=== PATIENT | female | born 1945 | race Caucasian/White ===

== ENCOUNTER 2016-05-24 13:23 | Inpatient (IN) ==
--- NOTE | 2016-05-24 13:44 | Emergency Department Note ---
Disposition Clinical Impression: Left leg cellulitis Sepsis Qualifiers: Sepsis type: sepsis due to unspecified organism Qualified Code(s): A41.9 - Sepsis, unspecified organism Disposition: Admitted As Inpatient Condition: Fair Time of Disposition: 15:18 General Adult HPI - General Chief complaint: ED Extremity Injury, Lower Stated complaint: L foot pain Time Seen by Provider: 05/24/16 13:31 Source: EMS Limitations: no limitations Nursing Notes Reviewed: Yes Vital Signs Reviewed: Yes - History of Present Illness HPI Narrative: 70-year-old female with multiple comorbidities presents to the emergency department with multiple complaints. Patient has a history of congestive heart failure, diabetes, hypertension and chronic lymphedema who presents primarily for increased swelling and pain to left lower extremity. Patient states she noticed the increased swelling yesterday. Patient states that she tried to get in contact with her PCP who was supposed to increase her Lasix however that has not happened. Patient denies any fevers but states she does have chills. She also reports intermittent chest pain and shortness of breath as well as orthopnea. Patient states that she has not ambulated in over 15 years and is chronically bedridden. She is not on home oxygen. Exam is remarkable for a morbidly obese female resting in bed in no acute distress. Heart is tachycardic but regular. Lungs are diminished bilaterally. Abdomen is obese and nontender. The left lower extremity is markedly more swollen than the right lower extremity. There is soft tissue thickening and erythema noted to the left leg. It is slightly more warm than the right lower extremity which shows no signs of erythema or soft tissue cellulitis. No other findings noted on exam. Labs, imaging ordered. Pt Subjective Complaint: Left lower extremity edema Onset (ago): day(s) (1) Location: left, lower extremity Radiation: non-radiation Quality: aching Consistency: constant Improves with: nothing Worsens with: nothing Associated symptoms: Reports: chest pain, fever/chills, nausea/vomiting, shortness of breath, weakness Treatments Prior to Arrival: none - Related Data Previous Rx's Medication Instructions Recorded Aspirin 81 mg PO DAILY 30 Days 04/03/16 Atorvastatin [Lipitor] 40 mg PO HS 30 Days 04/03/16 Cyanocobalamin (B-12) [Vitamin B12] 1,000 mcg IM QMONTH 30 Days 04/03/16 Diclofenac Potassium 50 mg PO TID 30 Days 04/03/16 Duloxetine [Cymbalta] 30 mg PO DAILY 30 Days 04/03/16 FluocinoNIDE 0.05% CRM [Lidex] 1 appl TP BID 30 Days 04/03/16 Fluticasone Propionate Nasal 50 mcg NS DAILY 30 Days 04/03/16 [Flonase] Furosemide [Lasix] 60 mg PO BID 30 Days 04/03/16 Gabapentin [Neurontin] 300 mg PO BID 30 Days 04/03/16 Guaifenesin [Mucinex] 600 mg PO Q12H PRN 30 Days 04/03/16 Insulin ASPART [NovoLOG] 2 - 14 unit SQ ACHS 30 Days 04/03/16 Ipratropium/Albuterol Sulfate 1 puff IH Q6H PRN 30 Days 04/03/16 [Combivent Respimat Inhal [place]] Ketotifen Fumarate [Eye Itch 1 drop BOTH EYES Q12H PRN 30 Days 04/03/16 Relief] L. Acidophilus/Pectin, [place] 1 each PO DAILY 30 Days 04/03/16 [Acidophilus Probiotic Capsule] Loperamide [Imodium] 4 mg PO DAILY PRN 30 Days 04/03/16 Loratadine [Claritin] 10 mg PO DAILY 30 Days 04/03/16 Menthol [Cough Drops] 9.1 mg PO Q2H PRN 14 Days 04/03/16 Metformin [Glucophage] 500 mg PO BIDWM 30 Days 04/03/16 Methyl Salicylate/Menth/Camph 1 each TP Q12H PRN 30 Days MDD 04/03/16 [Salonpas Patch] right foot Nystatin POWDER [Nystop] 1 appl TP BID 30 Days 04/03/16 Oxybutynin Chloride [Ditropan Xl] 10 mg PO HS 30 Days 04/03/16 Oxycodone HCl/Acetaminophen 1 each PO Q4H PRN #60 tablet 04/03/16 [Percocet 5-325 mg Tablet] Polyvinyl Alcohol [Artificial 1 drop BOTH EYES BID 30 Days 04/03/16 Tears] Potassium Chloride [K-Tab ER] 20 meq PO DAILY 30 Days 04/03/16 Promethazine [Phenergan] 25 mg PO Q6H PRN 30 Days 04/03/16 Ranitidine HCl [Acid External Grinder] 150 mg PO DAILY 30 Days 04/03/16 Scopolamine Patch [Transderm-Scop] 1.5 mg TD Q72H 30 Days 04/03/16 Sennosides/Docusate Sodium [Senna 2 each PO BID PRN 30 Days 04/03/16 Plus] Insulin Glargine,Hum.rec.anlog 20 unit SQ HS 30 Days 04/04/16 [Lantus Solostar] Allergies Allergy/AdvReac Type Severity Reaction Status Date / Time gentamicin AdvReac See Verified 03/21/16 17:28 Comments All systems ED: reviewed and negative except as stated. Constitutional: Reports: chills. Denies: fever Cardiovascular: Reports: chest pain, orthopnea, edema. Denies: palpitations Respiratory: Reports: dyspnea. Denies: cough, wheezes Gastrointestinal: Reports: nausea. Denies: abdominal pain, vomiting Genitourinary: Denies: urgency, dysuria Musculoskeletal: Denies: back pain, neck pain Integumentary: Denies: rash, abrasion Neurological: Denies: headache, weakness Past Medical History - Past Medical History Medical history: Reports: arthritis, asthma, CHF, COPD, diabetes, GERD, GI bleed , kidney stones, migraine, other Surgical history: Reports: appendectomy, hysterectomy, orthopedic, other, arthroscopy Psychiatric history: Reports: anxiety, depression - Social History Smoking Status: Former smoker Smokeless Tobacco Status: No Alcohol use: Reports: none Drug use: Reports: none Physical Exam - General Limitations: no limitations General appearance: alert, in no apparent distress - Head Head exam: atraumatic, normocephalic, normal inspection - Chest Chest inspection: Present: normal inspection, symmetric chest wall rise - Respiratory Respiratory exam: Present: normal lung sounds bilaterally - Cardiovascular Cardiovascular exam: Present: normal rhythm, tachycardia, normal heart sounds - Abdominal Exam Abdominal exam: Present: soft, Non-Tender. Absent: tenderness, distention, guarding, rebound, rigidity - Expanded Lower Extremity Exam Lower leg exam: Present: tenderness, swelling, erythema - Neurological Exam Neurological exam: Present: alert, oriented X3 - Skin Skin exam: Present: warm, dry, intact, normal color Course - Reevaluation(s) Reevaluation #1: Patient does have an elevated white blood cell count of 20,000 and was markedly tachycardic on arrival. That in conjunction with the patient's left lower vazquez cellulitis will call to patient to meet sepsis criteria. Lactate, blood cultures and antibiotics ordered. Given the patient's history of congestive heart failure we will proceed with a more controlled IV fluid resuscitation as to not exacerbate the patient's CHF. Patient will be admitted for further evaluation. Time: 15:17 Reevaluation #2: Discussed findings with hospitalist service. Patient accepted for further evaluation. Cultures have been obtained. Antibiotics are being infused. Patient remains tachycardic. Patient is stable at time of disposition. Time: 17:29 Vital Signs Temperature 98.1 F 05/24/16 13:26 Pulse Rate 113 05/24/16 13:26 Respiratory Rate 14 05/24/16 13:26 Blood Pressure 132/72 05/24/16 13:26 O2 Sat by Pulse Oximetry 93 L 05/24/16 13:26 Temperature 100.3 F H 05/24/16 20:51 Pulse Rate 134 05/24/16 19:50 Respiratory Rate 20 05/24/16 19:50 Blood Pressure 134/72 05/24/16 19:50 O2 Sat by Pulse Oximetry 95 05/24/16 19:50 Oxygen Delivery Oxygen Delivery Room Air Procedures - Ultrasound-Other Narrative: Bedside ultrasound performed. Images were obtained and interpreted by myself. Ultrasound soft tissue of left lower extremity shows diffuse cobblestoning consistent with cellulitis. There are no focal areas of fluid collection that would be considered abscess formation. Patient tolerated procedure well. Medical Decision Making - Medical Records Medical records reviewed: Yes I reviewed the patient's medical records. - Lab Data Lab results reviewed: Yes I reviewed the patient's lab results. Result diagrams: 05/24/16 14:04 05/24/16 14:04 Lab Results 05/24/16 05/24/16 05/24/16 Range/Units 14:04 14:04 14:04 WBC 20.3 H (4.3-11.1) K/mcL RBC 4.19 (3.82-4.97) M/mcL Hgb 11.4 L (11.5-15.4) g/dL Hct 36.0 (35.3-44.9) % MCV 85.9 (83.0-100.0) fL MCH 27.2 L (28.0-33.3) pg MCHC 31.7 (31.6-35.5) g/dL RDW 17.1 H (11.5-14.5) % Plt Count 290 (140-400) K/mcL MPV 9.5 (9.4-12.4) fL Immature Gran % 1.1 (0-4) % Seg Neutrophils % 93.5 % Lymphocytes % 3.6 % Monocytes % 1.4 % Eosinophils % 0.1 % Basophils % 0.3 % Neutrophils # 19.0 H (1.6-8.9) K/mcL Lymphocytes # 0.7 (0.6-4.6) K/mcL Monocytes # 0.3 (0.0-1.3) K/mcL Eosinophils # 0.0 (0.0-0.6) K/mcL Basophils # 0.1 (0.0-0.2) K/mcL Reactive Lymphocytes Present A (Not Present) Platelet Estimate Normal (Normal) PT (9.4-12.1) Seconds INR APTT (26.0-36.0) Seconds ABG pH (7.32-7.45) pH Units ABG pCO2 (35-45) mmHg ABG pO2 (85-104) mmHg ABG HCO3 (21-27) mEQ/L ABG Total CO2 (20-26) mEq/L ABG O2 Saturation (95-98) % ABG Base Excess (-2.0 to 3.0) mEq/L Liter Flow L/MIN Blood Gas Modality Inspired O2 % Sodium 136 (136-145) mEq/L Potassium 4.2 (3.5-4.5) mEq/L Chloride 104 (98-109) mEq/L Carbon Dioxide 19 (19-29) mEq/L BUN 21 H (7-20) mg/dL Creatinine 1.13 H (0.57-1.11) mg/dL Est GFR ( Amer) 58 L (> 60) Est GFR (Non-Af Amer) 48 L (> 60) BUN/Creatinine Ratio 19 (6-26) Glucose 303 H (70-99) mg/dL Calculated Osmolality 296 (280-300) Lactic Acid (0.5-2.2) mmol/L Calcium 8.7 (8.6-10.8) mg/dL Phosphorus (2.3-4.7) mg/dL Magnesium (1.6-2.6) mg/dL Total Bilirubin (0.2-1.2) mg/dL Direct Bilirubin (0.0-0.5) mg/dL Indirect Bilirubin (0.0-1.2) mg/dL AST (5-34) Units/L ALT (0-55) Units/L Alkaline Phosphatase (38-126) Units/L Troponin I 0.01 (0-0.03) ng/mL Serum Total Protein (6.0-8.3) g/dL Albumin (3.5-5.0) g/dL Globulin (2.4-3.5) g/dL Albumin/Globulin Ratio (1.1-2.2) 05/24/16 05/24/16 05/24/16 Range/Units 15:56 16:14 16:14 WBC (4.3-11.1) K/mcL RBC (3.82-4.97) M/mcL Hgb (11.5-15.4) g/dL Hct (35.3-44.9) % MCV (83.0-100.0) fL MCH (28.0-33.3) pg MCHC (31.6-35.5) g/dL RDW (11.5-14.5) % Plt Count (140-400) K/mcL MPV (9.4-12.4) fL Immature Gran % (0-4) % Seg Neutrophils % % Lymphocytes % % Monocytes % % Eosinophils % % Basophils % % Neutrophils # (1.6-8.9) K/mcL Lymphocytes # (0.6-4.6) K/mcL Monocytes # (0.0-1.3) K/mcL Eosinophils # (0.0-0.6) K/mcL Basophils # (0.0-0.2) K/mcL Reactive Lymphocytes (Not Present) Platelet Estimate (Normal) PT 12.1 (9.4-12.1) Seconds INR 1.1 APTT 29.6 (26.0-36.0) Seconds ABG pH (7.32-7.45) pH Units ABG pCO2 (35-45) mmHg ABG pO2 (85-104) mmHg ABG HCO3 (21-27) mEQ/L ABG Total CO2 (20-26) mEq/L ABG O2 Saturation (95-98) % ABG Base Excess (-2.0 to 3.0) mEq/L Liter Flow L/MIN Blood Gas Modality Inspired O2 % Sodium (136-145) mEq/L Potassium (3.5-4.5) mEq/L Chloride (98-109) mEq/L Carbon Dioxide (19-29) mEq/L BUN (7-20) mg/dL Creatinine (0.57-1.11) mg/dL Est GFR ( Amer) (> 60) Est GFR (Non-Af Amer) (> 60) BUN/Creatinine Ratio (6-26) Glucose (70-99) mg/dL Calculated Osmolality (280-300) Lactic Acid 3.7 H (0.5-2.2) mmol/L Calcium (8.6-10.8) mg/dL Phosphorus 3.3 (2.3-4.7) mg/dL Magnesium 1.2 L (1.6-2.6) mg/dL Total Bilirubin 1.1 (0.2-1.2) mg/dL Direct Bilirubin 0.5 (0.0-0.5) mg/dL Indirect Bilirubin 0.6 (0.0-1.2) mg/dL AST 16 (5-34) Units/L ALT 16 (0-55) Units/L Alkaline Phosphatase 78 (38-126) Units/L Troponin I (0-0.03) ng/mL Serum Total Protein 6.7 (6.0-8.3) g/dL Albumin 2.8 L (3.5-5.0) g/dL Globulin 3.9 H (2.4-3.5) g/dL Albumin/Globulin Ratio 0.7 L (1.1-2.2) 05/24/16 Range/Units 16:15 WBC (4.3-11.1) K/mcL RBC (3.82-4.97) M/mcL Hgb (11.5-15.4) g/dL Hct (35.3-44.9) % MCV (83.0-100.0) fL MCH (28.0-33.3) pg MCHC (31.6-35.5) g/dL RDW (11.5-14.5) % Plt Count (140-400) K/mcL MPV (9.4-12.4) fL Immature Gran % (0-4) % Seg Neutrophils % % Lymphocytes % % Monocytes % % Eosinophils % % Basophils % % Neutrophils # (1.6-8.9) K/mcL Lymphocytes # (0.6-4.6) K/mcL Monocytes # (0.0-1.3) K/mcL Eosinophils # (0.0-0.6) K/mcL Basophils # (0.0-0.2) K/mcL Reactive Lymphocytes (Not Present) Platelet Estimate (Normal) PT (9.4-12.1) Seconds INR APTT (26.0-36.0) Seconds ABG pH 7.35 (7.32-7.45) pH Units ABG pCO2 34 L (35-45) mmHg ABG pO2 76 L (85-104) mmHg ABG HCO3 20.2 L (21-27) mEQ/L ABG Total CO2 19.8 L (20-26) mEq/L ABG O2 Saturation 94 L (95-98) % ABG Base Excess -6.0 L (-2.0 to 3.0) mEq/L Liter Flow 2 L/MIN Blood Gas Modality [place] Inspired O2 28 % Sodium (136-145) mEq/L Potassium (3.5-4.5) mEq/L Chloride (98-109) mEq/L Carbon Dioxide (19-29) mEq/L BUN (7-20) mg/dL Creatinine (0.57-1.11) mg/dL Est GFR ( Amer) (> 60) Est GFR (Non-Af Amer) (> 60) BUN/Creatinine Ratio (6-26) Glucose (70-99) mg/dL Calculated Osmolality (280-300) Lactic Acid (0.5-2.2) mmol/L Calcium (8.6-10.8) mg/dL Phosphorus (2.3-4.7) mg/dL Magnesium (1.6-2.6) mg/dL Total Bilirubin (0.2-1.2) mg/dL Direct Bilirubin (0.0-0.5) mg/dL Indirect Bilirubin (0.0-1.2) mg/dL AST (5-34) Units/L ALT (0-55) Units/L Alkaline Phosphatase (38-126) Units/L Troponin I (0-0.03) ng/mL Serum Total Protein (6.0-8.3) g/dL Albumin (3.5-5.0) g/dL Globulin (2.4-3.5) g/dL Albumin/Globulin Ratio (1.1-2.2) - Radiology Data Radiology results reviewed: Yes I reviewed the patient's radiology results. - EKG Data EKG #1 EKG attestation: Yes I reviewed and interpreted this EKG. EKG shows normal: sinus rhythm Rate: tachycardia Rhythm: NSR Conde/QRS: normal Interpretation: no acute changes Attestation Statement - Attestation Attestation: I examined this patient and my medical decision-making was reviewed with the TU[employer]/PA/Advanced Practice Nurse/Resident Physician. I agree with the documented findings, disposition and treatment plan as described except to the extent set forth below. 70-year-old female who was essentially bedridden due to chronic lymphedema presents to the ED because of painful swelling of the left lower extremity. Symptoms have been evolving for the past couple days. She denies any associated fevers, chills or rigors. No recent trauma. No complaints of dyspnea. Does complain of intermittent mild chest pain. No focal weakness. No abdominal pain. Morbidly obese female in no apparent physiologic distress. She is tachycardic. Her first care mucous membranes dry. Neck is supple. Trachea midline. Chest clear to auscultation bilaterally. Chest wall nontender. Abdomen obese soft nontender. Lower extremities with significant bilateral edema but markedly worse on the left side. Diffuse tenderness and diffuse erythema over the lower externally. Distal pulses are present. Cap refill is brisk. He is to place extremities negative for any DVTs. White blood cell count is elevated 20,000. She continued with tachycardia and was subsequently treated as sepsis. She was given sequential IV fluid boluses and started on broad-spectrum antibiotics. She is subtotally admitted for IV antibiotics, fluids and further management. The high probability of a clinically significant, sudden or life threatening deterioration of the [cardiovascular] system(s) required my full and direct attention, intervention and personal management. The aggregate critical care time was [40] minutes. This time is in addition to time spent performing reported procedures but includes the following: [x] Data Review and interpretation [x] Patient assessment and monitoring of vital signs [x] Documentation [x] Medication orders and management
[2016-05-24 14:16] LABS: Basophils # 0.1 K/mcL (0.0-0.2); Basophils % 0.3 %; Eosinophils % 0.1 %; Hemoglobin 11.4 g/dL (11.5-15.4); Immature Granulocytes % 1.1 % (0-4); Lymphocytes # 0.7 K/mcL (0.6-4.6); Lymphocytes % 3.6 %; Mean Corpuscular HGB Conc 31.7 g/dL (31.6-35.5); Mean Corpuscular Hemoglobin 27.2 pg (28.0-33.3); Mean Corpuscular Volume 85.9 fL (83.0-100.0); Mean Platelet Volume 9.5 fL (9.4-12.4); Monocytes # 0.3 K/mcL (0.0-1.3); Monocytes % 1.4 %; Platelet Count 290 K/mcL (140-400); Red Blood Count 4.19 M/mcL (3.82-4.97); Red Cell Distribution Width 17.1 % (11.5-14.5); Segmented Neutrophils % 93.5 %
[2016-05-24 14:27] LABS: Calcium 8.7 mg/dL (8.6-10.8); Potassium 4.2 mEq/L (3.5-4.5)
[2016-05-24 14:36] LABS: Platelet Estimate Normal (Normal)
[2016-05-24 14:37] LABS: Reactive Lymphocytes Present (Not Present)
[2016-05-24] MEDS ORDERED: *HR* FentaNYL (PF) 100 MCG/2 ML VIAL IV ONE (14:59)
[2016-05-24] MEDS ORDERED: Vancomycin 2,000 MG in D5% in Water 500 ML IVPB ONE (15:15)
[2016-05-24] MEDS ORDERED: 0.9 % Sodium Chloride 1,000 ML IVC ONE ×2 (15:15→15:16)
[2016-05-24 16:22] LABS: ABG PCO2 34 mmHg (35-45); ABG PH 7.35 pH Units (7.32-7.45); ABG PO2 76 mmHg (85-104)
[2016-05-24 16:23] LABS: ABG HCO3 20.2 mEQ/L (21-27); ABG Oxygen Saturation 94 % (95-98); ABG TCO2 19.8 mEq/L (20-26); Blood Gas FiO2 28 %; Blood Gas Liter Flow 2 L/MIN
[2016-05-24] MEDS ORDERED: 0.9 % Sodium Chloride 1,000 ML IV ONE ×2 (16:30→17:26)
[2016-05-24 16:42] LABS: INR 1.1; Prothrombin Time 12.1 Seconds (9.4-12.1)
[2016-05-24 16:45] LABS: Activated Partial Thrombo Time 29.6 Seconds (26.0-36.0)
[2016-05-24] MEDS: *HR* FentaNYL (PF) 100 MCG/2 ML VIAL IV ONE ×2 (16:48→16:49)
[2016-05-24 17:03] LABS: Albumin 2.8 g/dL (3.5-5.0); Albumin/Globulin Ratio 0.7 (1.1-2.2); Bilirubin,Direct 0.5 mg/dL (0.0-0.5); Bilirubin,Indirect 0.6 mg/dL (0.0-1.2); Bilirubin,Total 1.1 mg/dL (0.2-1.2); Globulin 3.9 g/dL (2.4-3.5); Magnesium 1.2 mg/dL (1.6-2.6); Phosphorous 3.3 mg/dL (2.3-4.7); Total Protein 6.7 g/dL (6.0-8.3)
[2016-05-24] MEDS ORDERED: KETOTIFEN OP PRN (20:05)
[2016-05-24] MEDS ORDERED: MENTHOL TP PRN (20:05)
[2016-05-24] MEDS ORDERED: CAMPHOR TP PRN (20:05)
[2016-05-24] MEDS ORDERED: METHYL SALICYLATE TP PRN (20:05)
[2016-05-24] MEDS ORDERED: Ondansetron 4 MG/2 ML VIAL IVP PRN (20:08)
[2016-05-24] MEDS ORDERED: Naloxone 0.4 MG/ML INJ IVP PRN (20:08)
[2016-05-24] MEDS ORDERED: *HR* Morphine 2 MG/ML SYRINGE IVP PRN (20:08)
[2016-05-24] MEDS ORDERED: D5% in Water 1,000 ML IV PRN (20:13)
[2016-05-24] MEDS ORDERED: *HR* Dextrose 50 % in Water (Syg) 50 ML SYRINGE IVP PRN (20:13)
[2016-05-24] MEDS ORDERED: Dextrose Gel 15 GM PO PRN ×2 (20:13)
[2016-05-24] MEDS ORDERED: Ipratropium/Albuterol Neb 3 ML IH PRN (20:14)
--- NOTE | 2016-05-24 20:23 | Internal Med History&Physical ---
Date of Encounter: 05/24/16 Time of Encounter: 19:45 Internal Medicine - H&P: HPI Chief complaint: Bilateral leg pain, left leg swelling and redness, chills, rigors x 2-3 day Admitted From: Emergency Dept Plans for Post Hospital Care: Home History of present illness: Ms. Zamora is a 70 year old female with medical history significant for super morbid obesity, DM2, diastolic heart failure, secondary lymphedema, chronic venous insufficiency with stasis dermatitis, she presents with 1 days of severe intermittent bilateral foot and lower extremity pain, blistering and swelling of her left lower extremity, subjective fevers of 2 days duration. She also describes shortness of breath, intermittent chest pain (retrosternal and left sided) and orthopnea (chronic). She reports nausea but no vomiting, as well as lethargy. She thinks she may have UTI, because she felt the same way the last time she had UTI. She is incontinence of urine. No urgency or dysuria. No flank pain. No skin breaches, besides the new blistering lesions in her left lower extremity. She has not been ambulatory for over 15 years due to her weight. She does not use home oxygen, she has been informed she may have obstructive sleep apnea, but has never used CPAP because she is claustrophobic. No other systemic or constitutional symptoms. She is FULL CODE as per discussion, she nominates her daughter, Luci Ortega ([phone]) is her NOK/POA. In the ED, she was mildly febrile, heart rate was very fast (130s). Medical history: Reports: arthritis, asthma, CHF, COPD, diabetes, GERD, GI bleed , kidney stones, migraine, large umbilical hernia Surgical history: Reports: appendectomy, hysterectomy, orthopedic, other, arthroscopy Psychiatric history: Reports: anxiety, depression Smoking Status: Former smoker Smokeless Tobacco Status: No Alcohol use: Reports: none Drug use: Reports: none Family history: father, mother, brothers and sister, son: emphysema (smoking) and heart disease. Daughter: kidney disease ROS. A 10-point ROS was performed, positives and relevant negatives are detailed , system-symptoms not mentioned are assumed negative unless otherwise stated. Vital Signs Temperature 98.1 F 05/24/16 13:26 Pulse Rate 113 05/24/16 13:26 Respiratory Rate 14 05/24/16 13:26 Blood Pressure 132/72 05/24/16 13:26 O2 Sat by Pulse Oximetry 93 L 05/24/16 13:26 Temperature 98.1 F 05/24/16 13:26 Pulse Rate 123 05/24/16 16:59 Respiratory Rate 12 05/24/16 16:59 Blood Pressure 141/120 05/24/16 16:59 O2 Sat by Pulse Oximetry 96 05/24/16 16:59 O/E: In mild respiratory distress (SOB, mild tachypnea), not pale, anicteric, febrile+,acyanotic, morbidly obese. HEENT: Trachea is central, no cervical or jugular lymphadenopathy Chest: CTAB. diminished in the bases Heart:Tachycardia (132), rr, hs1/2 Abdomen: Supraumbilical hernia, large, wide neck, soft, , non-tender,no masses. 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 Psychaitry: Mood is good, affect is congruent, speech is normal, thought process is logical and goal-directed. Extremities: non-pitting pedal edema (bilateral lymphedema), swelling and mild blistering of left lower extremity, mild differential warmth, difficult to palpate pulse through lymphedema, but good capillary refill, no calf tenderness SKIN: No active skin lesion Lab Results 05/24/16 05/24/16 05/24/16 Range/Units 14:04 14:04 14:04 WBC 20.3 H (4.3-11.1) K/mcL RBC 4.19 (3.82-4.97) M/mcL Hgb 11.4 L (11.5-15.4) g/dL Hct 36.0 (35.3-44.9) % MCV 85.9 (83.0-100.0) fL MCH 27.2 L (28.0-33.3) pg MCHC 31.7 (31.6-35.5) g/dL RDW 17.1 H (11.5-14.5) % Plt Count 290 (140-400) K/mcL MPV 9.5 (9.4-12.4) fL Immature Gran % 1.1 (0-4) % Seg Neutrophils % 93.5 % Lymphocytes % 3.6 % Monocytes % 1.4 % Eosinophils % 0.1 % Basophils % 0.3 % Neutrophils # 19.0 H (1.6-8.9) K/mcL Lymphocytes # 0.7 (0.6-4.6) K/mcL Monocytes # 0.3 (0.0-1.3) K/mcL Eosinophils # 0.0 (0.0-0.6) K/mcL Basophils # 0.1 (0.0-0.2) K/mcL Reactive Lymphocytes Present A (Not Present) Platelet Estimate Normal (Normal) PT (9.4-12.1) Seconds INR APTT (26.0-36.0) Seconds ABG pH (7.32-7.45) pH Units ABG pCO2 (35-45) mmHg ABG pO2 (85-104) mmHg ABG HCO3 (21-27) mEQ/L ABG Total CO2 (20-26) mEq/L ABG O2 Saturation (95-98) % ABG Base Excess (-2.0 to 3.0) mEq/L Liter Flow L/MIN Blood Gas Modality Inspired O2 % Sodium 136 (136-145) mEq/L Potassium 4.2 (3.5-4.5) mEq/L Chloride 104 (98-109) mEq/L Carbon Dioxide 19 (19-29) mEq/L BUN 21 H (7-20) mg/dL Creatinine 1.13 H (0.57-1.11) mg/dL Est GFR ( Amer) 58 L (> 60) Est GFR (Non-Af Amer) 48 L (> 60) BUN/Creatinine Ratio 19 (6-26) Glucose 303 H (70-99) mg/dL Calculated Osmolality 296 (280-300) Lactic Acid (0.5-2.2) mmol/L Calcium 8.7 (8.6-10.8) mg/dL Phosphorus (2.3-4.7) mg/dL Magnesium (1.6-2.6) mg/dL Total Bilirubin (0.2-1.2) mg/dL Direct Bilirubin (0.0-0.5) mg/dL Indirect Bilirubin (0.0-1.2) mg/dL AST (5-34) Units/L ALT (0-55) Units/L Alkaline Phosphatase (38-126) Units/L Troponin I 0.01 (0-0.03) ng/mL Serum Total Protein (6.0-8.3) g/dL Albumin (3.5-5.0) g/dL Globulin (2.4-3.5) g/dL Albumin/Globulin Ratio (1.1-2.2) 05/24/16 05/24/16 05/24/16 Range/Units 15:56 16:14 16:14 WBC (4.3-11.1) K/mcL RBC (3.82-4.97) M/mcL Hgb (11.5-15.4) g/dL Hct (35.3-44.9) % MCV (83.0-100.0) fL MCH (28.0-33.3) pg MCHC (31.6-35.5) g/dL RDW (11.5-14.5) % Plt Count (140-400) K/mcL MPV (9.4-12.4) fL Immature Gran % (0-4) % Seg Neutrophils % % Lymphocytes % % Monocytes % % Eosinophils % % Basophils % % Neutrophils # (1.6-8.9) K/mcL Lymphocytes # (0.6-4.6) K/mcL Monocytes # (0.0-1.3) K/mcL Eosinophils # (0.0-0.6) K/mcL Basophils # (0.0-0.2) K/mcL Reactive Lymphocytes (Not Present) Platelet Estimate (Normal) PT 12.1 (9.4-12.1) Seconds INR 1.1 APTT 29.6 (26.0-36.0) Seconds ABG pH (7.32-7.45) pH Units ABG pCO2 (35-45) mmHg ABG pO2 (85-104) mmHg ABG HCO3 (21-27) mEQ/L ABG Total CO2 (20-26) mEq/L ABG O2 Saturation (95-98) % ABG Base Excess (-2.0 to 3.0) mEq/L Liter Flow L/MIN Blood Gas Modality Inspired O2 % Sodium (136-145) mEq/L Potassium (3.5-4.5) mEq/L Chloride (98-109) mEq/L Carbon Dioxide (19-29) mEq/L BUN (7-20) mg/dL Creatinine (0.57-1.11) mg/dL Est GFR ( Amer) (> 60) Est GFR (Non-Af Amer) (> 60) BUN/Creatinine Ratio (6-26) Glucose (70-99) mg/dL Calculated Osmolality (280-300) Lactic Acid 3.7 H (0.5-2.2) mmol/L Calcium (8.6-10.8) mg/dL Phosphorus 3.3 (2.3-4.7) mg/dL Magnesium 1.2 L (1.6-2.6) mg/dL Total Bilirubin 1.1 (0.2-1.2) mg/dL Direct Bilirubin 0.5 (0.0-0.5) mg/dL Indirect Bilirubin 0.6 (0.0-1.2) mg/dL AST 16 (5-34) Units/L ALT 16 (0-55) Units/L Alkaline Phosphatase 78 (38-126) Units/L Troponin I (0-0.03) ng/mL Serum Total Protein 6.7 (6.0-8.3) g/dL Albumin 2.8 L (3.5-5.0) g/dL Globulin 3.9 H (2.4-3.5) g/dL Albumin/Globulin Ratio 0.7 L (1.1-2.2) 05/24/16 Range/Units 16:15 WBC (4.3-11.1) K/mcL RBC (3.82-4.97) M/mcL Hgb (11.5-15.4) g/dL Hct (35.3-44.9) % MCV (83.0-100.0) fL MCH (28.0-33.3) pg MCHC (31.6-35.5) g/dL RDW (11.5-14.5) % Plt Count (140-400) K/mcL MPV (9.4-12.4) fL Immature Gran % (0-4) % Seg Neutrophils % % Lymphocytes % % Monocytes % % Eosinophils % % Basophils % % Neutrophils # (1.6-8.9) K/mcL Lymphocytes # (0.6-4.6) K/mcL Monocytes # (0.0-1.3) K/mcL Eosinophils # (0.0-0.6) K/mcL Basophils # (0.0-0.2) K/mcL Reactive Lymphocytes (Not Present) Platelet Estimate (Normal) PT (9.4-12.1) Seconds INR APTT (26.0-36.0) Seconds ABG pH 7.35 (7.32-7.45) pH Units ABG pCO2 34 L (35-45) mmHg ABG pO2 76 L (85-104) mmHg ABG HCO3 20.2 L (21-27) mEQ/L ABG Total CO2 19.8 L (20-26) mEq/L ABG O2 Saturation 94 L (95-98) % ABG Base Excess -6.0 L (-2.0 to 3.0) mEq/L Liter Flow 2 L/MIN Blood Gas Modality [place] Inspired O2 28 % Sodium (136-145) mEq/L Potassium (3.5-4.5) mEq/L Chloride (98-109) mEq/L Carbon Dioxide (19-29) mEq/L BUN (7-20) mg/dL Creatinine (0.57-1.11) mg/dL Est GFR ( Amer) (> 60) Est GFR (Non-Af Amer) (> 60) BUN/Creatinine Ratio (6-26) Glucose (70-99) mg/dL Calculated Osmolality (280-300) Lactic Acid (0.5-2.2) mmol/L Calcium (8.6-10.8) mg/dL Phosphorus (2.3-4.7) mg/dL Magnesium (1.6-2.6) mg/dL Total Bilirubin (0.2-1.2) mg/dL Direct Bilirubin (0.0-0.5) mg/dL Indirect Bilirubin (0.0-1.2) mg/dL AST (5-34) Units/L ALT (0-55) Units/L Alkaline Phosphatase (38-126) Units/L Troponin I (0-0.03) ng/mL Serum Total Protein (6.0-8.3) g/dL Albumin (3.5-5.0) g/dL Globulin (2.4-3.5) g/dL Albumin/Globulin Ratio (1.1-2.2) CXR: Cardiomegaly without pulmonary vascular congestion or pulmonary edema EKG: Sinus tachycardia (130), normal axis, normal intervals. Recent cardiac work-up: failed, reversible ischemia in basal and mid inferior fernández on stress test, moderate disease on LHC, medical management recommended ( within the past 6 months). IMP Cellulitis/lympangitis on secondary lymphedema, suspect Streptococcocal etiology. Sepsis Probable bacteremia Hypoxia related to sepsis, on baseline COPD/asthma and obstructive sleep apnea/ hypoventilation syndrome Hypomagnesemia Chronic morbidities Secondary lymphedema Chronic venous insufficiency with stasis dermatitis Morbid obesity with EZRA/HS DM2 CAD Arthritis Diastolic CHF, stable COPD/asthma, GERD Admit IVF NS @ 125 IV Ceftriaxone, IV Clindamycin Panculture, CRP. Insert Brown Optimal pain control Oxygen by nasal cannula @ 4L/min, pulse oximetry Trend CBC and lactate. Duonebs Q4H PRN Basal and correctional insulin, hold metformin Continue medications of chronic morbidities DVT prophylaxis with Lovenox GERD/GI prophylaxis with Ranitidine I discussed my findings and assessment with the patient, her daughter and son- in-law are at bedside, they verbalized understanding and are agreeable to admission. She is high risk, septic and at higher risk of decompensation. Past Med Surg Social Fam HX - Past Medical History Medical history: arthritis, asthma, CHF, COPD, diabetes, GERD, GI bleed, kidney stones, migraine, other Psychiatric history: anxiety, depression - Past Surgical History Surgical History: appendectomy, hysterectomy, orthopedic, other, arthroscopy - Social History Smoking Status: Former smoker Smokeless Tobacco Status: No Alcohol use: none Drug use: none - Family History Mother Family Member Ethnicity: Non- Hx Family Cardiac Disorders: Yes Hx Family Respiratory Disorders: Yes Hx Family Endocrine Disorder: Yes Father Hx Family Cardiac Disorders: Yes Hx Family Respiratory Disorders: Yes Hx Family Endocrine Disorder: Yes Internal Medicine - H&P: Meds Aspirin 81 mg PO DAILY 30 Days 04/03/16 [Rx] Atorvastatin [Lipitor] 40 mg PO HS 30 Days 04/03/16 [Rx] Cyanocobalamin (B-12) [Vitamin B12] 1,000 mcg IM QMONTH 30 Days 04/03/16 [Rx] Diclofenac Potassium 50 mg PO TID 30 Days 04/03/16 [Rx] Duloxetine [Cymbalta] 30 mg PO DAILY 30 Days 04/03/16 [Rx] FluocinoNIDE 0.05% CRM [Lidex] 1 appl TP BID 30 Days 04/03/16 [Rx] Fluticasone Propionate Nasal [Flonase] 50 mcg NS DAILY 30 Days 04/03/16 [Rx] Furosemide [Lasix] 60 mg PO BID 30 Days 04/03/16 [Rx] Gabapentin [Neurontin] 300 mg PO BID 30 Days 04/03/16 [Rx] Guaifenesin [Mucinex] 600 mg PO Q12H PRN 30 Days 04/03/16 [Rx] Insulin ASPART [NovoLOG] 2 - 14 unit SQ ACHS 30 Days 04/03/16 [Rx] Ipratropium/Albuterol Sulfate [Combivent Respimat Inhal [place]] 1 puff IH Q6H PRN 30 Days 04/03/16 [Rx] Ketotifen Fumarate [Eye Itch Relief] 1 drop BOTH EYES Q12H PRN 30 Days 04/03/16 [Rx] L. Acidophilus/Pectin, [place] [Acidophilus Probiotic Capsule] 1 each PO DAILY 30 Days 04/03/16 [Rx] Loperamide [Imodium] 4 mg PO DAILY PRN 30 Days 04/03/16 [Rx] Loratadine [Claritin] 10 mg PO DAILY 30 Days 04/03/16 [Rx] Menthol [Cough Drops] 9.1 mg PO Q2H PRN 14 Days 04/03/16 [Rx] Metformin [Glucophage] 500 mg PO BIDWM 30 Days 04/03/16 [Rx] Methyl Salicylate/Menth/Camph [Salonpas Patch] 1 each TP Q12H PRN 30 Days MDD right foot 04/03/16 [Rx] Nystatin POWDER [Nystop] 1 appl TP BID 30 Days 04/03/16 [Rx] Oxybutynin Chloride [Ditropan Xl] 10 mg PO HS 30 Days 04/03/16 [Rx] Oxycodone HCl/Acetaminophen [Percocet 5-325 mg Tablet] 1 each PO Q4H PRN #60 tablet 04/03/16 [Rx] Polyvinyl Alcohol [Artificial Tears] 1 drop BOTH EYES BID 30 Days 04/03/16 [Rx] Potassium Chloride [K-Tab ER] 20 meq PO DAILY 30 Days 04/03/16 [Rx] Promethazine [Phenergan] 25 mg PO Q6H PRN 30 Days 04/03/16 [Rx] Ranitidine HCl [Acid Ui Application Developer] 150 mg PO DAILY 30 Days 04/03/16 [Rx] Scopolamine Patch [Transderm-Scop] 1.5 mg TD Q72H 30 Days 04/03/16 [Rx] Sennosides/Docusate Sodium [Senna Plus] 2 each PO BID PRN 30 Days 04/03/16 [Rx] Insulin Glargine,Hum.rec.anlog [Lantus Solostar] 20 unit SQ HS 30 Days 04/04/16 [Rx] Allergies gentamicin Adverse Reaction (Verified 03/21/16 17:28) See Comments "MY KIDNEYS SHUTDOWN, TOTAL SHUTDOWN" All Systems PM: A 10-system review of systems was performed and is negative for pertinent findings except as documented above in the HPI. - Constitutional Vitals: Temp Pulse Resp BP Pulse Ox 102 F H 134 20 134/72 95 05/24/16 19:50 05/24/16 19:50 05/24/16 19:50 05/24/16 19:50 05/24/16 19:50 Internal Med - H&P Results - Labs CBC & Chem 7: 05/24/16 14:04 05/24/16 14:04
[2016-05-24] MEDS ORDERED: Magnesium Sulfate 3 GM in D5% in Water 100 ML IVPB ONE (21:32)
[2016-05-24 21:38] LABS: Hemoglobin A1C 7.6 %
[2016-05-24] MEDS: Scopolamine Patch 1.5 MG PATCH.TD72 TD SCH (21:59)
[2016-05-24] MEDS: Gabapentin 300 MG CAPSULE PO SCH (21:59)
[2016-05-24] MEDS: 0.9 % Sodium Chloride 1,000 ML IVC SCH (22:00)
[2016-05-24] MEDS: Insulin LISPRO 300 UNITS/3 ML VIAL SQ SCH (22:02)
[2016-05-24] MEDS: Furosemide 20 MG TABLET PO SCH (22:17)
[2016-05-24] MEDS: Artificial Tears SOLN 15 ML BOTTLE BOTH EYES SCH (23:30)
[2016-05-24] MEDS: Insulin DETEMIR 100 UNIT/ML X5UNITS SQ SCH (23:30)
[2016-05-24] MEDS: Nystatin POWDER 30 GM BOTTLE TP SCH (23:30)
[2016-05-24] MEDS: FluocinoNIDE 0.05% CRM 15 GM TUBE TP SCH (23:31)
[2016-05-24] MEDS: *HR* Enoxaparin 40 MG/0.4 ML SYRINGE SQ SCH (23:43)
[2016-05-25] MEDS ORDERED: Clindamycin 900 MG/50 ML 900 MG/50 ML IV.SOLN IVPB SCH
[2016-05-25] MEDS: *HR* OxyCODONE/APAP 5/325 TABLET PO PRN ×3 (03:44→17:17)
[2016-05-25 04:12] LABS: Bilirubin,Urine Negative (Negative); Blood,Urine Large (Negative); Clarity,Urine Turbid (Clear); Color,Urine Yellow (Yellow); Glucose,Urine (UA) Normal (Normal); Ketones,Urine Negative (Negative); Leukocyte Esterase,Urine Large (Negative); Nitrite,Urine Negative (Negative); Protein,Urine 100 mg/dL (Neg-Trace); Specific Gravity,Urine 1.013 (1.010-1.025); Urobilinogen,Urine Normal (Normal)
[2016-05-25 04:14] LABS: Bacteria,Urine Many per hpf (None-Few); Hyaline Casts,Urine None Seen per lpf (None-Few); RBC,Urine 50-100 per hpf (0-3); Squamous Epithelial Cell,Urine Many per lpf (None-Few); WBC,Urine TNTC per hpf (0-3)
[2016-05-25 05:42] LABS: Hematocrit 31.6 % (35.3-44.9); Mean Corpuscular HGB Conc 31.6 g/dL (31.6-35.5); Mean Corpuscular Hemoglobin 27.2 pg (28.0-33.3); Mean Corpuscular Volume 85.9 fL (83.0-100.0); Mean Platelet Volume 9.7 fL (9.4-12.4); Platelet Count 233 K/mcL (140-400); Red Blood Count 3.68 M/mcL (3.82-4.97); Red Cell Distribution Width 17.1 % (11.5-14.5)
[2016-05-25] MEDS: *HR* Enoxaparin 40 MG/0.4 ML SYRINGE SQ SCH (05:47)
[2016-05-25 06:27] LABS: Acinetobacter baumannii by PCR Not Detected (Not Detect); Enterococcus by PCR Not Detected (Not Detect); Staphylococcus aureus by PCR Not Detected (Not Detect); Streptococcus agalactiae(B)PCR Not Detected (Not Detect); Streptococcus by PCR Not Detected (Not Detect); Streptococcus pneumoniae PCR Not Detected (Not Detect); Streptococcus pyogenes (A) PCR Not Detected (Not Detect); blaKPC Carbapenem-Resist Gene Not Detected (Not Detect)
[2016-05-25 06:28] LABS: Candida albicans by PCR Not Detected (Not Detect); Candida glabrata by PCR Not Detected (Not Detect); Candida krusei by PCR Not Detected (Not Detect); Candida parapsilosis by PCR Not Detected (Not Detect); Candida tropicalis by PCR Not Detected (Not Detect); Escherichia coli by PCR ***DETECTED*** (Not Detect); Klebsiella oxytoca by PCR Not Detected (Not Detect); Klebsiella pneumoniae by PCR Not Detected (Not Detect); Pseudomonas aeruginosa by PCR Not Detected (Not Detect); Serratia marcescens by PCR Not Detected (Not Detect)
[2016-05-25 06:50] LABS: Eosinophils # 0.2 K/mcL (0.0-0.6); Lymphocytes # 1.5 K/mcL (0.6-4.6); Monocytes # 0.8 K/mcL (0.0-1.3); Neutrophils # 14.3 K/mcL (1.6-8.9); Platelet Estimate Normal (Normal)
[2016-05-25 06:51] LABS: Reactive Lymphocytes Present (Not Present)
--- NOTE | 2016-05-25 07:22 | Venous Imaging Report ---
LE Venous Duplex Patient Name:Kirti Zamora Order Number:[id number] Procedure Date:05/24/2016 Date:1945ge:70 yrs Gender:Female Location:[facility] ED Room #: Wrapper Operator:Lisa Lee RVT Referring MD:Yessenia Kinney CNP service representative:DO Lebron Mock MD:Kali Dowell MD Primary Indications:L foot pain Secondary Indications: Impressions: Normal left lower extremity deep and superficial venous exam. Normal contralateral common femoral vein. Recommendations: After imaging the patient was admitted to the emergency room. Results to Dr Yessenia Kinney 05/24/16 @ 1440. Test completed on 05/24/2016 at 2:40:00 pm. Findings Venous Duplex Results: Right: Venous imaging of the lower extremity reveals full patency and normal vessel compressibility of the right common femoral. Doppler signals in the evaluated veins were normal. Left: Venous imaging of the lower extremity reveals full patency and normal vessel compressibility of the left distal iliac, left common femoral, left superficial femoral, left popliteal, left posterior tibial, left great saphenous and left lesser saphenous. Doppler signals in the evaluated veins were normal. Prior Study: No prior study available for comparison. Lower Extremity Venous Duplex Side Vein Compress Spontaneous Flow Augment Diameter (cm) Depth (cm) Left Distal Iliac Normal Yes Phasic Yes Left Common Femoral Normal Yes Phasic Yes Left Superficial Femoral Normal Yes Phasic Yes Left Popliteal Normal Yes Phasic Yes Left Posterior Tibial Normal Yes Phasic Yes Left Great Saphenous Normal Yes Phasic Yes Left Lesser Saphenous Normal Yes Phasic Yes Right Common Femoral Normal Yes Phasic Yes Updated by Kali Dowell MD on 05/25/2016 7:18:57 AM electronically signed on 05/25/2016 7:19:32 AM with status of Final
[2016-05-25] MEDS: Insulin LISPRO 300 UNITS/3 ML VIAL SQ SCH ×4 (08:51→23:14)
[2016-05-25] MEDS: Lactobacillus 1 EACH CAP.SPRINK PO SCH (10:01)
[2016-05-25] MEDS: Gabapentin 300 MG CAPSULE PO SCH ×2 (10:01→23:12)
[2016-05-25] MEDS: Furosemide 20 MG TABLET PO SCH ×2 (10:01→17:11)
[2016-05-25] MEDS: Aspirin 81 MG TAB.CHEW PO SCH (10:02)
[2016-05-25] MEDS: Loratadine 10 MG TABLET PO SCH (10:02)
[2016-05-25] MEDS: Famotidine 20 MG TABLET PO SCH (10:02)
[2016-05-25] MEDS: Artificial Tears SOLN 15 ML BOTTLE BOTH EYES SCH ×2 (10:02→23:13)
--- NOTE | 2016-05-25 10:02 | Electrocardiograph Report ---
[facility] Test Date: 2016-05-24 Pat Name: Kirti Zamora Department: 104 Room: 2A42 Gender: F Speech And Language Clinician: : 1945 Requested By: Otis Kinney Order Number: [id number] Reading MD: Autumn Mayen Measurements Intervals [place] Rate: 120 P: 58 RI: 182 QRS: 48 QRSD: 86 T: 52 QT: 307 QTc: 378 Interpretive Statements SINUS TACHYCARDIA LOW QRS VOLTAGE IN PRECORDIAL LEADS SEPTAL MYOCARDIAL INFARCTION, PROBABLY OLD Electronically Signed On 05-25-16 10:00:55 EST by Autumn Mayen
[2016-05-25] MEDS: Fluticasone Propionate Nasal 50 MCG/SPRAY BOTTLE NS SCH (10:03)
[2016-05-25] MEDS: FluocinoNIDE 0.05% CRM 15 GM TUBE TP SCH ×2 (10:06→23:14)
[2016-05-25] MEDS: Nystatin POWDER 30 GM BOTTLE TP SCH ×2 (10:06→23:15)
[2016-05-25] MEDS: 0.9 % Sodium Chloride 1,000 ML IVC SCH (11:22)
--- NOTE | 2016-05-25 18:00 | Internal Med Progress Note ---
Date of Encounter: 05/25/16 Time of Encounter: 15:00 - Assessment and plan (1) Escherichia coli urinary tract infection Current Visit: Yes Status: Acute Assessment and plan: We will treat her with ceftriaxone IV. Follow-up culture and sensitivity. (2) Sepsis secondary to UTI Current Visit: Yes Status: Acute Assessment and plan: Due to severe infection I will increase the dose of ceftriaxone to 2 g every 12 hours. The patient remains febrile. Lactic acid initially at 3.7 came down to 1.5. We will follow-up blood cultures and continue with IV antibiotic. (3) Acute cystitis without hematuria Current Visit: Yes Status: Acute Assessment and plan: Likely secondary to Escherichia coli. We will treat with Rocephin. (4) CHF (congestive heart failure) Current Visit: No Status: Acute Qualifiers: Congestive heart failure type: diastolic Congestive heart failure chronicity: chronic Qualified Code(s): I50.32 - Chronic diastolic (congestive ) heart failure (5) DVT prophylaxis Current Visit: No Status: Acute Assessment and plan: Lovenox prophylaxis. (6) Lymphedema of both lower extremities Current Visit: No Status: Acute (7) Morbid obesity due to excess calories Current Visit: No Status: Acute Assessment and plan: Outpatient follow-up. (8) Physical deconditioning Current Visit: No Status: Acute (9) Type 2 diabetes mellitus Current Visit: No Status: Acute Assessment and plan: Insulin sliding scale, diabetic diet, finger sticks 3 times a day before meals and at bedtime. 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 She reports associated generalized weakness which is why she presented to the hospital yesterday. As the first time I am meeting this patient, all problems are new to me today. - Constitutional Vitals: Temp Pulse Resp BP Pulse Ox 99.7 F H 114 20 136/82 97 05/25/16 16:10 05/25/16 16:10 05/25/16 16:10 05/25/16 16:10 05/25/16 16:10 General appearance: Present: A&O X 3 - Respiratory Respiratory exam: Present: CTAB. Absent: accessory muscle use, rales, rhonchi, wheezes - Cardiovascular Cardiovascular exam: Present: RRR, +S1, +S2. Absent: diastolic murmur, gallop, rubs, systolic murmur - GI/Abdominal GI/Abdominal exam: Present: normal bowel sounds, soft, no peritoneal signs. Absent: distended, tenderness Additional comments: Obese, ventral hernia noted. - Extremities Exam Extremities exam: Present: warm, radial pulses palpable and symetrical. Absent : calf tenderness, cyanotic Additional comments: Lymphedema - Neurological Exam Neurological exam: Present: CN II-XII intact, oriented X3, no focal deficits. Absent: pronater drift, facial droop, speech deficit Additional comments: Sedated, falls asleep easily Internal Medicine: Result - Labs CBC & Chem 7: 05/25/16 05:30 05/24/16 14:04 Labs: Short CBC 05/25/16 Range/Units 05:30 WBC 16.8 H (4.3-11.1) K/mcL Hgb 10.0 L (11.5-15.4) g/dL Hct 31.6 L (35.3-44.9) % Plt Count 233 (140-400) K/mcL Neutrophils # 14.3 H (1.6-8.9) K/mcL Urine 05/25/16 Range/Units 03:58 Urine Color Yellow (Yellow) Urine Clarity Turbid A (Clear) Urine pH 6.0 (5.0-8.0) pH Units Ur Specific [place] 1.013 (1.010-1.025) Urine Protein 100 H (Neg-Trace) mg/dL Urine Glucose (UA) Normal (Normal) mg/dL - ABG Interpretation ABG results: ABG ABG pH 7.35 pH Units (7.32-7.45) 05/24/16 16:15 ABG pCO2 34 mmHg (35-45) L 05/24/16 16:15 ABG pO2 76 mmHg (85-104) L 05/24/16 16:15 ABG O2 Saturation 94 % (95-98) L 05/24/16 16:15 PT/INR, D-dimer PT 12.1 Seconds (9.4-12.1) 05/24/16 15:56 - Impressions Impressions Abdomen CT 05/25/16 07:30 IMPRESSION: Perirenal fat infiltration asymmetric on the left. This is nonspecific but could represent pyelonephritis, given the history. However Evaluation is limited without intravenous contrast for detection of pyelonephritis as well as the suspected renal cysts. Hepatomegaly with fatty infiltration. Patchy basilar atelectasis. RECOMMENDATIONS: Contrast-enhanced CT recommended. D/ / Crispin Longoria MD / Crispin Longoria MD Interpreting Provider: Crispin Longoria MD Consult Discharge Plan - Plan Referrals: Boaz Villalpando DO [Primary Care Provider] - (WEB REQUEST SENT ON 05/25/16 )
[2016-05-25] MEDS: Acetaminophen 325 MG TABLET PO PRN (23:11)
[2016-05-25] MEDS: Insulin DETEMIR 100 UNIT/ML X5UNITS SQ SCH (23:15)
[2016-05-25] MEDS: Sennosides/Docusate Sodium TABLET PO PRN (23:19)
[2016-05-26] MEDS: 0.9 % Sodium Chloride 1,000 ML IVC SCH ×4 (04:24→20:44)
[2016-05-26] MEDS: Acetaminophen 325 MG TABLET PO PRN ×2 (06:32→20:42)
[2016-05-26] MEDS: *HR* Enoxaparin 40 MG/0.4 ML SYRINGE SQ SCH (06:33)
[2016-05-26] MEDS: *HR* HYDROmorphone 2 MG TABLET PO PRN ×3 (09:40→22:22)
[2016-05-26] MEDS: Gabapentin 300 MG CAPSULE PO SCH ×2 (09:41→20:42)
[2016-05-26] MEDS: Aspirin 81 MG TAB.CHEW PO SCH (09:41)
[2016-05-26] MEDS: Lactobacillus 1 EACH CAP.SPRINK PO SCH (09:41)
[2016-05-26] MEDS: Loratadine 10 MG TABLET PO SCH (09:41)
[2016-05-26] MEDS: Famotidine 20 MG TABLET PO SCH (09:42)
[2016-05-26] MEDS: Furosemide 20 MG TABLET PO SCH ×2 (09:42→17:36)
[2016-05-26] MEDS: Artificial Tears SOLN 15 ML BOTTLE BOTH EYES SCH ×2 (09:43→20:43)
[2016-05-26] MEDS: Fluticasone Propionate Nasal 50 MCG/SPRAY BOTTLE NS SCH (09:44)
[2016-05-26] MEDS: Insulin LISPRO 300 UNITS/3 ML VIAL SQ SCH ×4 (09:45→22:25)
[2016-05-26] MEDS: Nystatin POWDER 30 GM BOTTLE TP SCH ×2 (09:49→22:25)
[2016-05-26] MEDS: FluocinoNIDE 0.05% CRM 15 GM TUBE TP SCH ×2 (09:49→20:48)
[2016-05-26 11:10] LABS: Basophils % 0.3 %; Eosinophils # 0.1 K/mcL (0.0-0.6); Eosinophils % 1.1 %; Hematocrit 27.8 % (35.3-44.9); Hemoglobin 8.9 g/dL (11.5-15.4); Immature Granulocytes % 1.2 % (0-4); Lymphocytes # 0.9 K/mcL (0.6-4.6); Lymphocytes % 10.1 %; Mean Corpuscular Volume 84.2 fL (83.0-100.0); Mean Platelet Volume 10.1 fL (9.4-12.4); Monocytes # 0.9 K/mcL (0.0-1.3); Monocytes % 10.2 %; Neutrophils # 6.9 K/mcL (1.6-8.9); Platelet Count 187 K/mcL (140-400); Red Cell Distribution Width 17.2 % (11.5-14.5); Segmented Neutrophils % 77.1 %
[2016-05-26 11:11] LABS: BUN/Creatinine Ratio 21 (6-26); Blood Urea Nitrogen 18 mg/dL (7-20); Calcium 8.1 mg/dL (8.6-10.8); Carbon Dioxide 18 mEq/L (19-29); Chloride 106 mEq/L (98-109); Glucose 234 mg/dL (70-99); Osmolality,Calculated 289 (280-300); Potassium 3.4 mEq/L (3.5-4.5); Sodium 135 mEq/L (136-145); eGFR For African Americans > 60 (> 60); eGFR For Non-African Americans > 60 (> 60)
[2016-05-26 11:45] LABS: Platelet Estimate Normal (Normal)
--- NOTE | 2016-05-26 19:19 | Internal Med Progress Note ---
Date of Encounter: 05/26/16 Time of Encounter: 10:00 - Assessment and plan (1) Escherichia coli urinary tract infection Current Visit: Yes Status: Acute Assessment and plan: We will treat her with ceftriaxone IV. Follow-up culture and sensitivity. (2) Sepsis secondary to UTI Current Visit: Yes Status: Acute Assessment and plan: Due to severe infection I will increase the dose of ceftriaxone to 2 g every 12 hours. The patient remains febrile. Lactic acid initially at 3.7 came down to 1.5. We will follow-up blood cultures and continue with IV antibiotic. (3) Acute cystitis without hematuria Current Visit: Yes Status: Acute Assessment and plan: Likely secondary to Escherichia coli. We will treat with Rocephin. (4) CHF (congestive heart failure) Current Visit: No Status: Acute Assessment and plan: Stop IV fluids to prevent fluid overload. Qualifiers: Congestive heart failure type: diastolic Congestive heart failure chronicity: chronic Qualified Code(s): I50.32 - Chronic diastolic (congestive ) heart failure (5) DVT prophylaxis Current Visit: No Status: Acute Assessment and plan: Lovenox prophylaxis. (6) Lymphedema of both lower extremities Current Visit: No Status: Acute (7) Morbid obesity due to excess calories Current Visit: No Status: Acute Assessment and plan: Outpatient follow-up. (8) Physical deconditioning Current Visit: No Status: Acute (9) Type 2 diabetes mellitus Current Visit: No Status: Acute Assessment and plan: Insulin sliding scale, diabetic diet, finger sticks 3 times a day before meals and at bedtime. 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 She reports associated generalized weakness which is why she presented to the hospital yesterday. - Constitutional Vitals: Temp Pulse Resp BP Pulse Ox 98.8 F 95 18 143/73 96 05/26/16 16:51 05/26/16 16:51 05/26/16 16:51 05/26/16 16:51 05/26/16 16:51 General appearance: Present: A&O X 3 - Eye Eye exam: Present: PERRL, conjuntiva pink, sclera anicteric Pupils: Present: PERRL - Respiratory Respiratory exam: Present: CTAB. Absent: accessory muscle use, rales, rhonchi, wheezes - Cardiovascular Cardiovascular exam: Present: RRR, +S1, +S2. Absent: diastolic murmur, gallop, rubs, systolic murmur - GI/Abdominal GI/Abdominal exam: Present: normal bowel sounds, soft, no peritoneal signs. Absent: distended, tenderness Additional comments: Obese, ventral hernia present. - Extremities Exam Extremities exam: Present: pedal edema, warm, radial pulses palpable and symetrical. Absent: calf tenderness, cyanotic Internal Medicine: Result - Labs CBC & Chem 7: 05/26/16 10:45 05/26/16 10:45 Labs: Short CBC 05/26/16 Range/Units 10:45 WBC 8.9 (4.3-11.1) K/mcL Hgb 8.9 L (11.5-15.4) g/dL Hct 27.8 L (35.3-44.9) % Plt Count 187 (140-400) K/mcL Neutrophils # 6.9 (1.6-8.9) K/mcL BMP 05/26/16 10:45 Sodium 135 L Potassium 3.4 L Chloride 106 Carbon Dioxide 18 L BUN 18 Creatinine 0.87 Glucose 234 H Calcium 8.1 L - ABG Interpretation ABG results: ABG ABG pH 7.35 pH Units (7.32-7.45) 05/24/16 16:15 ABG pCO2 34 mmHg (35-45) L 05/24/16 16:15 ABG pO2 76 mmHg (85-104) L 05/24/16 16:15 ABG O2 Saturation 94 % (95-98) L 05/24/16 16:15 PT/INR, D-dimer PT 12.1 Seconds (9.4-12.1) 05/24/16 15:56 Consult Discharge Plan - Plan Referrals: Boaz Villalpando DO [Primary Care Provider] - (WEB REQUEST SENT ON 05/25/16 )
[2016-05-26] MEDS: Insulin DETEMIR 100 UNIT/ML X5UNITS SQ SCH (22:23)
[2016-05-27] MEDS: *HR* HYDROmorphone 2 MG TABLET PO PRN ×2 (03:07→12:29)
[2016-05-27] MEDS: 0.9 % Sodium Chloride 1,000 ML IVC SCH ×2 (05:15→21:50)
[2016-05-27] MEDS: *HR* Enoxaparin 40 MG/0.4 ML SYRINGE SQ SCH (05:29)
[2016-05-27 05:48] LABS: Basophils # 0.1 K/mcL (0.0-0.2); Basophils % 0.5 %; Eosinophils # 0.5 K/mcL (0.0-0.6); Hematocrit 29.1 % (35.3-44.9); Hemoglobin 9.4 g/dL (11.5-15.4); Immature Granulocytes % 1.5 % (0-4); Lymphocytes # 1.2 K/mcL (0.6-4.6); Lymphocytes % 12.7 %; Mean Corpuscular HGB Conc 32.3 g/dL (31.6-35.5); Mean Corpuscular Volume 83.6 fL (83.0-100.0); Mean Platelet Volume 9.9 fL (9.4-12.4); Monocytes # 1.2 K/mcL (0.0-1.3); Neutrophils # 6.7 K/mcL (1.6-8.9); Platelet Count 215 K/mcL (140-400); Red Blood Count 3.48 M/mcL (3.82-4.97); Segmented Neutrophils % 68.3 %
[2016-05-27 06:03] LABS: BUN/Creatinine Ratio 20 (6-26); Blood Urea Nitrogen 16 mg/dL (7-20); Carbon Dioxide 19 mEq/L (19-29); Chloride 107 mEq/L (98-109); Glucose 161 mg/dL (70-99); Osmolality,Calculated 289 (280-300); Potassium 3.2 mEq/L (3.5-4.5); Sodium 137 mEq/L (136-145); eGFR For African Americans > 60 (> 60); eGFR For Non-African Americans > 60 (> 60)
[2016-05-27] MEDS: Insulin LISPRO 300 UNITS/3 ML VIAL SQ SCH ×4 (08:16→21:51)
[2016-05-27] MEDS: Famotidine 20 MG TABLET PO SCH (08:17)
[2016-05-27] MEDS: Loratadine 10 MG TABLET PO SCH (08:17)
[2016-05-27] MEDS: Furosemide 20 MG TABLET PO SCH ×2 (08:17→17:29)
[2016-05-27] MEDS: Aspirin 81 MG TAB.CHEW PO SCH (08:17)
[2016-05-27] MEDS: Lactobacillus 1 EACH CAP.SPRINK PO SCH (08:17)
[2016-05-27] MEDS: Gabapentin 300 MG CAPSULE PO SCH ×2 (08:17→20:38)
[2016-05-27] MEDS: FluocinoNIDE 0.05% CRM 15 GM TUBE TP SCH ×2 (08:18→20:40)
[2016-05-27] MEDS: Nystatin POWDER 30 GM BOTTLE TP SCH ×2 (08:18→20:40)
[2016-05-27] MEDS: Fluticasone Propionate Nasal 50 MCG/SPRAY BOTTLE NS SCH (08:19)
[2016-05-27] MEDS: Artificial Tears SOLN 15 ML BOTTLE BOTH EYES SCH ×2 (08:30→20:39)
--- NOTE | 2016-05-27 18:37 | Internal Med Progress Note ---
Date of Encounter: 05/27/16 Time of Encounter: 13:00 - Assessment and plan (1) Escherichia coli urinary tract infection Current Visit: Yes Status: Acute Assessment and plan: 2 blood cultures on admission was positive for Escherichia coli. Sources of infection likely UTI. We will treat her with ceftriaxone IV. Follow-up culture and sensitivity. Repeat surveillance blood cultures in the morning. (2) Sepsis secondary to UTI Current Visit: Yes Status: Acute Assessment and plan: Due to severe infection I will increase the dose of ceftriaxone to 2 g every 12 hours. The patient remains febrile. Lactic acid initially at 3.7 came down to 1.5. We will follow-up blood cultures and continue with IV antibiotic. (3) Acute cystitis without hematuria Current Visit: Yes Status: Acute Assessment and plan: Likely secondary to Escherichia coli. We will treat with Rocephin. (4) CHF (congestive heart failure) Current Visit: No Status: Acute Assessment and plan: Stop IV fluids to prevent fluid overload. Lasix 60 mg twice a day. Qualifiers: Congestive heart failure type: diastolic Congestive heart failure chronicity: chronic Qualified Code(s): I50.32 - Chronic diastolic (congestive ) heart failure (5) DVT prophylaxis Current Visit: No Status: Acute Assessment and plan: Lovenox prophylaxis. (6) Lymphedema of both lower extremities Current Visit: No Status: Acute (7) Morbid obesity due to excess calories Current Visit: No Status: Acute (8) Physical deconditioning Current Visit: No Status: Acute (9) Type 2 diabetes mellitus Current Visit: No Status: Acute Assessment and plan: Insulin sliding scale, diabetic diet, finger sticks 3 times a day before meals and at bedtime. Qualifiers: Diabetes mellitus complication status: with other specified complication Diabetes mellitus manager long term care insulin use: with assisted use Qualified Code(s) : E11.69 - Type 2 diabetes mellitus with other specified complication; Z79.4 - terminal operator (current) use of insulin (10) Bilateral leg pain Current Visit: Yes Status: Acute Assessment and plan: She has chronic leg pain for which she takes [place]. She says it is continuous and is helped by pain medication. I will add a small dose long-acting oxycodone. - Subjective Interval history: Patient reports bilateral lower extremity pain which she describes as burning, moderate, has been going on for months. She reports associated generalized weakness which is why she presented to the hospital yesterday. - Constitutional Vitals: Temp Pulse Resp BP Pulse Ox 98.1 F 91 16 138/72 97 05/27/16 15:04 05/27/16 15:04 05/27/16 15:04 05/27/16 15:04 05/27/16 15:04 General appearance: Present: A&O X 3 - Eye Eye exam: Present: PERRL, conjuntiva pink, sclera anicteric Pupils: Present: PERRL - Respiratory Respiratory exam: Present: CTAB. Absent: accessory muscle use, rales, rhonchi, wheezes - Cardiovascular Cardiovascular exam: Present: RRR, +S1, +S2. Absent: diastolic murmur, gallop, rubs, systolic murmur - GI/Abdominal GI/Abdominal exam: Present: normal bowel sounds, soft, no peritoneal signs. Absent: distended, tenderness - Extremities Exam Additional comments: Bilateral lower extremity lymphedema Internal Medicine: Result - Labs CBC & Chem 7: 05/27/16 05:28 05/27/16 05:28 Labs: Short CBC 05/27/16 Range/Units 05:28 WBC 9.8 (4.3-11.1) K/mcL Hgb 9.4 L (11.5-15.4) g/dL Hct 29.1 L (35.3-44.9) % Plt Count 215 (140-400) K/mcL Neutrophils # 6.7 (1.6-8.9) K/mcL BMP 05/27/16 05:28 Sodium 137 Potassium 3.2 L Chloride 107 Carbon Dioxide 19 BUN 16 Creatinine 0.82 Glucose 161 H Calcium 8.0 L - ABG Interpretation ABG results: ABG ABG pH 7.35 pH Units (7.32-7.45) 05/24/16 16:15 ABG pCO2 34 mmHg (35-45) L 05/24/16 16:15 ABG pO2 76 mmHg (85-104) L 05/24/16 16:15 ABG O2 Saturation 94 % (95-98) L 05/24/16 16:15 PT/INR, D-dimer PT 12.1 Seconds (9.4-12.1) 05/24/16 15:56 Consult Discharge Plan - Plan Referrals: Boaz Villalpando DO [Primary Care Provider] - (WEB REQUEST SENT ON 05/25/16 )
[2016-05-27] MEDS: Scopolamine Patch 1.5 MG PATCH.TD72 TD SCH (20:38)
[2016-05-27] MEDS: *HR* OxyCODONE ER (12 HR) 10 MG TABLET PO SCH (20:38)
[2016-05-27] MEDS: Insulin DETEMIR 100 UNIT/ML X5UNITS SQ SCH (21:52)
[2016-05-28 03:58] LABS: Basophils % 0.4 %; Eosinophils # 0.6 K/mcL (0.0-0.6); Eosinophils % 6.2 %; Hematocrit 29.5 % (35.3-44.9); Hemoglobin 9.5 g/dL (11.5-15.4); Immature Granulocytes % 1.4 % (0-4); Lymphocytes # 1.5 K/mcL (0.6-4.6); Lymphocytes % 15.3 %; Mean Corpuscular HGB Conc 32.2 g/dL (31.6-35.5); Mean Corpuscular Hemoglobin 26.9 pg (28.0-33.3); Mean Corpuscular Volume 83.6 fL (83.0-100.0); Mean Platelet Volume 9.8 fL (9.4-12.4); Monocytes % 10.2 %; Neutrophils # 6.6 K/mcL (1.6-8.9); Platelet Count 243 K/mcL (140-400); Red Blood Count 3.53 M/mcL (3.82-4.97); Red Cell Distribution Width 16.9 % (11.5-14.5); Segmented Neutrophils % 66.5 %
[2016-05-28 04:17] LABS: BUN/Creatinine Ratio 21 (6-26); Blood Urea Nitrogen 17 mg/dL (7-20); Calcium 8.4 mg/dL (8.6-10.8); Carbon Dioxide 23 mEq/L (19-29); Chloride 106 mEq/L (98-109); Glucose 174 mg/dL (70-99); Osmolality,Calculated 294 (280-300); Potassium 3.4 mEq/L (3.5-4.5); Sodium 139 mEq/L (136-145); eGFR For African Americans > 60 (> 60); eGFR For Non-African Americans > 60 (> 60)
[2016-05-28] MEDS: 0.9 % Sodium Chloride 1,000 ML IVC SCH ×2 (05:57→15:15)
[2016-05-28] MEDS: *HR* OxyCODONE ER (12 HR) 10 MG TABLET PO SCH ×2 (05:58→17:12)
[2016-05-28] MEDS: *HR* Enoxaparin 40 MG/0.4 ML SYRINGE SQ SCH (05:58)
[2016-05-28] MEDS: Insulin LISPRO 300 UNITS/3 ML VIAL SQ SCH ×4 (09:16→22:05)
[2016-05-28] MEDS: Lactobacillus 1 EACH CAP.SPRINK PO SCH (09:46)
[2016-05-28] MEDS: Famotidine 20 MG TABLET PO SCH (09:47)
[2016-05-28] MEDS: Aspirin 81 MG TAB.CHEW PO SCH (09:47)
[2016-05-28] MEDS: Loratadine 10 MG TABLET PO SCH (09:47)
[2016-05-28] MEDS: Furosemide 20 MG TABLET PO SCH ×2 (09:47→17:12)
[2016-05-28] MEDS: Fluticasone Propionate Nasal 50 MCG/SPRAY BOTTLE NS SCH (09:47)
[2016-05-28] MEDS: Gabapentin 300 MG CAPSULE PO SCH ×2 (09:47→20:26)
[2016-05-28] MEDS: Artificial Tears SOLN 15 ML BOTTLE BOTH EYES SCH ×2 (09:48→20:42)
[2016-05-28] MEDS: Nystatin POWDER 30 GM BOTTLE TP SCH ×2 (09:48→21:35)
[2016-05-28] MEDS: FluocinoNIDE 0.05% CRM 15 GM TUBE TP SCH ×2 (09:49→20:40)
[2016-05-28] MEDS ORDERED: *HR* OxyCODONE/APAP 5/325 TABLET PO PRN (14:52)
--- NOTE | 2016-05-28 20:06 | Internal Med Progress Note ---
Date of Encounter: 05/28/16 Time of Encounter: 14:00 - Assessment and plan (1) Escherichia coli urinary tract infection Current Visit: Yes Status: Acute Assessment and plan: 2 blood cultures on admission was positive for Escherichia coli. Sources of infection likely UTI. We will treat her with ceftriaxone IV. Follow-up culture and sensitivity. Repeat surveillance blood cultures sent this morning, follow-up pulmonary result. Patient has been afebrile, white blood cell count trending down, appears nontoxic. Wall request ultrasound-guided midline placement for outpatient IV antibiotic treatment. Recommend discharge home and surveillance calls cultures are negative at 24 or 48 hours. (2) Sepsis secondary to UTI Current Visit: Yes Status: Acute Assessment and plan: I will continue with ceftriaxone to 2 g every 12 hours. The patient remains febrile. Lactic acid initially at 3.7 came down to 1.5. We will follow-up blood cultures and continue with IV antibiotic. (3) Acute cystitis without hematuria Current Visit: Yes Status: Acute Assessment and plan: Likely secondary to Escherichia coli. We will treat with Rocephin. (4) CHF (congestive heart failure) Current Visit: No Status: Acute Assessment and plan: Stop IV fluids to prevent fluid overload. Lasix 60 mg twice a day. Qualifiers: Congestive heart failure type: diastolic Congestive heart failure chronicity: chronic Qualified Code(s): I50.32 - Chronic diastolic (congestive ) heart failure (5) DVT prophylaxis Current Visit: No Status: Acute Assessment and plan: Lovenox prophylaxis. (6) Lymphedema of both lower extremities Current Visit: No Status: Acute (7) Morbid obesity due to excess calories Current Visit: No Status: Acute (8) Physical deconditioning Current Visit: No Status: Acute (9) Type 2 diabetes mellitus Current Visit: No Status: Acute Assessment and plan: Insulin sliding scale, diabetic diet, finger sticks 3 times a day before meals and at bedtime. Qualifiers: Diabetes mellitus complication status: with other specified complication Diabetes mellitus assisted insulin use: with laborer marine terminal use Qualified Code(s) : E11.69 - Type 2 diabetes mellitus with other specified complication; Z79.4 - assisted (current) use of insulin (10) Bilateral leg pain Current Visit: Yes Status: Acute Assessment and plan: She has chronic leg pain for which she takes [place]. She says it is continuous and is helped by pain medication. I will continue with long-acting oxycodone. (11) Morbid obesity with BMI of 50.0-59.9, adult Current Visit: Yes Status: Acute Assessment and plan: Turning regimen for skin protection. Bariatric Bed. Outpatient follow-up. - Subjective Interval history: Patient reports bilateral lower extremity pain which has improved significantly after we started extended release oxycodone yesterday. - Constitutional Vitals: Temp Pulse Resp BP Pulse Ox 97.9 F 89 18 169/100 96 05/28/16 19:54 05/28/16 19:54 05/28/16 19:54 05/28/16 19:54 05/28/16 19:54 General appearance: Present: A&O X 3 - Eye Eye exam: Present: PERRL, conjuntiva pink, sclera anicteric Pupils: Present: PERRL - Respiratory Respiratory exam: Present: CTAB. Absent: accessory muscle use, rales, rhonchi, wheezes - Cardiovascular Cardiovascular exam: Present: RRR, +S1, +S2. Absent: diastolic murmur, gallop, rubs, systolic murmur - GI/Abdominal GI/Abdominal exam: Present: normal bowel sounds, soft, no peritoneal signs. Absent: distended, tenderness - Extremities Exam Extremities exam: Present: pedal edema, warm, radial pulses palpable and symetrical. Absent: calf tenderness, cyanotic - Skin Skin exam: Present: dry, intact Internal Medicine: Result - Labs CBC & Chem 7: 05/28/16 03:35 05/28/16 03:35 Labs: Short CBC 05/28/16 Range/Units 03:35 WBC 9.9 (4.3-11.1) K/mcL Hgb 9.5 L (11.5-15.4) g/dL Hct 29.5 L (35.3-44.9) % Plt Count 243 (140-400) K/mcL Neutrophils # 6.6 (1.6-8.9) K/mcL BMP 05/28/16 03:35 Sodium 139 Potassium 3.4 L Chloride 106 Carbon Dioxide 23 BUN 17 Creatinine 0.80 Glucose 174 H Calcium 8.4 L - ABG Interpretation ABG results: ABG ABG pH 7.35 pH Units (7.32-7.45) 05/24/16 16:15 ABG pCO2 34 mmHg (35-45) L 05/24/16 16:15 ABG pO2 76 mmHg (85-104) L 05/24/16 16:15 ABG O2 Saturation 94 % (95-98) L 05/24/16 16:15 PT/INR, D-dimer PT 12.1 Seconds (9.4-12.1) 05/24/16 15:56 Consult Discharge Plan - Plan Referrals: Boaz Villalpando DO [Primary Care Provider] - (WEB REQUEST SENT ON 05/25/16 )
[2016-05-28] MEDS: Insulin DETEMIR 100 UNIT/ML X5UNITS SQ SCH (20:26)
[2016-05-28] MEDS: *HR* OxyCODONE/APAP 5/325 TABLET PO PRN (20:42)
[2016-05-29] MEDS: 0.9 % Sodium Chloride 1,000 ML IVC SCH ×4 (02:00→09:38)
[2016-05-29] MEDS: *HR* OxyCODONE ER (12 HR) 10 MG TABLET PO SCH ×2 (05:03→18:16)
[2016-05-29] MEDS: *HR* Enoxaparin 40 MG/0.4 ML SYRINGE SQ SCH (05:04)
[2016-05-29] MEDS: Aspirin 81 MG TAB.CHEW PO SCH (08:33)
[2016-05-29] MEDS: Lactobacillus 1 EACH CAP.SPRINK PO SCH (08:33)
[2016-05-29] MEDS: Loratadine 10 MG TABLET PO SCH (08:33)
[2016-05-29] MEDS: Furosemide 20 MG TABLET PO SCH ×2 (08:34→17:16)
[2016-05-29] MEDS: Famotidine 20 MG TABLET PO SCH (08:34)
[2016-05-29] MEDS: Artificial Tears SOLN 15 ML BOTTLE BOTH EYES SCH ×2 (08:35→20:39)
[2016-05-29] MEDS: Nystatin POWDER 30 GM BOTTLE TP SCH ×2 (08:35→20:43)
[2016-05-29] MEDS: Fluticasone Propionate Nasal 50 MCG/SPRAY BOTTLE NS SCH (08:35)
[2016-05-29] MEDS: FluocinoNIDE 0.05% CRM 15 GM TUBE TP SCH ×2 (08:36→20:43)
[2016-05-29] MEDS: Gabapentin 300 MG CAPSULE PO SCH ×2 (08:37→20:39)
[2016-05-29] MEDS: Insulin LISPRO 300 UNITS/3 ML VIAL SQ SCH ×4 (08:37→20:39)
[2016-05-29] MEDS: *HR* OxyCODONE/APAP 5/325 TABLET PO PRN ×2 (08:40→15:20)
[2016-05-29] MEDS ORDERED: *HR* Morphine 2 MG/ML SYRINGE IVP PRN (16:03)
--- NOTE | 2016-05-29 16:07 | Internal Med Progress Note ---
Date of Encounter: 05/29/16 Time of Encounter: 16:04 - Assessment and plan (1) Pyelonephritis Current Visit: Yes Status: Acute Assessment and plan: CT abdomen is suggestive of left-sided pyelonephritis and patient presented with symptoms and signs of sepsis from urinary source. 2 out of 2 initial blood cultures grew Escherichia coli, sensitive to cephalosporins and fluoroquinolones. Repeat blood cultures so far negative. Received IV Rocephin so far, will change it to IV Levaquin in anticipation of discharge. Continue supportive care. (2) Sepsis secondary to UTI Current Visit: Yes Status: Acute Assessment and plan: Improving. Plan as above. (3) Coronary artery disease Current Visit: Yes Status: Chronic Assessment and plan: Patient reports chest pressure and shortness of breath. Discontinue IV fluids due to history of CHF. Continue diuretics. Continue telemetry monitoring and check serum troponin level. When necessary IV morphine to help with severe generalized pain and chest pressure. Supplemental oxygen as needed. Continue aspirin and statin. Qualifiers: Coronary Disease-Associated Artery/Lesion type: [place] artery [place] vs. transplanted heart: [place] heart Associated angina: without angina Qualified Code(s): I25.10 - Atherosclerotic heart disease of [place] coronary artery without angina pectoris (4) COPD (chronic obstructive pulmonary disease) Current Visit: Yes Status: Chronic Qualifiers: COPD type: unspecified COPD Qualified Code(s): J44.9 - Chronic obstructive pulmonary disease, unspecified (5) Bilateral leg pain Current Visit: Yes Status: Chronic Assessment and plan: Continue OxyContin along with when necessary oxycodone. Patient still reports uncontrolled generalized pain including leg pain, we will add when necessary IV morphine, monitor closely. Continue topical lidocaine patch on bilateral feet. (6) Morbid obesity with BMI of 50.0-59.9, adult Current Visit: Yes Status: Chronic (7) CHF (congestive heart failure) Current Visit: Yes Status: Chronic Qualifiers: Congestive heart failure type: diastolic Congestive heart failure chronicity: chronic Qualified Code(s): I50.32 - Chronic diastolic (congestive ) heart failure (8) Lymphedema of both lower extremities Current Visit: Yes Status: Chronic (9) Type 2 diabetes mellitus Current Visit: Yes Status: Chronic Assessment and plan: Continue Accu-Chek blood glucose monitoring with basal bolus insulin regimen. Consistent carbohydrate diet. Qualifiers: Diabetes mellitus complication status: with other specified complication Diabetes mellitus tax staff accountant insulin use: with tax staff accountant use Qualified Code(s) : E11.69 - Type 2 diabetes mellitus with other specified complication; Z79.4 - nursing home (current) use of insulin - Subjective Interval history: He reports some chest pressure and shortness of breath. No nausea, vomiting, diarrhea. Also reports pain all over her body including her hands and chronic pain in her feet. - Constitutional Vitals: Temp Pulse Resp BP Pulse Ox 97.4 F L 84 16 132/55 98 05/29/16 11:23 05/29/16 11:23 05/29/16 11:23 05/29/16 11:23 05/29/16 15:23 General appearance: Present: A&O X 3, morbidly obese, answers questions appropriately - Head Head exam: Present: atraumatic, normocephalic - Neck Neck exam general surgery: Present: supple, trachea midline. Absent: lymphadenopathy - Respiratory Respiratory exam: Present: CTAB. Absent: accessory muscle use, rales, rhonchi, wheezes - Cardiovascular Cardiovascular exam: Present: RRR, +S1, +S2. Absent: diastolic murmur, gallop, rubs, systolic murmur - GI/Abdominal GI/Abdominal exam: Present: normal bowel sounds, soft (Mild diffuse tenderness, reducible ventral hernia noted), no peritoneal signs. Absent: distended, tenderness - Extremities Exam Extremities exam: Present: pedal edema (Bilateral chronic lymphedema), warm, radial pulses palpable and symetrical. Absent: calf tenderness, cyanotic - Neurological Exam Neurological exam: Present: CN II-XII intact, oriented X3, no focal deficits, strengths equal and symetr throughout (Diffusely decreased in bilateral lower extremities). Absent: pronater drift, facial droop, speech deficit - Skin Skin exam: Present: dry, intact Internal Medicine: Result - Labs CBC & Chem 7: 05/28/16 03:35 05/28/16 03:35 - ABG Interpretation ABG results: ABG ABG pH 7.35 pH Units (7.32-7.45) 05/24/16 16:15 ABG pCO2 34 mmHg (35-45) L 05/24/16 16:15 ABG pO2 76 mmHg (85-104) L 05/24/16 16:15 ABG O2 Saturation 94 % (95-98) L 05/24/16 16:15 PT/INR, D-dimer PT 12.1 Seconds (9.4-12.1) 05/24/16 15:56 Consult Discharge Plan - Plan Referrals: Boaz Villalpando DO [Primary Care Provider] - (WEB REQUEST SENT ON 05/25/16 )
[2016-05-29] MEDS: Levofloxacin 500 MG/100 ML 500 MG/100 ML BAG IVPB SCH (17:15)
[2016-05-29] MEDS: Insulin DETEMIR 100 UNIT/ML X5UNITS SQ SCH (20:41)
[2016-05-29 21:21] LABS: BUN/Creatinine Ratio 19 (6-26); Blood Urea Nitrogen 15 mg/dL (7-20); Calcium 8.8 mg/dL (8.6-10.8); Carbon Dioxide 26 mEq/L (19-29); Chloride 102 mEq/L (98-109); Glucose 181 mg/dL (70-99); Magnesium 1.3 mg/dL (1.6-2.6); Osmolality,Calculated 293 (280-300); Potassium 3.6 mEq/L (3.5-4.5); Sodium 139 mEq/L (136-145); eGFR For African Americans > 60 (> 60); eGFR For Non-African Americans > 60 (> 60)
[2016-05-30] MEDS ORDERED: Magnesium Sulfate 2 GM in D5% in Water 100 ML IVPB ONE ×2 (00:10→15:20)
[2016-05-30] MEDS: *HR* OxyCODONE ER (12 HR) 10 MG TABLET PO SCH ×2 (05:24→17:39)
[2016-05-30] MEDS: *HR* Enoxaparin 40 MG/0.4 ML SYRINGE SQ SCH (05:24)
[2016-05-30 06:28] LABS: BUN/Creatinine Ratio 19 (6-26); Blood Urea Nitrogen 14 mg/dL (7-20); Calcium 8.6 mg/dL (8.6-10.8); Carbon Dioxide 27 mEq/L (19-29); Chloride 103 mEq/L (98-109); Glucose 181 mg/dL (70-99); Magnesium 1.5 mg/dL (1.6-2.6); Osmolality,Calculated 293 (280-300); Potassium 3.7 mEq/L (3.5-4.5); Sodium 139 mEq/L (136-145); eGFR For African Americans > 60 (> 60); eGFR For Non-African Americans > 60 (> 60)
[2016-05-30] MEDS: Loratadine 10 MG TABLET PO SCH (07:42)
[2016-05-30] MEDS: Famotidine 20 MG TABLET PO SCH (07:42)
[2016-05-30] MEDS: Gabapentin 300 MG CAPSULE PO SCH (07:42)
[2016-05-30] MEDS: Aspirin 81 MG TAB.CHEW PO SCH (07:42)
[2016-05-30] MEDS: Artificial Tears SOLN 15 ML BOTTLE BOTH EYES SCH (07:43)
[2016-05-30] MEDS: Fluticasone Propionate Nasal 50 MCG/SPRAY BOTTLE NS SCH (07:43)
[2016-05-30] MEDS: Furosemide 20 MG TABLET PO SCH ×2 (07:43→17:38)
[2016-05-30] MEDS: Insulin LISPRO 300 UNITS/3 ML VIAL SQ SCH ×3 (07:43→17:39)
[2016-05-30] MEDS: Lactobacillus 1 EACH CAP.SPRINK PO SCH (07:43)
[2016-05-30] MEDS: Nystatin POWDER 30 GM BOTTLE TP SCH (07:44)
[2016-05-30] MEDS: FluocinoNIDE 0.05% CRM 15 GM TUBE TP SCH (07:44)
[2016-05-30] MEDS: *HR* OxyCODONE/APAP 5/325 TABLET PO PRN ×2 (07:52→15:26)
--- NOTE | 2016-05-30 13:28 | Electrocardiograph Report ---
[facility] Test Date: 2016-05-29 Pat Name: Kirti Zamora Department: 112 Room: 2A42 Gender: F Counseling Services Director: MEKA : 1945 Requested By: Stephen Jansen Order Number: [id number] Reading MD: Vinicio Lieberman MD Measurements Intervals [place] Rate: 85 P: -17 VA: 164 QRS: 32 QRSD: 82 T: 33 QT: 352 QTc: 394 Interpretive Statements SINUS RHYTHM WITH FREQUENT SUPRAVENTRICULAR PREMATURE COMPLEXES LOW QRS VOLTAGE IN PRECORDIAL LEADS Electronically Signed On 05-30-16 13:26:12 EST by Vinicio Lieberman MD
[2016-05-30] MEDS: Levofloxacin 500 MG/100 ML 500 MG/100 ML BAG IVPB SCH (15:26)
--- NOTE | 2016-05-30 15:31 | Discharge Summary ---
Date of Encounter: 05/30/16 Time of Encounter: 15:27 - Discharge Diagnosis (1) Pyelonephritis Priority: Primary Status: Acute (2) Sepsis secondary to UTI Priority: Primary Status: Acute (3) Coronary artery disease Priority: Secondary Status: Chronic Qualifiers: Coronary Disease-Associated Artery/Lesion type: [place] artery [place] vs. transplanted heart: [place] heart Associated angina: without angina Qualified Code(s): I25.10 - Atherosclerotic heart disease of [place] coronary artery without angina pectoris (4) COPD (chronic obstructive pulmonary disease) Priority: Secondary Status: Chronic Qualifiers: COPD type: unspecified COPD Qualified Code(s): J44.9 - Chronic obstructive pulmonary disease, unspecified (5) Bilateral leg pain Priority: Secondary Status: Chronic (6) Morbid obesity with BMI of 50.0-59.9, adult Priority: Secondary Status: Chronic (7) CHF (congestive heart failure) Priority: Secondary Status: Chronic Qualifiers: Congestive heart failure type: diastolic Congestive heart failure chronicity: chronic Qualified Code(s): I50.32 - Chronic diastolic (congestive ) heart failure (8) Lymphedema of both lower extremities Priority: Secondary Status: Chronic (9) Type 2 diabetes mellitus Priority: Secondary Status: Chronic Qualifiers: Diabetes mellitus complication status: with other specified complication Diabetes mellitus mcfp insulin use: with mcfp use Qualified Code(s) : E11.69 - Type 2 diabetes mellitus with other specified complication; Z79.4 - bed bug exterminator (current) use of insulin - Discharge Medications Prescriptions: Levofloxacin [Levaquin] 500 mg PO DAILY #10 tablet Magnesium Oxide [Mag-Ox] 400 mg PO BID #30 tablet Home Medications: Aspirin 81 mg PO DAILY 30 Days 04/03/16 [Rx] Atorvastatin [Lipitor] 40 mg PO HS 30 Days 04/03/16 [Rx] Cyanocobalamin (B-12) [Vitamin B12] 1,000 mcg IM QMONTH 30 Days 04/03/16 [Rx] Diclofenac Potassium 50 mg PO TID 30 Days 04/03/16 [Rx] Duloxetine [Cymbalta] 30 mg PO DAILY 30 Days 04/03/16 [Rx] FluocinoNIDE 0.05% CRM [Lidex] 1 appl TP BID 30 Days 04/03/16 [Rx] Fluticasone Propionate Nasal [Flonase] 50 mcg NS DAILY 30 Days 04/03/16 [Rx] Furosemide [Lasix] 60 mg PO BID 30 Days 04/03/16 [Rx] Gabapentin [Neurontin] 300 mg PO BID 30 Days 04/03/16 [Rx] Guaifenesin [Mucinex] 600 mg PO Q12H PRN 30 Days 04/03/16 [Rx] Insulin ASPART [NovoLOG] 2 - 14 unit SQ ACHS 30 Days 04/03/16 [Rx] Ipratropium/Albuterol Sulfate [Combivent Respimat Inhal Phenix] 1 puff IH Q6H PRN 30 Days 04/03/16 [Rx] Ketotifen Fumarate [Eye Itch Relief] 1 drop BOTH EYES Q12H PRN 30 Days 04/03/16 [Rx] L. Acidophilus/Pectin, [place] [Acidophilus Probiotic Capsule] 1 each PO DAILY 30 Days 04/03/16 [Rx] Loperamide [Imodium] 4 mg PO DAILY PRN 30 Days 04/03/16 [Rx] Loratadine [Claritin] 10 mg PO DAILY 30 Days 04/03/16 [Rx] Menthol [Cough Drops] 9.1 mg PO Q2H PRN 14 Days 04/03/16 [Rx] Metformin [Glucophage] 500 mg PO BIDWM 30 Days 04/03/16 [Rx] Methyl Salicylate/Menth/Camph [Salonpas Patch] 1 each TP Q12H PRN 30 Days MDD right foot 04/03/16 [Rx] Nystatin POWDER [Nystop] 1 appl TP BID 30 Days 04/03/16 [Rx] Oxybutynin Chloride [Ditropan Xl] 10 mg PO HS 30 Days 04/03/16 [Rx] Oxycodone HCl/Acetaminophen [Percocet 5-325 mg Tablet] 1 each PO Q4H PRN #60 tablet 04/03/16 [Rx] Polyvinyl Alcohol [Artificial Tears] 1 drop BOTH EYES BID 30 Days 04/03/16 [Rx] Potassium Chloride [K-Tab ER] 20 meq PO DAILY 30 Days 04/03/16 [Rx] Promethazine [Phenergan] 25 mg PO Q6H PRN 30 Days 04/03/16 [Rx] Ranitidine HCl [Acid Drip Box Tender] 150 mg PO DAILY 30 Days 04/03/16 [Rx] Scopolamine Patch [Transderm-Scop] 1.5 mg TD Q72H 30 Days 04/03/16 [Rx] Sennosides/Docusate Sodium [Senna Plus] 2 each PO BID PRN 30 Days 04/03/16 [Rx] Insulin Glargine,Hum.rec.anlog [Lantus Solostar] 20 unit SQ HS 30 Days 04/04/16 [Rx] Levofloxacin [Levaquin] 500 mg PO DAILY #10 tablet 05/30/16 [Rx] Magnesium Oxide [Mag-Ox] 400 mg PO BID #30 tablet 05/30/16 [Rx] Allergies/Adverse Reactions: Allergies gentamicin Adverse Reaction (Verified 03/21/16 17:28) See Comments "MY KIDNEYS SHUTDOWN, TOTAL SHUTDOWN" Procedures/tests Complete & Pending: Procedures Performed prior 72 hours Category Date Time Status EKG [ECG 12 lead ECG] [ECG] Stat Y 05/29/16 20:20 Completed Date of admission: 05/24/16 20:03 Primary care physician: Boaz Villalpando DO Consults: 05/24/16 20:35 Consult to Pastoral Services [CONS] Routine Comment: Consult to Protective Signal Operations Supervisor [CONS] Routine Reason for SW Consult: resume home health 05/30/16 07:59 Consult to Physical Therapy [CONS] Routine Comment: Evaluate, develop and implement POC Discharging clinician: Anjali Lynn Anticipated date of discharge: 05/30/16 - Patient Status Disposition: Home Health Service Condition: Fair Functional capacity at discharge: wheelchair bound Overall status at discharge: patient is progressing back to baseline - Discharge Instructions Instructions: Heart Failure (DC), Cellulitis (DC), Sepsis (DC) Follow Up With: Boaz Villalpando DO [Primary Care Provider] - (WEB REQUEST SENT ON 05/25/16 ) - Diet and Activity Activity: as per physical therapy Diet: diabetic diet, low fat, low cholesterol, low salt diet Hospital course: Ms. Zamora is a 70 year old female with the above medical problems admitted with fever, generalized weakness and shortness of breath. CT abdomen/pelvis done in the emergency room was suggestive of left-sided pyelonephritis along with urine dipstick positive for UTI. She was started on empiric IV antibiotics -IV Rocephin and her 2 sets of initial blood cultures eventually grew Escherichia coli, sensitive to cephalosporins and fluoroquinolones. She was then changed to IV Levaquin anticipating discharge, 2 sets of repeat blood cultures remained negative. Patient is also noted to have nonspecific erythema on left anterior leg along with chronic lymphedema in bilateral legs. It is difficult to interpret this as cellulitis due to absence of tenderness, induration and warmth. She also is noted to have chronic bilateral leg and hand pains and is noted to be on topical analgesic patches at home along with when necessary Percocet and she is being discharged on the same. Physical therapy evaluation has been done and recommended home health services, referral has been made for the same. Patient is also noted to be requiring supplemental oxygen via nasal cannula at 2 L/m while in the hospital and she qualified for home oxygen due to this. I had a [id number] encounter with the patient due to her hypoxia, likely due to underlying COPD and she would benefit from home oxygen. - Time Spent with Patient Total time spent providing and/or coordinating discharge services: Greater than 30 minutes (45 min) - Constitutional Vitals: Temp Pulse Resp BP Pulse Ox 98.7 F 88 14 126/68 96 05/30/16 11:15 05/30/16 11:15 05/30/16 11:15 05/30/16 11:15 05/30/16 11:15 General appearance: Present: A&O X 3, morbidly obese, answers questions appropriately - Respiratory Respiratory exam: Present: CTAB. Absent: accessory muscle use, rales, rhonchi, wheezes - Cardiovascular Cardiovascular exam: Present: RRR, +S1, +S2. Absent: diastolic murmur, gallop, rubs, systolic murmur - Extremities Exam Extremities exam: Present: pedal edema (Chronic pedal edema with lymphangitis, chronic stasis dermatitis, left anterior leg erythema without induration or tenderness or open ulcers), warm, radial pulses palpable and symetrical. Absent : calf tenderness, cyanotic
[2016-05-30] MEDS: Sennosides/Docusate Sodium TABLET PO PRN (15:32)
--- NOTE | 2016-05-30 15:35 | Physician Discharge Referral ---
Home Health/Hosp Referral Info Transfer to: Home Health Attending Provider: Anjali Lynn Provider in Charge Post Discharge: PCP - Diagnosis (1) Pyelonephritis Priority: Primary Status: Acute (2) Sepsis secondary to UTI Priority: Primary Status: Acute (3) Coronary artery disease Priority: Secondary Status: Chronic (4) COPD (chronic obstructive pulmonary disease) Priority: Secondary Status: Chronic (5) Bilateral leg pain Priority: Secondary Status: Chronic (6) Morbid obesity with BMI of 50.0-59.9, adult Priority: Secondary Status: Chronic (7) CHF (congestive heart failure) Priority: Secondary Status: Chronic (8) Lymphedema of both lower extremities Priority: Secondary Status: Chronic (9) Type 2 diabetes mellitus Priority: Secondary Status: Chronic - Respiratory Orders Smoking Cessation: Smoking cessation has been advised. For more information, call the [place] Tobacco Quit Line at 3-364-QQBE-NOW. - Diet/Nutrition Diet/Nutrition Orders: No Added Salt (PEDRO), Cardiac, No Concentrated Sweets ( diabetic) - Activity Activity Orders: Up ad pennie - Services Needed Following services are medically necessary services: Nursing, Physical Therapy, Occupational Therapy - Transfer Medications Prescriptions: Levofloxacin [Levaquin] 500 mg PO DAILY #10 tablet Magnesium Oxide [Mag-Ox] 400 mg PO BID #30 tablet Home Medications: Aspirin 81 mg PO DAILY 30 Days 04/03/16 [Rx] Atorvastatin [Lipitor] 40 mg PO HS 30 Days 04/03/16 [Rx] Cyanocobalamin (B-12) [Vitamin B12] 1,000 mcg IM QMONTH 30 Days 04/03/16 [Rx] Diclofenac Potassium 50 mg PO TID 30 Days 04/03/16 [Rx] Duloxetine [Cymbalta] 30 mg PO DAILY 30 Days 04/03/16 [Rx] FluocinoNIDE 0.05% CRM [Lidex] 1 appl TP BID 30 Days 04/03/16 [Rx] Fluticasone Propionate Nasal [Flonase] 50 mcg NS DAILY 30 Days 04/03/16 [Rx] Furosemide [Lasix] 60 mg PO BID 30 Days 04/03/16 [Rx] Gabapentin [Neurontin] 300 mg PO BID 30 Days 04/03/16 [Rx] Guaifenesin [Mucinex] 600 mg PO Q12H PRN 30 Days 04/03/16 [Rx] Insulin ASPART [NovoLOG] 2 - 14 unit SQ ACHS 30 Days 04/03/16 [Rx] Ipratropium/Albuterol Sulfate [Combivent Respimat Inhal [place]] 1 puff IH Q6H PRN 30 Days 04/03/16 [Rx] Ketotifen Fumarate [Eye Itch Relief] 1 drop BOTH EYES Q12H PRN 30 Days 04/03/16 [Rx] L. Acidophilus/Pectin, [place] [Acidophilus Probiotic Capsule] 1 each PO DAILY 30 Days 04/03/16 [Rx] Loperamide [Imodium] 4 mg PO DAILY PRN 30 Days 04/03/16 [Rx] Loratadine [Claritin] 10 mg PO DAILY 30 Days 04/03/16 [Rx] Menthol [Cough Drops] 9.1 mg PO Q2H PRN 14 Days 04/03/16 [Rx] Metformin [Glucophage] 500 mg PO BIDWM 30 Days 04/03/16 [Rx] Methyl Salicylate/Menth/Camph [Salonpas Patch] 1 each TP Q12H PRN 30 Days MDD right foot 04/03/16 [Rx] Nystatin POWDER [Nystop] 1 appl TP BID 30 Days 04/03/16 [Rx] Oxybutynin Chloride [Ditropan Xl] 10 mg PO HS 30 Days 04/03/16 [Rx] Oxycodone HCl/Acetaminophen [Percocet 5-325 mg Tablet] 1 each PO Q4H PRN #60 tablet 04/03/16 [Rx] Polyvinyl Alcohol [Artificial Tears] 1 drop BOTH EYES BID 30 Days 04/03/16 [Rx] Potassium Chloride [K-Tab ER] 20 meq PO DAILY 30 Days 04/03/16 [Rx] Promethazine [Phenergan] 25 mg PO Q6H PRN 30 Days 04/03/16 [Rx] Ranitidine HCl [Acid [place]] 150 mg PO DAILY 30 Days 04/03/16 [Rx] Scopolamine Patch [Transderm-Scop] 1.5 mg TD Q72H 30 Days 04/03/16 [Rx] Sennosides/Docusate Sodium [Senna Plus] 2 each PO BID PRN 30 Days 04/03/16 [Rx] Insulin Glargine,Hum.rec.anlog [Lantus Solostar] 20 unit SQ HS 30 Days 04/04/16 [Rx] Levofloxacin [Levaquin] 500 mg PO DAILY #10 tablet 05/30/16 [Rx] Magnesium Oxide [Mag-Ox] 400 mg PO BID #30 tablet 05/30/16 [Rx] Allergies/Adverse Reactions: Allergies gentamicin Adverse Reaction (Verified 03/21/16 17:28) See Comments "MY KIDNEYS SHUTDOWN, TOTAL SHUTDOWN" Certification: Further, I certify that my clinical findings support that this patient is homebound (i.e. absences from home require considerable and taxing effort and are for medical reasons or anabaptism services or infrequently or short duration when for other reasons) because: Homebound Reason: Patient requires assistance of a person or device to safely leave home, Leaving home requires considerable and taxing effort due to condition Attestation: My signature below is to certify that this patient is under my care and that I, or nurse practitioner, or a physician's certified physician assistant working with me, has a face-to -face encounter with this patient.
[2016-05-30 16:04] VITALS: BP 147/82
== END 2016-05-30 19:00 | disposition home health service (06) | DRG 872 ==
LOC: EMEROO 13:23 → 2ANU 13:23 → SUATTDRO 20:03
PROVIDERS: ADMIT Family Medicine; ATTEND Internal Medicine

== ENCOUNTER 2016-06-10 13:43 | Inpatient (IN) ==
[2016-06-10] MEDS ORDERED: Piperacillin/Tazobactam 3.375 GM in D5% in Water (Mini-Bag+) 100 ML IVPB ONE (14:37)
[2016-06-10] MEDS ORDERED: Vancomycin 1,000 MG in D5% in Water 250 ML IVPB ONE ×2 (14:37→19:00)
[2016-06-10 14:59] LABS: Basophils # 0.1 K/mcL (0.0-0.2); Basophils % 1.1 %; Eosinophils # 0.3 K/mcL (0.0-0.6); Eosinophils % 4.1 %; Hematocrit 35.4 % (35.3-44.9); Immature Granulocytes % 0.6 % (0-4); Lymphocytes # 1.7 K/mcL (0.6-4.6); Mean Corpuscular HGB Conc 31.1 g/dL (31.6-35.5); Mean Corpuscular Hemoglobin 26.6 pg (28.0-33.3); Mean Corpuscular Volume 85.7 fL (83.0-100.0); Mean Platelet Volume 8.8 fL (9.4-12.4); Monocytes # 0.5 K/mcL (0.0-1.3); Monocytes % 5.9 %; Neutrophils # 5.5 K/mcL (1.6-8.9); Platelet Count 391 K/mcL (140-400); Red Blood Count 4.13 M/mcL (3.82-4.97); Red Cell Distribution Width 16.3 % (11.5-14.5); Segmented Neutrophils % 67.3 %
--- NOTE | 2016-06-10 14:59 | Emergency Department Note ---
Disposition Clinical Impression: UTI (urinary tract infection) due to Enterococcus, Chronic cellulitis, Urinary tract infection due to Proteus Disposition: Admitted As Inpatient Condition: Fair General Adult HPI - General Chief complaint: ED General Medical Stated complaint: positive cultures Time Seen by Provider: 06/10/16 14:01 Source: EMS Mode of arrival: ambulatory Limitations: no limitations Nursing Notes Reviewed: Yes Vital Signs Reviewed: Yes - History of Present Illness HPI Narrative: 70-year-old female who was recently hospitalized due to sepsis and pyelonephritis and was discharged on the . She came in to the ER a few days later due to likely cellulitis of the left lower extremity. At that time a urinalysis was obtained and the urine results from the culture were reported today as positive for Proteus and enterococcus. They are all resistant to multiple antibiotics. She is complaining of some right flank pain. She is significant for morbid obesity, CHF, diabetes, COPD, CAD. She was being treated as an outpatient with Bactrim and Keflex. She presented to the emergency department due to being called for the positive culture results. She denies current urinary symptoms but the pain in her right flank as constant Radiation: non-radiation Pain Scale: 0 Improves with: nothing Worsens with: nothing Associated symptoms: Reports: denies other symptoms - Related Data Home Medications Medication Instructions Recorded Confirmed Furosemide [Lasix] 40 mg PO DAILY 06/10/16 06/10/16 Metoprolol XL (24 HR) Succ [Toprol 25 mg PO DAILY 06/10/16 06/10/16 XL] Omeprazole [PriLOSEC] 40 mg PO DAILY 06/10/16 06/10/16 Oxycodone HCl/Acetaminophen 1 each PO Q6H PRN 06/10/16 06/10/16 [Percocet 5-325 mg Tablet] Previous Rx's Medication Instructions Recorded Aspirin 81 mg PO DAILY 30 Days 04/03/16 Atorvastatin [Lipitor] 40 mg PO HS 30 Days 04/03/16 Cyanocobalamin (B-12) [Vitamin B12] 1,000 mcg IM QMONTH 30 Days 04/03/16 Diclofenac Potassium 50 mg PO TID 30 Days 04/03/16 Duloxetine [Cymbalta] 30 mg PO DAILY 30 Days 04/03/16 FluocinoNIDE 0.05% CRM [Lidex] 1 appl TP BID 30 Days 04/03/16 Fluticasone Propionate Nasal 50 mcg NS DAILY 30 Days 04/03/16 [Flonase] Gabapentin [Neurontin] 300 mg PO BID 30 Days 04/03/16 Guaifenesin [Mucinex] 600 mg PO Q12H PRN 30 Days 04/03/16 Insulin ASPART [NovoLOG] 2 - 14 unit SQ ACHS 30 Days 04/03/16 Ipratropium/Albuterol Sulfate 1 puff IH Q6H PRN 30 Days 04/03/16 [Combivent Respimat Inhal [place]] L. Acidophilus/Pectin, [place] 1 each PO DAILY 30 Days 04/03/16 [Acidophilus Probiotic Capsule] Loperamide [Imodium] 4 mg PO DAILY PRN 30 Days 04/03/16 Loratadine [Claritin] 10 mg PO DAILY 30 Days 04/03/16 Menthol [Cough Drops] 9.1 mg PO Q2H PRN 14 Days 04/03/16 Metformin [Glucophage] 500 mg PO BIDWM 30 Days 04/03/16 Methyl Salicylate/Menth/Camph 1 each TP Q12H PRN 30 Days MDD 04/03/16 [Salonpas Patch] right foot Nystatin POWDER [Nystop] 1 appl TP BID 30 Days 04/03/16 Oxybutynin Chloride [Ditropan Xl] 10 mg PO HS 30 Days 04/03/16 Polyvinyl Alcohol [Artificial 1 drop BOTH EYES BID 30 Days 04/03/16 Tears] Potassium Chloride [K-Tab ER] 20 meq PO DAILY 30 Days 04/03/16 Promethazine [Phenergan] 25 mg PO Q6H PRN 30 Days 04/03/16 Ranitidine HCl [Acid Importer Exporter] 150 mg PO DAILY 30 Days 04/03/16 Scopolamine Patch [Transderm-Scop] 1.5 mg TD Q72H 30 Days 04/03/16 Sennosides/Docusate Sodium [Senna 2 each PO BID PRN 30 Days 04/03/16 Plus] Insulin Glargine,Hum.rec.anlog 20 unit SQ HS 30 Days 04/04/16 [Lantus Solostar] Magnesium Oxide [Mag-Ox] 400 mg PO BID #30 tablet 05/30/16 Cephalexin [Keflex] 500 mg PO QID #40 capsule 06/07/16 Sulfamethoxazole/Trimeth DS 1 each PO BID #20 tablet 06/07/16 [Bactrim DS] Allergies Allergy/AdvReac Type Severity Reaction Status Date / Time gentamicin AdvReac See Verified 06/10/16 15:39 Comments All systems ED: reviewed and negative except as stated. Constitutional: Denies: fever Eyes: Denies: vision change ENT ED: Denies: throat pain Cardiovascular: Denies: chest pain Respiratory: Denies: cough, dyspnea Gastrointestinal: Denies: abdominal pain, nausea, vomiting Genitourinary: Denies: dysuria Musculoskeletal: Denies: back pain Integumentary: Reports: rash (LLE cellulitis) Endocrine: Denies: fatigue Past Medical History - Past Medical History Medical history: Reports: arthritis, asthma, CHF, COPD, diabetes, GERD, GI bleed , kidney stones, migraine, other Surgical history: Reports: appendectomy, hysterectomy, orthopedic, other, arthroscopy Psychiatric history: Reports: anxiety, depression - Social History Smoking Status: Former smoker Smokeless Tobacco Status: No Alcohol use: Reports: none Drug use: Reports: none Physical Exam - General Limitations: no limitations General appearance: alert - Head Head exam: atraumatic - Eye Eye exam: Present: normal appearance, PERRL, EOMI - ENT ENT exam: normal exam, normal oropharynx - Neck Neck exam: Present: normal inspection - Respiratory Respiratory exam: Present: normal lung sounds bilaterally. Absent: respiratory distress - Cardiovascular Cardiovascular exam: Present: regular rate, normal rhythm - Abdominal Exam Abdominal exam: Present: soft, Non-Tender - Extremities Exam Extremities exam: Present: other (LLE erythema and edema) - Back Exam Back exam: Present: normal inspection, CVA tenderness (R). Absent: CVA tenderness (L) - Neurological Exam Neurological exam: Present: alert, oriented X3 - Skin Skin exam: Present: warm, dry Course Course Narrative: 70-year-old female with [id number] organisms growing in her urine. As she was just recently hospitalized for sepsis and pyelonephritis I will go ahead and start IV therapy with admission to the hospital. She will likely need a PICC line with outpatient antibiotics. She does not currently have clinical signs of sepsis. She also has what appears to be unresolving left lower extremity cellulitis. Vancomycin will cover both the cellulitis and the Proteus and enterococcus will be covered by Zosyn. There is no single agent that will cover both. I will reobtain the urinalysis with baseline labs. Cellulitis of left lower extremity with outpatient therapy she will also be admitted secondary to this - Reevaluation(s) Reevaluation #1: The patient is complaining of increase itching in her left leg after the antibiotics were started. I re-evaluated the patient, there is no increase in redness and no rash seen. Will give some benadryl for the itching in her leg. Have called hospitalist for admission. Vital Signs Temperature 98.3 F 06/10/16 13:44 Pulse Rate 104 06/10/16 13:44 Respiratory Rate 18 06/10/16 13:44 Blood Pressure 141/78 06/10/16 13:44 O2 Sat by Pulse Oximetry 97 06/10/16 13:44 Temperature 98.3 F 06/10/16 13:44 Pulse Rate 104 06/10/16 13:44 Respiratory Rate 18 06/10/16 13:44 Blood Pressure 141/78 06/10/16 13:44 O2 Sat by Pulse Oximetry 97 06/10/16 13:44 Oxygen Delivery Oxygen Delivery Nasal Cannula Medical Decision Making - Medical Records Medical records reviewed: Yes I reviewed the patient's medical records. - Lab Data Lab results reviewed: Yes I reviewed the patient's lab results. Result diagrams: 06/10/16 14:55 06/10/16 14:55 Lab Results 06/10/16 06/10/16 Range/Units 14:55 14:55 WBC 8.1 (4.3-11.1) K/mcL RBC 4.13 (3.82-4.97) M/mcL Hgb 11.0 L (11.5-15.4) g/dL Hct 35.4 (35.3-44.9) % MCV 85.7 (83.0-100.0) fL MCH 26.6 L (28.0-33.3) pg MCHC 31.1 L (31.6-35.5) g/dL RDW 16.3 H (11.5-14.5) % Plt Count 391 (140-400) K/mcL MPV 8.8 L (9.4-12.4) fL Immature Gran % 0.6 (0-4) % Seg Neutrophils % 67.3 % Lymphocytes % 21.0 % Monocytes % 5.9 % Eosinophils % 4.1 % Basophils % 1.1 % Neutrophils # 5.5 (1.6-8.9) K/mcL Lymphocytes # 1.7 (0.6-4.6) K/mcL Monocytes # 0.5 (0.0-1.3) K/mcL Eosinophils # 0.3 (0.0-0.6) K/mcL Basophils # 0.1 (0.0-0.2) K/mcL Sodium 141 (136-145) mEq/L Potassium 4.2 (3.5-4.5) mEq/L Chloride 106 (98-109) mEq/L Carbon Dioxide 24 (19-29) mEq/L BUN 17 (7-20) mg/dL Creatinine 0.84 (0.57-1.11) mg/dL Est GFR ( Amer) > 60 (> 60) Est GFR (Non-Af Amer) > 60 (> 60) BUN/Creatinine Ratio 20 (6-26) Glucose 162 H (70-99) mg/dL Calculated Osmolality 297 (280-300) Calcium 9.6 (8.6-10.8) mg/dL Attestation Statement - Attestation Attestation: I, Sami Lopez MD, personally performed a history and physical exam of the patient and discussed their management with the resident. I reviewed the resident's note and agree with the documented findings, medical decision making , and plan of care. 70-year-old female presents to the emergency department because she was called at home and advised to return because of positive urine cultures. Patient was in the hospital here for pyelonephritis and was discharged about 10 days ago. She was seen here 3 days ago for cellulitis of the left lower leg. At that time she apparently had a urine culture which was positive and she was called and advised to return here. The culture grew out Proteus which was only sensitive to IV antibiotics. It also grew out enterococcus. Patient also reports that the left lower leg cellulitis is no better. She has chronic discoloration of the left lower leg for the past 20 years but states for the past several days it has been more red than usual. Some itching of the area. No fever. She does admit to some persistent flank pain. On examination patient is a morbidly obese elderly female in no acute distress. She is alert and oriented 3. There is no cyanosis or diaphoresis. Breath sounds are clear and equal bilaterally. Heart regular with a mild tachycardia. Abdomen soft and nontender with normal bowel sounds. Mild to moderate bilateral CVA tenderness. There is some erythema and tenderness of the left lower leg. It is not hot to touch. IV antibiotics initiated. The hospitalist nurse practitioner was consulted and accepted admission of the patient for IV antibiotics.
[2016-06-10 15:11] LABS: BUN/Creatinine Ratio 20 (6-26); Blood Urea Nitrogen 17 mg/dL (7-20); Calcium 9.6 mg/dL (8.6-10.8); Carbon Dioxide 24 mEq/L (19-29); Glucose 162 mg/dL (70-99); eGFR For African Americans > 60 (> 60); eGFR For Non-African Americans > 60 (> 60)
[2016-06-10 15:17] LABS: Chloride 106 mEq/L (98-109); Osmolality,Calculated 297 (280-300); Potassium 4.2 mEq/L (3.5-4.5); Sodium 141 mEq/L (136-145)
[2016-06-10 16:06] LABS: Bilirubin,Urine Negative (Negative); Blood,Urine Negative (Negative); Clarity,Urine Clear (Clear); Color,Urine Yellow (Yellow); Glucose,Urine (UA) Normal (Normal); Ketones,Urine Negative (Negative); Leukocyte Esterase,Urine Small (Negative); Nitrite,Urine Negative (Negative); PH,Urine 5.5 pH Units (5.0-8.0); Protein,Urine Negative (Neg-Trace); Urobilinogen,Urine Normal (Normal)
[2016-06-10 16:07] LABS: Bacteria,Urine Many per hpf (None-Few); RBC,Urine 0-3 per hpf (0-3); Squamous Epithelial Cell,Urine Many per lpf (None-Few); WBC,Urine 15-30 per hpf (0-3)
[2016-06-10 16:18] LABS: Hyaline Casts,Urine Few per lpf (None-Few)
[2016-06-10] MEDS ORDERED: Naloxone 0.4 MG/ML INJ IVP PRN (17:44)
[2016-06-10] MEDS ORDERED: MENTHOL TP PRN (17:51)
[2016-06-10] MEDS ORDERED: Ipratropium/Albuterol Neb 3 ML IH PRN (17:51)
[2016-06-10] MEDS ORDERED: CAMPHOR TP PRN (17:51)
[2016-06-10] MEDS ORDERED: Menthol 9.1 MG LOZENGE PO PRN (17:51)
[2016-06-10] MEDS ORDERED: METHYL SALICYLATE TP PRN (17:51)
[2016-06-10] MEDS ORDERED: D5% in Water 1,000 ML IV PRN (17:57)
[2016-06-10] MEDS ORDERED: Dextrose Gel 15 GM PO PRN ×2 (17:57)
[2016-06-10] MEDS ORDERED: *HR* Dextrose 50 % in Water (Syg) 50 ML SYRINGE IVP PRN (17:57)
[2016-06-10] MEDS ORDERED: Cyanocobalamin (B-12) 1,000 MCG/ML VIAL IM SCH (18:00)
[2016-06-10] MEDS ORDERED: Vancomycin 2,000 MG in D5% in Water 250 ML IVPB SCH (18:00)
--- NOTE | 2016-06-10 18:26 | Internal Med History&Physical ---
<Ari Moran - Last Filed: 06/10/16 19:16> Date of Encounter: 06/10/16 Internal Medicine - H&P: HPI History of present illness: Ms. Zamora is a 70 year old female Internal Medicine - H&P: Meds Aspirin 81 mg PO DAILY 30 Days 04/03/16 [Rx] Atorvastatin [Lipitor] 40 mg PO HS 30 Days 04/03/16 [Rx] Cyanocobalamin (B-12) [Vitamin B12] 1,000 mcg IM QMONTH 30 Days 04/03/16 [Rx] Diclofenac Potassium 50 mg PO TID 30 Days 04/03/16 [Rx] Duloxetine [Cymbalta] 30 mg PO DAILY 30 Days 04/03/16 [Rx] FluocinoNIDE 0.05% CRM [Lidex] 1 appl TP BID 30 Days 04/03/16 [Rx] Fluticasone Propionate Nasal [Flonase] 50 mcg NS DAILY 30 Days 04/03/16 [Rx] Gabapentin [Neurontin] 300 mg PO BID 30 Days 04/03/16 [Rx] Guaifenesin [Mucinex] 600 mg PO Q12H PRN 30 Days 04/03/16 [Rx] Insulin ASPART [NovoLOG] 2 - 14 unit SQ ACHS 30 Days 04/03/16 [Rx] Ipratropium/Albuterol Sulfate [Combivent Respimat Inhal [place]] 1 puff IH Q6H PRN 30 Days 04/03/16 [Rx] L. Acidophilus/Pectin, Stephens [Acidophilus Probiotic Capsule] 1 each PO DAILY 30 Days 04/03/16 [Rx] Loperamide [Imodium] 4 mg PO DAILY PRN 30 Days 04/03/16 [Rx] Loratadine [Claritin] 10 mg PO DAILY 30 Days 04/03/16 [Rx] Menthol [Cough Drops] 9.1 mg PO Q2H PRN 14 Days 04/03/16 [Rx] Metformin [Glucophage] 500 mg PO BIDWM 30 Days 04/03/16 [Rx] Methyl Salicylate/Menth/Camph [Salonpas Patch] 1 each TP Q12H PRN 30 Days MDD right foot 04/03/16 [Rx] Nystatin POWDER [Nystop] 1 appl TP BID 30 Days 04/03/16 [Rx] Oxybutynin Chloride [Ditropan Xl] 10 mg PO HS 30 Days 04/03/16 [Rx] Polyvinyl Alcohol [Artificial Tears] 1 drop BOTH EYES BID 30 Days 04/03/16 [Rx] Potassium Chloride [K-Tab ER] 20 meq PO DAILY 30 Days 04/03/16 [Rx] Promethazine [Phenergan] 25 mg PO Q6H PRN 30 Days 04/03/16 [Rx] Ranitidine HCl [Acid Heavy Truck Technician] 150 mg PO DAILY 30 Days 04/03/16 [Rx] Scopolamine Patch [Transderm-Scop] 1.5 mg TD Q72H 30 Days 04/03/16 [Rx] Sennosides/Docusate Sodium [Senna Plus] 2 each PO BID PRN 30 Days 04/03/16 [Rx] Insulin Glargine,Hum.rec.anlog [Lantus Solostar] 20 unit SQ HS 30 Days 04/04/16 [Rx] Magnesium Oxide [Mag-Ox] 400 mg PO BID #30 tablet 05/30/16 [Rx] Cephalexin [Keflex] 500 mg PO QID #40 capsule 06/07/16 [Rx] Sulfamethoxazole/Trimeth DS [Bactrim DS] 1 each PO BID #20 tablet 06/07/16 [Rx] Furosemide [Lasix] 40 mg PO DAILY 06/10/16 [History] Metoprolol XL (24 HR) Succ [Toprol XL] 25 mg PO DAILY 06/10/16 [History] Omeprazole [PriLOSEC] 40 mg PO DAILY 06/10/16 [History] Oxycodone HCl/Acetaminophen [Percocet 5-325 mg Tablet] 1 each PO Q6H PRN [History] Allergies gentamicin Adverse Reaction (Verified 06/10/16 15:39) See Comments "MY KIDNEYS SHUTDOWN, TOTAL SHUTDOWN" All Systems PM: A 10-system review of systems was performed and is negative for pertinent findings except as documented above in the HPI. - Constitutional Vitals: Temp Pulse Resp BP Pulse Ox 97.3 F L 93 16 119/81 98 06/10/16 16:46 06/10/16 16:46 06/10/16 16:46 06/10/16 16:46 06/10/16 16:46 Internal Med - H&P Results - Labs CBC & Chem 7: 06/10/16 14:55 06/10/16 14:55 - Attending Attestation I examined this patient and my medical decision-making was reviewed with the Advanced Practice Provider. I agree with the documented findings, disposition and treatment plan as described except to the extent set forth below. Patient was brought to the hospital for UTI and leg cellulitis. I have recently seen this patient in the hospital and a previous admission. Examination of her left lower extremity reveals skin redness that appears to be slightly worse than 3 weeks ago. Heart is regular abdomen is obese soft nontender. We will treat the patient empirically with Zosyn and vancomycin for UTI and possible MRSA cellulitis. She is at high risk for morbidity and complications due to treatment with IV vancomycin which requires blood level monitoring for toxicity. <Hannah Parra - Last Filed: 06/11/16 00:41> Date of Encounter: 06/11/16 Time of Encounter: 18:25 Assessment and Plan (1) UTI (urinary tract infection) due to Enterococcus Current visit: Yes Status: Acute Patient's urine culture from her ED visit 3 days ago grew ESBL Proteus Mirablis and Enterococcus Faecalis, requiring IV antibiotics. Patient afebrile and WBC is normal at 8.1. IV Vanc started for enterococcus and Zosyn initiated for proteus coverage. PICC team consulted for PICC line placement. Extrusion Operator consult to arrange home health administration of IV antibiotics. (2) Urinary tract infection due to Proteus Current visit: Yes Status: Acute Patient's urine culture from her ED visit 3 days ago grew ESBL Proteus Mirablis and Enterococcus Faecalis, requiring IV antibiotics. Patient afebrile and WBC is normal at 8.1. IV Vanc started for enterococcus and Zosyn initiated for proteus coverage. PICC team consulted for PICC line placement. Extrusion Operator consult to arrange home health administration of IV antibiotics. (3) Left leg cellulitis Current visit: No Status: Acute Patient with chronic left leg cellulitis. She presented to ED on 06/07 for worsening redness and tenderness and was started on Keflex and Bactrim. Blood cultures drawn today. Patient is on Vanc and Zosyn IV which should cover the Cellulitis. (4) Morbid obesity with BMI of 50.0-59.9, adult Current visit: No Status: Chronic (5) Type 2 diabetes mellitus Current visit: No Status: Chronic Diabetic diet check blood sugars ACHS Continue home basal dose of insulin 20u HS Sliding scale correction dose hypoglycemic protocol Qualifiers: Diabetes mellitus complication status: with other specified complication Diabetes mellitus detention insulin use: with predatory animal exterminator use Qualified Code(s) : E11.69 - Type 2 diabetes mellitus with other specified complication; Z79.4 - exterminator helper termite (current) use of insulin (6) DVT prophylaxis Current visit: No Status: Acute Ambulate as tolerated foot pumps Heparin 5,000u SQ BID Internal Medicine - H&P: HPI Chief complaint: UTI Admitted From: Emergency Dept Plans for Post Hospital Care: Home History of present illness: Ms. Zamora is a 70 year old female with hypertension, CHF, type 2 diabetes, COPD, CVA, chronic cellulitis, recently discharged for sepsis and pyelonephritis on May 30, who re-presented to the emergency department 3 days ago for a left leg pain and was discharged on PO antibiotics for cellulitis , at that time a UA and culture was taken and she was called today and told to come into the emergency department for the positive urine culture. Patient denies any dysuria, but reports her urine is dark and has a strong smell. She denies fever, body aches, sweats, nausea, vomiting or abdominal pain. She does endorse feeling "chilled" on and off. Urine culture grew ESBL Proteus mirablis and enterococcus faecalis, requiring IV antibiotics. Evaluation in the ED today showed normal WBC count, afebrile, mildly tachycardic with HR 93-104. Blood cultures were drawn, awaiting results. She was started on IV vancomycin and IV zosyn with plans for PICC placement for home IV Antibiotics. On exam, patient is morbidly obese, alert and oriented X 3 in no distress. Lungs are clear to auscultation and heart has regular rate and rhythm. She has a large ventral hernia. Her left lower extremity has pink erythema in large patch below the knee, mildly tender to palpation. Past Med Surg Social Fam HX - Past Medical History Medical history: arthritis, asthma, CHF, COPD, coronary artery disease, diabetes , GERD, GI bleed, kidney stones, migraine, other Psychiatric history: anxiety, depression - Past Surgical History Surgical History: appendectomy, cholecystectomy, hysterectomy, orthopedic, other , arthroscopy - Social History Smoking Status: Former smoker (85 pack year history) Smokeless Tobacco Status: No Alcohol use: none Drug use: none - Family History Mother Adopted: No Family Member Ethnicity: Non- Living Status: Hx Family Cardiac Disorders: Yes Hx Family Respiratory Disorders: Yes Hx Family Cancer: No Hx Family GI Disorders: Yes (ulcers) Hx Family Endocrine Disorder: Yes Hx Family Neuromuscular Disorders: No Hx Family Neurologic Disorders: No Hx Family HEENT Disorders: No Hx Family Autoimmune Disorders: No Father Hx Family Cardiac Disorders: Yes Hx Family Respiratory Disorders: Yes Hx Family Endocrine Disorder: Yes All Systems PM: A 10-system review of systems was performed and is negative for pertinent findings except as documented above in the HPI. - Constitutional Constitutional: chills, no fever(s), no night sweats - EENT Eyes: no change in vision, no discharge, no pain, no photophobia Nose, mouth and throat: no dysphagia, no nasal discharge, no neck pain, no sore throat - Cardiovascular Cardiovascular ROS IM: no chest pain, no diaphoresis, no dyspnea, no lightheadedness, no palpitations, no syncope - Respiratory Respiratory: no cough, no dyspnea, no wheezing, no excessive phlegm production - Gastrointestinal Gastrointestinal: no abdominal pain, no diarrhea, no hematemesis, no hematochezia, no melena, no nausea, no vomiting - Genitourinary Genitourinary: no change in urinary stream, no dysuria, no flank pain, no hematuria Additional comments: Dark, foul smelling urine. - Musculoskeletal Musculoskeletal ROS IM: no numbness, no tingling - Integumentary Integumentary IM: erythema, rash - Neurological Neurological ROS: no confusion, no convulsions, no focal weakness, no numbness, no tingling, no tremor(s) - Hematologic/Lymphatic Hematologic/Lymphatic: no easy bruising - Constitutional Vitals: Temp Pulse Resp BP Pulse Ox 97.3 F L 93 16 119/81 98 06/10/16 16:46 06/10/16 16:46 06/10/16 16:46 06/10/16 16:46 06/10/16 16:46 General appearance: Present: A&O X 3, morbidly obese, no acute distress - Head Head exam: Present: atraumatic, normocephalic - Eye Eye exam: Present: PERRL, conjuntiva pink, sclera anicteric Pupils: Present: PERRL - Neck Neck exam general surgery: Present: supple, trachea midline. Absent: lymphadenopathy - Respiratory Respiratory exam: Present: CTAB. Absent: accessory muscle use, rales, rhonchi, wheezes - Cardiovascular Cardiovascular exam: Present: RRR, +S1, +S2. Absent: diastolic murmur, gallop, rubs, systolic murmur - GI/Abdominal GI/Abdominal exam: Present: hernia, normal bowel sounds, soft, no peritoneal signs. Absent: distended, tenderness - Extremities Exam Extremities exam: Present: pedal edema (BLE ), tenderness (LLE), warm, radial pulses palpable and symetrical. Absent: calf tenderness, cyanotic - Expanded Lower Extremities Exam Lower Leg exam: Present: erythema (left), swelling - Neurological Exam Neurological exam: Present: CN II-XII intact, oriented X3, no focal deficits. Absent: facial droop, speech deficit - Skin Skin exam: Present: dry, erythema (left lower leg), intact Internal Med - H&P Results - Labs CBC & Chem 7: 06/10/16 14:55 06/10/16 14:55
[2016-06-10] MEDS: Insulin DETEMIR 100 UNIT/ML X5UNITS SQ SCH (22:06)
[2016-06-10] MEDS: Gabapentin 300 MG CAPSULE PO SCH (22:07)
[2016-06-10] MEDS: Scopolamine Patch 1.5 MG PATCH.TD72 TD SCH (22:07)
[2016-06-10] MEDS: Magnesium Oxide 400 MG TABLET PO SCH (22:07)
[2016-06-10] MEDS: *HR* HYDROcodone/Acet 5/325 mg TABLET PO PRN (22:07)
[2016-06-10] MEDS: Insulin LISPRO 300 UNITS/3 ML VIAL SQ SCH (22:27)
[2016-06-10] MEDS: Nystatin POWDER 30 GM BOTTLE TP SCH (22:28)
[2016-06-10] MEDS: FluocinoNIDE 0.05% CRM 15 GM TUBE TP SCH (23:10)
[2016-06-11] MEDS: Piperacillin/Tazobactam 3.375 GM in D5% in Water (Mini-Bag+) 100 ML IVPB SCH ×3 (00:04→17:16)
[2016-06-11] MEDS: Artificial Tears SOLN 15 ML BOTTLE BOTH EYES SCH ×3 (00:05→22:23)
[2016-06-11] MEDS: *HR* Morphine 2 MG/ML SYRINGE IVP PRN (00:05)
[2016-06-11 04:42] LABS: Basophils # 0.1 K/mcL (0.0-0.2); Basophils % 0.7 %; Eosinophils # 0.3 K/mcL (0.0-0.6); Eosinophils % 3.9 %; Hematocrit 33.9 % (35.3-44.9); Hemoglobin 10.6 g/dL (11.5-15.4); Immature Granulocytes % 0.5 % (0-4); Lymphocytes % 11.1 %; Mean Corpuscular HGB Conc 31.3 g/dL (31.6-35.5); Mean Corpuscular Hemoglobin 26.8 pg (28.0-33.3); Mean Corpuscular Volume 85.8 fL (83.0-100.0); Mean Platelet Volume 9.1 fL (9.4-12.4); Monocytes # 0.6 K/mcL (0.0-1.3); Monocytes % 6.3 %; Neutrophils # 6.8 K/mcL (1.6-8.9); Platelet Count 329 K/mcL (140-400); Red Blood Count 3.95 M/mcL (3.82-4.97); Red Cell Distribution Width 16.5 % (11.5-14.5); Segmented Neutrophils % 77.5 %
[2016-06-11 04:56] LABS: BUN/Creatinine Ratio 17 (6-26); Blood Urea Nitrogen 17 mg/dL (7-20); Carbon Dioxide 22 mEq/L (19-29); Chloride 105 mEq/L (98-109); Glucose 160 mg/dL (70-99); Osmolality,Calculated 297 (280-300); Potassium 3.9 mEq/L (3.5-4.5); Sodium 141 mEq/L (136-145); eGFR For African Americans > 60 (> 60); eGFR For Non-African Americans 54 (> 60)
[2016-06-11] MEDS ORDERED: Vancomycin 2,000 MG in D5% in Water 500 ML IVPB ONE (09:00)
[2016-06-11] MEDS: Insulin LISPRO 300 UNITS/3 ML VIAL SQ SCH ×4 (09:19→22:32)
[2016-06-11] MEDS: Aspirin 81 MG TAB.CHEW PO SCH (09:24)
[2016-06-11] MEDS: Fluticasone Propionate Nasal 50 MCG/SPRAY BOTTLE NS SCH (09:25)
[2016-06-11] MEDS: Loratadine 10 MG TABLET PO SCH (09:25)
[2016-06-11] MEDS: Lactobacillus 1 EACH CAP.SPRINK PO SCH (09:25)
[2016-06-11] MEDS: Furosemide 40 MG TABLET PO SCH (09:25)
[2016-06-11] MEDS: Metoprolol XL (24 HR) Succ 25 MG TAB.ER.24H PO SCH (09:26)
[2016-06-11] MEDS: FluocinoNIDE 0.05% CRM 15 GM TUBE TP SCH ×2 (09:26→22:25)
[2016-06-11] MEDS: Nystatin POWDER 30 GM BOTTLE TP SCH ×2 (09:26→22:26)
[2016-06-11] MEDS: Famotidine 20 MG TABLET PO SCH (09:26)
[2016-06-11] MEDS: Gabapentin 300 MG CAPSULE PO SCH ×2 (09:26→22:24)
[2016-06-11] MEDS: Magnesium Oxide 400 MG TABLET PO SCH ×2 (09:26→22:24)
[2016-06-11] MEDS: *HR* HYDROcodone/Acet 5/325 mg TABLET PO PRN ×3 (09:27→22:24)
--- NOTE | 2016-06-11 16:45 | Internal Med Progress Note ---
<Nathan Murrieta - Last Filed: 06/11/16 16:43> Date of Encounter: 06/11/16 Time of Encounter: 10:00 - Assessment and plan (1) Left leg cellulitis Current Visit: No Status: Acute Assessment and plan: Patient is a morbidly obese female who is mainly bedridden with a BMI of 40.7. She explains she has had chronic cellulitis of the left lower extremity and just recently had acute spread of erythema warmth of the medial left thigh. She had a recent emergency department visits and was started on Keflex and Bactrim with not much or if any improvement. She is currently afebrile, regular rate and rhythm, no leukocytosis, or neutrophilia. Plan: - Continue vancomycin and Zosyn IV. - Tylenol for fevers. (2) UTI (urinary tract infection) due to Enterococcus Current Visit: Yes Status: Acute Assessment and plan: Current treatment for enterococcus faecalis that is sensitive to vancomycin. Already on vancomycin for left lower extreme cellulitis. Plan: -Continue current treatment. (3) Urinary tract infection due to Proteus Current Visit: Yes Status: Acute Assessment and plan: Urinalysis positive for Proteus Maribelis on 06/07/2016. This microbial sensitive to Zosyn which the patient is on for cellulitis coverage. Urinalysis collected upon arrival to the [facility] gram-negative rods with final result pending. Plan: Continue current regimen. (4) Type 2 diabetes mellitus Current Visit: No Status: Chronic Assessment and plan: Patient is a known type II diabetic, currently her glucoses are well controlled in the inpatient setting. Plan: -Continue Levemir 20 units - inpatient sliding scale. - Before meals at bedtime glucose checks Qualifiers: Diabetes mellitus complication status: with other specified complication Diabetes mellitus correction insulin use: with correction use Qualified Code(s) : E11.69 - Type 2 diabetes mellitus with other specified complication; Z79.4 - half-way (current) use of insulin (5) Morbid obesity due to excess calories Current Visit: No Status: Acute Assessment and plan: Patient is a morbidly obese female with a BMI of 40.7 and immobility. She is a type II diabetic and these criteria for metabolic syndrome. Diet and exercise and lifestyle modifications are highly encouraged to improve quality of life and longevity. (6) DVT prophylaxis Current Visit: No Status: Acute Assessment and plan: Subcutaneous heparin every 12 hours - Subjective Interval history: Ms. Zamora has been seen about a patient does have a splint. She is alert awake interactive denies any pain. She said that she was admitted for her lower left extremity cellulitis which she said has been chronic since the but has worsened the last few days. She denies any fevers, chills, nausea vomiting diarrhea constipation. She has noticed increased warmth and spread of the erythema. She says she is not very mobile since she has a cement block in her knee. She denies any other concerning problems and denies any pain with urination discomfort. She asked about discharge and when should be able to go home. - Constitutional Vitals: Temp Pulse Resp BP Pulse Ox 97.8 F 95 16 121/73 97 06/11/16 14:39 06/11/16 14:39 06/11/16 14:39 06/11/16 14:39 06/11/16 14:39 General appearance: Present: A&O X 3, morbidly obese, no acute distress - Head Head exam: Present: atraumatic, normocephalic - Eye Eye exam: Present: PERRL, conjuntiva pink, sclera anicteric Pupils: Present: PERRL - Neck Neck exam general surgery: Present: supple, trachea midline. Absent: lymphadenopathy - Respiratory Respiratory exam: Present: CTAB. Absent: accessory muscle use, rales, rhonchi, wheezes - Cardiovascular Cardiovascular exam: Present: RRR, +S1, +S2. Absent: diastolic murmur, gallop, rubs, systolic murmur - GI/Abdominal GI/Abdominal exam: Present: normal bowel sounds, soft, no peritoneal signs. Absent: distended, tenderness Additional comments: Morbidly obese. - Extremities Exam Extremities exam: Present: warm, radial pulses palpable and symetrical. Absent : calf tenderness, cyanotic, pedal edema - Neurological Exam Neurological exam: Present: alert, oriented X3. Absent: pronater drift, facial droop, speech deficit - Psychiatric Psychiatric exam: Present: normal affect, normal mood - Skin Skin exam: Present: dry, intact Additional comments: Left lower extremity demonstrates warmth to palpation, erythema circumferentially around the distal lower extremity and spread up the medial thigh. Internal Medicine: Result - Labs CBC & Chem 7: 06/11/16 04:25 06/11/16 04:25 Labs: Short CBC 06/11/16 Range/Units 04:25 WBC 8.8 (4.3-11.1) K/mcL Hgb 10.6 L (11.5-15.4) g/dL Hct 33.9 L (35.3-44.9) % Plt Count 329 (140-400) K/mcL Neutrophils # 6.8 (1.6-8.9) K/mcL BMP 06/11/16 04:25 Sodium 141 Potassium 3.9 Chloride 105 Carbon Dioxide 22 BUN 17 Creatinine 1.01 Glucose 160 H Calcium 9.0 Consult Discharge Plan - Plan Referrals: Alesha Camargo DO [Resident] - 06/21/16 3:00 pm <Heath Fernandez - Last Filed: 06/11/16 18:26> Date of Encounter: 06/11/16 - Constitutional Vitals: Temp Pulse Resp BP Pulse Ox 97.8 F 95 16 121/73 97 06/11/16 14:39 06/11/16 14:39 06/11/16 14:39 06/11/16 14:39 06/11/16 14:39 Internal Medicine: Result - Labs CBC & Chem 7: 06/11/16 04:25 06/11/16 04:25 Labs: Short CBC 06/11/16 Range/Units 04:25 WBC 8.8 (4.3-11.1) K/mcL Hgb 10.6 L (11.5-15.4) g/dL Hct 33.9 L (35.3-44.9) % Plt Count 329 (140-400) K/mcL Neutrophils # 6.8 (1.6-8.9) K/mcL [facility] 06/11/16 04:25 Sodium 141 Potassium 3.9 Chloride 105 Carbon Dioxide 22 BUN 17 Creatinine 1.01 Glucose 160 H Calcium 9.0 - Attending Attestation I agree with the physical examination findings, assessment and plan documented by the resident Dr. Joseph. . I examined the patient independently. Patient with a urinary tract infection and cellulitis. We will obtain a venous duplex to rule out deep venous thrombosis. We will continue with IV antibiotics , follow cultures.
[2016-06-11] MEDS: *HR* Heparin 5,000 UNIT/ML VIAL SQ SCH (17:15)
[2016-06-11] MEDS: Insulin DETEMIR 100 UNIT/ML X5UNITS SQ SCH (22:23)
[2016-06-11] MEDS: Vancomycin 1,500 MG in D5% in Water 250 ML IVPB SCH (22:25)
[2016-06-12] MEDS: Piperacillin/Tazobactam 3.375 GM in D5% in Water (Mini-Bag+) 100 ML IVPB SCH ×2 (01:31→08:46)
[2016-06-12] MEDS: *HR* HYDROcodone/Acet 5/325 mg TABLET PO PRN ×3 (04:11→19:32)
[2016-06-12] MEDS: *HR* Heparin 5,000 UNIT/ML VIAL SQ SCH ×2 (06:54→17:29)
[2016-06-12 08:31] LABS: Basophils # 0.1 K/mcL (0.0-0.2); Basophils % 1.3 %; Eosinophils # 0.5 K/mcL (0.0-0.6); Hematocrit 32.9 % (35.3-44.9); Hemoglobin 10.3 g/dL (11.5-15.4); Lymphocytes # 1.5 K/mcL (0.6-4.6); Lymphocytes % 23.8 %; Mean Corpuscular HGB Conc 31.3 g/dL (31.6-35.5); Mean Corpuscular Hemoglobin 27.2 pg (28.0-33.3); Mean Platelet Volume 9.3 fL (9.4-12.4); Monocytes # 0.5 K/mcL (0.0-1.3); Monocytes % 8.4 %; Neutrophils # 3.5 K/mcL (1.6-8.9); Platelet Count 312 K/mcL (140-400); Red Blood Count 3.78 M/mcL (3.82-4.97); Red Cell Distribution Width 16.6 % (11.5-14.5); Segmented Neutrophils % 57.5 %
[2016-06-12] MEDS: Fluticasone Propionate Nasal 50 MCG/SPRAY BOTTLE NS SCH (08:47)
[2016-06-12] MEDS: Insulin LISPRO 300 UNITS/3 ML VIAL SQ SCH ×4 (08:47→20:21)
[2016-06-12 08:48] LABS: BUN/Creatinine Ratio 18 (6-26); Blood Urea Nitrogen 18 mg/dL (7-20); Carbon Dioxide 24 mEq/L (19-29); Chloride 104 mEq/L (98-109); Glucose 187 mg/dL (70-99); Osmolality,Calculated 291 (280-300); Potassium 4.2 mEq/L (3.5-4.5); Sodium 137 mEq/L (136-145); eGFR For African Americans > 60 (> 60); eGFR For Non-African Americans 56 (> 60)
[2016-06-12] MEDS: FluocinoNIDE 0.05% CRM 15 GM TUBE TP SCH ×2 (08:48→19:33)
[2016-06-12] MEDS: Furosemide 40 MG TABLET PO SCH (08:48)
[2016-06-12] MEDS: Magnesium Oxide 400 MG TABLET PO SCH ×2 (08:48→19:31)
[2016-06-12] MEDS: Metoprolol XL (24 HR) Succ 25 MG TAB.ER.24H PO SCH (08:49)
[2016-06-12] MEDS: Famotidine 20 MG TABLET PO SCH (08:49)
[2016-06-12] MEDS: Artificial Tears SOLN 15 ML BOTTLE BOTH EYES SCH ×2 (08:50→19:33)
[2016-06-12] MEDS: Nystatin POWDER 30 GM BOTTLE TP SCH ×2 (08:50→19:33)
[2016-06-12] MEDS: Gabapentin 300 MG CAPSULE PO SCH ×2 (08:50→19:32)
[2016-06-12] MEDS: Lactobacillus 1 EACH CAP.SPRINK PO SCH (08:50)
[2016-06-12] MEDS: Loratadine 10 MG TABLET PO SCH (08:50)
[2016-06-12] MEDS: Aspirin 81 MG TAB.CHEW PO SCH (08:50)
--- NOTE | 2016-06-12 10:18 | Internal Med Progress Note ---
<Nathan Murrieta - Last Filed: 06/12/16 10:15> Date of Encounter: 06/12/16 Time of Encounter: 10:15 - Assessment and plan (1) Left leg cellulitis Current Visit: No Status: Acute Assessment and plan: Patient is a morbidly obese female who is mainly bedridden with a BMI of 48.7. She explains she has had chronic cellulitis of the left lower extremity and just recently had acute spread of erythema warmth of the medial left thigh. She had a recent emergency department visits and was started on Keflex and Bactrim with not much or if any improvement. She is currently afebrile, regular rate and rhythm, no leukocytosis, or neutrophilia. 06/12/2016: No change in erythema, edema or warmth compared to yesterday. No leukocytosis, afebrile, normotensive, RRR. Continue current regimen. Plan: - Continue vancomycin and Zosyn IV. - Tylenol for fevers. - Bilateral lower extremity dopplers pending. (2) UTI (urinary tract infection) due to Enterococcus Current Visit: Yes Status: Acute Assessment and plan: Current treatment for enterococcus faecalis that is sensitive to vancomycin. Already on vancomycin for left lower extreme cellulites. Urine culture from 06/10/2016 has growth of Gram negative rods. Patient had catheter out yesterday to prevent recurrent infections. Plan: -Continue current treatment. (3) Urinary tract infection due to Proteus Current Visit: Yes Status: Acute Assessment and plan: Urinalysis positive for Proteus Maribelis on 06/07/2016. This microbial sensitive to Zosyn which the patient is on for cellulitis coverage. Urinalysis collected upon arrival to the [facility] gram-negative rods with final result pending. Plan: Continue current regimen. (4) Type 2 diabetes mellitus Current Visit: No Status: Chronic Assessment and plan: Patient is a known type II diabetic, currently her glucoses are controlled in the inpatient setting. Plan: -Continue Levemir 20 units - inpatient sliding scale. - Before meals at bedtime glucose checks Qualifiers: Diabetes mellitus complication status: with other specified complication Diabetes mellitus senior living insulin use: with senior living use Qualified Code(s) : E11.69 - Type 2 diabetes mellitus with other specified complication; Z79.4 - jail (current) use of insulin (5) Morbid obesity due to excess calories Current Visit: No Status: Acute Assessment and plan: Patient is a morbidly obese female with a BMI of 40.7 and immobility. She is a type II diabetic and these criteria for metabolic syndrome. Diet and exercise and lifestyle modifications are highly encouraged to improve quality of life and longevity. (6) DVT prophylaxis Current Visit: No Status: Acute Assessment and plan: Subcutaneous heparin every 12 hours - Subjective Interval history: Ms. Zamora has been seen about a patient does have a splint. She is alert awake interactive, she has had some tenderness to palpation of skin on bilateral LE below the knees. She denies any fevers, chills, nausea vomiting diarrhea constipation. She says that her body rejected her urinary catheter and that she is doing fine without it. She denies any pain in her bladder or burning with urination. She feels tired today. No fevers, chills, sweating. - Constitutional Vitals: Temp Pulse Resp BP Pulse Ox 97.8 F 81 16 116/63 95 06/12/16 08:14 06/12/16 08:14 06/12/16 08:14 06/12/16 08:14 06/12/16 08:14 General appearance: Present: A&O X 3, morbidly obese, no acute distress - Head Head exam: Present: atraumatic, normocephalic - Eye Eye exam: Present: PERRL, conjuntiva pink, sclera anicteric Pupils: Present: PERRL - Neck Neck exam general surgery: Present: supple, trachea midline. Absent: lymphadenopathy Additional comments: facial hair. - Respiratory Respiratory exam: Present: CTAB. Absent: accessory muscle use, rales, rhonchi, wheezes - Cardiovascular Cardiovascular exam: Present: RRR, +S1, +S2. Absent: diastolic murmur, gallop, rubs, systolic murmur - GI/Abdominal GI/Abdominal exam: Present: normal bowel sounds, soft Additional comments: Patient has obese abdomen with midline umbilical hernia. - Extremities Exam Extremities exam: Present: warm. Absent: cyanotic, joint swelling Additional comments: Diffuse poor musculature and excess adipose. Patient has chronic limited mobility of lower extremities and no flexion at left knee. Tenderness to palpation to anterior left distal extremity. Tenderness to palpation of medial right calf. - Neurological Exam Neurological exam: Present: alert, oriented X3, no focal deficits - Psychiatric Psychiatric exam: Present: normal affect, normal mood - Skin Additional comments: Left lower extremity demonstrates warmth to palpation, erythema circumferentially around the distal lower extremity and spread up the medial thigh. Internal Medicine: Result - Labs CBC & Chem 7: 06/12/16 08:15 06/12/16 08:15 Labs: Short CBC 06/12/16 Range/Units 08:15 WBC 6.1 (4.3-11.1) K/mcL Hgb 10.3 L (11.5-15.4) g/dL Hct 32.9 L (35.3-44.9) % Plt Count 312 (140-400) K/mcL Neutrophils # 3.5 (1.6-8.9) K/mcL BMP 06/12/16 08:15 Sodium 137 Potassium 4.2 Chloride 104 Carbon Dioxide 24 BUN 18 Creatinine 0.98 Glucose 187 H Calcium 9.0 Consult Discharge Plan - Plan Referrals: Alesha Camargo DO [Resident] - 06/21/16 3:00 pm <Heath Fernandez - Last Filed: 06/12/16 17:52> Date of Encounter: 06/12/16 - Constitutional Vitals: Temp Pulse Resp BP Pulse Ox 97.5 F L 81 18 170/69 96 06/12/16 15:52 06/12/16 15:52 06/12/16 15:52 06/12/16 15:52 06/12/16 15:52 Internal Medicine: Result - Labs CBC & Chem 7: 06/12/16 08:15 06/12/16 08:15 Labs: Short CBC 06/12/16 Range/Units 08:15 WBC 6.1 (4.3-11.1) K/mcL Hgb 10.3 L (11.5-15.4) g/dL Hct 32.9 L (35.3-44.9) % Plt Count 312 (140-400) K/mcL Neutrophils # 3.5 (1.6-8.9) K/mcL BMP 06/12/16 08:15 Sodium 137 Potassium 4.2 Chloride 104 Carbon Dioxide 24 BUN 18 Creatinine 0.98 Glucose 187 H Calcium 9.0 - Attending Attestation Ms. Zamora was seen and examined in rounds, I agree with the physical examination findings, assessment and plan as documented by the resident Dr. Drew Murrieta. We will continue with antibiotics for both UTI and cellulitis, switch to ertapenem and contue with vancomycin. follow venous duplex. Follow cultures.
[2016-06-12] MEDS ORDERED: Lidocaine -MPF 1% 5 ML AMPUL INFILT ONE (11:30)
[2016-06-12] MEDS: *HR* Morphine 2 MG/ML SYRINGE IVP PRN (17:30)
[2016-06-12] MEDS: Vancomycin 1,500 MG in D5% in Water 250 ML IVPB SCH (19:45)
[2016-06-12] MEDS: Insulin DETEMIR 100 UNIT/ML X5UNITS SQ SCH (20:22)
[2016-06-13] MEDS: *HR* HYDROcodone/Acet 5/325 mg TABLET PO PRN ×2 (00:19→22:03)
[2016-06-13 04:35] LABS: Basophils # 0.1 K/mcL (0.0-0.2); Basophils % 0.8 %; Eosinophils # 0.4 K/mcL (0.0-0.6); Eosinophils % 6.8 %; Hematocrit 30.5 % (35.3-44.9); Hemoglobin 9.4 g/dL (11.5-15.4); Immature Granulocytes % 0.6 % (0-4); Lymphocytes # 1.6 K/mcL (0.6-4.6); Mean Corpuscular HGB Conc 30.8 g/dL (31.6-35.5); Mean Corpuscular Volume 87.6 fL (83.0-100.0); Mean Platelet Volume 9.5 fL (9.4-12.4); Monocytes # 0.6 K/mcL (0.0-1.3); Monocytes % 8.6 %; Neutrophils # 3.8 K/mcL (1.6-8.9); Platelet Count 272 K/mcL (140-400); Red Blood Count 3.48 M/mcL (3.82-4.97); Red Cell Distribution Width 16.5 % (11.5-14.5); Segmented Neutrophils % 59.2 %
[2016-06-13 04:52] LABS: Alanine Aminotransferase 8 Units/L (0-55); Albumin 2.7 g/dL (3.5-5.0); Albumin/Globulin Ratio 0.8 (1.1-2.2); Alkaline Phosphatase 60 Units/L (38-126); Aspartate Amino Transferase 13 Units/L (5-34); BUN/Creatinine Ratio 24 (6-26); Bilirubin,Total 0.2 mg/dL (0.2-1.2); Blood Urea Nitrogen 22 mg/dL (7-20); Calcium 8.5 mg/dL (8.6-10.8); Carbon Dioxide 21 mEq/L (19-29); Chloride 106 mEq/L (98-109); Globulin 3.2 g/dL (2.4-3.5); Glucose 200 mg/dL (70-99); Osmolality,Calculated 291 (280-300); Potassium 4.4 mEq/L (3.5-4.5); Sodium 136 mEq/L (136-145); Total Protein 5.9 g/dL (6.0-8.3); eGFR For African Americans > 60 (> 60); eGFR For Non-African Americans > 60 (> 60)
[2016-06-13] MEDS: *HR* Heparin 5,000 UNIT/ML VIAL SQ SCH ×2 (06:15→18:12)
[2016-06-13] MEDS: Insulin LISPRO 300 UNITS/3 ML VIAL SQ SCH ×4 (08:29→21:47)
[2016-06-13] MEDS: Metoprolol XL (24 HR) Succ 25 MG TAB.ER.24H PO SCH (09:06)
[2016-06-13] MEDS: Lactobacillus 1 EACH CAP.SPRINK PO SCH (09:06)
[2016-06-13] MEDS: Famotidine 20 MG TABLET PO SCH (09:06)
[2016-06-13] MEDS: Furosemide 40 MG TABLET PO SCH (09:06)
[2016-06-13] MEDS: Ertapenem 1,000 MG in 0.9 % Sodium Chloride Mini Bag 100 ML IVPB SCH (09:07)
[2016-06-13] MEDS: Loratadine 10 MG TABLET PO SCH (09:07)
[2016-06-13] MEDS: Aspirin 81 MG TAB.CHEW PO SCH (09:08)
[2016-06-13] MEDS: Artificial Tears SOLN 15 ML BOTTLE BOTH EYES SCH ×2 (09:09→21:53)
[2016-06-13] MEDS: Nystatin POWDER 30 GM BOTTLE TP SCH ×2 (09:09→21:56)
[2016-06-13] MEDS: Gabapentin 300 MG CAPSULE PO SCH ×2 (09:09→21:54)
[2016-06-13] MEDS: Magnesium Oxide 400 MG TABLET PO SCH ×2 (09:09→21:54)
[2016-06-13] MEDS: FluocinoNIDE 0.05% CRM 15 GM TUBE TP SCH ×2 (09:10→21:54)
[2016-06-13] MEDS: Fluticasone Propionate Nasal 50 MCG/SPRAY BOTTLE NS SCH (09:10)
[2016-06-13] MEDS: *HR* Morphine 2 MG/ML SYRINGE IVP PRN ×2 (09:10→23:48)
--- NOTE | 2016-06-13 10:18 | Discharge Summary ---
<Nathan Murrieta - Last Filed: 06/13/16 13:45> Date of Encounter: 06/13/16 Time of Encounter: 09:00 - Discharge Diagnosis (1) Left leg cellulitis Priority: Primary Status: Acute (2) UTI (urinary tract infection) due to Enterococcus Priority: Primary Status: Acute (3) Urinary tract infection due to Proteus Priority: Primary Status: Acute (4) Type 2 diabetes mellitus Priority: Secondary Status: Chronic Qualifiers: Diabetes mellitus complication status: with other specified complication Diabetes mellitus intermediate insulin use: with intermediate use Qualified Code(s) : E11.69 - Type 2 diabetes mellitus with other specified complication; Z79.4 - exterminator (current) use of insulin (5) Morbid obesity due to excess calories Priority: Secondary Status: Acute (6) DVT prophylaxis Priority: Secondary Status: Acute - Discharge Medications Prescriptions: Doxycycline 100 mg PO BID 11 Days Ertapenem [INVanz] 1,000 mg IVPB DAILY 11 Days Home Medications: Aspirin 81 mg PO DAILY 30 Days 04/03/16 [Rx] Atorvastatin [Lipitor] 40 mg PO HS 30 Days 04/03/16 [Rx] Cyanocobalamin (B-12) [Vitamin B12] 1,000 mcg IM QMONTH 30 Days 04/03/16 [Rx] Diclofenac Potassium 50 mg PO TID 30 Days 04/03/16 [Rx] Duloxetine [Cymbalta] 30 mg PO DAILY 30 Days 04/03/16 [Rx] FluocinoNIDE 0.05% CRM [Lidex] 1 appl TP BID 30 Days 04/03/16 [Rx] Fluticasone Propionate Nasal [Flonase] 50 mcg NS DAILY 30 Days 04/03/16 [Rx] Gabapentin [Neurontin] 300 mg PO BID 30 Days 04/03/16 [Rx] Guaifenesin [Mucinex] 600 mg PO Q12H PRN 30 Days 04/03/16 [Rx] Insulin ASPART [NovoLOG] 2 - 14 unit SQ ACHS 30 Days 04/03/16 [Rx] Ipratropium/Albuterol Sulfate [Combivent Respimat Inhal [place]] 1 puff IH Q6H PRN 30 Days 04/03/16 [Rx] L. Acidophilus/Pectin, [place] [Acidophilus Probiotic Capsule] 1 each PO DAILY 30 Days 04/03/16 [Rx] Loperamide [Imodium] 4 mg PO DAILY PRN 30 Days 04/03/16 [Rx] Loratadine [Claritin] 10 mg PO DAILY 30 Days 04/03/16 [Rx] Menthol [Cough Drops] 9.1 mg PO Q2H PRN 14 Days 04/03/16 [Rx] Metformin [Glucophage] 500 mg PO BIDWM 30 Days 04/03/16 [Rx] Methyl Salicylate/Menth/Camph [Salonpas Patch] 1 each TP Q12H PRN 30 Days MDD right foot 04/03/16 [Rx] Nystatin POWDER [Nystop] 1 appl TP BID 30 Days 04/03/16 [Rx] Oxybutynin Chloride [Ditropan Xl] 10 mg PO HS 30 Days 04/03/16 [Rx] Polyvinyl Alcohol [Artificial Tears] 1 drop BOTH EYES BID 30 Days 04/03/16 [Rx] Potassium Chloride [K-Tab ER] 20 meq PO DAILY 30 Days 04/03/16 [Rx] Promethazine [Phenergan] 25 mg PO Q6H PRN 30 Days 04/03/16 [Rx] Ranitidine HCl [Acid End Lathe Operator] 150 mg PO DAILY 30 Days 04/03/16 [Rx] Scopolamine Patch [Transderm-Scop] 1.5 mg TD Q72H 30 Days 04/03/16 [Rx] Sennosides/Docusate Sodium [Senna Plus] 2 each PO BID PRN 30 Days 04/03/16 [Rx] Insulin Glargine,Hum.rec.anlog [Lantus Solostar] 20 unit SQ HS 30 Days 04/04/16 [Rx] Magnesium Oxide [Mag-Ox] 400 mg PO BID #30 tablet 05/30/16 [Rx] Furosemide [Lasix] 40 mg PO DAILY 06/10/16 [History] Metoprolol XL (24 HR) Succ [Toprol Xl] 25 mg PO DAILY 06/10/16 [History] Omeprazole [PriLOSEC] 40 mg PO DAILY 06/10/16 [History] Oxycodone HCl/Acetaminophen [Percocet 5-325 mg Tablet] 1 each PO Q6H PRN [History] Doxycycline 100 mg PO BID 11 Days 06/13/16 [Rx] Ertapenem [INVanz] 1,000 mg IVPB DAILY 11 Days 06/13/16 [Rx] Allergies/Adverse Reactions: Allergies gentamicin Adverse Reaction (Verified 06/10/16 15:39) See Comments "MY KIDNEYS SHUTDOWN, TOTAL SHUTDOWN" Date of admission: 06/12/16 17:50 Primary care physician: Boaz Villalpando DO Discharging clinician: Nathan Murrieta Anticipated date of discharge: 06/13/16 - Patient Status Disposition: Home Health Service Condition: Fair Functional capacity at discharge: wheelchair bound Overall status at discharge: patient is progressing back to baseline - Discharge Instructions Instructions: Urinary Tract Infection in Women (DC), Cellulitis (DC), Diabetes Mellitus Type 2 in Adults (DC) Follow Up With: Alesha Camargo DO [Resident] - 06/21/16 3:00 pm Additional Instructions: Follow up with PCP in the next 3-5 days. Home health to give antibiotics as scheduled. Finish antibiotic regimen. - Diet and Activity Activity: increase activity as tolerated Diet: diabetic diet, low fat, low cholesterol Interval History: complicated urinary tract infection Hospital course: Ms. Zamora is a 70 year old female history of type 2 diabetes, asthma, congestive heart failure, COPD, coronary artery disease, GERD, GI bleed, kidney stones, migraines and anxiety and depression was admitted on 06/10/2016 for left lower extremity erythema concerning for cellulitis. She is admitted to the general medical floor and started on vancomycin and Zosyn as she had a recent UA that demonstrated ESBL and Proteus which were sensitive to these antibiotics. Throughout her stay she remained afebrile, WBC count was normal, blood pressures were stable, respiratory rate was appropriate. Throughout her stay she remained on antibiotic coverage. Sensitivities were reviewed and Zosyn was discontinued and she was started on ertapenem. Brown catheter was removed. She remained stable throughout her inpatient stay and on the very first 2016 she was seen and evaluated patient bedside and deemed stable for discharge home with home health nurse, daily antibiotics through IV and by mouth. Prior to discharge arrangements were made with home health to establish appropriate care nursing coverage to provide antibiotics. This plan was discussed with the patient who demonstrated agreements. - Time Spent with Patient Total time spent providing and/or coordinating discharge services: - Constitutional Vitals: Temp Pulse Resp BP Pulse Ox 97.4 F L 81 18 138/74 96 06/13/16 07:00 06/13/16 07:00 06/13/16 07:00 06/13/16 07:00 06/13/16 07:00 General appearance: Present: A&O X 3, morbidly obese, no acute distress - Head Head exam: Present: atraumatic, normocephalic - Eye Eye exam: Present: PERRL, conjuntiva pink, sclera anicteric Pupils: Present: PERRL - Neck Neck exam general surgery: Present: supple, trachea midline. Absent: lymphadenopathy Additional comments: Obese neck - Respiratory Respiratory exam: Present: CTAB. Absent: accessory muscle use, rales, rhonchi, wheezes - Cardiovascular Cardiovascular exam: Present: RRR, +S1, +S2. Absent: diastolic murmur, gallop, rubs, systolic murmur - GI/Abdominal Additional comments: Obese abdomen, midline umbilical hernia that is depressible. no signs of erythema or edema. Nontender to palpation. - Extremities Exam Additional comments: Morbidly obese female with erythema of the left lower extremity and up the medial left thigh. Erythema is improved. Likely chronic changes over time. - Neurological Exam Neurological exam: Present: alert, oriented X3, no focal deficits. Absent: pronater drift, facial droop, speech deficit - Psychiatric Psychiatric exam: Present: normal affect, normal mood - VTE Documentation of Mechanical Device: Venous foot pump, device <Heath Fernandez - Last Filed: 06/13/16 18:08> Date of Encounter: 06/13/16 Date of admission: 06/12/16 17:50 Primary care physician: Boaz Villalpando DO Hospital course: Ms. Zamora is a 70 year old female - Time Spent with Patient Total time spent providing and/or coordinating discharge services: - Constitutional Vitals: Temp Pulse Resp BP Pulse Ox 97.6 F 84 16 107/68 96 06/13/16 15:52 06/13/16 15:52 06/13/16 15:52 06/13/16 15:52 06/13/16 15:52 - Attending Attestation I examined this patient and my medical decision-making was reviewed with the MUD TRUCKER/PA/Advanced Practice Nurse/Resident Physician. I agree with the documented findings, disposition and treatment plan as described except to the extent set forth below. Discharge when services implemented and continuity of iv antibiotics to complete therapy according to recommended schedule. D/W patient and patient's daughter.
--- NOTE | 2016-06-13 10:29 | Physician Discharge Referral ---
Addendum entered and electronically signed by Nathan Murrieta DO 06/13 15:54: Patient will need physical therapy and occupational therapy evaluation at home. Original Note: Home Health/Hosp Referral Info Transfer to: Home Health Provider in Charge Post Discharge: PCP - Diagnosis (1) Left leg cellulitis Priority: Primary Status: Acute (2) UTI (urinary tract infection) due to Enterococcus Priority: Primary Status: Acute (3) Urinary tract infection due to Proteus Priority: Primary Status: Acute (4) Type 2 diabetes mellitus Status: Chronic (5) Morbid obesity due to excess calories Status: Acute (6) DVT prophylaxis Status: Acute - Respiratory Orders Oxygen / L per min (Return to previous home oxygen.) Smoking Cessation: Smoking cessation has been advised. For more information, call the [facility] Quit Line at 2-634-RACTNOW. - Diet/Nutrition Diet/Nutrition: List: diabetic diet. no added salt diet. - Services Needed Following services are medically necessary services: Home Health Aide, Home Infusion - Transfer Medications Prescriptions: Ertapenem [INVanz] 1,000 mg IVPB DAILY 11 Days Vancomycin [Vancocin] 1 each IVPB Q24H PRN 11 Days PRN Reason: Pharmacy [facility] Home Medications: Aspirin 81 mg PO DAILY 30 Days 04/03/16 [Rx] Atorvastatin [Lipitor] 40 mg PO HS 30 Days 04/03/16 [Rx] Cyanocobalamin (B-12) [Vitamin B12] 1,000 mcg IM QMONTH 30 Days 04/03/16 [Rx] Diclofenac Potassium 50 mg PO TID 30 Days 04/03/16 [Rx] Duloxetine [Cymbalta] 30 mg PO DAILY 30 Days 04/03/16 [Rx] FluocinoNIDE 0.05% CRM [Lidex] 1 appl TP BID 30 Days 04/03/16 [Rx] Fluticasone Propionate Nasal [Flonase] 50 mcg NS DAILY 30 Days 04/03/16 [Rx] Gabapentin [Neurontin] 300 mg PO BID 30 Days 04/03/16 [Rx] Guaifenesin [Mucinex] 600 mg PO Q12H PRN 30 Days 04/03/16 [Rx] Insulin ASPART [NovoLOG] 2 - 14 unit SQ ACHS 30 Days 04/03/16 [Rx] Ipratropium/Albuterol Sulfate [Combivent Respimat Inhal [place]] 1 puff IH Q6H PRN 30 Days 04/03/16 [Rx] L. Acidophilus/Pectin, [place] [Acidophilus Probiotic Capsule] 1 each PO DAILY 30 Days 04/03/16 [Rx] Loperamide [Imodium] 4 mg PO DAILY PRN 30 Days 04/03/16 [Rx] Loratadine [Claritin] 10 mg PO DAILY 30 Days 04/03/16 [Rx] Menthol [Cough Drops] 9.1 mg PO Q2H PRN 14 Days 04/03/16 [Rx] Metformin [Glucophage] 500 mg PO BIDWM 30 Days 04/03/16 [Rx] Methyl Salicylate/Menth/Camph [Salonpas Patch] 1 each TP Q12H PRN 30 Days MDD right foot 04/03/16 [Rx] Nystatin POWDER [Nystop] 1 appl TP BID 30 Days 04/03/16 [Rx] Oxybutynin Chloride [Ditropan Xl] 10 mg PO HS 30 Days 04/03/16 [Rx] Polyvinyl Alcohol [Artificial Tears] 1 drop BOTH EYES BID 30 Days 04/03/16 [Rx] Potassium Chloride [K-Tab ER] 20 meq PO DAILY 30 Days 04/03/16 [Rx] Promethazine [Phenergan] 25 mg PO Q6H PRN 30 Days 04/03/16 [Rx] Ranitidine HCl [Acid Brake Operator Helper] 150 mg PO DAILY 30 Days 04/03/16 [Rx] Scopolamine Patch [Transderm-Scop] 1.5 mg TD Q72H 30 Days 04/03/16 [Rx] Sennosides/Docusate Sodium [Senna Plus] 2 each PO BID PRN 30 Days 04/03/16 [Rx] Insulin Glargine,Hum.rec.anlog [Lantus Solostar] 20 unit SQ HS 30 Days 04/04/16 [Rx] Magnesium Oxide [Mag-Ox] 400 mg PO BID #30 tablet 05/30/16 [Rx] Furosemide [Lasix] 40 mg PO DAILY 06/10/16 [History] Metoprolol XL (24 HR) Succ [Toprol Xl] 25 mg PO DAILY 06/10/16 [History] Omeprazole [PriLOSEC] 40 mg PO DAILY 06/10/16 [History] Oxycodone HCl/Acetaminophen [Percocet 5-325 mg Tablet] 1 each PO Q6H PRN [History] Ertapenem [INVanz] 1,000 mg IVPB DAILY 11 Days 06/13/16 [Rx] Vancomycin [Vancocin] 1 each IVPB Q24H PRN 11 Days 06/13/16 [Rx] Allergies/Adverse Reactions: Allergies gentamicin Adverse Reaction (Verified 06/10/16 15:39) See Comments "MY KIDNEYS SHUTDOWN, TOTAL SHUTDOWN" Certification: Further, I certify that my clinical findings support that this patient is homebound (i.e. absences from home require considerable and taxing effort and are for medical reasons or synagogue services or infrequently or short duration when for other reasons) because: Homebound Reason: Patient requires assistance of a person or device to safely leave home Attestation: My signature below is to certify that this patient is under my care and that I, or nurse practitioner, or a physician's electrician's assistant working with me, has a face-to -face encounter with this patient.
[2016-06-13 10:43] LABS: Hepatitis A Antibody IgM Nonreactive (Nonreactive); Hepatitis B Core IgM Nonreactive (Nonreactive); Hepatitis B Surface Antigen Nonreactive (Nonreactive); Hepatitis C Virus Antibody Nonreactive (Nonreactive)
--- NOTE | 2016-06-13 14:33 | Venous Imaging Report ---
LE Venous Duplex Patient Name:Kirti Zamora Order Number:[id number] Procedure Date:06/12/2016 Date:1945ge:70 yrs Gender:Female Height: cm / inWeight:140.62 kg / 310.01 lb Location:[facility] Room #: 3A55 Magazine Keeper:Katy Bryant RVT Referring MD:Nathan Murrieta DO energy attorney:Boaz Villalpando DO Reading MD:Tyrone Rutledge MD Primary Indications:possible blood clots Secondary Indications: Risk Factors Yes/No Hx of DVT No Impressions: Bilateral lower extremity: normal superficial and deep exam. Findings Venous Duplex Results: Right: Venous imaging of the lower extremity reveals full patency and normal vessel compressibility of the right distal iliac, right common femoral, right superficial femoral, right popliteal, right posterior tibial, right peroneal, right great saphenous and right lesser saphenous. Doppler signals in the evaluated veins were normal. Left: Venous imaging of the lower extremity reveals full patency and normal vessel compressibility of the left distal iliac, left common femoral, left superficial femoral, left popliteal, left great saphenous and left lesser saphenous. Doppler signals in the evaluated veins were normal. Lower Extremity Venous Duplex Side Vein Compress Spontaneous Flow Augment Diameter (cm) Depth (cm) Right Distal Iliac Normal Yes Phasic Yes Right Common Femoral Normal Yes Phasic Yes Right Superficial Femoral Normal Yes Phasic Yes Right Popliteal Normal Yes Phasic Yes Right Posterior Tibial Normal Yes Phasic Yes Right Peroneal Normal Yes Phasic Yes Right Great Saphenous Normal Yes Phasic Yes Right Lesser Saphenous Normal Yes Phasic Yes Left Distal Iliac Normal Yes Phasic Yes Left Common Femoral Normal Yes Phasic Yes Left Superficial Femoral Normal Yes Phasic Yes Left Popliteal Normal Yes Phasic Yes Left Great Saphenous Normal Yes Phasic Yes Left Lesser Saphenous Normal Yes Phasic Yes Updated by Tyrone Rutledge MD on 06/13/2016 1:46:59 PM electronically signed on 06/13/2016 1:47:22 PM with status of Final
[2016-06-13] MEDS: Scopolamine Patch 1.5 MG PATCH.TD72 TD SCH (18:12)
[2016-06-13] MEDS ORDERED: Vancomycin 1,500 MG in D5% in Water 250 ML IVPB SCH (21:00)
[2016-06-13] MEDS: Insulin DETEMIR 100 UNIT/ML X5UNITS SQ SCH (21:53)
[2016-06-14] MEDS: *HR* HYDROcodone/Acet 5/325 mg TABLET PO PRN ×2 (02:00→14:49)
[2016-06-14] MEDS: *HR* Morphine 2 MG/ML SYRINGE IVP PRN ×2 (05:26→09:47)
[2016-06-14 06:29] LABS: Basophils % 0.6 %; Eosinophils # 0.5 K/mcL (0.0-0.6); Eosinophils % 6.9 %; Hematocrit 31.1 % (35.3-44.9); Hemoglobin 9.7 g/dL (11.5-15.4); Immature Granulocytes % 0.7 % (0-4); Lymphocytes # 1.6 K/mcL (0.6-4.6); Lymphocytes % 22.2 %; Mean Corpuscular HGB Conc 31.2 g/dL (31.6-35.5); Mean Corpuscular Hemoglobin 26.9 pg (28.0-33.3); Mean Corpuscular Volume 86.4 fL (83.0-100.0); Mean Platelet Volume 9.7 fL (9.4-12.4); Monocytes # 0.6 K/mcL (0.0-1.3); Monocytes % 8.4 %; Neutrophils # 4.3 K/mcL (1.6-8.9); Platelet Count 295 K/mcL (140-400); Red Cell Distribution Width 16.3 % (11.5-14.5); Segmented Neutrophils % 61.2 %
[2016-06-14 06:48] LABS: BUN/Creatinine Ratio 23 (6-26); Blood Urea Nitrogen 19 mg/dL (7-20); Calcium 8.9 mg/dL (8.6-10.8); Carbon Dioxide 21 mEq/L (19-29); Chloride 105 mEq/L (98-109); Glucose 175 mg/dL (70-99); Osmolality,Calculated 291 (280-300); Potassium 4.2 mEq/L (3.5-4.5); Sodium 137 mEq/L (136-145); eGFR For African Americans > 60 (> 60); eGFR For Non-African Americans > 60 (> 60)
[2016-06-14] MEDS: *HR* Heparin 5,000 UNIT/ML VIAL SQ SCH (06:59)
[2016-06-14] MEDS: Insulin LISPRO 300 UNITS/3 ML VIAL SQ SCH ×2 (09:47→12:49)
[2016-06-14] MEDS: Artificial Tears SOLN 15 ML BOTTLE BOTH EYES SCH (09:48)
[2016-06-14] MEDS: Loratadine 10 MG TABLET PO SCH (09:51)
[2016-06-14] MEDS: Aspirin 81 MG TAB.CHEW PO SCH (09:51)
[2016-06-14] MEDS: Ertapenem 1,000 MG in 0.9 % Sodium Chloride Mini Bag 100 ML IVPB SCH (09:52)
[2016-06-14] MEDS: Fluticasone Propionate Nasal 50 MCG/SPRAY BOTTLE NS SCH (09:52)
[2016-06-14] MEDS: Lactobacillus 1 EACH CAP.SPRINK PO SCH (09:52)
[2016-06-14] MEDS: Furosemide 40 MG TABLET PO SCH (09:53)
[2016-06-14] MEDS: FluocinoNIDE 0.05% CRM 15 GM TUBE TP SCH (09:54)
[2016-06-14] MEDS: Magnesium Oxide 400 MG TABLET PO SCH (09:54)
[2016-06-14] MEDS: Nystatin POWDER 30 GM BOTTLE TP SCH (09:54)
[2016-06-14] MEDS: Famotidine 20 MG TABLET PO SCH (09:54)
[2016-06-14] MEDS: Gabapentin 300 MG CAPSULE PO SCH (09:54)
[2016-06-14] MEDS: Metoprolol XL (24 HR) Succ 25 MG TAB.ER.24H PO SCH (09:55)
[2016-06-14 11:36] VITALS: BP 132/78
--- NOTE | 2016-06-14 16:42 | Internal Med Progress Note ---
<Nathan Murrieta - Last Filed: 06/14/16 16:40> Date of Encounter: 06/14/16 Time of Encounter: 16:42 - Assessment and plan (1) Left leg cellulitis Current Visit: No Status: Acute Assessment and plan: Patient is a morbidly obese female who is mainly bedridden with a BMI of 48.7. She explains she has had chronic cellulitis of the left lower extremity and just recently had acute spread of erythema warmth of the medial left thigh. She had a recent emergency department visits and was started on Keflex and Bactrim with not much or if any improvement. She is currently afebrile, regular rate and rhythm, no leukocytosis, or neutrophilia. 06/14/2016: No change in erythema, edema or warmth compared to yesterday. No leukocytosis, afebrile, normotensive, RRR. Erythema stable Plan: - Power glide in place with antibiotics given today and D/C scripts provided. - Tylenol for fevers. (2) UTI (urinary tract infection) due to Enterococcus Current Visit: Yes Status: Acute Assessment and plan: Current treatment for enterococcus faecalis that is sensitive to vancomycin. Already on vancomycin for left lower extreme cellulites. Urine culture from 06/10/2016 has growth of Gram negative rods. Patient had catheter out yesterday to prevent recurrent infections. Plan: -Continue current treatment. (3) Urinary tract infection due to Proteus Current Visit: Yes Status: Acute Assessment and plan: Urinalysis positive for Proteus Maribelis on 06/07/2016. This microbial sensitive to Zosyn which the patient is on for cellulitis coverage. Urinalysis collected upon arrival to the [facility] gram-negative rods with final result pending. Plan: Continue current regimen. (4) Type 2 diabetes mellitus Current Visit: No Status: Chronic Assessment and plan: Patient is a known type II diabetic, currently her glucoses are controlled in the inpatient setting. Plan: -Continue Levemir 20 units - inpatient sliding scale. - Before meals at bedtime glucose checks Qualifiers: Diabetes mellitus complication status: with other specified complication Diabetes mellitus prison insulin use: with prison use Qualified Code(s) : E11.69 - Type 2 diabetes mellitus with other specified complication; Z79.4 - terminal clerk (current) use of insulin (5) Morbid obesity due to excess calories Current Visit: No Status: Acute Assessment and plan: Patient is a morbidly obese female with an elevated BMI and immobility. She is a type II diabetic and these criteria for metabolic syndrome. Diet and exercise and lifestyle modifications are highly encouraged to improve quality of life and longevity. (6) DVT prophylaxis Current Visit: No Status: Acute Assessment and plan: Subcutaneous heparin every 12 hours - Subjective Interval history: Ms. Zamora has been seen about a patient does have a splint. She is alert awake interactive, she has had some tenderness to palpation of skin on bilateral LE below the knees. She denies any fevers, chills, nausea vomiting diarrhea constipation. She denies any new changes today. She says she has had a bowel movement that was normal for her and without pain. She is agreeable for discharge as planned. - Constitutional Vitals: Temp Pulse Resp BP Pulse Ox 97.4 F L 77 16 132/78 97 06/14/16 11:35 06/14/16 11:35 06/14/16 11:35 06/14/16 11:35 06/14/16 11:35 General appearance: Present: A&O X 3, morbidly obese, no acute distress, obese - Head Head exam: Present: atraumatic, normocephalic - Eye Eye exam: Present: PERRL, conjuntiva pink, sclera anicteric Pupils: Present: PERRL - Neck Neck exam general surgery: Present: supple, trachea midline. Absent: lymphadenopathy - Respiratory Respiratory exam: Present: CTAB. Absent: accessory muscle use, rales, rhonchi, wheezes - Cardiovascular Cardiovascular exam: Present: RRR, +S1, +S2. Absent: diastolic murmur, gallop, rubs, systolic murmur - GI/Abdominal GI/Abdominal exam: Present: hernia Additional comments: Obese abdomen with midline hernia, +bowel sounds, nontender to palpation. - Extremities Exam Additional comments: Erythema of left lower extremity is stable. No acute findings. LE are nontender to palpation. - Neurological Exam Neurological exam: Present: alert, oriented X3, no focal deficits. Absent: pronater drift, facial droop, speech deficit - Psychiatric Psychiatric exam: Present: normal affect, normal mood Internal Medicine: Result - Labs CBC & Chem 7: 06/14/16 05:53 06/14/16 05:53 Labs: Short CBC 06/14/16 Range/Units 05:53 WBC 7.0 (4.3-11.1) K/mcL Hgb 9.7 L (11.5-15.4) g/dL Hct 31.1 L (35.3-44.9) % Plt Count 295 (140-400) K/mcL Neutrophils # 4.3 (1.6-8.9) K/mcL BMP 06/14/16 05:53 Sodium 137 Potassium 4.2 Chloride 105 Carbon Dioxide 21 BUN 19 Creatinine 0.82 Glucose 175 H Calcium 8.9 - VTE Documentation of Mechanical Device: Venous foot pump, device Consult Discharge Plan - Plan Instructions: Doxycycline (By mouth), Ertapenem (Injection), Urinary Tract Infection in Women (DC), Cellulitis (DC), Diabetes Mellitus Type 2 in Adults (DC ) Additional Instructions: Follow up with PCP in the next 3-5 days. Home health to give antibiotics as scheduled. Finish antibiotic regimen. Referrals: Alesha Camargo DO [Resident] - 06/21/16 3:00 pm Prescriptions: Doxycycline 100 mg PO BID 11 Days Ertapenem [INVanz] 1,000 mg IVPB DAILY 11 Days <Heath Fernandez - Last Filed: 06/14/16 17:05> Date of Encounter: 06/14/16 - Constitutional Vitals: Temp Pulse Resp BP Pulse Ox 97.4 F L 77 16 132/78 97 06/14/16 11:35 06/14/16 11:35 06/14/16 11:35 06/14/16 11:35 06/14/16 11:35 Internal Medicine: Result - Labs CBC & Chem 7: 06/14/16 05:53 06/14/16 05:53 Labs: Short CBC 06/14/16 Range/Units 05:53 WBC 7.0 (4.3-11.1) K/mcL Hgb 9.7 L (11.5-15.4) g/dL Hct 31.1 L (35.3-44.9) % Plt Count 295 (140-400) K/mcL Neutrophils # 4.3 (1.6-8.9) K/mcL BMP 06/14/16 05:53 Sodium 137 Potassium 4.2 Chloride 105 Carbon Dioxide 21 BUN 19 Creatinine 0.82 Glucose 175 H Calcium 8.9 - Attending Attestation I examined this patient and my medical decision-making was reviewed with the PATIENT SUPPORT PARTNER/PA/Advanced Practice Nurse/Resident Physician. I agree with the documented findings, disposition and treatment plan as described except to the extent set forth below. Stable for discharge, awaiting serivces at home (home infusion of IV antibiotics ). Agree with Dr. Murrieta's note.
[2016-06-14] MEDS ORDERED: Aminoglycoside Consult 1 EACH MC ONE (18:12)
== END 2016-06-14 18:13 | disposition home health service (06) | DRG 603 ==
LOC: 3ANU 13:43 → EMEROO 13:43 → 3ANU 16:30
PROVIDERS: ADMIT Internal Medicine; ATTEND Internal Medicine

== ENCOUNTER 2016-09-01 17:35 | Inpatient (IN) ==
[2016-09-01] MEDS ORDERED: *HR* HYDROmorphone (PF) 1 MG/ML SYRINGE IVP ONE (17:46)
[2016-09-01] MEDS ORDERED: Ondansetron 4 MG/2 ML VIAL IVP ONE (17:46)
[2016-09-01] MEDS ORDERED: *HR* Morphine 2 MG/ML SYRINGE IVP ONE (17:52)
--- NOTE | 2016-09-01 17:56 | Emergency Department Note ---
Disposition Clinical Impression: UTI (urinary tract infection) Qualifiers: Urinary tract infection type: site unspecified Hematuria presence: with hematuria Qualified Code(s): N39.0 - Urinary tract infection, site not specified Diverticulosis Qualifiers: Diverticulosis site: diverticulosis of large intestine Diverticulosis bleeding : diverticulosis without bleeding Qualified Code(s): K57.30 - Diverticulosis of large intestine without perforation or abscess without bleeding Disposition: Admitted As Inpatient Condition: Fair Instructions: Urinary Tract Infection in Women (ED) Reasons to Return/Additional Instructions: Take medications as prescribed. Follow-up with your PCP within 48 hours. If you have any worsening symptoms of nausea, fever, worsening pain, please return to the ED for reevaluation. Prescriptions: Cephalexin [Keflex] 500 mg PO BID #14 capsule Referrals: NO,PCP [Non-Partnered Physician] - Forms: Work/School Release, ED Satisfaction Letter Time of Disposition: 22:09 Abdominal Pain HPI - General Chief Complaint: ED Abdominal Pain Stated Complaint: Abd pain, diarrhea, DIBz Source: patient, EMS Nursing Notes Reviewed: Yes Vital Signs Reviewed: Yes - History of Present Illness HPI Narrative: Patient is a 70-year-old female with history of COPD, CHF, large abdominal hernia. Patient complains of shortness of breath and abdominal pain with diarrhea that started at 0800 hrs. this morning. Patient states the pain is sharp and intermittent 10 out of 10 and varies with position. Patient states that she is on home O2 2 L and has not needed to increase her home O2. Patient states that her shortness of breath feels like her stomach pushing up into her chest. Patient states that she has no abdominal hernia right side of her abdomen that has been there for 10 years. Patient states that she was scheduled for surgery on it February of last year but came now when amount pneumonia and was unable to have the surgery. Pt Subjective Complaint: abdominal pain Onset (ago): hour(s) Consistency: intermittent Pain Severity: severe Pain Scale: 10 Quality: stabbing, sharp Radiation: LUQ, RUQ, LLQ, RLQ, epigastric Migration to: no migration Improves with: nothing Worsens with: movement Associated symptoms: Reports: nausea, dysuria, hematuria - Related Data Home Medications Medication Instructions Recorded Confirmed Furosemide [Lasix] 40 mg PO DAILY 06/10/16 06/10/16 Metoprolol XL (24 HR) Succ [Toprol 25 mg PO DAILY 06/10/16 06/10/16 Xl] Omeprazole [PriLOSEC] 40 mg PO DAILY 06/10/16 06/10/16 Oxycodone HCl/Acetaminophen 1 each PO Q6H PRN 06/10/16 06/10/16 [Percocet 5-325 mg Tablet] Previous Rx's Medication Instructions Recorded Aspirin 81 mg PO DAILY 30 Days 04/03/16 Atorvastatin [Lipitor] 40 mg PO HS 30 Days 04/03/16 Cyanocobalamin (B-12) [Vitamin B12] 1,000 mcg IM QMONTH 30 Days 04/03/16 Diclofenac Potassium 50 mg PO TID 30 Days 04/03/16 Duloxetine [Cymbalta] 30 mg PO DAILY 30 Days 04/03/16 FluocinoNIDE 0.05% CRM [Lidex] 1 appl TP BID 30 Days 04/03/16 Fluticasone Propionate Nasal 50 mcg NS DAILY 30 Days 04/03/16 [Flonase] Gabapentin [Neurontin] 300 mg PO BID 30 Days 04/03/16 Guaifenesin [Mucinex] 600 mg PO Q12H PRN 30 Days 04/03/16 Insulin ASPART [NovoLOG] 2 - 14 unit SQ ACHS 30 Days 04/03/16 Ipratropium/Albuterol Sulfate 1 puff IH Q6H PRN 30 Days 04/03/16 [Combivent Respimat Inhal [place]] L. Acidophilus/Pectin, [place] 1 each PO DAILY 30 Days 04/03/16 [Acidophilus Probiotic Capsule] Loperamide [Imodium] 4 mg PO DAILY PRN 30 Days 04/03/16 Loratadine [Claritin] 10 mg PO DAILY 30 Days 04/03/16 Menthol [Cough Drops] 9.1 mg PO Q2H PRN 14 Days 04/03/16 Metformin [Glucophage] 500 mg PO BIDWM 30 Days 04/03/16 Methyl Salicylate/Menth/Camph 1 each TP Q12H PRN 30 Days MDD 04/03/16 [Salonpas Patch] right foot Nystatin POWDER [Nystop] 1 appl TP BID 30 Days 04/03/16 Oxybutynin Chloride [Ditropan Xl] 10 mg PO HS 30 Days 04/03/16 Polyvinyl Alcohol [Artificial 1 drop BOTH EYES BID 30 Days 04/03/16 Tears] Potassium Chloride [K-Tab ER] 20 meq PO DAILY 30 Days 04/03/16 Promethazine [Phenergan] 25 mg PO Q6H PRN 30 Days 04/03/16 Ranitidine HCl [Acid Medical Driver] 150 mg PO DAILY 30 Days 04/03/16 Scopolamine Patch [Transderm-Scop] 1.5 mg TD Q72H 30 Days 04/03/16 Sennosides/Docusate Sodium [Senna 2 each PO BID PRN 30 Days 04/03/16 Plus] Insulin Glargine,Hum.rec.anlog 20 unit SQ HS 30 Days 04/04/16 [Lantus Solostar] Magnesium Oxide [Mag-Ox] 400 mg PO BID #30 tablet 05/30/16 Doxycycline 100 mg PO BID Days 06/13/16 Ertapenem [INVanz] 1,000 mg IVPB DAILY 11 Days 06/13/16 Cephalexin [Keflex] 500 mg PO BID #14 capsule 09/01/16 Allergies Allergy/AdvReac Type Severity Reaction Status Date / Time gentamicin AdvReac See Verified 06/10/16 15:39 Comments All systems ED: reviewed and negative except as stated. Constitutional: Denies: fever, chills, weakness ENT ED: Denies: congestion Cardiovascular: Denies: chest pain Respiratory: Denies: cough, dyspnea, wheezes Gastrointestinal: Reports: abdominal pain, nausea Genitourinary: Reports: urgency, dysuria (Urinary incontinence) Abdominal Pain PMH - Past Medical History Medical history: Reports: arthritis, asthma, CHF, COPD, coronary artery disease , diabetes, GERD, GI bleed, kidney stones, migraine, other Female Surgical History: Reports: cholecystectomy, hysterectomy, knee replacement, orthopedic, other Psychiatric history: Reports: anxiety, depression - Social History Smoking status: Former smoker Alcohol use: Reports: none Drug use: Reports: none Physical Exam - General Limitations: no limitations General appearance: alert, in no apparent distress - Head Head exam: atraumatic, normocephalic, normal inspection - Eye Eye exam: Present: normal appearance, PERRL, EOMI. Absent: scleral icterus, conjunctival injection - ENT ENT exam: normal exam, normal oropharynx, mucous membranes moist - Neck Neck exam: Present: normal inspection, full ROM, trachea midline. Absent: tenderness, meningismus - Chest Chest inspection: Present: normal inspection, symmetric chest wall rise. Absent : tenderness, rash - Respiratory Respiratory exam: Present: normal lung sounds bilaterally, respiratory distress. Absent: wheezes - Cardiovascular Cardiovascular exam: Present: regular rate, normal rhythm - Abdominal Exam Abdominal exam: Present: soft, tenderness, normal bowel sounds, other (12 cm diameter hernia appears incarcerated). Absent: distention, guarding, rebound, rigidity Abdominal tenderness: Present: RUQ, RLQ, LUQ, LLQ, epigastrium, diffuse, severe - Extremities Exam Extremities exam: Present: tenderness (Area of cellulitis left lower extremity is tender to palpation), pedal edema - Neurological Exam Neurological exam: Present: alert, oriented X3, CN II-XII intact - Psychiatric Psychiatric exam: Present: normal affect, normal mood - Skin Skin exam: Present: warm, dry, intact Course - Reevaluation(s) Reevaluation #1: Assessment: Concerning for incarcerated/strenuous hernia, bowel obstruction, COPD exacerbation, bowel ischemia Plan: CT abdomen and pelvis, CBC, BMP, lactate, LFTs, UA. Patient complains of shortness of breath chest x-ray as well, troponin, BNP. Time: 17:46 Reevaluation #2: Abdomen/Pelvis CT 09/01/16 17:50 IMPRESSION: 1. No acute intra-abdominal findings. 2. Redemonstration of large ventral hernia containing loops of nonobstructive small bowel. 3. Few scattered air-fluid levels noted in segments of the small bowel without significant small bowel dilatation. Overall findings may represent a functional ileus. 4. Sigmoid diverticulosis without evidence of diverticulitis. Patient's workup only yielded a UTI for which we will treat with antibiotics. Rest patient's workup was unremarkable. This was discussed with the patient who states that she was hoping to be admitted because her daughter, who she lives with, told her she is not welcome back to the house. Excellent sedation and we do not have social insurance administrator here in the weekend and we do not have a medical issue that we can admit her to the hospital for. The patient brought up getting contact with her passport services. I recommended to the patient that she can all them and see what they can do. Patient states that she does not have her contact information because it is at the house and she is unsure of her daughter will give her the information. Time: 21:20 Reevaluation #3: Patient was started on antibiotic therapy for UTI Cephalexin 500 bid x 7 days. Patient was started on oral diet. Patient has nowhere to go has gone currently. Patient will be admitted to the hospital and social insurance administrator consult and they have already agreed to sort out the patient's condition in the morning. Patient accepts admissions to the hospital. - Consultations Consultation #1: Dr. Valdovinos the hospitalists has accepted for admission at 2206 hrs. Time: 22:07 Vital Signs Temperature 97.7 F 09/01/16 17:43 Pulse Rate 95 09/01/16 17:43 Respiratory Rate 18 09/01/16 17:43 Blood Pressure 158/62 09/01/16 17:43 O2 Sat by Pulse Oximetry 97 09/01/16 17:43 Temperature 97.7 F 09/01/16 17:43 Pulse Rate 106 09/01/16 22:07 Respiratory Rate 16 09/01/16 22:07 Blood Pressure 168/86 09/01/16 22:07 O2 Sat by Pulse Oximetry 96 09/01/16 22:07 Oxygen Delivery Oxygen Delivery Room Air Abdominal Pain - Lab Data Lab results reviewed: Yes I reviewed the patient's lab results. Lab results narrative: Short CBC 09/01/16 Range/Units 18:03 WBC 12.0 H (4.3-11.1) K/mcL Hgb 12.0 (11.5-15.4) g/dL Hct 38.4 (35.3-44.9) % Plt Count 385 (140-400) K/mcL Neutrophils # 8.2 (1.6-8.9) K/mcL BMP 09/01/16 Range/Units 18:03 Sodium 139 (136-145) mEq/L Potassium 4.0 (3.5-4.5) mEq/L Chloride 107 (98-109) mEq/L Carbon Dioxide 24 (19-29) mEq/L BUN 24 H (7-20) mg/dL Creatinine 1.00 (0.57-1.11) mg/dL Glucose 267 H (70-99) mg/dL Calcium 9.9 (8.6-10.8) mg/dL Cardiac Enzymes 09/01/16 Range/Units 18:03 Troponin I 0.00 (0-0.03) ng/mL Liver Function 09/01/16 Range/Units 18:03 Total Bilirubin 0.3 (0.2-1.2) mg/dL Direct Bilirubin 0.2 (0.0-0.5) mg/dL AST 10 (5-34) Units/L ALT 17 (0-55) Units/L Alkaline Phosphatase 90 (38-126) Units/L Albumin 3.4 L (3.5-5.0) g/dL Urine 09/01/16 Range/Units 18:20 Urine Color Yellow (Yellow) Urine Clarity Clear (Clear) Urine pH 5.5 (5.0-8.0) pH Units Ur Specific [place] 1.020 (1.010-1.025) Urine Protein 30 H (Neg-Trace) mg/dL Urine Glucose (UA) Normal (Normal) mg/dL Result diagrams: 09/01/16 18:03 09/01/16 18:03 Lab Results 09/01/16 09/01/16 09/01/16 Range/Units 18:03 18:03 18:03 WBC 12.0 H (4.3-11.1) K/mcL RBC 4.67 (3.82-4.97) M/mcL Hgb 12.0 (11.5-15.4) g/dL Hct 38.4 (35.3-44.9) % MCV 82.2 L (83.0-100.0) fL MCH 25.7 L (28.0-33.3) pg MCHC 31.3 L (31.6-35.5) g/dL RDW 15.4 H (11.5-14.5) % Plt Count 385 (140-400) K/mcL MPV 9.3 L (9.4-12.4) fL Immature Gran % 0.4 (0-4) % Seg Neutrophils % 68.7 % Lymphocytes % 21.0 % Monocytes % 5.8 % Eosinophils % 3.4 % Basophils % 0.7 % Neutrophils # 8.2 (1.6-8.9) K/mcL Lymphocytes # 2.5 (0.6-4.6) K/mcL Monocytes # 0.7 (0.0-1.3) K/mcL Eosinophils # 0.4 (0.0-0.6) K/mcL Basophils # 0.1 (0.0-0.2) K/mcL Immature Plt Fraction 2.1 (1.1-6.1) % PT 11.1 (9.4-12.1) Seconds INR 1.0 APTT 28.9 (26.0-36.0) Seconds Sodium 139 (136-145) mEq/L Potassium 4.0 (3.5-4.5) mEq/L Chloride 107 (98-109) mEq/L Carbon Dioxide 24 (19-29) mEq/L BUN 24 H (7-20) mg/dL Creatinine 1.00 (0.57-1.11) mg/dL Est GFR ( Amer) > 60 (> 60) Est GFR (Non-Af Amer) 55 L (> 60) BUN/Creatinine Ratio 24 (6-26) Glucose 267 H (70-99) mg/dL Calculated Osmolality 301 H (280-300) Lactic Acid (0.5-2.2) mmol/L Calcium 9.9 (8.6-10.8) mg/dL Total Bilirubin 0.3 (0.2-1.2) mg/dL Direct Bilirubin 0.2 (0.0-0.5) mg/dL Indirect Bilirubin 0.1 (0.0-1.2) mg/dL AST 10 (5-34) Units/L ALT 17 (0-55) Units/L Alkaline Phosphatase 90 (38-126) Units/L Troponin I (0-0.03) ng/mL Serum Total Protein 7.4 (6.0-8.3) g/dL Albumin 3.4 L (3.5-5.0) g/dL Globulin 4.0 H (2.4-3.5) g/dL Albumin/Globulin Ratio 0.9 L (1.1-2.2) Amylase 37 (25-125) Units/L Lipase 35 (8-78) Units/L Urine Color (Yellow) Urine Clarity (Clear) Urine pH (5.0-8.0) pH Units Ur Specific [place] (1.010-1.025) Urine Protein (Neg-Trace) mg/dL Urine Glucose (UA) (Normal) mg/dL Urine Ketones (Negative) mg/dL Urine Blood (Negative) Urine Nitrite (Negative) Urine Bilirubin (Negative) Urine Urobilinogen (Normal) mg/dL Ur Leukocyte Esterase (Negative) Urine Microscopic WBC (0-3) per hpf Ur Squamous Epith Cells (None-Few) per lpf Urine Bacteria (None-Few) per hpf Hyaline Casts (None-Few) per lpf Ur Culture Indicated? (NO) 09/01/16 09/01/16 09/01/16 Range/Units 18:03 18:03 18:20 WBC (4.3-11.1) K/mcL RBC (3.82-4.97) M/mcL Hgb (11.5-15.4) g/dL Hct (35.3-44.9) % MCV (83.0-100.0) fL MCH (28.0-33.3) pg MCHC (31.6-35.5) g/dL RDW (11.5-14.5) % Plt Count (140-400) K/mcL MPV (9.4-12.4) fL Immature Gran % (0-4) % Seg Neutrophils % % Lymphocytes % % Monocytes % % Eosinophils % % Basophils % % Neutrophils # (1.6-8.9) K/mcL Lymphocytes # (0.6-4.6) K/mcL Monocytes # (0.0-1.3) K/mcL Eosinophils # (0.0-0.6) K/mcL Basophils # (0.0-0.2) K/mcL Immature Plt Fraction (1.1-6.1) % PT (9.4-12.1) Seconds INR APTT (26.0-36.0) Seconds Sodium (136-145) mEq/L Potassium (3.5-4.5) mEq/L Chloride (98-109) mEq/L Carbon Dioxide (19-29) mEq/L BUN (7-20) mg/dL Creatinine (0.57-1.11) mg/dL Est GFR ( Amer) (> 60) Est GFR (Non-Af Amer) (> 60) BUN/Creatinine Ratio (6-26) Glucose (70-99) mg/dL Calculated Osmolality (280-300) Lactic Acid 1.5 (0.5-2.2) mmol/L Calcium (8.6-10.8) mg/dL Total Bilirubin (0.2-1.2) mg/dL Direct Bilirubin (0.0-0.5) mg/dL Indirect Bilirubin (0.0-1.2) mg/dL AST (5-34) Units/L ALT (0-55) Units/L Alkaline Phosphatase (38-126) Units/L Troponin I 0.00 (0-0.03) ng/mL Serum Total Protein (6.0-8.3) g/dL Albumin (3.5-5.0) g/dL Globulin (2.4-3.5) g/dL Albumin/Globulin Ratio (1.1-2.2) Amylase (25-125) Units/L Lipase (8-78) Units/L Urine Color Yellow (Yellow) Urine Clarity Clear (Clear) Urine pH 5.5 (5.0-8.0) pH Units Ur Specific [place] 1.020 (1.010-1.025) Urine Protein 30 H (Neg-Trace) mg/dL Urine Glucose (UA) Normal (Normal) mg/dL Urine Ketones Negative (Negative) mg/dL Urine Blood Trace-lysed H (Negative) Urine Nitrite Positive A (Negative) Urine Bilirubin Negative (Negative) Urine Urobilinogen Normal (Normal) mg/dL Ur Leukocyte Esterase Small H (Negative) Urine Microscopic WBC 50-100 H (0-3) per hpf Ur Squamous Epith Cells Moderate H (None-Few) per lpf Urine Bacteria Many H (None-Few) per hpf Hyaline Casts Few (None-Few) per lpf Ur Culture Indicated? YES A (NO) - Radiology Data Radiology results reviewed: Yes I reviewed the patient's radiology results. Abdomen/Pelvis CT 09/01/16 17:50 IMPRESSION: 1. No acute intra-abdominal findings. 2. Redemonstration of large ventral hernia containing loops of nonobstructive small bowel. 3. Few scattered air-fluid levels noted in segments of the small bowel without significant small bowel dilatation. Overall findings may represent a functional ileus. 4. Sigmoid diverticulosis without evidence of diverticulitis. D/ / 09/01/2016 19:31:44 Bahman Samaniego MD / Natalya Flynn Interpreting Provider: Bahman Samaniego MD Chest X-Ray 09/01/16 17:50 IMPRESSION: 1. No active pulmonary disease. D/ / Jarred Pappas MD / Jarred Pappas MD Interpreting Provider: Jarred Pappas MD - EKG Data EKG attestation: Yes I reviewed and interpreted this EKG. EKG results narrative: EKG taken at 09/01/2016 is sent here for 4 hours shows a sinus rhythm with no acute ST elevations or depressions, QRS widening or QT prolongation, and compared with previous EKG taken 2016 shows a sinus rhythm at a rate of 85 bpm with no acute signs of ischemia C elevations or depressions in leads but shows intermittent PACs. Attestation Statement - Attestation Attestation: Patient was seen with resident physician. I reviewed the history, physical, assessment and plan, and agree with the findings. I also personally evaluated this patient and had [id number] time with this patient. 70-year-old female presents to emergency department with abdominal pain. Patient has a abdominal wall hernia which she said is causing her discomfort. She has had this for a while was supposed to have surgery on it in February 2016, but she had double pneumonia at the time was able have the procedure done. States has been getting progressively worse for last several days. It is mostly at the area of the herniation. She has not had nausea vomiting or diarrhea. On examination ENT is unremarkable heart and lungs are unremarkable. Abdomen she has got a large abdominal wall hernia on the lower left area is tender palpation but seems to be reducible. Extremities are unremarkable. Neurologically patient is intact we will do abdominal pain workup including CT scan of the abdomen and pelvis to rule out incarceration. We will contact surgery if needed or have her follow-up as an outpatient based on the findings were also treated the patient's pain. Hemodynamically she was stable throughout her stay in the emergency department. Although clinically the patient was stable for discharge her family apparently kicked her out of her house. They dropped off her clothes and so she is not welcome to come back. This placed us combined. We contacted social work who suggested we admit her for the night and then can work on placement in the morning. Discussed with the hospitalist and agreed to accept the patient for the evening for observation. Patient was hemodynamically stable. I agree with the resident physician assessment and plan.
[2016-09-01 18:14] LABS: Basophils # 0.1 K/mcL (0.0-0.2); Basophils % 0.7 %; Eosinophils # 0.4 K/mcL (0.0-0.6); Eosinophils % 3.4 %; Hematocrit 38.4 % (35.3-44.9); Immature Granulocytes % 0.4 % (0-4); Immature Platelets 2.1 % (1.1-6.1); Lymphocytes # 2.5 K/mcL (0.6-4.6); Mean Corpuscular HGB Conc 31.3 g/dL (31.6-35.5); Mean Corpuscular Hemoglobin 25.7 pg (28.0-33.3); Mean Corpuscular Volume 82.2 fL (83.0-100.0); Mean Platelet Volume 9.3 fL (9.4-12.4); Monocytes # 0.7 K/mcL (0.0-1.3); Monocytes % 5.8 %; Neutrophils # 8.2 K/mcL (1.6-8.9); Platelet Count 385 K/mcL (140-400); Red Blood Count 4.67 M/mcL (3.82-4.97); Red Cell Distribution Width 15.4 % (11.5-14.5); Segmented Neutrophils % 68.7 %
[2016-09-01 18:18] LABS: Prothrombin Time 11.1 Seconds (9.4-12.1)
[2016-09-01 18:21] LABS: Activated Partial Thrombo Time 28.9 Seconds (26.0-36.0)
[2016-09-01 18:26] LABS: Bilirubin,Urine Negative (Negative); Blood,Urine Trace-lysed (Negative); Clarity,Urine Clear (Clear); Color,Urine Yellow (Yellow); Glucose,Urine (UA) Normal (Normal); Ketones,Urine Negative (Negative); Leukocyte Esterase,Urine Small (Negative); Nitrite,Urine Positive (Negative); PH,Urine 5.5 pH Units (5.0-8.0); Protein,Urine 30 mg/dL (Neg-Trace); Urobilinogen,Urine Normal (Normal)
[2016-09-01 18:28] LABS: Alanine Aminotransferase 17 Units/L (0-55); Albumin 3.4 g/dL (3.5-5.0); Albumin/Globulin Ratio 0.9 (1.1-2.2); Alkaline Phosphatase 90 Units/L (38-126); Amylase 37 Units/L (25-125); Aspartate Amino Transferase 10 Units/L (5-34); BUN/Creatinine Ratio 24 (6-26); Bilirubin,Direct 0.2 mg/dL (0.0-0.5); Bilirubin,Indirect 0.1 mg/dL (0.0-1.2); Bilirubin,Total 0.3 mg/dL (0.2-1.2); Blood Urea Nitrogen 24 mg/dL (7-20); Calcium 9.9 mg/dL (8.6-10.8); Carbon Dioxide 24 mEq/L (19-29); Chloride 107 mEq/L (98-109); Glucose 267 mg/dL (70-99); Lipase 35 Units/L (8-78); Osmolality,Calculated 301 (280-300); Sodium 139 mEq/L (136-145); Total Protein 7.4 g/dL (6.0-8.3); eGFR For African Americans > 60 (> 60); eGFR For Non-African Americans 55 (> 60)
[2016-09-01 18:33] LABS: Bacteria,Urine Many per hpf (None-Few); Squamous Epithelial Cell,Urine Moderate per lpf (None-Few); WBC,Urine 50-100 per hpf (0-3)
[2016-09-01 18:34] LABS: Hyaline Casts,Urine Few per lpf (None-Few)
[2016-09-01] MEDS ORDERED: cephALEXin 250 MG CAPSULE PO ONE (22:10)
--- NOTE | 2016-09-01 23:28 | Internal Med History&Physical ---
Date of Encounter: 09/01/16 Time of Encounter: 23:28 Assessment and Plan (1) Sepsis secondary to UTI Current visit: No Status: Acute History of recurrent UTIs Start Rocephin, if not improving may need to be switched to meropenem as the patient has history of ESBL Cultures pending IV fluids Omeprazole for GI prophylaxis and subcutaneous heparin for DVT prophylaxis. Admitted as inpatient, expected to stay more than two midnights, full code. Time spent on this admission 40 minutes. High risk for sepsis (2) Lymphedema of both lower extremities Current visit: No Status: Chronic (3) CHF (congestive heart failure) Current visit: No Status: Chronic No exacerbation May continue Lasix Qualifiers: Congestive heart failure type: diastolic Congestive heart failure chronicity: chronic Qualified Code(s): I50.32 - Chronic diastolic (congestive ) heart failure (4) Morbid obesity Current visit: No Status: Acute Qualifiers: Obesity type: unspecified obesity type Qualified Code(s): E66.01 - Morbid ( severe) obesity due to excess calories (5) COPD (chronic obstructive pulmonary disease) Current visit: No Status: Chronic Chronic respiratory failure Stable continue oxygen therapy DuoNeb's Qualifiers: COPD type: unspecified COPD Qualified Code(s): J44.9 - Chronic obstructive pulmonary disease, unspecified (6) Coronary artery disease Current visit: No Status: Chronic Continue aspirin Qualifiers: Coronary Disease-Associated Artery/Lesion type: [place] artery [place] vs. 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 Zamora is a 70 year old female with a past medical history of recurrent urinary tract infections who grew Escherichia coli in the past 2 cultures but has history of ESBL, diabetes type 2 insulin-dependent, COPD oxygen dependent using 2 L, who was complaining of severe abdominal pain and dysuria 10 out of 10 in intensity since earlier today at 8 AM. Her symptoms have progressed for the past 3 days and is complaining of a burning sensation on her lower abdomen and while urinating. Her UA shows positive nitrates 100 white blood cells and many bacteria. CT scan of the abdomen was performed showing functional ileus and the persistent ventral hernia chest x-rays unremarkable with the cell count is 12. She is very nauseous, no fevers. Past Med Surg Social Fam HX - Past Medical History Medical history: arthritis, asthma, CHF (Diastolic), COPD (Oxygen dependent 2 L continuously), coronary artery disease, diabetes (Insulin-dependent), GERD, GI bleed, kidney stones, migraine, other (Diverticulosis, UTIs with ESBL, neuropathy, anxiety, depression, nephrolithiasis, GI bleed, CAD, GERD) Psychiatric history: anxiety, depression - Past Surgical History Surgical History: appendectomy, cholecystectomy, hysterectomy, orthopedic, other , arthroscopy - Social History Smoking Status: Former smoker Smokeless Tobacco Status: No Alcohol use: none Drug use: none - Family History Mother Adopted: No Family Member Ethnicity: Non- Living Status: Hx Family Cardiac Disorders: Yes Hx Family Respiratory Disorders: Yes Hx Family Cancer: No Hx Family GI Disorders: Yes (ulcers) Hx Family Endocrine Disorder: Yes Hx Family Neuromuscular Disorders: No Hx Family Neurologic Disorders: No Hx Family HEENT Disorders: No Hx Family Autoimmune Disorders: No Father Hx Family Cardiac Disorders: Yes Hx Family Respiratory Disorders: Yes Hx Family Endocrine Disorder: Yes - Additional Family History Additional family history: Father with a myocardial infarction in his 30s, emphysema, mother with diabetes and CAD also CVA Internal Medicine - H&P: Meds Aspirin 81 mg PO DAILY 30 Days 04/03/16 [Rx] Atorvastatin [Lipitor] 40 mg PO HS 30 Days 04/03/16 [Rx] Diclofenac Potassium 50 mg PO TID 30 Days 04/03/16 [Rx] Duloxetine [Cymbalta] 30 mg PO DAILY 30 Days 04/03/16 [Rx] FluocinoNIDE 0.05% CRM [Lidex] 1 appl TP BID 30 Days 04/03/16 [Rx] Fluticasone Propionate Nasal [Flonase] 50 mcg NS DAILY 30 Days 04/03/16 [Rx] Gabapentin [Neurontin] 300 mg PO BID 30 Days 04/03/16 [Rx] Guaifenesin [Mucinex] 600 mg PO Q12H PRN 30 Days 04/03/16 [Rx] Insulin ASPART [NovoLOG] 2 - 14 unit SQ ACHS 30 Days 04/03/16 [Rx] Ipratropium/Albuterol Sulfate [Combivent Respimat Inhal [place]] 1 puff IH Q6H PRN 30 Days 04/03/16 [Rx] L. Acidophilus/Pectin, [place] [Acidophilus Probiotic Capsule] 1 each PO DAILY 30 Days 04/03/16 [Rx] Loperamide [Imodium] 4 mg PO DAILY PRN 30 Days 04/03/16 [Rx] Loratadine [Claritin] 10 mg PO DAILY 30 Days 04/03/16 [Rx] Menthol [Cough Drops] 9.1 mg PO Q2H PRN 14 Days 04/03/16 [Rx] Metformin [Glucophage] 500 mg PO BIDWM 30 Days 04/03/16 [Rx] Nystatin POWDER [Nystop] 1 appl TP BID 30 Days 04/03/16 [Rx] Oxybutynin Chloride [Ditropan Xl] 10 mg PO HS 30 Days 04/03/16 [Rx] Polyvinyl Alcohol [Artificial Tears] 1 drop BOTH EYES BID 30 Days 04/03/16 [Rx] Potassium Chloride [K-Tab ER] 20 meq PO DAILY 30 Days 04/03/16 [Rx] Promethazine [Phenergan] 25 mg PO Q6H PRN 30 Days 04/03/16 [Rx] Ranitidine HCl [Acid Parliamentary Archivist] 150 mg PO DAILY 30 Days 04/03/16 [Rx] Scopolamine Patch [Transderm-Scop] 1.5 mg TD Q72H 30 Days 04/03/16 [Rx] Sennosides/Docusate Sodium [Senna Plus] 2 each PO BID PRN 30 Days 04/03/16 [Rx] Insulin Glargine,Hum.rec.anlog [Lantus Solostar] 20 unit SQ HS 30 Days 04/04/16 [Rx] Magnesium Oxide [Mag-Ox] 400 mg PO BID #30 tablet 05/30/16 [Rx] Furosemide [Lasix] 40 mg PO DAILY 06/10/16 [History] Metoprolol XL (24 HR) Succ [Toprol Xl] 25 mg PO DAILY 06/10/16 [History] Omeprazole [PriLOSEC] 40 mg PO DAILY 06/10/16 [History] Oxycodone HCl/Acetaminophen [Percocet 5-325 mg Tablet] 1 each PO Q6H PRN [History] Doxycycline 100 mg PO BID 11 Days 06/13/16 [Rx] Cephalexin [Keflex] 500 mg PO BID #14 capsule 09/01/16 [Rx] Allergies gentamicin Adverse Reaction (Verified 06/10/16 15:39) See Comments "MY KIDNEYS SHUTDOWN, TOTAL SHUTDOWN" All Systems PM: A 10-system review of systems was performed and is negative for pertinent findings except as documented above in the HPI. Review of systems: Denies any chest pain or shortness of breath, no diarrhea, no dizziness. All other systems out of the Ten reviewed were negative - Constitutional Vitals: Temp Pulse Resp BP Pulse Ox 97.7 F 106 16 138/82 96 09/01/16 17:43 09/01/16 22:07 09/01/16 22:54 09/01/16 22:54 09/01/16 22:07 General appearance: Present: A&O X 3, morbidly obese - Head Head exam: Present: atraumatic, normocephalic - Eye Eye exam: Present: PERRL, conjuntiva pink, sclera anicteric Pupils: Present: PERRL - Neck Neck exam general surgery: Present: supple, trachea midline. Absent: lymphadenopathy - Respiratory Respiratory exam: Present: decreased breath sounds, CTAB. Absent: accessory muscle use, rales, rhonchi, wheezes - Cardiovascular Cardiovascular exam: Present: RRR, +S1, +S2. Absent: diastolic murmur, gallop, rubs, systolic murmur - GI/Abdominal GI/Abdominal exam: Present: normal bowel sounds, soft, no peritoneal signs. Absent: distended, tenderness Additional comments: Large abdominal hernia, tenderness in the lower abdomen Brown catheter in place - Extremities Exam Extremities exam: Present: pedal edema (Severe left lower extremity lymphedema) , warm, radial pulses palpable and symetrical. Absent: calf tenderness, cyanotic - Neurological Exam Neurological exam: Present: CN II-XII intact, oriented X3, no focal deficits. Absent: pronater drift, facial droop, speech deficit - Skin Skin exam: Present: dry, intact Internal Med - H&P Results - Labs CBC & Chem 7: 09/01/16 18:03 09/01/16 18:03
[2016-09-02] MEDS ORDERED: 0.9 % Sodium Chloride 1,000 ML IVC SCH (01:30)
[2016-09-02] MEDS ORDERED: *HR* Morphine 2 MG/ML SYRINGE IVP PRN (01:30)
[2016-09-02] MEDS ORDERED: Ondansetron 4 MG/2 ML VIAL IVP PRN (01:30)
[2016-09-02] MEDS ORDERED: Naloxone 0.4 MG/ML INJ IVP PRN (01:30)
[2016-09-02] MEDS ORDERED: Dextrose Gel 15 GM PO PRN ×2 (01:33)
[2016-09-02] MEDS ORDERED: *HR* Dextrose 50 % in Water (Syg) 50 ML SYRINGE IVP PRN (01:33)
[2016-09-02] MEDS ORDERED: D5% in Water 1,000 ML IVC PRN (01:33)
[2016-09-02] MEDS ORDERED: CefTRIAXone 1,000 MG VIAL IM ONE (01:54)
[2016-09-02] MEDS: Insulin LISPRO 300 UNITS/3 ML VIAL SQ SCH ×5 (02:15→21:39)
[2016-09-02] MEDS: *HR* Heparin 5,000 UNIT/ML VIAL SQ SCH ×3 (05:16→21:05)
[2016-09-02 07:43] LABS: Basophils # 0.1 K/mcL (0.0-0.2); Basophils % 0.6 %; Eosinophils # 0.5 K/mcL (0.0-0.6); Eosinophils % 4.1 %; Hematocrit 36.2 % (35.3-44.9); Hemoglobin 11.3 g/dL (11.5-15.4); Immature Granulocytes % 0.5 % (0-4); Lymphocytes # 2.2 K/mcL (0.6-4.6); Lymphocytes % 20.3 %; Mean Corpuscular HGB Conc 31.2 g/dL (31.6-35.5); Mean Corpuscular Hemoglobin 26.4 pg (28.0-33.3); Mean Corpuscular Volume 84.6 fL (83.0-100.0); Mean Platelet Volume 9.8 fL (9.4-12.4); Monocytes # 0.6 K/mcL (0.0-1.3); Monocytes % 5.7 %; Neutrophils # 7.5 K/mcL (1.6-8.9); Platelet Count 331 K/mcL (140-400); Red Blood Count 4.28 M/mcL (3.82-4.97); Red Cell Distribution Width 15.3 % (11.5-14.5); Segmented Neutrophils % 68.8 %
[2016-09-02 08:17] LABS: BUN/Creatinine Ratio 24 (6-26); Blood Urea Nitrogen 20 mg/dL (7-20); Calcium 9.1 mg/dL (8.6-10.8); Carbon Dioxide 18 mEq/L (19-29); Chloride 109 mEq/L (98-109); Glucose 213 mg/dL (70-99); Osmolality,Calculated 297 (280-300); Sodium 139 mEq/L (136-145); eGFR For African Americans > 60 (> 60); eGFR For Non-African Americans > 60 (> 60)
[2016-09-02] MEDS: Famotidine 20 MG TABLET PO SCH (08:40)
[2016-09-02] MEDS: Metoprolol XL (24 HR) Succ 25 MG TAB.ER.24H PO SCH (08:40)
[2016-09-02] MEDS: Furosemide 40 MG TABLET PO SCH (08:40)
[2016-09-02] MEDS: Gabapentin 300 MG CAPSULE PO SCH ×2 (08:40→21:05)
[2016-09-02] MEDS: Aspirin 81 MG TAB.CHEW PO SCH (08:40)
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
[2016-09-02] MEDS: Insulin DETEMIR 100 UNIT/ML X5UNITS SQ SCH ×2 (13:05→21:06)
[2016-09-02] MEDS: Acetaminophen 325 MG TABLET PO PRN (19:25)
--- NOTE | 2016-09-02 20:32 | Electrocardiograph Report ---
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
[2016-09-02] MEDS ORDERED: Insulin DETEMIR 100 UNIT/ML X5UNITS SQ SCH (21:00)
[2016-09-03] MEDS: *HR* Heparin 5,000 UNIT/ML VIAL SQ SCH ×3 (05:46→21:03)
[2016-09-03 06:59] LABS: BUN/Creatinine Ratio 21 (6-26); Basophils # 0.1 K/mcL (0.0-0.2); Basophils % 0.7 %; Blood Urea Nitrogen 20 mg/dL (7-20); Calcium 9.1 mg/dL (8.6-10.8); Carbon Dioxide 24 mEq/L (19-29); Chloride 106 mEq/L (98-109); Eosinophils # 0.5 K/mcL (0.0-0.6); Eosinophils % 4.9 %; Glucose 193 mg/dL (70-99); Hematocrit 36.1 % (35.3-44.9); Immature Granulocytes % 0.4 % (0-4); Lymphocytes # 2.3 K/mcL (0.6-4.6); Lymphocytes % 22.1 %; Mean Corpuscular HGB Conc 30.5 g/dL (31.6-35.5); Mean Corpuscular Hemoglobin 25.6 pg (28.0-33.3); Mean Corpuscular Volume 84.1 fL (83.0-100.0); Mean Platelet Volume 9.4 fL (9.4-12.4); Monocytes # 0.7 K/mcL (0.0-1.3); Monocytes % 6.9 %; Neutrophils # 6.6 K/mcL (1.6-8.9); Osmolality,Calculated 294 (280-300); Platelet Count 327 K/mcL (140-400); Potassium 4.5 mEq/L (3.5-4.5); Red Blood Count 4.29 M/mcL (3.82-4.97); Red Cell Distribution Width 15.4 % (11.5-14.5); Sodium 138 mEq/L (136-145); eGFR For African Americans > 60 (> 60); eGFR For Non-African Americans 58 (> 60)
[2016-09-03] MEDS: Insulin LISPRO 300 UNITS/3 ML VIAL SQ SCH ×4 (07:54→22:03)
[2016-09-03] MEDS: Gabapentin 300 MG CAPSULE PO SCH ×2 (07:55→21:02)
[2016-09-03] MEDS: Furosemide 40 MG TABLET PO SCH (07:55)
[2016-09-03] MEDS: Metoprolol XL (24 HR) Succ 25 MG TAB.ER.24H PO SCH (07:55)
[2016-09-03] MEDS: Famotidine 20 MG TABLET PO SCH (07:55)
[2016-09-03] MEDS: Aspirin 81 MG TAB.CHEW PO SCH (07:55)
[2016-09-03] MEDS: Insulin DETEMIR 100 UNIT/ML X5UNITS SQ SCH ×2 (08:58→21:03)
[2016-09-03] MEDS: Acetaminophen 325 MG TABLET PO PRN ×2 (09:01→21:08)
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
[2016-09-04 04:59] LABS: Basophils # 0.1 K/mcL (0.0-0.2); Basophils % 0.5 %; Eosinophils # 0.4 K/mcL (0.0-0.6); Eosinophils % 4.1 %; Hematocrit 33.7 % (35.3-44.9); Hemoglobin 10.4 g/dL (11.5-15.4); Immature Granulocytes % 0.5 % (0-4); Lymphocytes # 2.5 K/mcL (0.6-4.6); Lymphocytes % 24.3 %; Mean Corpuscular HGB Conc 30.9 g/dL (31.6-35.5); Mean Corpuscular Hemoglobin 26.3 pg (28.0-33.3); Mean Corpuscular Volume 85.1 fL (83.0-100.0); Monocytes # 0.8 K/mcL (0.0-1.3); Monocytes % 7.3 %; Neutrophils # 6.5 K/mcL (1.6-8.9); Platelet Count 294 K/mcL (140-400); Red Blood Count 3.96 M/mcL (3.82-4.97); Red Cell Distribution Width 15.4 % (11.5-14.5); Segmented Neutrophils % 63.3 %
[2016-09-04 05:12] LABS: BUN/Creatinine Ratio 25 (6-26); Blood Urea Nitrogen 24 mg/dL (7-20); Calcium 8.9 mg/dL (8.6-10.8); Carbon Dioxide 24 mEq/L (19-29); Chloride 106 mEq/L (98-109); Glucose 249 mg/dL (70-99); Osmolality,Calculated 300 (280-300); Sodium 139 mEq/L (136-145); eGFR For African Americans > 60 (> 60); eGFR For Non-African Americans 58 (> 60)
[2016-09-04] MEDS: *HR* Heparin 5,000 UNIT/ML VIAL SQ SCH ×3 (05:19→21:52)
[2016-09-04] MEDS: Gabapentin 300 MG CAPSULE PO SCH ×2 (08:01→21:52)
[2016-09-04] MEDS: Furosemide 40 MG TABLET PO SCH (08:01)
[2016-09-04] MEDS: Aspirin 81 MG TAB.CHEW PO SCH (08:01)
[2016-09-04] MEDS: Famotidine 20 MG TABLET PO SCH (08:01)
[2016-09-04] MEDS: Metoprolol XL (24 HR) Succ 25 MG TAB.ER.24H PO SCH (08:01)
[2016-09-04] MEDS: Insulin DETEMIR 100 UNIT/ML X5UNITS SQ SCH ×2 (08:02→21:52)
[2016-09-04] MEDS: Insulin LISPRO 300 UNITS/3 ML VIAL SQ SCH ×5 (08:03→21:58)
[2016-09-04] MEDS: Acetaminophen 325 MG TABLET PO PRN (09:19)
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
[2016-09-04] MEDS ORDERED: Sennosides/Docusate Sodium TABLET PO PRN (13:56)
[2016-09-04] MEDS: *HR* OxyCODONE/APAP 5/325 TABLET PO PRN ×2 (15:17→22:01)
[2016-09-05 04:22] LABS: Basophils # 0.1 K/mcL (0.0-0.2); Basophils % 0.6 %; Eosinophils # 0.4 K/mcL (0.0-0.6); Eosinophils % 3.7 %; Hematocrit 33.9 % (35.3-44.9); Hemoglobin 10.7 g/dL (11.5-15.4); Immature Granulocytes % 0.6 % (0-4); Lymphocytes # 2.5 K/mcL (0.6-4.6); Lymphocytes % 24.7 %; Mean Corpuscular HGB Conc 31.6 g/dL (31.6-35.5); Mean Corpuscular Hemoglobin 26.5 pg (28.0-33.3); Mean Corpuscular Volume 83.9 fL (83.0-100.0); Mean Platelet Volume 9.9 fL (9.4-12.4); Monocytes # 0.8 K/mcL (0.0-1.3); Monocytes % 7.3 %; Neutrophils # 6.5 K/mcL (1.6-8.9); Platelet Count 299 K/mcL (140-400); Red Blood Count 4.04 M/mcL (3.82-4.97); Red Cell Distribution Width 15.5 % (11.5-14.5); Segmented Neutrophils % 63.1 %
[2016-09-05 04:52] LABS: BUN/Creatinine Ratio 25 (6-26); Blood Urea Nitrogen 23 mg/dL (7-20); Carbon Dioxide 25 mEq/L (19-29); Chloride 107 mEq/L (98-109); Glucose 237 mg/dL (70-99); Osmolality,Calculated 299 (280-300); Potassium 3.9 mEq/L (3.5-4.5); Sodium 139 mEq/L (136-145); eGFR For African Americans > 60 (> 60); eGFR For Non-African Americans 60 (> 60)
[2016-09-05] MEDS: *HR* Heparin 5,000 UNIT/ML VIAL SQ SCH ×3 (05:13→21:35)
[2016-09-05] MEDS: Famotidine 20 MG TABLET PO SCH (08:08)
[2016-09-05] MEDS: Aspirin 81 MG TAB.CHEW PO SCH (08:08)
[2016-09-05] MEDS: Gabapentin 300 MG CAPSULE PO SCH ×2 (08:08→21:35)
[2016-09-05] MEDS: Furosemide 40 MG TABLET PO SCH (08:08)
[2016-09-05] MEDS: *HR* OxyCODONE/APAP 5/325 TABLET PO PRN ×2 (08:09→21:36)
[2016-09-05] MEDS: Metoprolol XL (24 HR) Succ 25 MG TAB.ER.24H PO SCH (08:09)
[2016-09-05] MEDS: Insulin LISPRO 300 UNITS/3 ML VIAL SQ SCH ×7 (08:11→21:37)
[2016-09-05] MEDS: Insulin DETEMIR 100 UNIT/ML X5UNITS SQ SCH ×2 (08:31→21:36)
--- NOTE | 2016-09-05 10:45 | Discharge Summary ---
Date of Encounter: 09/05/16 - Discharge Diagnosis (1) Sepsis secondary to UTI Status: Acute (2) UTI (urinary tract infection) Status: Acute (3) Type 2 diabetes mellitus Status: Chronic Qualifiers: Diabetes mellitus complication status: with other specified complication Diabetes mellitus local telephone operator insulin use: with local telephone operator use Qualified Code(s) : E11.69 - Type 2 diabetes mellitus with other specified complication; Z79.4 - halfway (current) use of insulin (4) Lymphedema Status: Acute (5) Abdominal pain Status: Acute Qualifiers: Abdominal location: generalized Qualified Code(s): R10.84 - Generalized abdominal pain (6) CHF (congestive heart failure) Status: Ruled-out Qualifiers: Congestive heart failure type: diastolic Congestive heart failure chronicity: chronic Qualified Code(s): I50.32 - Chronic diastolic (congestive ) heart failure (7) Coronary artery disease Status: Chronic Qualifiers: Coronary Disease-Associated Artery/Lesion type: [place] artery [place] vs. transplanted heart: [place] heart Associated angina: without angina Qualified Code(s): I25.10 - Atherosclerotic heart disease of [place] coronary artery without angina pectoris (8) Morbid obesity Status: Acute Qualifiers: Obesity type: unspecified obesity type Qualified Code(s): E66.01 - Morbid ( severe) obesity due to excess calories (9) DVT prophylaxis Status: Acute - Discharge Medications Prescriptions: Nitrofurantoin (BID) [Macrobid] 100 mg PO BID #14 capsule Nystatin Cream [Mycostatin Cream] 1 appl TP BID #1 tube Omeprazole [PriLOSEC] 40 mg PO DAILY #30 cap Home Medications: Aspirin 81 mg PO DAILY 30 Days 04/03/16 [Rx] Atorvastatin [Lipitor] 40 mg PO HS 30 Days 04/03/16 [Rx] Duloxetine [Cymbalta] 30 mg PO DAILY 30 Days 04/03/16 [Rx] Gabapentin [Neurontin] 300 mg PO BID 30 Days 04/03/16 [Rx] Guaifenesin [Mucinex] 600 mg PO Q12H PRN 30 Days 04/03/16 [Rx] Insulin ASPART [NovoLOG] 2 - 14 unit SQ ACHS 30 Days 04/03/16 [Rx] Ipratropium/Albuterol Sulfate [Combivent Respimat Inhal Cedar] 1 puff IH Q6H PRN 30 Days 04/03/16 [Rx] Loperamide [Imodium] 4 mg PO DAILY PRN 30 Days 04/03/16 [Rx] Loratadine [Claritin] 10 mg PO DAILY 30 Days 04/03/16 [Rx] Menthol [Cough Drops] 9.1 mg PO Q2H PRN 14 Days 04/03/16 [Rx] Metformin [Glucophage] 500 mg PO BIDWM 30 Days 04/03/16 [Rx] Oxybutynin Chloride [Ditropan Xl] 10 mg PO HS 30 Days 04/03/16 [Rx] Potassium Chloride [K-Tab ER] 20 meq PO DAILY 30 Days 04/03/16 [Rx] Promethazine [Phenergan] 25 mg PO Q6H PRN 30 Days 04/03/16 [Rx] Ranitidine HCl [Acid Sterile Proc Tech] 150 mg PO DAILY 30 Days 04/03/16 [Rx] Insulin Glargine,Hum.rec.anlog [Lantus Solostar] 20 unit SQ HS 30 Days 04/04/16 [Rx] Magnesium Oxide [Mag-Ox] 400 mg PO BID #30 tablet 05/30/16 [Rx] Furosemide [Lasix] 40 mg PO DAILY 06/10/16 [History] Metoprolol XL (24 HR) Succ [Toprol Xl] 25 mg PO DAILY 06/10/16 [History] Oxycodone HCl/Acetaminophen [Percocet 5-325 mg Tablet] 1 tab PO Q6H PRN [History] FluocinoNIDE 0.05% CRM [Lidex] 1 appl TP BID PRN 09/02/16 [History] Fluticasone Propionate Nasal [Flonase] 2 spray NS DAILY 09/02/16 [History] L. Acidophilus/Pectin, [place] [Acidophilus Probiotic Capsule] 1 cap PO DAILY [History] Nystatin POWDER [Nystop] 1 appl TP BID PRN 09/02/16 [History] Oxygen 2 l .ROUTE AD 09/02/16 [History] Polyvinyl Alcohol [Artificial Tears] 1 drop BOTH EYES BID PRN 09/02/16 [History] Scopolamine Patch [Transderm-Scop] 1.5 mg TD Q72H PRN 09/02/16 [History] Sennosides/Docusate Sodium [Senna Plus] 2 tab PO BID PRN 09/02/16 [History] Nitrofurantoin (BID) [Macrobid] 100 mg PO BID #14 capsule 09/05/16 [Rx] Nystatin Cream [Mycostatin Cream] 1 appl TP BID #1 tube 09/05/16 [Rx] Omeprazole [PriLOSEC] 40 mg PO DAILY #30 cap 09/05/16 [Rx] Allergies/Adverse Reactions: Allergies gentamicin Adverse Reaction (Verified 06/10/16 15:39) See Comments "MY KIDNEYS SHUTDOWN, TOTAL SHUTDOWN" Date of admission: 09/02/16 01:36 Primary care physician: Boaz Villalpando DO Consults: 09/02/16 02:27 Consult to Airframe And Power Plant Mechanic [CONS] Routine Reason for SW Consult: placement 09/03/16 07:55 Consult to Occupational Therapy [CONS] Routine Comment: Evaluate, develop and implement POC Consult to Physical Therapy [CONS] Routine Comment: Evaluate, develop and implement POC - Patient Status Condition: Fair - Discharge Instructions Follow Up With: Boaz Villalpando DO [Primary Care Provider] - Hospital course: Ms. Zamora is a 70 year old female - Time Spent with Patient Total time spent providing and/or coordinating discharge services: - Constitutional Vitals: Temp Pulse Resp BP Pulse Ox 97.9 F 79 14 121/73 97 09/05/16 00:15 09/05/16 00:15 09/05/16 00:15 09/05/16 00:15 09/05/16 00:15 General appearance: Present: A&O X 3, morbidly obese, pleasant, answers questions appropriately
[2016-09-05] MEDS ORDERED: MOM Conc 10 ML UD.LIQ PO ONE (10:51)
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
[2016-09-05] MEDS ORDERED: Bisacodyl 10 MG RECTAL SUPPOSITORY RC STA (14:03)
[2016-09-05] MEDS ORDERED: MOM Conc 10 ML UD.LIQ PO PRN (16:57)
[2016-09-06 05:18] LABS: Basophils # 0.1 K/mcL (0.0-0.2); Basophils % 0.6 %; Eosinophils # 0.3 K/mcL (0.0-0.6); Eosinophils % 3.2 %; Hemoglobin 10.6 g/dL (11.5-15.4); Immature Granulocytes % 0.7 % (0-4); Lymphocytes # 2.7 K/mcL (0.6-4.6); Lymphocytes % 25.5 %; Mean Corpuscular HGB Conc 31.2 g/dL (31.6-35.5); Mean Corpuscular Hemoglobin 26.4 pg (28.0-33.3); Mean Corpuscular Volume 84.6 fL (83.0-100.0); Mean Platelet Volume 10.1 fL (9.4-12.4); Monocytes # 0.7 K/mcL (0.0-1.3); Monocytes % 6.8 %; Neutrophils # 6.8 K/mcL (1.6-8.9); Platelet Count 313 K/mcL (140-400); Red Blood Count 4.02 M/mcL (3.82-4.97); Red Cell Distribution Width 15.6 % (11.5-14.5); Segmented Neutrophils % 63.2 %
[2016-09-06 05:26] LABS: BUN/Creatinine Ratio 25 (6-26); Blood Urea Nitrogen 22 mg/dL (7-20); Calcium 8.9 mg/dL (8.6-10.8); Carbon Dioxide 25 mEq/L (19-29); Chloride 104 mEq/L (98-109); Glucose 177 mg/dL (70-99); Osmolality,Calculated 294 (280-300); Potassium 4.3 mEq/L (3.5-4.5); Sodium 138 mEq/L (136-145); eGFR For African Americans > 60 (> 60); eGFR For Non-African Americans > 60 (> 60)
[2016-09-06] MEDS: *HR* Heparin 5,000 UNIT/ML VIAL SQ SCH ×3 (05:29→22:26)
[2016-09-06] MEDS: Insulin LISPRO 300 UNITS/3 ML VIAL SQ SCH ×8 (09:22→22:27)
[2016-09-06] MEDS: Gabapentin 300 MG CAPSULE PO SCH ×2 (09:24→22:26)
[2016-09-06] MEDS: Famotidine 20 MG TABLET PO SCH (09:24)
[2016-09-06] MEDS: Furosemide 40 MG TABLET PO SCH (09:24)
[2016-09-06] MEDS: Metoprolol XL (24 HR) Succ 25 MG TAB.ER.24H PO SCH (09:24)
[2016-09-06] MEDS: Aspirin 81 MG TAB.CHEW PO SCH (09:24)
[2016-09-06] MEDS: Insulin DETEMIR 100 UNIT/ML X5UNITS SQ SCH ×2 (09:34→22:26)
[2016-09-06] MEDS: *HR* OxyCODONE/APAP 5/325 TABLET PO PRN ×2 (09:34→22:26)
--- NOTE | 2016-09-06 11:49 | Gastroenterology Consult Note ---
<BachPresley Lock - Last Filed: 09/06/16 11:47> Date of Encounter: 09/06/16 Time of Encounter: 10:50 - Assessment and plan (1) Abdominal pain Current Visit: Yes Status: Acute Assessment and plan: Pt with worsening epigastric pain. Plan for EGD today to r/o esophagitis, gastritis, duodenitis, PUD, MW tear, or AVM. Keep NPO. Continue daily PPI. Qualifiers: Abdominal location: epigastric Qualified Code(s): R10.13 - Epigastric pain (2) Morbid obesity Current Visit: No Status: Acute Qualifiers: Obesity type: unspecified obesity type Qualified Code(s): E66.01 - Morbid ( severe) obesity due to excess calories (3) COPD (chronic obstructive pulmonary disease) Current Visit: No Status: Chronic Assessment and plan: Management per primary team. Qualifiers: COPD type: unspecified COPD Qualified Code(s): J44.9 - Chronic obstructive pulmonary disease, unspecified - Time Spent With Patient Total time spent is greater than 50% in coordination of care (as documented) at patient's floor/unit and/or counseling patient: GI History of Present Illness - Data of Consult Patient: new to practice Consult date: 09/06/16 Requesting Physician: Ari Moran MD - Consult Narrative Reason for consult: GERD History of present illness: Ms. Zamora is a 70 year old female with PMHx of recurrent UTI, CHF, COPD ( Oxygen dependent 2 L continuously), CAD, DM, GERD, GI bleed, who presented with complaints of severe abdominal pain and dysuria. Urine cx positive for E.coli and met SIRS criteria with tachycardia and WBC 12 on admission. Blood cxs were negative. CT A/P with few scattered air-fluid levels noted in segments of the small bowel without significant small bowel dilation, may represent a functional ileus. She has a history of ulcers. She has been on diclofenac TID for an undetermined amount of time Procedures: EGD/colonoscopy 2013 per pt reports NSAIDs: Diclofenac TID Anticoagulation: None Past Med Surg Social Fam HX - Past Medical History Medical history: arthritis, asthma, CHF (Diastolic), COPD (Oxygen dependent 2 L continuously), coronary artery disease, diabetes (Insulin-dependent), GERD, GI bleed, kidney stones, migraine, other (Diverticulosis, UTIs with ESBL, neuropathy, anxiety, depression, nephrolithiasis, GI bleed, CAD, GERD) Psychiatric history: anxiety, depression - Past Surgical History Surgical History: appendectomy, cholecystectomy, hysterectomy, orthopedic, other , arthroscopy - Social History Smoking Status: Former smoker Smokeless Tobacco Status: No Alcohol use: none Drug use: none - Family History Mother Adopted: No Family Member Ethnicity: Non- Living Status: Hx Family Cardiac Disorders: Yes Hx Family Respiratory Disorders: Yes Hx Family Cancer: No Hx Family GI Disorders: Yes (ulcers) Hx Family Endocrine Disorder: Yes Hx Family Neuromuscular Disorders: No Hx Family Neurologic Disorders: No Hx Family HEENT Disorders: No Hx Family Autoimmune Disorders: No Father Hx Family Cardiac Disorders: Yes Hx Family Respiratory Disorders: Yes Hx Family Cancer: No Hx Family GI Disorders: No Hx Family Genitourinary Disorders: No Hx Family Endocrine Disorder: Yes Hx Family Musculoskeletal Disorders: No Hx Family Neuromuscular Disorders: No Hx Family Neurologic Disorders: No Hx Family HEENT Disorders: No Hx Family Autoimmune Disorders: No Hx Family Reproductive Disorders: No Hx Family Medical Disorders: No - Gastrointestinal Gastrointestinal: Present: as per HPI - Constitutional Constitutional: as per HPI - EENT Eyes: as per HPI Ears: Present: as per HPI Nose, mouth and throat: Present: as per HPI - Cardiovascular Cardiovascular ROS: Present: as per HPI - Respiratory Respiratory IM: Present: as per HPI - Genitourinary Genitourinary: Absent: change in color, Urinary frequency - Neurological ROS Neurological GI: Present: as per HPI - Hematologic/Lymphatic Hematologic/Lymphatic pediatric: Present: as per HPI - Musculoskeletal Musculoskeletal ROS GI: Present: as per HPI - Integumentary Integumentary GI: Present: as per HPI - Psychiatric ROS Psychiatric GI: Present: as per HPI - Endocrine Endocrine IM: Present: as per HPI - Constitutional Vitals: Temp Pulse Resp BP Pulse Ox 97.9 F 75 14 125/76 95 09/06/16 11:05 09/06/16 11:05 09/06/16 11:05 09/06/16 11:05 09/06/16 11:05 General appearance: Present: cooperative, A&O X 3, no acute distress, answers questions appropriately - Head Head exam: Present: atraumatic, normocephalic - Eye Eye exam: Present: normal appearance, sclera anicteric - ENT ENT exam: Present: mucous membranes dry - Neck Neck exam general surgery: Present: normal inspection, trachea midline - Respiratory Respiratory exam: Present: CTAB. Absent: rales, rhonchi - Cardiovascular Cardiovascular exam: Present: RRR, +S1, +S2 - GI/Abdominal GI/Abdominal exam: Present: hernia, soft, tenderness (epigastric, midline hernia tender to palpation), no peritoneal signs. Absent: distended, firm, guarding - Rectal Rectal exam: Present: deferred - Extremities Exam Extremities exam: Present: warm - Neurological Exam Neurological exam: Present: no focal deficits - Psychiatric Psychiatric exam: Present: normal affect, normal mood - Skin Skin exam: Present: dry, intact, normal color, warm Results - Labs CBC & Chem 7: 09/06/16 03:39 09/06/16 03:39 Labs: Last Result Calcium 8.9 mg/dL (8.6-10.8) 09/06/16 03:39 Troponin I 0.00 ng/mL (0-0.03) 09/01/16 18:03 Entire Visit Hgb 10.6 g/dL (11.5-15.4) L 09/06/16 03:39 Hct 34.0 % (35.3-44.9) L 09/06/16 03:39 PT 11.1 Seconds (9.4-12.1) 09/01/16 18:03 Total Bilirubin 0.3 mg/dL (0.2-1.2) 09/01/16 18:03 AST 10 Units/L (5-34) 09/01/16 18:03 ALT 17 Units/L (0-55) 09/01/16 18:03 Amylase 37 Units/L (25-125) 09/01/16 18:03 Lipase 35 Units/L (8-78) 09/01/16 18:03 - ABG ABG results: PT/INR, D-dimer PT 11.1 Seconds (9.4-12.1) 09/01/16 18:03 Consult Discharge Plan - Plan Referrals: Boaz Villalpando DO [Primary Care Provider] - Ky Yeboah MD [Partnered Physician] - 09/20/16 3:15 pm Prescriptions: Nitrofurantoin (BID) [Macrobid] 100 mg PO BID #14 capsule Nystatin Cream [Mycostatin Cream] 1 appl TP BID #1 tube Omeprazole [PriLOSEC] 40 mg PO DAILY #30 cap <Campbell Lancaster - Last Filed: 09/06/16 14:55> Date of Encounter: 09/06/16 Time of Encounter: 13:00 - Time Spent With Patient Total time spent is greater than 50% in coordination of care (as documented) at patient's floor/unit and/or counseling patient: GI History of Present Illness - Data of Consult Requesting Physician: Ari Moran MD - Consult Narrative History of present illness: Ms. Zamora is a 70 year old female - Constitutional Vitals: Temp Pulse Resp BP Pulse Ox 98.8 F 90 16 139/78 97 09/06/16 14:31 09/06/16 14:31 09/06/16 14:31 09/06/16 14:31 09/06/16 14:31 Results - Labs CBC & Chem 7: 09/06/16 03:39 09/06/16 03:39 Labs: Last Result Calcium 8.9 mg/dL (8.6-10.8) 09/06/16 03:39 Iron 39 mcg/dL (50-170) L 09/06/16 03:39 % Saturation 12 % (15-50) L 09/06/16 03:39 Transferrin 231 mg/dL (180-382) 09/06/16 03:39 Ferritin 39 ng/ml (5-204) 09/06/16 03:39 Troponin I 0.00 ng/mL (0-0.03) 09/01/16 18:03 Entire Visit Hgb 10.6 g/dL (11.5-15.4) L 09/06/16 03:39 Hct 34.0 % (35.3-44.9) L 09/06/16 03:39 PT 11.1 Seconds (9.4-12.1) 09/01/16 18:03 Ferritin 39 ng/ml (5-204) 09/06/16 03:39 Total Bilirubin 0.3 mg/dL (0.2-1.2) 09/01/16 18:03 AST 10 Units/L (5-34) 09/01/16 18:03 ALT 17 Units/L (0-55) 09/01/16 18:03 Amylase 37 Units/L (25-125) 09/01/16 18:03 Lipase 35 Units/L (8-78) 09/01/16 18:03 - ABG ABG results: PT/INR, D-dimer PT 11.1 Seconds (9.4-12.1) 09/01/16 18:03 - Attending Attestation I examined this patient and my medical decision-making was reviewed with the SINGE MACHINE OPERATOR/PA/Advanced Practice Nurse/Resident Physician. I agree with the documented findings, disposition and treatment plan as described except to the extent set forth below.
[2016-09-06 11:50] LABS: % Iron Saturation 12 % (15-50); Iron 39 mcg/dL (50-170); Transferrin 231 mg/dL (180-382)
[2016-09-06 12:25] LABS: Ferritin 39 ng/ml (5-204)
[2016-09-06] MEDS ORDERED: *HR* Midazolam HCl 5 MG/5 ML VIAL IVP ONE (14:49)
[2016-09-06] MEDS ORDERED: *HR* FentaNYL (PF) 100 MCG/2 ML VIAL ONE (14:50)
[2016-09-06] MEDS ORDERED: *HR* Midazolam HCl 5 MG/5 ML VIAL IVP PRN (15:17)
[2016-09-06] MEDS ORDERED: Tetracaine/Benzocaine/Butamben 200MG/SPRAY (100SPY/BOT) MM ONE (15:17)
[2016-09-06] MEDS ORDERED: Simethicone 40 MG/0.6 ML MLS IR ONE (15:17)
[2016-09-06] MEDS ORDERED: *HR* FentaNYL (PF) 100 MCG/2 ML VIAL IVP PRN (15:17)
[2016-09-06] MEDS ORDERED: 0.9 % Sodium Chloride 1,000 ML IVC SCH (15:30)
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
[2016-09-06] MEDS: Sennosides/Docusate Sodium TABLET PO SCH (17:49)
[2016-09-06] MEDS ORDERED: Sennosides/Docusate Sodium TABLET PO SCH (18:00)
[2016-09-07] MEDS: *HR* Heparin 5,000 UNIT/ML VIAL SQ SCH ×2 (05:36→14:00)
[2016-09-07] MEDS: Aspirin 81 MG TAB.CHEW PO SCH (07:46)
[2016-09-07] MEDS: Sennosides/Docusate Sodium TABLET PO SCH (07:46)
[2016-09-07] MEDS: Famotidine 20 MG TABLET PO SCH (07:46)
[2016-09-07] MEDS: Gabapentin 300 MG CAPSULE PO SCH (07:46)
[2016-09-07] MEDS: Furosemide 40 MG TABLET PO SCH (07:46)
[2016-09-07] MEDS: Metoprolol XL (24 HR) Succ 25 MG TAB.ER.24H PO SCH (07:46)
[2016-09-07] MEDS: *HR* OxyCODONE/APAP 5/325 TABLET PO PRN (07:47)
[2016-09-07] MEDS: Insulin LISPRO 300 UNITS/3 ML VIAL SQ SCH ×6 (09:54→18:56)
[2016-09-07] MEDS: Insulin DETEMIR 100 UNIT/ML X5UNITS SQ SCH (10:01)
[2016-09-07 19:39] VITALS: BP 131/74
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
[2016-09-08] MEDS ORDERED: Nitrofurantoin (BID) 100 MG CAPSULE PO SCH (09:00)
== END 2016-09-07 20:00 | DRG 872 ==
LOC: 3ANU 17:35 → EMEROO 17:35 → 3ANU 23:05 → SUATTDRO 09-02 01:36
PROVIDERS: ADMIT Internal Medicine; ATTEND Internal Medicine
PROC: ENDOEBX (2016-09-06 13:00)

== ENCOUNTER 2017-10-23 19:21 | Inpatient (IN) ==
--- NOTE | 2017-10-23 19:37 | Emergency Department Note ---
Disposition Clinical Impression: Healthcare-associated pneumonia, Hyperglycemia Disposition: Admitted As Inpatient Condition: Fair Referrals: Gideon Lundberg MD [Primary Care Provider] - Forms: ED Satisfaction Letter Time of Disposition: 20:43 SOB HPI - General Chief Complaint: ED Shortness of Breath/Dyspnea Stated Complaint: SoB Time Seen by Provider: 10/23/17 19:27 Source: patient, EMS Mode of arrival: EMS Limitations: no limitations Nursing Notes Reviewed: Yes Vital Signs Reviewed: Yes - History of Present Illness Patient presents from the [facility]. She is nonambulatory at baseline and 3 L of oxygen dependent. She complains of a productive cough. No objective fevers. Mild increased "water retention." Increased erythema to her left lower extremity. She was treated at the [facility] with an unknown antibiotic. She states she feels exactly the way she did previously when she had "double pneumonia." She did describe hemoptysis initially but takes no blood thinners other than an aspirin - Related Data Home Medications Medication Instructions Recorded Confirmed Furosemide [Lasix] 40 mg PO 1200 06/10/16 02/26/17 Metoprolol XL (24 HR) Succ [Toprol 25 mg PO DAILY 06/10/16 02/26/17 Xl] FluocinoNIDE 0.05% CRM [Lidex] 1 appl TP BID PRN 09/02/16 02/26/17 Fluticasone Propionate Nasal 2 spray NS DAILY 09/02/16 02/26/17 [Flonase] L. Acidophilus/Pectin, [place] 1 cap PO DAILY 09/02/16 02/26/17 [Acidophilus Probiotic Capsule] Oxygen 2 l .ROUTE AD 09/02/16 02/26/17 Polyvinyl Alcohol [Artificial 1 drop BOTH EYES BID PRN 09/02/16 02/26/17 Tears] Scopolamine Patch [Transderm-Scop] 1.5 mg TD Q72H PRN 09/02/16 02/26/17 Sennosides/Docusate Sodium [Senna 2 tab PO BID PRN 09/02/16 02/26/17 Plus] Diclofenac Sodium [Voltaren] 1 appl TP QID 02/26/17 02/26/17 Ferrous Sulfate 325 mg PO DAILY 02/26/17 02/26/17 HYDROcodone/Acet 7.5/325 mg [[place] 1 tab PO Q4H PRN 02/26/17 02/26/17 7.5-325 mg] Pregabalin [Lyrica] 100 mg PO TID 02/26/17 02/26/17 Topiramate [Topamax] 25 mg PO DAILY 02/26/17 02/26/17 Previous Rx's Medication Instructions Recorded Aspirin 81 mg PO DAILY 30 Days tab.chew 04/03/16 Atorvastatin [Lipitor] 40 mg PO HS 30 Days tablet 04/03/16 DULoxetine [Cymbalta] 30 mg PO DAILY 30 Days capsule.dr 04/03/16 Guaifenesin [Mucinex] 600 mg PO Q12H PRN 30 Days 04/03/16 tab.er.12h Insulin ASPART [NovoLOG] 2 - 14 unit SQ ACHS 30 Days mls 04/03/16 Ipratropium/Albuterol Sulfate 1 puff IH Q6H PRN 30 Days 04/03/16 [Combivent Respimat Inhal [place]] mist.inhal Loperamide [Imodium] 4 mg PO DAILY PRN 30 Days capsule 04/03/16 Loratadine [Claritin] 10 mg PO DAILY 30 Days tablet 04/03/16 Menthol [Cough Drops] 9.1 mg PO Q2H PRN 14 Days lozenge 04/03/16 Oxybutynin Chloride [Ditropan Xl] 10 mg PO HS 30 Days tab.er.24 04/03/16 Potassium Chloride [K-Tab ER] 20 meq PO DAILY 30 Days tablet.er 04/03/16 Promethazine [Phenergan] 25 mg PO Q6H PRN 30 Days tablet 04/03/16 Ranitidine HCl [Acid [employer]] 150 mg PO DAILY 30 Days tablet 04/03/16 metFORMIN [Glucophage] 500 mg PO BIDWM 30 Days tablet 04/03/16 Insulin Glargine,Hum.rec.anlog 20 unit SQ HS 30 Days insuln.pen 04/04/16 [Lantus Solostar] Magnesium Oxide [Mag-Ox] 400 mg PO BID #30 tablet 05/30/16 Nystatin Cream [Mycostatin Cream] 1 appl TP BID #1 tube 09/05/16 Omeprazole [PriLOSEC] 40 mg PO DAILY #30 cap 09/05/16 OxyCODONE/APAP 7.5/325 [Percocet 1 each PO Q6HR PRN #26 tablet 02/26/17 7.5/325 MG] Allergies Allergy/AdvReac Type Severity Reaction Status Date / Time gentamicin AdvReac See Verified 10/23/17 19:31 Comments All systems ED: reviewed and negative except as stated. Constitutional: Reports: as per HPI Eyes: Reports: as per HPI ENT ED: Reports: as per HPI Cardiovascular: Reports: edema Respiratory: Reports: cough, dyspnea, hemoptysis Gastrointestinal: Reports: as per HPI Genitourinary: Reports: as per HPI Musculoskeletal: Reports: as per HPI Integumentary: Reports: other (Increased erythema to left lower extremity) Neurological: Reports: as per HPI Psychiatric: Reports: as per HPI Endocrine: Reports: as per HPI Hematological/Lymphatic: Reports: as per HPI Allergic/Immunologic: Reports: as per HPI Past Medical History - Past Medical History Source: patient Medical history: Reports: arthritis, asthma, CHF, COPD, coronary artery disease , diabetes, GERD, GI bleed, kidney stones, migraine, other Surgical history: Reports: appendectomy, cholecystectomy, hysterectomy, knee replacement, orthopedic, other, other, arthroscopy Psychiatric history: Reports: anxiety, depression - Social History Smoking Status: Former smoker Smokeless Tobacco Status: No Alcohol use: Reports: none Drug use: Reports: none Physical Exam - General Limitations: no limitations General appearance: alert, in no apparent distress - Head Head exam: atraumatic - Eye Eye exam: Present: normal appearance - ENT ENT exam: normal exam - Neck Neck exam: Present: normal inspection, full ROM - Chest Chest inspection: Present: normal inspection, symmetric chest wall rise - Respiratory Respiratory exam: Present: normal lung sounds bilaterally - Cardiovascular Cardiovascular exam: Present: regular rate, normal rhythm, normal heart sounds - Abdominal Exam Abdominal exam: Present: soft, Non-Tender - Rectal Exam Rectal exam: Present: deferred - Extremities Exam Extremities exam: Present: pedal edema - Neurological Exam Neurological exam: Present: alert, oriented X3, CN II-XII intact - Psychiatric Psychiatric exam: Present: normal affect, normal mood - Skin Skin exam: Present: warm, dry, erythema (Superficial erythema with slight increased tactile warmth to anterior and lateral left lower extremity) Course Course Narrative: Patient presents with cough. She was treated in the extended care facility for pneumonia with an unknown in about. She does not appear toxic or septic. Workup initiated Vital Signs Temperature 98.2 F 10/23/17 19:23 Pulse Rate 98 10/23/17 19:23 Respiratory Rate 16 10/23/17 19:23 Blood Pressure 149/83 10/23/17 19:23 O2 Sat by Pulse Oximetry 97 10/23/17 19:23 Temperature 98.2 F 10/23/17 19:23 Pulse Rate 97 10/23/17 20:37 Respiratory Rate 16 10/23/17 20:37 Blood Pressure 128/69 10/23/17 20:37 O2 Sat by Pulse Oximetry 98 10/23/17 20:37 Oxygen Delivery Oxygen Delivery Room Air Shortness of Breath/Dyspnea - Medical Records Medical records reviewed: Yes I reviewed the patient's medical records. - Lab Data Lab results reviewed: Yes I reviewed the patient's lab results. Result diagrams: 10/23/17 20:00 10/23/17 20:00 Lab Results 10/23/17 10/23/17 10/23/17 Range/Units 20:00 20:00 20:00 WBC 9.5 (4.3-11.1) K/mcL RBC 3.98 (3.82-4.97) M/mcL Hgb 11.8 (11.5-15.4) g/dL Hct 36.4 (35.3-44.9) % MCV 91.5 (83.0-100.0) fL MCH 29.6 (28.0-33.3) pg MCHC 32.4 (31.6-35.5) g/dL RDW 15.9 H (11.5-14.5) % Plt Count 280 (140-400) K/mcL MPV 9.6 (9.4-12.4) fL Immature Gran % 1.9 (0-4) % Seg Neutrophils % 71.7 % Lymphocytes % 16.5 % Monocytes % 5.9 % Eosinophils % 3.5 % Basophils % 0.5 % Neutrophils # 6.8 (1.6-8.9) K/mcL Lymphocytes # 1.6 (0.6-4.6) K/mcL Monocytes # 0.6 (0.0-1.3) K/mcL Eosinophils # 0.3 (0.0-0.6) K/mcL Basophils # 0.1 (0.0-0.2) K/mcL PT 10.8 (9.4-12.1) Seconds INR 1.0 Sodium 139 (136-145) mEq/L Potassium 4.3 (3.5-5.1) mEq/L Chloride 103 (98-107) mEq/L Carbon Dioxide 26 (23-29) mEq/L BUN 17 (8-23) mg/dL Creatinine 0.76 (0.60-1.20) mg/dL Est GFR ( Amer) > 60 (> 60) Est GFR (Non-Af Amer) > 60 (> 60) BUN/Creatinine Ratio 22 (6-26) Glucose 384 H (70-105) mg/dL Calculated Osmolality 305 H (280-300) Lactic Acid (0.5-2.2) mmol/L Calcium 9.5 (8.6-10.3) mg/dL Total Bilirubin 0.3 (0.3-1.0) mg/dL Direct Bilirubin 0.1 (0.0-0.2) mg/dL Indirect Bilirubin 0.2 (0.0-1.2) mg/dL AST 8 L (13-39) Units/L ALT 8 (7-52) Units/L Alkaline Phosphatase 91 (34-104) Units/L Troponin I < 0.03 (< 0.04) ng/mL B-Natriuretic Peptide (Less than 100) pg/mL Serum Total Protein 6.5 (6.4-8.9) g/dL Albumin 3.5 (3.5-5.7) g/dL Globulin 3.0 (2.4-3.5) g/dL Albumin/Globulin Ratio 1.2 (1.1-2.2) 10/23/17 10/23/17 Range/Units 20:00 20:00 WBC (4.3-11.1) K/mcL RBC (3.82-4.97) M/mcL Hgb (11.5-15.4) g/dL Hct (35.3-44.9) % MCV (83.0-100.0) fL MCH (28.0-33.3) pg MCHC (31.6-35.5) g/dL RDW (11.5-14.5) % Plt Count (140-400) K/mcL MPV (9.4-12.4) fL Immature Gran % (0-4) % Seg Neutrophils % % Lymphocytes % % Monocytes % % Eosinophils % % Basophils % % Neutrophils # (1.6-8.9) K/mcL Lymphocytes # (0.6-4.6) K/mcL Monocytes # (0.0-1.3) K/mcL Eosinophils # (0.0-0.6) K/mcL Basophils # (0.0-0.2) K/mcL PT (9.4-12.1) Seconds INR Sodium (136-145) mEq/L Potassium (3.5-5.1) mEq/L Chloride (98-107) mEq/L Carbon Dioxide (23-29) mEq/L BUN (8-23) mg/dL Creatinine (0.60-1.20) mg/dL Est GFR ( Amer) (> 60) Est GFR (Non-Af Amer) (> 60) BUN/Creatinine Ratio (6-26) Glucose (70-105) mg/dL Calculated Osmolality (280-300) Lactic Acid 3.0 H (0.5-2.2) mmol/L Calcium (8.6-10.3) mg/dL Total Bilirubin (0.3-1.0) mg/dL Direct Bilirubin (0.0-0.2) mg/dL Indirect Bilirubin (0.0-1.2) mg/dL AST (13-39) Units/L ALT (7-52) Units/L Alkaline Phosphatase (34-104) Units/L Troponin I (< 0.04) ng/mL B-Natriuretic Peptide 37 (Less than 100) pg/mL Serum Total Protein (6.4-8.9) g/dL Albumin (3.5-5.7) g/dL Globulin (2.4-3.5) g/dL Albumin/Globulin Ratio (1.1-2.2) - Radiology Data Radiology results reviewed: Yes I reviewed the patient's radiology results. - EKG Data EKG attestation: Yes I reviewed and interpreted this EKG. EKG results narrative: NSR rate 97 QRS 100 QT/QTC 346/400. compared to 02/18/17
[2017-10-23 20:11] LABS: Basophils # 0.1 K/mcL (0.0-0.2); Basophils % 0.5 %; Eosinophils # 0.3 K/mcL (0.0-0.6); Eosinophils % 3.5 %; Hematocrit 36.4 % (35.3-44.9); Hemoglobin 11.8 g/dL (11.5-15.4); Immature Granulocytes % 1.9 % (0-4); Lymphocytes # 1.6 K/mcL (0.6-4.6); Lymphocytes % 16.5 %; Mean Corpuscular HGB Conc 32.4 g/dL (31.6-35.5); Mean Corpuscular Hemoglobin 29.6 pg (28.0-33.3); Mean Corpuscular Volume 91.5 fL (83.0-100.0); Mean Platelet Volume 9.6 fL (9.4-12.4); Monocytes # 0.6 K/mcL (0.0-1.3); Monocytes % 5.9 %; Neutrophils # 6.8 K/mcL (1.6-8.9); Platelet Count 280 K/mcL (140-400); Red Blood Count 3.98 M/mcL (3.82-4.97); Red Cell Distribution Width 15.9 % (11.5-14.5); Segmented Neutrophils % 71.7 %
[2017-10-23 20:18] LABS: Prothrombin Time 10.8 Seconds (9.4-12.1)
[2017-10-23] MEDS ORDERED: Piperacillin/Tazobactam 3.375 GM in 0.9 % Sodium Chloride Mini Bag 100 ML IVPB ONE (20:31)
[2017-10-23] MEDS ORDERED: Levofloxacin 500 MG/100 ML 500 MG/100 ML BAG IVPB ONE (20:31)
[2017-10-23 20:34] LABS: Troponin I < 0.03 ng/mL (< 0.04)
[2017-10-23 20:35] LABS: Alanine Aminotransferase 8 Units/L (7-52); Albumin 3.5 g/dL (3.5-5.7); Albumin/Globulin Ratio 1.2 (1.1-2.2); Alkaline Phosphatase 91 Units/L (34-104); Aspartate Amino Transferase 8 Units/L (13-39); BUN/Creatinine Ratio 22 (6-26); Bilirubin,Direct 0.1 mg/dL (0.0-0.2); Bilirubin,Indirect 0.2 mg/dL (0.0-1.2); Bilirubin,Total 0.3 mg/dL (0.3-1.0); Blood Urea Nitrogen 17 mg/dL (8-23); Calcium 9.5 mg/dL (8.6-10.3); Carbon Dioxide 26 mEq/L (23-29); Chloride 103 mEq/L (98-107); Glucose 384 mg/dL (70-105); Osmolality,Calculated 305 (280-300); Potassium 4.3 mEq/L (3.5-5.1); Sodium 139 mEq/L (136-145); Total Protein 6.5 g/dL (6.4-8.9); eGFR For African Americans > 60 (> 60); eGFR For Non-African Americans > 60 (> 60)
[2017-10-23] MEDS ORDERED: Dextrose Gel 15 GM/37.5 ML TUBE PO PRN ×2 (21:55)
[2017-10-23] MEDS ORDERED: D5% in Water 1,000 ML IVC PRN (21:55)
[2017-10-23] MEDS ORDERED: *HR* Dextrose 50 % in Water (Syg) 50 ML SYRINGE IVP PRN (21:55)
[2017-10-23] MEDS ORDERED: Naloxone 0.4 MG/ML INJ IVP PRN (21:55)
[2017-10-23] MEDS ORDERED: 0.9 % Sodium Chloride 1,000 ML IVC SCH (21:59)
[2017-10-23] MEDS ORDERED: Insulin LISPRO 300 UNITS/3 ML VIAL SQ SCH (22:00)
[2017-10-23] MEDS ORDERED: Artificial Tears SOLN 15 ML BOTTLE BOTH EYES PRN (22:03)
--- NOTE | 2017-10-23 22:56 | Internal Med History&Physical ---
Date of Encounter: 10/23/17 Time of Encounter: 21:25 Internal Medicine - H&P: HPI Chief complaint: cough, short of breath, chills Admitted From: Emergency Dept Plans for Post Hospital Care: Transfer Residential Facility History of present illness: Ms. Zamora is a 71 year old female who presents to the ER tonight after having complained of progressive cough, shortness of breath, chills, and generalized malaise. She had been on antibiotics for roughly 1 week for presumptive pneumonia. However, despite the outpatient antibiotic treatment at her ECF, her symptoms progressively worsened. She therefore came to the ER today for evaluation. Workup in ER revealed patient to have left lower lobe infiltrate. She had no leukocytosis and had stable vital signs. Despite lactate of 3.0, she did not meet sepsis criteria. Cultures were obtained and she was started on antibiotics. Repeat lactate was down to 2.5 without any fluid boluses. Given her history of diastolic CHF, I agree with Dr. Raines that aggressive fluid boluses were not indicated. Furthermore, she is on metformin which could lead to lactic acidosis. Upon my assessment of the patient in the ER, patient appears stable, well- perfused, and in no acute distress. She does confirm the above history. She is in an ECF and has been in there for over a year now. She is bedbound and trying to resume her rehabilitation so she can eventually return home. She has had several ill contacts at the ECF. She also is diabetic with suboptimal glucose control. She also notes some redness and warmth to her left lower extremity. She admits to having had cellulitis in the past. Past Med Surg Social Fam HX - Past Medical History Attestation: Yes The following information was validated with the patient. Source: patient, old records reviewed Medical history: arthritis, asthma, CHF, COPD, coronary artery disease, diabetes , GERD, GI bleed, kidney stones, migraine, other Additional medical history: low mag, low K, lymphedema BLE, cellutitis, umbilical hernia, neuropathy, home O2 [place] 2L, chest pain/pneumonia, UTI, morbid obesity Psychiatric history: anxiety, depression - Past Surgical History Surgical History: appendectomy, cholecystectomy, hysterectomy, knee replacement , orthopedic, other, other, arthroscopy Additional surgical history: krista TKR, 6 knee scopes, D&C's - Social History Smoking Status: Former smoker Smokeless Tobacco Status: No Alcohol use: none Drug use: none Occupational status: retired Current living situation: [facility] Activity Level: Bed bound Recent Out of Country Travel Within the Last 8 Weeks: No - Family History Mother Adopted: No Family Member Ethnicity: Non- Living Status: Hx Family Cardiac Disorders: Yes Hx Family Respiratory Disorders: Yes Hx Family Cancer: No Hx Family GI Disorders: Yes (ulcers) Hx Family Endocrine Disorder: Yes Hx Family Neuromuscular Disorders: No Hx Family Neurologic Disorders: No Hx Family HEENT Disorders: No Hx Family Autoimmune Disorders: No Father Hx Family Cardiac Disorders: Yes Hx Family Respiratory Disorders: Yes Hx Family Cancer: No Hx Family GI Disorders: No Hx Family Endocrine Disorder: Yes Hx Family Neuromuscular Disorders: No Hx Family Neurologic Disorders: No Hx Family HEENT Disorders: No Hx Family Autoimmune Disorders: No Internal Medicine - H&P: Meds Aspirin 81 mg PO DAILY 30 Days tab.chew 04/03/16 [Rx] DULoxetine [Cymbalta] 30 mg PO DAILY 30 Days capsule.dr 04/03/16 [Rx] Guaifenesin [Mucinex] 600 mg PO Q12H PRN 30 Days tab.er.12h 04/03/16 [Rx] Insulin ASPART [NovoLOG] 2 - 14 unit SQ ACHS 30 Days mls 04/03/16 [Rx] Ipratropium/Albuterol Sulfate [Combivent Respimat Inhal [place]] 1 puff IH Q6H PRN 30 Days mist.inhal 04/03/16 [Rx] Loperamide [Imodium] 4 mg PO DAILY PRN 30 Days capsule 04/03/16 [Rx] Oxybutynin Chloride [Ditropan Xl] 10 mg PO HS 30 Days tab.er.24 04/03/16 [Rx] Potassium Chloride [K-Tab ER] 20 meq PO DAILY 30 Days tablet.er 04/03/16 [Rx] Magnesium Oxide [Mag-Ox] 400 mg PO BID #30 tablet 05/30/16 [Rx] Furosemide [Lasix] 40 mg PO 1200 06/10/16 [History] Metoprolol XL (24 HR) Succ [Toprol Xl] 25 mg PO DAILY 06/10/16 [History] FluocinoNIDE 0.05% CRM [Lidex] 1 appl TP BID PRN 09/02/16 [History] Fluticasone Propionate Nasal [Flonase] 2 spray NS DAILY 09/02/16 [History] L. Acidophilus/Pectin, [place] [Acidophilus Probiotic Capsule] 1 cap PO DAILY [History] Polyvinyl Alcohol [Artificial Tears] 1 drop BOTH EYES BID PRN 09/02/16 [History] Scopolamine Patch [Transderm-Scop] 1.5 mg TD Q72H PRN 09/02/16 [History] Sennosides/Docusate Sodium [Senna Plus] 2 tab PO BID PRN 09/02/16 [History] Nystatin Cream [Mycostatin Cream] 1 appl TP BID #1 tube 09/05/16 [Rx] Ferrous Sulfate 325 mg PO DAILY 02/26/17 [History] HYDROcodone/Acet 7.5/325 mg [[place] 7.5-325 mg] 1 tab PO Q4H PRN 02/26/17 [ History] Pregabalin [Lyrica] 200 mg PO TID 02/26/17 [History] Acetaminophen [Tylenol] 650 mg PO Q6H PRN 10/23/17 [History] Atorvastatin [Lipitor] 10 mg PO HS 10/23/17 [History] Benzonatate [Tessalon] 100 mg PO TID 10/23/17 [History] BuPROPion [Wellbutrin] 100 mg PO BID 10/23/17 [History] Famotidine [Heartburn Prevention] 20 mg PO DAILY 10/23/17 [History] Guaifenesin/Codeine Phosphate [Guaifen-Codeine 100-10 mg/5 ml] 10 ml PO Q4H PRN 10/23/17 [History] Insulin Glargine,Hum.rec.anlog [Lantus Solostar] 26 unit SQ HS 10/23/17 [History ] Ipratropium/Albuterol Neb [Duoneb] 3 ml IH QID 10/23/17 [History] metFORMIN [Glucophage] 750 mg PO BIDWM 10/23/17 [History] 3 Allergy/AdvReac Type Severity Reaction Status Date / Time gentamicin AdvReac See Verified 10/23/17 19:31 Comments - Constitutional Constitutional: chills, fatigue, fever(s), no night sweats - EENT Eyes: no blurry vision, no change in vision Ears: no ear pain, no tinnitus Nose, mouth and throat: nasal congestion, no sinus pressure, no sore throat - Cardiovascular Cardiovascular ROS IM: no chest pain, no diaphoresis, no lightheadedness, no syncope - Respiratory Respiratory: cough, dyspnea, chest congestion, change in phlegm color, no excessive phlegm production, no pain with cough - Gastrointestinal Gastrointestinal: no abdominal pain, no diarrhea, no hematemesis, no hematochezia, no melena, no nausea, no vomiting - Genitourinary Genitourinary: no dysuria, no flank pain, no hematuria - Musculoskeletal Musculoskeletal ROS IM: no arthralgias, no back pain - Integumentary Integumentary IM: no rash - Neurological Neurological ROS: no dizziness, no focal weakness, no frequent falls, no headache(s) Additional comments: bed bound -- chronic - Psychiatric Psychiatric: no anxiety, no depression - Endocrine Endocrine IM: no polydipsia, no polyuria - Allergic/Immunologic Allergic/Immunologic: no wheezing, no GI upset with certain foods - Constitutional Vitals: Temp Pulse Resp BP Pulse Ox 98.2 F 97 16 128/69 98 10/23/17 19:23 10/23/17 20:37 10/23/17 20:37 10/23/17 20:37 10/23/17 20:37 General appearance: Present: cooperative, A&O X 3, pleasant, no acute distress, answers questions appropriately - Head Head exam: Present: atraumatic, normal inspection - Eye Eye exam: Present: EOMI, PERRL. Absent: scleral icterus Pupils: Present: normal accommodation - ENT ENT exam: Present: mucous membranes dry, normal exam - Neck Neck exam general surgery: Present: full ROM. Absent: tenderness, nuchal rigidity, thyromegaly - Respiratory Respiratory exam: Present: rales (L>R base), rhonchi. Absent: chest wall tenderness, respiratory distress, wheezes, tachypnea - Cardiovascular Cardiovascular exam: Present: distant heart sounds, RRR, +S1, +S2. Absent: diastolic murmur, systolic murmur - GI/Abdominal GI/Abdominal exam: Present: normal bowel sounds, soft. Absent: guarding, hepatomegaly, mass, rebound, splenomegaly, tenderness - Extremities Exam Extremities exam: Present: full ROM, tenderness (LLE cellulitis area), warm ( LLE pretibial area with associated erythema), radial pulses palpable and symmetrical. Absent: calf tenderness - Back Exam Back exam: Present: normal inspection. Absent: CVA tenderness (L), CVA tenderness (R) - Neurological Exam Neurological exam: Present: alert, CN II-XII intact, oriented X3, no focal deficits - Psychiatric Psychiatric exam: Present: normal affect, normal mood - Skin Skin exam: Present: dry, erythema (LLE pretibial area), warm Internal Med - H&P Results - Labs CBC & Chem 7: 10/23/17 20:00 10/23/17 20:00 - EKG Data -: EKG Interpreted by Myself EKG shows normal: sinus rhythm - EKG Data Prior EKG available for review: no EKG comments: 10/23/17 23:29 NSR, no acute changes - Diagnostic Studies Chest x-ray Status: image reviewed by me (LLL infiltrate) - Assessment and plan (1) Healthcare-associated pneumonia Current Visit: Yes Status: Acute Assessment and plan: 1. Will treat with IV Vancomycin, Zosyn, and Levaquin. 2. Blood cultures obtained in ER. 3. Oxygen and aerosols as needed for support. 4. Will monitor clinically and re-image as necessary. (2) Cellulitis of left lower extremity Current Visit: Yes Status: Acute Assessment and plan: 1. Antibiotics as above. 2. Follow clinical courser and blood cultures. (3) IDDM (insulin dependent diabetes mellitus) Current Visit: Yes Status: Chronic Assessment and plan: 1. Continue home basal insulin. 2. Add SSI and monitor/adjust dosing as needed. 3. Hold Metformin. (4) Chronic diastolic (congestive) heart failure Current Visit: Yes Status: Chronic Assessment and plan: 1. No acute process. 2. Hold diuretics for now and gingerly hydrate in the setting of pneumonia. 3. Monitor clinically and fluid status. Resume diuretics when clinically appropriate. (5) DVT prophylaxis Current Visit: No Status: Acute Assessment and plan: 1. Heparin SQ.
[2017-10-24] MEDS ORDERED: Piperacillin/Tazobactam 3.375 GM in 0.9 % Sodium Chloride Mini Bag 100 ML IVPB SCH
[2017-10-24] MEDS: *HR* Heparin 5,000 UNIT/ML VIAL SQ SCH ×4 (01:11→23:51)
[2017-10-24] MEDS: Insulin DETEMIR 100 UNIT/ML X5UNITS SQ SCH ×2 (01:11→21:00)
[2017-10-24] MEDS: *HR* HYDROcodone/Acet 7.5/325 mg TABLET PO PRN ×3 (01:14→17:21)
[2017-10-24 05:15] LABS: Basophils # 0.1 K/mcL (0.0-0.2); Basophils % 0.7 %; Eosinophils # 0.3 K/mcL (0.0-0.6); Hematocrit 34.8 % (35.3-44.9); Immature Granulocytes % 2.1 % (0-4); Lymphocytes # 1.4 K/mcL (0.6-4.6); Lymphocytes % 16.3 %; Mean Corpuscular HGB Conc 31.6 g/dL (31.6-35.5); Mean Corpuscular Hemoglobin 28.5 pg (28.0-33.3); Mean Corpuscular Volume 90.2 fL (83.0-100.0); Mean Platelet Volume 9.6 fL (9.4-12.4); Monocytes # 0.6 K/mcL (0.0-1.3); Monocytes % 6.9 %; Neutrophils # 6.1 K/mcL (1.6-8.9); Platelet Count 269 K/mcL (140-400); Red Blood Count 3.86 M/mcL (3.82-4.97); Red Cell Distribution Width 16.1 % (11.5-14.5)
[2017-10-24 05:34] LABS: Alanine Aminotransferase 8 Units/L (7-52); Albumin 3.4 g/dL (3.5-5.7); Albumin/Globulin Ratio 1.2 (1.1-2.2); Alkaline Phosphatase 71 Units/L (34-104); Aspartate Amino Transferase 7 Units/L (13-39); BUN/Creatinine Ratio 21 (6-26); Bilirubin,Total 0.4 mg/dL (0.3-1.0); Blood Urea Nitrogen 16 mg/dL (8-23); Calcium 9.1 mg/dL (8.6-10.3); Carbon Dioxide 28 mEq/L (23-29); Chloride 105 mEq/L (98-107); Globulin 2.8 g/dL (2.4-3.5); Glucose 271 mg/dL (70-105); Magnesium 1.7 mg/dL (1.6-2.6); Osmolality,Calculated 299 (280-300); Potassium 3.9 mEq/L (3.5-5.1); Sodium 139 mEq/L (136-145); Total Protein 6.2 g/dL (6.4-8.9); eGFR For African Americans > 60 (> 60); eGFR For Non-African Americans > 60 (> 60)
[2017-10-24] MEDS: Piperacillin/Tazobactam 3.375 GM in 0.9 % Sodium Chloride Mini Bag 100 ML IVPB SCH ×3 (05:53→23:45)
[2017-10-24] MEDS ORDERED: Aminoglycoside Consult 1 EACH MC ONE (08:01)
[2017-10-24] MEDS: Lactobacillus 1 EACH CAP.SPRINK PO SCH (08:22)
[2017-10-24] MEDS: Famotidine 20 MG TABLET PO SCH (08:22)
[2017-10-24] MEDS: Aspirin 81 MG TAB.CHEW PO SCH (08:22)
[2017-10-24] MEDS: Metoprolol XL (24 HR) Succ 25 MG TAB.ER.24H PO SCH (08:22)
[2017-10-24] MEDS: Magnesium Oxide 400 MG TABLET PO SCH ×2 (08:23→21:00)
[2017-10-24] MEDS: Nystatin Cream 15 GM TUBE TP SCH ×2 (08:24→21:06)
[2017-10-24] MEDS: Insulin LISPRO 300 UNITS/3 ML VIAL SQ SCH ×4 (08:31→21:00)
[2017-10-24] MEDS: Fluticasone Propionate Nasal 50 MCG/SPRAY BOTTLE NS SCH (09:44)
[2017-10-24] MEDS: Levofloxacin 500 MG/100 ML 500 MG/100 ML BAG IVPB SCH (09:44)
[2017-10-24] MEDS: Ipratropium/Albuterol Neb 3 ML IH SCH ×4 (10:39→22:00)
[2017-10-24] MEDS ORDERED: FluocinoNIDE 0.05% CRM 15 GM TUBE TP PRN (11:32)
[2017-10-24] MEDS ORDERED: Sennosides/Docusate Sodium TABLET PO PRN (11:32)
[2017-10-24] MEDS ORDERED: Scopolamine Patch 1.5 MG PATCH.TD72 TD PRN (11:32)
--- NOTE | 2017-10-24 11:36 | Internal Med Progress Note ---
Date of Encounter: 10/24/17 Time of Encounter: 11:34 - Assessment and plan (1) DVT prophylaxis Current Visit: Yes Status: Acute Assessment and plan: continue SQ heparin (2) Healthcare-associated pneumonia Current Visit: Yes Status: Acute Assessment and plan: resident of SNF who presented with SOB, progressive cough, chills, she had been on antibiotics for PNA, suspect failure of outpatient therapy CXR showed LLL infiltrate, she does have rales on exam Continue vanco, Zosyn and Levaquin De-escalate antibiotics with culture reports (3) Cellulitis of left lower extremity Current Visit: Yes Status: Acute Assessment and plan: No obvious abscess collection Continue antibiotics as in PNA (4) IDDM (insulin dependent diabetes mellitus) Current Visit: Yes Status: Chronic Assessment and plan: Patient presented with lactic acidosis, hold metformin, continue insulin, monitor FS ACHS Continue to monitor (5) Chronic diastolic (congestive) heart failure Current Visit: Yes Status: Chronic Assessment and plan: Patient with evidence of fluid retention in LE with 3+ pedal edema She also has rales, she is not hypoxic She is on lasix po at home, resume same Give extra dose of lasix due to venous congestion of LE as well as cellultis, monitor chem (6) COPD (chronic obstructive pulmonary disease) Current Visit: Yes Status: Chronic Assessment and plan: not in exacerbation at this time Qualifiers: COPD type: unspecified COPD Qualified Code(s): J44.9 - Chronic obstructive pulmonary disease, unspecified (7) Coronary artery disease Current Visit: Yes Status: Chronic Assessment and plan: continue home meds Qualifiers: Coronary Disease-Associated Artery/Lesion type: squ[place] artery [place] vs. transplanted heart: squaxin heart Associated angina: without angina Qualified Code(s): I25.10 - Atherosclerotic heart disease of [place] coronary artery without angina pectoris (8) Morbid obesity Current Visit: Yes Status: Chronic Assessment and plan: lifestyle modifications - Time Spent With Patient Total time spent is greater than 50% in coordination of care (as documented) at patient's floor/unit and/or counseling patient: - Subjective Interval history: Seen and examined at bedside 71 F with morbid obesity, CHFpEF, bed bound SNF resident Admitted and being managed for LLE cellulitis, and Pneumonia No new complains Breathing has improved Cultures are pending - Constitutional Vitals: Temp Pulse Resp BP Pulse Ox 97.9 F 93 16 165/75 96 10/24/17 11:22 10/24/17 11:22 10/24/17 11:22 10/24/17 11:22 10/24/17 11:22 General appearance: Present: cooperative, A&O X 3, morbidly obese, pleasant, no acute distress, answers questions appropriately - Head Head exam: Present: atraumatic, normocephalic - Eye Eye exam: Present: PERRL, conjuntiva pink, sclera anicteric Pupils: Present: PERRL - Neck Neck exam general surgery: Present: supple, trachea midline. Absent: lymphadenopathy - Respiratory Respiratory exam: Present: rales (bilaterally at the bases, does not clear with patient coughing) - Cardiovascular Cardiovascular exam: Present: RRR, +S1, +S2. Absent: diastolic murmur, gallop, rubs, systolic murmur - GI/Abdominal GI/Abdominal exam: Present: normal bowel sounds, soft, no peritoneal signs. Absent: distended, tenderness - Extremities Exam Additional comments: 3+ piting pedal edema bilaterally, possibly also due to dependence, LLE with redness, swelling and mild tenderness with differential warmth, no induration, no abscesses - Neurological Exam Neurological exam: Present: alert, CN II-XII intact, oriented X3, no focal deficits. Absent: pronater drift, facial droop, speech deficit - Skin Skin exam: Present: dry Internal Medicine: Result - Labs CBC & Chem 7: 10/24/17 04:32 10/24/17 04:32 Labs: Short CBC 10/24/17 Range/Units 04:32 WBC 8.6 (4.3-11.1) K/mcL Hgb 11.0 L (11.5-15.4) g/dL Hct 34.8 L (35.3-44.9) % Plt Count 269 (140-400) K/mcL Neutrophils # 6.1 (1.6-8.9) K/mcL BMP 10/24/17 04:32 Sodium 139 Potassium 3.9 Chloride 105 Carbon Dioxide 28 BUN 16 Creatinine 0.76 Glucose 271 H Calcium 9.1 Liver Function 10/24/17 Range/Units 04:32 Total Bilirubin 0.4 (0.3-1.0) mg/dL AST 7 L (13-39) Units/L ALT 8 (7-52) Units/L Alkaline Phosphatase 71 (34-104) Units/L Albumin 3.4 L (3.5-5.7) g/dL - ABG Interpretation ABG results: PT/INR, D-dimer PT 10.8 Seconds (9.4-12.1) 10/23/17 20:00 Consult Discharge Plan - Plan Referrals: Gideon Lundberg MD [Primary Care Provider] -
[2017-10-24] MEDS: Furosemide 40 MG TABLET PO SCH (11:54)
[2017-10-24] MEDS ORDERED: Furosemide 40 MG/4 ML VIAL IVP ONE (12:57)
[2017-10-24] MEDS: Pregabalin 50 MG CAPSULE PO SCH ×2 (14:06→21:00)
[2017-10-25 03:59] LABS: Basophils # 0.1 K/mcL (0.0-0.2); Basophils % 0.7 %; Eosinophils # 0.4 K/mcL (0.0-0.6); Eosinophils % 4.5 %; Hemoglobin 10.7 g/dL (11.5-15.4); Immature Granulocytes % 2.5 % (0-4); Lymphocytes # 1.7 K/mcL (0.6-4.6); Lymphocytes % 19.9 %; Mean Corpuscular HGB Conc 32.4 g/dL (31.6-35.5); Mean Corpuscular Volume 89.4 fL (83.0-100.0); Mean Platelet Volume 9.4 fL (9.4-12.4); Monocytes # 0.5 K/mcL (0.0-1.3); Monocytes % 5.9 %; Neutrophils # 5.6 K/mcL (1.6-8.9); Platelet Count 270 K/mcL (140-400); Red Blood Count 3.69 M/mcL (3.82-4.97); Red Cell Distribution Width 15.9 % (11.5-14.5); Segmented Neutrophils % 66.5 %
[2017-10-25 04:16] LABS: BUN/Creatinine Ratio 18 (6-26); Blood Urea Nitrogen 14 mg/dL (8-23); Calcium 8.5 mg/dL (8.6-10.3); Carbon Dioxide 26 mEq/L (23-29); Chloride 104 mEq/L (98-107); Glucose 267 mg/dL (70-105); Osmolality,Calculated 296 (280-300); Potassium 3.9 mEq/L (3.5-5.1); Sodium 138 mEq/L (136-145); eGFR For African Americans > 60 (> 60); eGFR For Non-African Americans > 60 (> 60)
[2017-10-25] MEDS: Ipratropium/Albuterol Neb 3 ML IH SCH ×4 (04:33→23:15)
[2017-10-25] MEDS: Piperacillin/Tazobactam 3.375 GM in 0.9 % Sodium Chloride Mini Bag 100 ML IVPB SCH ×3 (05:35→22:49)
[2017-10-25] MEDS: *HR* HYDROcodone/Acet 7.5/325 mg TABLET PO PRN ×2 (09:07→16:48)
[2017-10-25] MEDS: *HR* Heparin 5,000 UNIT/ML VIAL SQ SCH ×2 (09:08→16:48)
[2017-10-25] MEDS: Pregabalin 50 MG CAPSULE PO SCH ×3 (09:08→22:48)
[2017-10-25] MEDS: Lactobacillus 1 EACH CAP.SPRINK PO SCH (09:08)
[2017-10-25] MEDS: Fluticasone Propionate Nasal 50 MCG/SPRAY BOTTLE NS SCH (09:08)
[2017-10-25] MEDS: Levofloxacin 500 MG/100 ML 500 MG/100 ML BAG IVPB SCH (09:09)
[2017-10-25] MEDS: Aspirin 81 MG TAB.CHEW PO SCH (09:09)
[2017-10-25] MEDS: Magnesium Oxide 400 MG TABLET PO SCH ×2 (09:09→22:49)
[2017-10-25] MEDS: Famotidine 20 MG TABLET PO SCH (09:09)
[2017-10-25] MEDS: Metoprolol XL (24 HR) Succ 25 MG TAB.ER.24H PO SCH (09:09)
[2017-10-25] MEDS: Insulin LISPRO 300 UNITS/3 ML VIAL SQ SCH ×7 (09:13→22:52)
--- NOTE | 2017-10-25 11:37 | Internal Med Progress Note ---
Date of Encounter: 10/25/17 Time of Encounter: 11:37 - Assessment and plan (1) DVT prophylaxis Current Visit: Yes Status: Acute Assessment and plan: continue SQ heparin (2) Healthcare-associated pneumonia Current Visit: Yes Status: Acute Assessment and plan: resident of [facility] who presented with SOB, progressive cough, chills, she had been on antibiotics for PNA, suspect failure of outpatient therapy CXR showed LLL infiltrate, she does have rales on exam Continue Zosyn -Day 2 Discontinue vano-prelim blood culture negative, low risk for MRSA Discontinue levaquin-patint just completd 7 days course of levaquin at [facility] prior to presentation Remains afebrile and hemodynamically stable Continue to monitor (3) Cellulitis of left lower extremity Current Visit: Yes Status: Acute Assessment and plan: No obvious abscess collection Continue antibiotics as in PNA (4) IDDM (insulin dependent diabetes mellitus) Current Visit: Yes Status: Chronic Assessment and plan: Patient presented with lactic acidosis, hold metformin, continue insulin, monitor FS ACHS Continue to monitor (5) Chronic diastolic (congestive) heart failure Current Visit: Yes Status: Chronic Assessment and plan: Patient with evidence of fluid retention in LE with 3+ pedal edema She also has rales, she is not hypoxic She is on lasix po at home, continue same monitor chem (6) COPD (chronic obstructive pulmonary disease) Current Visit: Yes Status: Chronic Assessment and plan: not in exacerbation at this time Qualifiers: COPD type: unspecified COPD Qualified Code(s): J44.9 - Chronic obstructive pulmonary disease, unspecified (7) Coronary artery disease Current Visit: Yes Status: Chronic Assessment and plan: continue home meds Qualifiers: Coronary Disease-Associated Artery/Lesion type: [place] artery [place] vs. transplanted heart: [place] heart Associated angina: without angina Qualified Code(s): I25.10 - Atherosclerotic heart disease of [place] coronary artery without angina pectoris (8) Morbid obesity Current Visit: Yes Status: Chronic Assessment and plan: lifestyle modifications - Time Spent With Patient Total time spent is greater than 50% in coordination of care (as documented) at patient's floor/unit and/or counseling patient: - Subjective Interval history: Seen and examined at bedside 71 F with morbid obesity, CHFpEF, bed bound SNF resident Admitted and being managed for LLE cellulitis, and Pneumonia No new complains Breathing has improved Cultures are prelim negative-will discontinue vanco Patient took levaquin for 7 days at [facility]-will discontinue levquin Continue Zosyn only - Constitutional Vitals: Temp Pulse Resp BP Pulse Ox 98.5 F 93 20 123/60 94 10/25/17 10:47 10/25/17 10:47 10/25/17 10:47 10/25/17 10:47 10/25/17 10:47 General appearance: Present: cooperative, A&O X 3, morbidly obese, pleasant, no acute distress, answers questions appropriately - Head Head exam: Present: atraumatic, normocephalic - Eye Eye exam: Present: PERRL, conjuntiva pink, sclera anicteric Pupils: Present: PERRL - Neck Neck exam general surgery: Present: supple, trachea midline. Absent: lymphadenopathy - Respiratory Respiratory exam: Present: CTAB. Absent: accessory muscle use, rales, rhonchi, wheezes - Cardiovascular Cardiovascular exam: Present: RRR, +S1, +S2. Absent: diastolic murmur, gallop, rubs, systolic murmur - GI/Abdominal GI/Abdominal exam: Present: normal bowel sounds, soft, no peritoneal signs. Absent: distended, tenderness - Extremities Exam Additional comments: 3+ piting pedal edema bilaterally, possibly also due to dependence, LLE with redness, swelling and mild tenderness with differential warmth, no induration, no abscesses - Neurological Exam Neurological exam: Present: alert, CN II-XII intact, oriented X3, no focal deficits. Absent: pronater drift, facial droop, speech deficit - Skin Skin exam: Present: dry Internal Medicine: Result - Labs CBC & Chem 7: 10/25/17 03:40 10/25/17 03:40 Labs: Short CBC 10/25/17 Range/Units 03:40 WBC 8.4 (4.3-11.1) K/mcL Hgb 10.7 L (11.5-15.4) g/dL Hct 33.0 L (35.3-44.9) % Plt Count 270 (140-400) K/mcL Neutrophils # 5.6 (1.6-8.9) K/mcL BMP 10/25/17 03:40 Sodium 138 Potassium 3.9 Chloride 104 Carbon Dioxide 26 BUN 14 Creatinine 0.77 Glucose 267 H Calcium 8.5 L - ABG Interpretation ABG results: PT/INR, D-dimer PT 10.8 Seconds (9.4-12.1) 10/23/17 20:00 Consult Discharge Plan - Plan Referrals: Gideon Lundberg MD [Primary Care Provider] -
[2017-10-25] MEDS: Nystatin Cream 15 GM TUBE TP SCH ×2 (11:56→23:58)
[2017-10-25] MEDS: Furosemide 40 MG TABLET PO SCH (11:58)
[2017-10-25] MEDS: Insulin DETEMIR 100 UNIT/ML X5UNITS SQ SCH (22:57)
[2017-10-26] MEDS: *HR* Heparin 5,000 UNIT/ML VIAL SQ SCH ×4 (00:30→23:46)
[2017-10-26] MEDS: Ipratropium/Albuterol Neb 3 ML IH SCH ×4 (05:43→22:13)
[2017-10-26] MEDS: *HR* HYDROcodone/Acet 7.5/325 mg TABLET PO PRN ×2 (06:22→15:37)
[2017-10-26] MEDS: Piperacillin/Tazobactam 3.375 GM in 0.9 % Sodium Chloride Mini Bag 100 ML IVPB SCH ×3 (06:23→20:51)
[2017-10-26 06:26] LABS: Basophils # 0.1 K/mcL (0.0-0.2); Basophils % 0.5 %; Eosinophils # 0.7 K/mcL (0.0-0.6); Hematocrit 34.4 % (35.3-44.9); Hemoglobin 11.1 g/dL (11.5-15.4); Immature Granulocytes % 2.8 % (0-4); Mean Corpuscular HGB Conc 32.3 g/dL (31.6-35.5); Mean Corpuscular Hemoglobin 29.1 pg (28.0-33.3); Mean Corpuscular Volume 90.1 fL (83.0-100.0); Mean Platelet Volume 9.5 fL (9.4-12.4); Monocytes # 0.7 K/mcL (0.0-1.3); Monocytes % 7.1 %; Neutrophils # 5.9 K/mcL (1.6-8.9); Nucleated Red Blood Cells 0.2 /100 WBC (0); Platelet Count 284 K/mcL (140-400); Red Blood Count 3.82 M/mcL (3.82-4.97); Red Cell Distribution Width 15.9 % (11.5-14.5); Segmented Neutrophils % 61.6 %
[2017-10-26 06:43] LABS: BUN/Creatinine Ratio 18 (6-26); Blood Urea Nitrogen 14 mg/dL (8-23); Calcium 8.5 mg/dL (8.6-10.3); Carbon Dioxide 21 mEq/L (23-29); Chloride 104 mEq/L (98-107); Glucose 256 mg/dL (70-105); Osmolality,Calculated 293 (280-300); Potassium 3.8 mEq/L (3.5-5.1); Sodium 137 mEq/L (136-145); eGFR For African Americans > 60 (> 60); eGFR For Non-African Americans > 60 (> 60)
[2017-10-26] MEDS: Insulin LISPRO 300 UNITS/3 ML VIAL SQ SCH ×7 (09:21→20:45)
[2017-10-26] MEDS: Pregabalin 50 MG CAPSULE PO SCH ×3 (09:26→20:02)
[2017-10-26] MEDS: Metoprolol XL (24 HR) Succ 25 MG TAB.ER.24H PO SCH (09:27)
[2017-10-26] MEDS: Magnesium Oxide 400 MG TABLET PO SCH ×2 (09:27→20:02)
[2017-10-26] MEDS: Fluticasone Propionate Nasal 50 MCG/SPRAY BOTTLE NS SCH (09:27)
[2017-10-26] MEDS: Lactobacillus 1 EACH CAP.SPRINK PO SCH (09:27)
[2017-10-26] MEDS: Aspirin 81 MG TAB.CHEW PO SCH (09:27)
[2017-10-26] MEDS: Famotidine 20 MG TABLET PO SCH (09:27)
[2017-10-26] MEDS: Nystatin Cream 15 GM TUBE TP SCH ×2 (09:28→20:47)
[2017-10-26] MEDS ORDERED: Furosemide 40 MG/4 ML VIAL IVP ONE (09:59)
--- NOTE | 2017-10-26 09:59 | Internal Med Progress Note ---
Date of Encounter: 10/26/17 Time of Encounter: 09:59 - Assessment and plan (1) DVT prophylaxis Current Visit: Yes Status: Acute Assessment and plan: continue SQ heparin (2) Healthcare-associated pneumonia Current Visit: Yes Status: Acute Assessment and plan: resident of [facility] who presented with SOB, progressive cough, chills, she had been on antibiotics for PNA, suspect failure of outpatient therapy CXR showed LLL infiltrate, she does have rales on exam Continue Zosyn -Day 3 Add doxycycline-day 1 Discontinue vano-prelim blood culture negative, low risk for MRSA Discontinue levaquin-patint just completd 7 days course of levaquin at [facility] prior to presentation Remains afebrile and hemodynamically stable Continue to monitor (3) Cellulitis of left lower extremity Current Visit: Yes Status: Acute Assessment and plan: No obvious abscess collection Continue antibiotics as in PNA (4) IDDM (insulin dependent diabetes mellitus) Current Visit: Yes Status: Chronic Assessment and plan: Patient presented with lactic acidosis, hold metformin, continue insulin, monitor FS ACHS Continue to monitor (5) Chronic diastolic (congestive) heart failure Current Visit: Yes Status: Chronic Assessment and plan: Patient with evidence of fluid retention in LE with 3+ pedal edema She also has rales, she is not hypoxic She is on lasix po at home, continue same Additional IV lsix given today , 40mg monitor chem (6) COPD (chronic obstructive pulmonary disease) Current Visit: Yes Status: Chronic Assessment and plan: not in exacerbation at this time Qualifiers: COPD type: unspecified COPD Qualified Code(s): J44.9 - Chronic obstructive pulmonary disease, unspecified (7) Coronary artery disease Current Visit: Yes Status: Chronic Assessment and plan: continue home meds Qualifiers: Coronary Disease-Associated Artery/Lesion type: [place] artery [place] vs. transplanted heart: [place] heart Associated angina: without angina Qualified Code(s): I25.10 - Atherosclerotic heart disease of [place] coronary artery without angina pectoris (8) Morbid obesity Current Visit: Yes Status: Chronic Assessment and plan: lifestyle modifications - Time Spent With Patient Total time spent is greater than 50% in coordination of care (as documented) at patient's floor/unit and/or counseling patient: - Subjective Interval history: Seen and examined at bedside 71 F with morbid obesity, CHFpEF, bed bound SNF resident Admitted and being managed for LLE cellulitis, and Pneumonia Cultures are prelim negative-discontinued vanco Patient took levaquin for 7 days at [facility]-will discontinue levquin Continue Zosyn Added doxycycline No new events - Constitutional Vitals: Temp Pulse Resp BP Pulse Ox 98.1 F 90 16 158/83 94 10/26/17 07:20 10/26/17 07:20 10/26/17 07:20 10/26/17 07:20 10/26/17 07:20 General appearance: Present: cooperative, A&O X 3, morbidly obese, pleasant, no acute distress, answers questions appropriately - Head Head exam: Present: atraumatic, normocephalic - Eye Eye exam: Present: PERRL, conjuntiva pink, sclera anicteric Pupils: Present: PERRL - Neck Neck exam general surgery: Present: supple, trachea midline. Absent: lymphadenopathy - Respiratory Respiratory exam: Present: CTAB. Absent: accessory muscle use, rales, rhonchi, wheezes - Cardiovascular Cardiovascular exam: Present: RRR, +S1, +S2. Absent: diastolic murmur, gallop, rubs, systolic murmur - GI/Abdominal GI/Abdominal exam: Present: normal bowel sounds, soft, no peritoneal signs. Absent: distended, tenderness - Extremities Exam Additional comments: LLE cellulitis, bilateral pedal edema LEft hip region, excess skin cellulitis - Neurological Exam Neurological exam: Present: alert, CN II-XII intact, oriented X3, no focal deficits. Absent: pronater drift, facial droop, speech deficit - Skin Skin exam: Present: dry Internal Medicine: Result - Labs CBC & Chem 7: 10/26/17 05:42 10/26/17 05:42 Labs: Short CBC 10/26/17 Range/Units 05:42 WBC 9.6 (4.3-11.1) K/mcL Hgb 11.1 L (11.5-15.4) g/dL Hct 34.4 L (35.3-44.9) % Plt Count 284 (140-400) K/mcL Neutrophils # 5.9 (1.6-8.9) K/mcL BMP 10/26/17 05:42 Sodium 137 Potassium 3.8 Chloride 104 Carbon Dioxide 21 L BUN 14 Creatinine 0.78 Glucose 256 H Calcium 8.5 L - ABG Interpretation ABG results: PT/INR, D-dimer PT 10.8 Seconds (9.4-12.1) 10/23/17 20:00 Consult Discharge Plan - Plan Referrals: Gideon Lundberg MD [Primary Care Provider] -
[2017-10-26] MEDS: Doxycycline 100 MG CAPSULE PO SCH ×2 (11:00→16:38)
[2017-10-26] MEDS: Furosemide 40 MG TABLET PO SCH (14:03)
[2017-10-26] MEDS: Insulin DETEMIR 100 UNIT/ML X5UNITS SQ SCH (20:46)
[2017-10-27] MEDS: Ipratropium/Albuterol Neb 3 ML IH SCH ×4 (03:58→22:43)
[2017-10-27] MEDS: Piperacillin/Tazobactam 3.375 GM in 0.9 % Sodium Chloride Mini Bag 100 ML IVPB SCH ×3 (05:06→22:16)
[2017-10-27] MEDS: Doxycycline 100 MG CAPSULE PO SCH ×2 (05:07→16:55)
[2017-10-27] MEDS: *HR* HYDROcodone/Acet 7.5/325 mg TABLET PO PRN ×3 (08:19→18:15)
[2017-10-27] MEDS: Fluticasone Propionate Nasal 50 MCG/SPRAY BOTTLE NS SCH (08:19)
[2017-10-27] MEDS: *HR* Heparin 5,000 UNIT/ML VIAL SQ SCH ×2 (08:19→16:56)
[2017-10-27] MEDS: Lactobacillus 1 EACH CAP.SPRINK PO SCH (08:19)
[2017-10-27] MEDS: Magnesium Oxide 400 MG TABLET PO SCH ×2 (08:20→20:26)
[2017-10-27] MEDS: Famotidine 20 MG TABLET PO SCH (08:20)
[2017-10-27] MEDS: Metoprolol XL (24 HR) Succ 25 MG TAB.ER.24H PO SCH (08:20)
[2017-10-27] MEDS: Pregabalin 50 MG CAPSULE PO SCH ×3 (08:20→20:27)
[2017-10-27] MEDS: Aspirin 81 MG TAB.CHEW PO SCH (08:20)
[2017-10-27] MEDS: Insulin LISPRO 300 UNITS/3 ML VIAL SQ SCH ×7 (08:24→20:27)
[2017-10-27] MEDS ORDERED: Furosemide 40 MG/4 ML VIAL IVP ONE (08:33)
[2017-10-27] MEDS: Nystatin Cream 15 GM TUBE TP SCH ×2 (09:14→22:23)
[2017-10-27] MEDS: Furosemide 40 MG TABLET PO SCH (11:51)
--- NOTE | 2017-10-27 12:27 | Internal Med Progress Note ---
Date of Encounter: 10/27/17 Time of Encounter: 12:27 - Assessment and plan (1) DVT prophylaxis Current Visit: Yes Status: Acute Assessment and plan: continue SQ heparin (2) Healthcare-associated pneumonia Current Visit: Yes Status: Acute Assessment and plan: resident of [facility] who presented with SOB, progressive cough, chills, she had been on antibiotics for PNA, suspect failure of outpatient therapy CXR showed LLL infiltrate, she does have rales on exam Continue Zosyn -Day 4 Continue doxycycline-day 2 Discontinued vano-prelim blood culture negative, low risk for MRSA Discontinued levaquin-patint just completd 7 days course of levaquin at [facility] prior to presentation Remains afebrile and hemodynamically stable No O2 requirement Send sputum culture Lozenges for sore throat Continue to monitor (3) Cellulitis of left lower extremity Current Visit: Yes Status: Acute Assessment and plan: Improving No obvious abscess collection Continue antibiotics as in PNA (4) IDDM (insulin dependent diabetes mellitus) Current Visit: Yes Status: Chronic Assessment and plan: Patient presented with lactic acidosis, hold metformin, continue insulin, monitor FS ACHS Continue to monitor (5) Chronic diastolic (congestive) heart failure Current Visit: Yes Status: Chronic Assessment and plan: Patient with evidence of fluid retention in LE with 3+ pedal edema She also has rales, she is not hypoxic She is on lasix po at home, continue same Additional IV lsix given today , 40mg Incontinent of urine, I/O not accurate monitor chem (6) COPD (chronic obstructive pulmonary disease) Current Visit: Yes Status: Chronic Assessment and plan: not in exacerbation at this time Qualifiers: COPD type: unspecified COPD Qualified Code(s): J44.9 - Chronic obstructive pulmonary disease, unspecified (7) Coronary artery disease Current Visit: Yes Status: Chronic Assessment and plan: continue home meds Qualifiers: Coronary Disease-Associated Artery/Lesion type: [place] artery [place] vs. transplanted heart: [place] heart Associated angina: without angina Qualified Code(s): I25.10 - Atherosclerotic heart disease of [place] coronary artery without angina pectoris (8) Morbid obesity Current Visit: Yes Status: Chronic Assessment and plan: lifestyle modifications - Time Spent With Patient Total time spent is greater than 50% in coordination of care (as documented) at patient's floor/unit and/or counseling patient: - Subjective Interval history: Seen and examined at bedside 71 F with morbid obesity, CHFpEF, bed bound SNF resident Admitted and being managed for LLE cellulitis, and Pneumonia Patient took levaquin for 7 days at SNF-will discontinue levquin She continues to complains of "feeling worse", her O2 requirement is at baseline , her pedal edema is regressing, she also complained of sore throat, no exudates on throat exam She is now producing sputum, will send for culture Blood culture is prelim negative - Constitutional Vitals: Temp Pulse Resp BP Pulse Ox 97.5 F L 90 18 119/84 91 10/27/17 06:36 10/27/17 06:36 10/27/17 06:36 10/27/17 06:36 10/27/17 06:36 General appearance: Present: cooperative, A&O X 3, morbidly obese, pleasant, no acute distress, answers questions appropriately - Head Head exam: Present: atraumatic, normocephalic - Eye Eye exam: Present: PERRL, conjuntiva pink, sclera anicteric Pupils: Present: PERRL - Neck Neck exam general surgery: Present: supple, trachea midline. Absent: lymphadenopathy - Respiratory Respiratory exam: Present: CTAB. Absent: accessory muscle use, rales, rhonchi, wheezes - Cardiovascular Cardiovascular exam: Present: RRR, +S1, +S2. Absent: diastolic murmur, gallop, rubs, systolic murmur - GI/Abdominal GI/Abdominal exam: Present: normal bowel sounds, soft, no peritoneal signs. Absent: distended, tenderness - Extremities Exam Additional comments: LLE cellulitis improving Pedal edema 3+ but improving - Neurological Exam Neurological exam: Present: alert, CN II-XII intact, oriented X3, no focal deficits. Absent: pronater drift, facial droop, speech deficit - Skin Skin exam: Present: dry, intact Internal Medicine: Result - Labs CBC & Chem 7: 10/26/17 05:42 10/26/17 05:42 - ABG Interpretation ABG results: PT/INR, D-dimer PT 10.8 Seconds (9.4-12.1) 10/23/17 20:00 Consult Discharge Plan - Plan Referrals: Gideon Lundberg MD [Primary Care Provider] -
[2017-10-27] MEDS: Acetaminophen 325 MG TABLET PO PRN (16:55)
[2017-10-27] MEDS: Insulin DETEMIR 100 UNIT/ML X5UNITS SQ SCH (20:28)
--- NOTE | 2017-10-27 20:41 | Electrocardiograph Report ---
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
[2017-10-28] MEDS: *HR* Heparin 5,000 UNIT/ML VIAL SQ SCH ×3 (00:38→16:39)
[2017-10-28] MEDS: Ipratropium/Albuterol Neb 3 ML IH SCH ×4 (04:33→22:54)
[2017-10-28] MEDS: Doxycycline 100 MG CAPSULE PO SCH ×2 (05:04→16:39)
[2017-10-28] MEDS: Piperacillin/Tazobactam 3.375 GM in 0.9 % Sodium Chloride Mini Bag 100 ML IVPB SCH ×3 (05:04→22:35)
[2017-10-28 06:39] LABS: BUN/Creatinine Ratio 17 (6-26); Blood Urea Nitrogen 14 mg/dL (8-23); Calcium 8.5 mg/dL (8.6-10.3); Carbon Dioxide 25 mEq/L (23-29); Chloride 102 mEq/L (98-107); Glucose 230 mg/dL (70-105); Osmolality,Calculated 292 (280-300); Potassium 3.2 mEq/L (3.5-5.1); Sodium 137 mEq/L (136-145); eGFR For African Americans > 60 (> 60); eGFR For Non-African Americans > 60 (> 60)
[2017-10-28] MEDS: Fluticasone Propionate Nasal 50 MCG/SPRAY BOTTLE NS SCH (07:39)
[2017-10-28] MEDS: Metoprolol XL (24 HR) Succ 25 MG TAB.ER.24H PO SCH (07:40)
[2017-10-28] MEDS: Nystatin Cream 15 GM TUBE TP SCH ×2 (07:40→21:28)
[2017-10-28] MEDS: Famotidine 20 MG TABLET PO SCH (07:40)
[2017-10-28] MEDS: Magnesium Oxide 400 MG TABLET PO SCH ×2 (07:40→21:35)
[2017-10-28] MEDS: Lactobacillus 1 EACH CAP.SPRINK PO SCH (07:40)
[2017-10-28] MEDS: *HR* HYDROcodone/Acet 7.5/325 mg TABLET PO PRN ×3 (07:40→16:39)
[2017-10-28] MEDS: Aspirin 81 MG TAB.CHEW PO SCH (07:40)
[2017-10-28] MEDS: Pregabalin 50 MG CAPSULE PO SCH ×3 (07:40→21:27)
[2017-10-28] MEDS: Insulin LISPRO 300 UNITS/3 ML VIAL SQ SCH ×7 (07:42→21:34)
--- NOTE | 2017-10-28 10:02 | Electrocardiograph Report ---
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
--- NOTE | 2017-10-28 10:05 | Discharge Summary ---
- NOTES TO OUTPATIENT PROVIDER Notes to Outpatient Provider: Admitted for pneumonia and LLE cellulitis. Has completed 7 days of Levaquin as outpatient prior to admission. Managed with Zosyn for total of 7 days. Also treated with doxycycline. Continue doxycycline for 4 more days at nursing facility. Follow up with primary care physician. Orders not resulted at time of discharge: Pending orders 10/27/17 10:50 Sputum Culture [Culture,Sputum with Gram Stain] [] Routine Date of Encounter: 10/28/17 Time of Encounter: 15:22 - Discharge Diagnosis (1) DVT prophylaxis Priority: Primary Status: Acute (2) Healthcare-associated pneumonia Priority: Primary Status: Acute (3) Cellulitis of left lower extremity Priority: Primary Status: Acute (4) IDDM (insulin dependent diabetes mellitus) Priority: Secondary Status: Chronic (5) Chronic diastolic (congestive) heart failure Priority: Secondary Status: Chronic (6) COPD (chronic obstructive pulmonary disease) Priority: Secondary Status: Chronic Qualifiers: COPD type: unspecified COPD Qualified Code(s): J44.9 - Chronic obstructive pulmonary disease, unspecified (7) Coronary artery disease Priority: Secondary Status: Chronic Qualifiers: Coronary Disease-Associated Artery/Lesion type: [place] artery [place] vs. transplanted heart: [place] heart Associated angina: without angina Qualified Code(s): I25.10 - Atherosclerotic heart disease of [place] coronary artery without angina pectoris (8) Morbid obesity Priority: Secondary Status: Chronic Hospital course: Ms. Zamora is a 71 year old female bedbound with morbid obesity, CHF with preserved ejection fraction, anemia of chronic disease, was admitted and managed for pneumonia after failure of outpatient therapy, and left lower extremity cellulitis. The patient was initially treated with vancomycin, Zosyn and Levaquin. However, Levaquin was discontinued after confirming from half-way that patient had taken Levaquin for 7 days. Vancomycin was continued for an cultures returned negative. Patient was however managed with Zosyn and doxycycline. She has completed 7 days of IV Zosyn inpatient. She is discharged to complete doxycycline as outpatient. Chronic medical conditions remained stable. Follow-up with primary care physician. Discharge discussed with: patient, nurse, social work, case management - Time Spent with Patient Total time spent providing and/or coordinating discharge services: Greater than 30 minutes - Discharge Medications Home Medications: Aspirin 81 mg PO DAILY 30 Days tab.chew 11/22/16 [Rx] DULoxetine [Cymbalta] 30 mg PO DAILY 30 Days capsule. 04/03/16 [Rx] Guaifenesin [Mucinex] 600 mg PO Q12H PRN 30 Days tab.er.12h 04/03/16 [Rx] Insulin ASPART [NovoLOG] 2 - 14 unit SQ ACHS 30 Days mls 04/03/16 [Rx] Ipratropium/Albuterol Sulfate [Combivent Respimat Inhal [place]] 1 puff IH Q6H PRN 30 Days mist.inhal 04/03/16 [Rx] Loperamide [Imodium] 4 mg PO DAILY PRN 30 Days capsule 04/03/16 [Rx] Oxybutynin Chloride [Ditropan Xl] 10 mg PO HS 30 Days tab.er.24 04/03/16 [Rx] Potassium Chloride [K-Tab ER] 20 meq PO DAILY 30 Days tablet.er 04/03/16 [Rx] Magnesium Oxide [Mag-Ox] 400 mg PO BID #30 tablet 05/30/16 [Rx] Furosemide [Lasix] 40 mg PO 1200 06/10/16 [History] Metoprolol XL (24 HR) Succ [Toprol Xl] 25 mg PO DAILY 06/10/16 [History] FluocinoNIDE 0.05% CRM [Lidex] 1 appl TP BID PRN 09/02/16 [History] Fluticasone Propionate Nasal [Flonase] 2 spray NS DAILY 09/02/16 [History] L. Acidophilus/Pectin, [place] [Acidophilus Probiotic Capsule] 1 cap PO DAILY [History] Polyvinyl Alcohol [Artificial Tears] 1 drop BOTH EYES BID PRN 09/02/16 [History] Scopolamine Patch [Transderm-Scop] 1.5 mg TD Q72H PRN 09/02/16 [History] Sennosides/Docusate Sodium [Senna Plus] 2 tab PO BID PRN 09/02/16 [History] Nystatin Cream [Mycostatin Cream] 1 appl TP BID #1 tube 09/05/16 [Rx] Ferrous Sulfate 325 mg PO DAILY 02/26/17 [History] HYDROcodone/Acet 7.5/325 mg [[place] 7.5-325 mg] 1 tab PO Q4H PRN 02/26/17 [ History] Pregabalin [Lyrica] 200 mg PO TID 02/26/17 [History] Acetaminophen [Tylenol] 650 mg PO Q6H PRN 10/23/17 [History] Atorvastatin [Lipitor] 10 mg PO HS 10/23/17 [History] Benzonatate [Tessalon] 100 mg PO TID 10/23/17 [History] BuPROPion [Wellbutrin] 100 mg PO BID 10/23/17 [History] Famotidine [Heartburn Prevention] 20 mg PO DAILY 10/23/17 [History] Guaifenesin/Codeine Phosphate [Guaifen-Codeine 100-10 mg/5 ml] 10 ml PO Q4H PRN 10/23/17 [History] Insulin Glargine,Hum.rec.anlog [Lantus Solostar] 26 unit SQ HS 10/23/17 [History ] Ipratropium/Albuterol Neb [Duoneb] 3 ml IH QID 10/23/17 [History] metFORMIN [Glucophage] 750 mg PO BIDWM 10/23/17 [History] Allergies/Adverse Reactions: 3 Allergy/AdvReac Type Severity Reaction Status Date / Time gentamicin AdvReac See Verified 10/23/17 19:31 Comments Date of admission: 10/23/17 23:54 Primary care physician: Gideon Lundberg MD Consults: 10/24/17 00:00 Consult to Log Yard Derrick Operator [CONS] Routine Reason for SW Consult: patient from [facility] Discharging clinician: Brooks Levi Anticipated date of discharge: 10/29/17 - Constitutional Vitals: Temp Pulse Resp BP Pulse Ox 97.4 F L 100 19 119/50 95 10/28/17 07:16 10/28/17 07:16 10/28/17 07:16 10/28/17 07:16 10/28/17 07:16 General appearance: Present: cooperative, A&O X 3, morbidly obese, pleasant, no acute distress, answers questions appropriately - Head Head exam: Present: atraumatic, normocephalic - Eye Eye exam: Present: PERRL, conjuntiva pink, sclera anicteric Pupils: Present: PERRL - Neck Neck exam general surgery: Present: supple, trachea midline. Absent: lymphadenopathy - Respiratory Respiratory exam: Present: CTAB. Absent: accessory muscle use, rales, rhonchi, wheezes - Cardiovascular Cardiovascular exam: Present: RRR, +S1, +S2. Absent: diastolic murmur, gallop, rubs, systolic murmur - GI/Abdominal GI/Abdominal exam: Present: normal bowel sounds, soft, no peritoneal signs. Absent: distended, tenderness - Extremities Exam Additional comments: LLE cellulitis, improved, no abscesses - Neurological Exam Neurological exam: Present: alert, CN II-XII intact, oriented X3, no focal deficits. Absent: pronater drift, facial droop, speech deficit - Skin Skin exam: Present: dry, intact - Patient Status Disposition: Transfer SNF Condition: Fair Functional capacity at discharge: bed bound Overall status at discharge: patient is back to baseline - Discharge Instructions Follow Up With: Gideon Lundberg MD [Primary Care Provider] - - Diet and Activity Activity: resume usual activities as tolerated Diet: diabetic diet, low fat, low cholesterol, low salt diet
[2017-10-28] MEDS: Furosemide 40 MG TABLET PO SCH (11:52)
[2017-10-28] MEDS: Acetaminophen 325 MG TABLET PO PRN (13:46)
--- NOTE | 2017-10-28 15:30 | Physician Discharge Referral ---
ExtendedCare Referral Info Transfer To: SNF Provider in Charge: Robert andrews Provider in Charge after Transfer: PCP Institutional Level of Care: Skilled - Diagnosis (1) DVT prophylaxis Priority: Primary Status: Acute (2) Healthcare-associated pneumonia Priority: Primary Status: Acute (3) Cellulitis of left lower extremity Priority: Primary Status: Acute (4) IDDM (insulin dependent diabetes mellitus) Priority: Secondary Status: Chronic (5) Chronic diastolic (congestive) heart failure Priority: Secondary Status: Chronic (6) COPD (chronic obstructive pulmonary disease) Priority: Secondary Status: Chronic (7) Coronary artery disease Priority: Secondary Status: Chronic (8) Morbid obesity Priority: Secondary Status: Chronic Prognosis: Fair Aware of Diagnosis: Patient Aware of Prognosis: Patient - Transfer Medications Home Medications: Aspirin 81 mg PO DAILY 30 Days tab.chew 04/03/16 [Rx] DULoxetine [Cymbalta] 30 mg PO DAILY 30 Days capsule.dr 04/03/16 [Rx] Guaifenesin [Mucinex] 600 mg PO Q12H PRN 30 Days tab.er.12h 04/03/16 [Rx] Insulin ASPART [NovoLOG] 2 - 14 unit SQ ACHS 30 Days mls 04/03/16 [Rx] Ipratropium/Albuterol Sulfate [Combivent Respimat Inhal [place]] 1 puff IH Q6H PRN 30 Days mist.inhal 04/03/16 [Rx] Loperamide [Imodium] 4 mg PO DAILY PRN 30 Days capsule 04/03/16 [Rx] Oxybutynin Chloride [Ditropan Xl] 10 mg PO HS 30 Days tab.er.24 04/03/16 [Rx] Potassium Chloride [K-Tab ER] 20 meq PO DAILY 30 Days tablet.er 04/03/16 [Rx] Magnesium Oxide [Mag-Ox] 400 mg PO BID #30 tablet 05/30/16 [Rx] Furosemide [Lasix] 40 mg PO 1200 06/10/16 [History] Metoprolol XL (24 HR) Succ [Toprol Xl] 25 mg PO DAILY 06/10/16 [History] FluocinoNIDE 0.05% CRM [Lidex] 1 appl TP BID PRN 09/02/16 [History] Fluticasone Propionate Nasal [Flonase] 2 spray NS DAILY 09/02/16 [History] L. Acidophilus/Pectin, [place] [Acidophilus Probiotic Capsule] 1 cap PO DAILY [History] Polyvinyl Alcohol [Artificial Tears] 1 drop BOTH EYES BID PRN 09/02/16 [History] Scopolamine Patch [Transderm-Scop] 1.5 mg TD Q72H PRN 09/02/16 [History] Sennosides/Docusate Sodium [Senna Plus] 2 tab PO BID PRN 09/02/16 [History] Nystatin Cream [Mycostatin Cream] 1 appl TP BID #1 tube 09/05/16 [Rx] Ferrous Sulfate 325 mg PO DAILY 02/26/17 [History] HYDROcodone/Acet 7.5/325 mg [[place] 7.5-325 mg] 1 tab PO Q4H PRN 02/26/17 [ History] Pregabalin [Lyrica] 200 mg PO TID 02/26/17 [History] Acetaminophen [Tylenol] 650 mg PO Q6H PRN 10/23/17 [History] Atorvastatin [Lipitor] 10 mg PO HS 10/23/17 [History] Benzonatate [Tessalon] 100 mg PO TID 10/23/17 [History] BuPROPion [Wellbutrin] 100 mg PO BID 10/23/17 [History] Famotidine [Heartburn Prevention] 20 mg PO DAILY 10/23/17 [History] Guaifenesin/Codeine Phosphate [Guaifen-Codeine 100-10 mg/5 ml] 10 ml PO Q4H PRN 10/23/17 [History] Insulin Glargine,Hum.rec.anlog [Lantus Solostar] 26 unit SQ HS 10/23/17 [History ] Ipratropium/Albuterol Neb [Duoneb] 3 ml IH QID 10/23/17 [History] metFORMIN [Glucophage] 750 mg PO BIDWM 10/23/17 [History] Doxycycline 100 mg PO Q12HR capsule 10/28/17 [Rx] Allergies/Adverse Reactions: 3 Allergy/AdvReac Type Severity Reaction Status Date / Time gentamicin AdvReac See Verified 10/23/17 19:31 Comments - Respiratory Orders Smoking Cessation: Smoking cessation has been advised. For more information, call the [place] Tobacco Quit Line at 0-937-COWM-NOW. - Advance Directives Code Status: Full Code - Diet Orders No Concentrated Sweets, Cardiac CERTIFICATION: I certify that the transfer of the above named patient to an Extended Care Facility is necessary for the continuing treatment of the diagnosis listed. The above information is true and accurate reflection of patient's current condition. Confidential - Redisclosure prohibited without a patient's written consent.
--- NOTE | 2017-10-28 18:25 | Electrocardiograph Report ---
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
[2017-10-28] MEDS: Insulin DETEMIR 100 UNIT/ML X5UNITS SQ SCH (21:27)
[2017-10-29] MEDS: *HR* HYDROcodone/Acet 7.5/325 mg TABLET PO PRN ×3 (02:29→12:21)
[2017-10-29] MEDS: *HR* Heparin 5,000 UNIT/ML VIAL SQ SCH ×2 (02:29→08:35)
[2017-10-29] MEDS: Ipratropium/Albuterol Neb 3 ML IH SCH ×3 (04:54→16:08)
[2017-10-29] MEDS: Piperacillin/Tazobactam 3.375 GM in 0.9 % Sodium Chloride Mini Bag 100 ML IVPB SCH (06:15)
[2017-10-29] MEDS: Doxycycline 100 MG CAPSULE PO SCH ×2 (06:16→17:19)
[2017-10-29] MEDS: Lactobacillus 1 EACH CAP.SPRINK PO SCH (08:35)
[2017-10-29] MEDS: Aspirin 81 MG TAB.CHEW PO SCH (08:35)
[2017-10-29] MEDS: Fluticasone Propionate Nasal 50 MCG/SPRAY BOTTLE NS SCH (08:35)
[2017-10-29] MEDS: Magnesium Oxide 400 MG TABLET PO SCH (08:35)
[2017-10-29] MEDS: Metoprolol XL (24 HR) Succ 25 MG TAB.ER.24H PO SCH (08:35)
[2017-10-29] MEDS: Famotidine 20 MG TABLET PO SCH (08:35)
[2017-10-29] MEDS: Pregabalin 50 MG CAPSULE PO SCH ×2 (08:35→17:18)
[2017-10-29] MEDS: Insulin LISPRO 300 UNITS/3 ML VIAL SQ SCH ×6 (08:36→17:19)
[2017-10-29 12:03] VITALS: BP 147/77
[2017-10-29] MEDS: Furosemide 40 MG TABLET PO SCH (12:17)
[2017-10-29] MEDS: Nystatin Cream 15 GM TUBE TP SCH (12:18)
--- NOTE | 2017-10-29 12:36 | Internal Med Progress Note ---
Date of Encounter: 10/29/17 Time of Encounter: 12:34 - Assessment and plan (1) Healthcare-associated pneumonia Current Visit: Yes Status: Acute Assessment and plan: resident of [facility] who presented with SOB, progressive cough, chills, she had been on antibiotics for PNA, suspect failure of outpatient therapy CXR showed LLL infiltrate, she does have rales on exam Discontinued vano-prelim blood culture negative, low risk for MRSA Discontinued levaquin-patint just completd 7 days course of levaquin at [facility] prior to presentation Remains afebrile and hemodynamically stable No O2 requirement Send sputum culture Lozenges for sore throat Will continue Doxycycine on discharge Stable for discharge today. (2) Cellulitis of left lower extremity Current Visit: Yes Status: Acute Assessment and plan: Resolved No obvious abscess collection Continue antibiotics as in PNA Patient was concerned because of some right foot pain. On exam the foot does not appear infected. The cellulitis was adequately treated. She is to continue Doxycycline. She has finished Zosyn therapy. (3) Morbid obesity Current Visit: Yes Status: Chronic (4) COPD (chronic obstructive pulmonary disease) Current Visit: Yes Status: Chronic Qualifiers: COPD type: unspecified COPD Qualified Code(s): J44.9 - Chronic obstructive pulmonary disease, unspecified (5) Coronary artery disease Current Visit: Yes Status: Chronic Qualifiers: Coronary Disease-Associated Artery/Lesion type: [place] artery [place] vs. transplanted heart: [place] heart Associated angina: without angina Qualified Code(s): I25.10 - Atherosclerotic heart disease of [place] coronary artery without angina pectoris (6) IDDM (insulin dependent diabetes mellitus) Current Visit: Yes Status: Chronic (7) Chronic diastolic (congestive) heart failure Current Visit: Yes Status: Chronic (8) DVT prophylaxis Current Visit: Yes Status: Acute - Time Spent With Patient Total time spent is greater than 50% in coordination of care (as documented) at patient's floor/unit and/or counseling patient: - Subjective Interval history: No acute events. Patient does complain of right foot pain where cellulitis is but the area does not look infected. She admits to frequent coughing. denies SOB, CP, n/v, fevers/chills. - Constitutional Vitals: Temp Pulse Resp BP Pulse Ox 98.0 F 88 17 147/77 93 10/29/17 11:58 10/29/17 11:58 10/29/17 11:58 10/29/17 11:58 10/29/17 11:58 General appearance: Present: cooperative, A&O X 3, morbidly obese, pleasant, no acute distress, answers questions appropriately Exam: - Head Head exam: Present: atraumatic, normocephalic - Eye Eye exam: Present: PERRL, conjuntiva pink, sclera anicteric Pupils: Present: PERRL - Neck Neck exam general surgery: Present: supple, trachea midline. Absent: lymphadenopathy - Respiratory Respiratory exam: Present: CTAB. Absent: accessory muscle use, rales, rhonchi, wheezes - Cardiovascular Cardiovascular exam: Present: RRR, +S1, +S2. Absent: diastolic murmur, gallop, rubs, systolic murmur - GI/Abdominal GI/Abdominal exam: Present: normal bowel sounds, soft, no peritoneal signs. Absent: distended, tenderness - Extremities Exam Additional comments: LLE cellulitis, improved, no abscesses - Neurological Exam Neurological exam: Present: alert, CN II-XII intact, oriented X3, no focal deficits. Absent: pronater drift, facial droop, speech deficit - Skin Skin exam: Present: dry, intact Internal Medicine: Result - Labs CBC & Chem 7: 10/26/17 05:42 10/28/17 05:58 - ABG Interpretation ABG results: PT/INR, D-dimer PT 10.8 Seconds (9.4-12.1) 10/23/17 20:00 Consult Discharge Plan - Plan Instructions: Heart Failure (DC), Chest Pain (DC), Diverticulitis (DC), Urinary Tract Infection in Women (DC), Cellulitis (DC), Diabetes Mellitus Type 2 in Adults (DC), Chronic Obstructive Pulmonary Disease (DC), Sepsis (DC), Pneumonia (DC) Referrals: Gideon Lundberg MD [Primary Care Provider] -
== END 2017-10-29 19:04 | DRG 194 ==
LOC: EMEROO 19:21 → 2NENU 19:21 → SUATTDRO 23:54 → 2NENU 23:54
PROVIDERS: ADMIT Pediatrics; ATTEND Internal Medicine

== ENCOUNTER 2018-09-09 00:50 | Inpatient (IN) ==
--- NOTE | 2018-09-09 01:05 | Emergency Department Note ---
Disposition Clinical Impression: Morbid obesity with BMI of 50.0-59.9, adult, Morbid obesity, Lymphedema of both lower extremities, Lymphedema Sepsis Qualifiers: Sepsis type: sepsis due to unspecified organism Qualified Code(s): A41.9 - Sepsis, unspecified organism Cellulitis Qualifiers: Site of cellulitis: extremity Site of cellulitis of extremity: lower extremity Laterality: left Qualified Code(s): L03.116 - Cellulitis of left lower limb COPD (chronic obstructive pulmonary disease) Qualifiers: COPD type: chronic bronchitis Chronic bronchitis type: unspecified Qualified Code(s): J42 - Unspecified chronic bronchitis Disposition: Admitted As Inpatient Condition: Fair General Adult HPI - General Stated complaint: Fever, Possible Cellulitis Lt Leg Time Seen by Provider: 09/09/18 01:02 Nursing Notes Reviewed: Yes Vital Signs Reviewed: Yes - History of Present Illness HPI Narrative: Patient's a 72-year-old female with history of diabetes, hypertension, , CHF, COPD, morbid obesity and CAD who presents from [facility] due to fever and concern for infection of her left lower extremity. The patient states this has been ongoing for several weeks and she has been taking Bactrim. Over the last few days it has worsened, becoming red, warm and now she has developed a fever of up to 102 today. She notes pain in her left leg as well as swelling. She otherwise notes chills and nausea but denies any vomiting, chest pain, shortness of breath, dysuria, hematuria, abdominal pain\. She is on baseline 2L. - Related Data Home Medications Medication Instructions Recorded Confirmed Furosemide [Lasix] 40 mg PO DAILY 06/10/16 09/09/18 Metoprolol XL (24 HR) Succ [Toprol 25 mg PO DAILY 06/10/16 09/09/18 Xl] L. Acidophilus/Pectin, [place] 1 cap PO DAILY 09/02/16 09/09/18 [Acidophilus Probiotic Capsule] Sennosides/Docusate Sodium [Senna 2 tab PO BID PRN 09/02/16 09/09/18 Plus] Ferrous Sulfate 325 mg PO DAILY 02/26/17 09/09/18 Acetaminophen [Tylenol] 650 mg PO Q6H PRN 10/23/17 09/09/18 Atorvastatin [Lipitor] 10 mg PO HS 10/23/17 09/09/18 Apremilast [Otezla] 30 mg PO BID 04/21/18 09/09/18 Insulin ASPART [NovoLOG] 5 unit SQ TID 04/21/18 09/09/18 Fluticasone Propionate Nasal 1 spray NS DAILY 07/30/18 09/09/18 [Flonase] Gabapentin [Neurontin] 300 mg PO TID 07/30/18 09/09/18 Ipratropium/Albuterol Sulfate 1 puff IN Q6H PRN 07/30/18 09/09/18 [Combivent Respimat Inhal [place]] Loratadine [Claritin] 10 mg PO DAILY PRN 07/30/18 09/09/18 Melatonin 5 mg PO HS 07/30/18 09/09/18 Venlafaxine XR (24 HR) [Effexor Xr] 150 mg PO HS 07/30/18 09/09/18 Aspirin Enteric Coated [Aspirin EC] 81 mg PO DAILY 08/22/18 09/09/18 GI Cocktail [Gi Cocktail] 40 ml PO BID PRN 08/22/18 09/09/18 Insulin Glargine [Lantus] 45 unit SQ BID 08/22/18 09/09/18 Ipratropium/Albuterol Sulfate 3 ml IH QID PRN 08/22/18 09/09/18 [Iprat-Albut 0.5-3(2.5) mg/3 ml] Loperamide [Imodium] 4 mg PO DAILY PRN 08/22/18 09/09/18 Omeprazole [PriLOSEC] 20 mg PO DAILY 08/22/18 09/09/18 Dextran 70/Hypromellose [Natural 1 drop BOTH EYES BID PRN 09/09/18 09/09/18 Balance Tears Eye Drop] HYDROcodone/Acet 10/325 mg [[place] 1 tab PO Q4HR 09/09/18 09/09/18 10-325 mg] Nystatin POWDER [Nystop] 1 appl TP AD 09/09/18 09/09/18 Scopolamine [Transderm-Scop] 1 each TD Q72H PRN 09/09/18 09/09/18 Previous Rx's Medication Instructions Recorded Guaifenesin [Mucinex] 600 mg PO Q12H PRN 30 Days 04/03/16 tab.er.12h Potassium Chloride [K-Tab ER] 20 meq PO DAILY 30 Days tablet.er 04/03/16 Magnesium Oxide [Mag-Ox] 400 mg PO BID #30 tablet 05/30/16 Isosorbide MONOnitrate (24 HR) 30 mg PO DAILY #30 tab.er.24h 04/23/18 [Imdur] Allergies Allergy/AdvReac Type Severity Reaction Status Date / Time fentanyl Allergy Itching Verified 04/19/18 22:46 gentamicin AdvReac See Verified 10/23/17 19:31 Comments Review of Systems: ROS per history of present illness, all other systems reviewed and negative or normal. All systems ED: reviewed and negative except as stated. Review of Systems: As Per HPI Past Medical History - Past Medical History Medical history: Reports: arthritis, asthma, CHF, COPD, coronary artery disease, diabetes, GERD, GI bleed, kidney stones, migraine, other Surgical history: Reports: appendectomy, cholecystectomy, hysterectomy, knee replacement, orthopedic, other, other, arthroscopy Psychiatric history: Reports: anxiety, depression - Social History Smoking Status: Former smoker Smokeless Tobacco Status: No Alcohol use: Reports: none Drug use: Reports: none Physical Exam General: Conversant. No apparent distress. Follow commands. Appears stated age. Morbidly obese. Neck: No JVD. Trachea midline. Neck supple. Eyes: PERRL. No scleral icterus. HENT: Normocephalic and atraumatic. Moist mucus membranes. Cardiovascular: Tachycardic, regular rhythm. Normal S1 and S2. No murmurs appreciated. Normal capillary refill. Extremities well perfused with 2+ distal pulses bilaterally. Pulmonary: Normal and equal breath sounds bilaterally, anteriorly and posteriorly. No wheezes, rales, or rhonchi. Not in respiratory distress. Speaks in full sentences. On 2L nasal cannula, baseline Abdomen: Soft, nondistended, and tontender. No bruits or masses appreciated but limited by body habitus. No guarding. Neuro: Alert and oriented x3. No slurred speech. No focal deficits noted. Skin: left lower extremity shows erythema, warmth from the left ankle to the level of the medial thigh. There is 1+ bilateral lower extremity edema. Chronic lymphedema bilaterally. Musculoskeletal: No bony abnormalities visualized. Moves all extremities. Psych: Normal mood. Pleasant. Makes appropriate eye contact. Course Vital Signs Temperature 99.4 F 09/09/18 01:03 Pulse Rate 105 09/09/18 01:03 Respiratory Rate 18 09/09/18 01:03 Blood Pressure 124/63 09/09/18 01:03 O2 Sat by Pulse Oximetry 94 09/09/18 01:03 Temperature 99.4 F 09/09/18 01:03 Pulse Rate 105 09/09/18 01:03 Respiratory Rate 18 09/09/18 01:03 Blood Pressure 124/63 09/09/18 01:03 O2 Sat by Pulse Oximetry 94 09/09/18 01:03 Oxygen Delivery Oxygen Delivery Nasal Cannula Medical Decision Making - MDM Narrative Medical decision making narrative: 72-year-old female who presents the emergency department with complaint of left lower extremity swelling, pain and redness. She has been treating with outpatient Bactrim for cellulitis but this has been worsening recently. Upon arrival patient is tachycardic, afebrile, on her baseline oxygen and normotensive. The patient has what appears to be long-standing venous stasis and lymphedema of bilateral lower extremities but left lower extremity does show increased warmth, redness and mildly increased swelling from the level of her ankle to her middle thigh. Laboratory evaluation including CBC, BMP, lactate, blood cultures, urinalysis were obtained. She does have leukocytosis of 24.3 with a left shift. She does have lactic acidosis elevated to 2.5. BMP shows no evidence of The patient was given 2 L fluid bolus, Zofran and [place]. EKG shows sinus tachycardia. Previous sensitivities were evaluated and she does have a history of ESBL urosepsis. Today she has no evidence of urinary infection. We initiated antibiotic treatment with vancomycin and Zosyn. I discussed the case with on-call hospitalist, Dr. Mai who requested imaging of the leg to [facility] for abscess. I have placed the order for CT of the left lower extremity the report of which he is to follow-up with. He accepts the patient to the inpatient service. Patient agrees with and understands course of treatment plan including plan for admission. All questions answered. - Medical Records Medical records reviewed: Yes I reviewed the patient's medical records. - Lab Data Lab results reviewed: Yes I reviewed the patient's lab results. Result diagrams: 09/09/18 01:44 09/09/18 01:44 Lab Results 09/09/18 09/09/18 09/09/18 Range/Units 01:44 01:44 01:44 WBC 24.3 H (4.3-11.1) K/mcL RBC 4.43 (3.82-4.97) M/mcL Hgb 12.4 (11.5-15.4) g/dL Hct 39.8 (35.3-44.9) % MCV 89.8 (83.0-100.0) fL MCH 28.0 (28.0-33.3) pg MCHC 31.2 L (31.6-35.5) g/dL RDW 17.0 H (11.5-14.5) % Plt Count 261 (140-400) K/mcL MPV 10.1 (9.4-12.4) fL Immature Gran % 0.8 (0-4) % Seg Neutrophils % 88.2 % Lymphocytes % 7.9 % Monocytes % 2.8 % Eosinophils % 0.1 % Basophils % 0.2 % Neutrophils # 21.4 H (1.6-8.9) K/mcL Lymphocytes # 1.9 (0.6-4.6) K/mcL Monocytes # 0.7 (0.0-1.3) K/mcL Eosinophils # 0.0 (0.0-0.6) K/mcL Basophils # 0.1 (0.0-0.2) K/mcL Platelet Estimate Normal (Normal) Sodium 139 (136-145) mEq/L Potassium 4.2 (3.5-5.1) mEq/L Chloride 100 (98-107) mEq/L Carbon Dioxide 27 (23-29) mEq/L BUN 14 (8-23) mg/dL Creatinine 0.86 (0.60-1.20) mg/dL Est GFR ( Amer) > 60 (> 60) Est GFR (Non-Af Amer) > 60 (> 60) BUN/Creatinine Ratio 16 (6-26) Glucose 199 H (70-105) mg/dL Calculated Osmolality 294 (280-300) Lactic Acid 2.5 H (0.5-2.2) mmol/L Calcium 9.5 (8.6-10.3) mg/dL Magnesium (1.6-2.6) mg/dL Urine Color (Yellow) Urine Clarity (Clear) Urine pH (5.0-8.0) pH Units Ur Specific [place] (1.010-1.025) Urine Protein (Neg-Trace) mg/dL Urine Glucose (UA) (Normal) mg/dL Urine Ketones (Negative) mg/dL Urine Blood (Negative) Urine Nitrite (Negative) Urine Bilirubin (Negative) Urine Urobilinogen (Normal) mg/dL Ur Leukocyte Esterase (Negative) Urine Microscopic RBC (0-3) per hpf Urine Microscopic WBC (0-3) per hpf Ur Squamous Epith Cells (None-Few) per lpf Urine Bacteria (None-Few) per hpf Hyaline Casts (None-Few) per lpf Ur Culture Indicated? (NO) 09/09/18 09/09/18 Range/Units 01:44 02:29 WBC (4.3-11.1) K/mcL RBC (3.82-4.97) M/mcL Hgb (11.5-15.4) g/dL Hct (35.3-44.9) % MCV (83.0-100.0) fL MCH (28.0-33.3) pg MCHC (31.6-35.5) g/dL RDW (11.5-14.5) % Plt Count (140-400) K/mcL MPV (9.4-12.4) fL Immature Gran % (0-4) % Seg Neutrophils % % Lymphocytes % % Monocytes % % Eosinophils % % Basophils % % Neutrophils # (1.6-8.9) K/mcL Lymphocytes # (0.6-4.6) K/mcL Monocytes # (0.0-1.3) K/mcL Eosinophils # (0.0-0.6) K/mcL Basophils # (0.0-0.2) K/mcL Platelet Estimate (Normal) Sodium (136-145) mEq/L Potassium (3.5-5.1) mEq/L Chloride (98-107) mEq/L Carbon Dioxide (23-29) mEq/L BUN (8-23) mg/dL Creatinine (0.60-1.20) mg/dL Est GFR ( Amer) (> 60) Est GFR (Non-Af Amer) (> 60) BUN/Creatinine Ratio (6-26) Glucose (70-105) mg/dL Calculated Osmolality (280-300) Lactic Acid (0.5-2.2) mmol/L Calcium (8.6-10.3) mg/dL Magnesium 1.6 (1.6-2.6) mg/dL Urine Color Yellow (Yellow) Urine Clarity Cloudy A (Clear) Urine pH 6.5 (5.0-8.0) pH Units Ur Specific [place] 1.012 (1.010-1.025) Urine Protein 30 H (Neg-Trace) mg/dL Urine Glucose (UA) 100 H (Normal) mg/dL Urine Ketones Negative (Negative) mg/dL Urine Blood Negative (Negative) Urine Nitrite Negative (Negative) Urine Bilirubin Negative (Negative) Urine Urobilinogen Normal (Normal) mg/dL Ur Leukocyte Esterase Moderate H (Negative) Urine Microscopic RBC 0-3 (0-3) per hpf Urine Microscopic WBC 30-50 H (0-3) per hpf Ur Squamous Epith Cells Many H (None-Few) per lpf Urine Bacteria Few (None-Few) per hpf Hyaline Casts Few (None-Few) per lpf Ur Culture Indicated? NO. A (NO) - EKG Data EKG #1 EKG attestation: Yes I reviewed and interpreted this EKG. EKG results narrative: Sinus tachycardia rate of 110. Normal axis. Normal intervals. No evidence of acute ischemic changes. When compared with prior from 08/21/18 previously seen supraventricular tachycardia is resolved. Attestation Statement - Attestation Attestation: I have seen this patient with the resident physician, I have personally evaluated this patient. I had reviewed the chart and document dictation by the resident physician and aM in agreement with the information documented by the resident physician. Please see documentation by the resident physician for complete chart including past medical history, family medical history, review of systems, current history and physical and laboratory and imaging studies. I was present for all procedures, provided direct supervision for all procedures, was present for the entirety of all procedures and provided direct guidance during the procedures. Please see documentation by the resident physician for any procedures performed.
[2018-09-09] MEDS ORDERED: Piperacillin/Tazobactam 3.375 GM in 0.9 % Sodium Chloride Mini Bag 100 ML IVPB ONE (01:56)
[2018-09-09 01:59] LABS: Basophils # 0.1 K/mcL (0.0-0.2); Basophils % 0.2 %; Eosinophils % 0.1 %; Hematocrit 39.8 % (35.3-44.9); Hemoglobin 12.4 g/dL (11.5-15.4); Immature Granulocytes % 0.8 % (0-4); Lymphocytes # 1.9 K/mcL (0.6-4.6); Lymphocytes % 7.9 %; Mean Corpuscular HGB Conc 31.2 g/dL (31.6-35.5); Mean Corpuscular Volume 89.8 fL (83.0-100.0); Mean Platelet Volume 10.1 fL (9.4-12.4); Monocytes # 0.7 K/mcL (0.0-1.3); Monocytes % 2.8 %; Platelet Count 261 K/mcL (140-400); Red Blood Count 4.43 M/mcL (3.82-4.97); Segmented Neutrophils % 88.2 %
[2018-09-09 02:00] LABS: Neutrophils # 21.4 K/mcL (1.6-8.9)
[2018-09-09] MEDS ORDERED: *HR* HYDROcodone/Acet 5/325 mg TABLET PO ONE (02:08)
[2018-09-09 02:17] LABS: BUN/Creatinine Ratio 16 (6-26); Blood Urea Nitrogen 14 mg/dL (8-23); Calcium 9.5 mg/dL (8.6-10.3); Carbon Dioxide 27 mEq/L (23-29); Chloride 100 mEq/L (98-107); Glucose 199 mg/dL (70-105); Osmolality,Calculated 294 (280-300); Potassium 4.2 mEq/L (3.5-5.1); Sodium 139 mEq/L (136-145); eGFR For Non-African Americans > 60 (> 60)
[2018-09-09 02:18] LABS: Platelet Estimate Normal (Normal)
[2018-09-09] MEDS: 0.9 % Sodium Chloride 1,000 ML IVC SCH ×5 (02:34→13:28)
--- NOTE | 2018-09-09 02:36 | Emergency Department Note ---
Disposition Clinical Impression: Morbid obesity, Lymphedema of both lower extremities, Left leg cellulitis, Lymphedema Sepsis Qualifiers: Sepsis type: sepsis due to unspecified organism Qualified Code(s): A41.9 - Sepsis, unspecified organism Disposition: Admitted As Inpatient Condition: Fair Referrals: NONE,PCP [Primary Care Provider] - General Adult HPI - General Chief complaint: ED General Medical Stated complaint: Fever, Possible Cellulitis Lt Leg Time Seen by Provider: 09/09/18 01:02 Source: EMS Limitations: no limitations - History of Present Illness Pain Scale: 9 - Related Data Home Medications Medication Instructions Recorded Confirmed Furosemide [Lasix] 40 mg PO DAILY 06/10/16 08/22/18 Metoprolol XL (24 HR) Succ [Toprol 25 mg PO DAILY 06/10/16 08/22/18 Xl] L. Acidophilus/Pectin, [place] 1 cap PO DAILY 09/02/16 08/22/18 [Acidophilus Probiotic Capsule] Polyvinyl Alcohol [Artificial 1 drop BOTH EYES BID PRN 09/02/16 08/22/18 Tears] Scopolamine Patch [Transderm-Scop] 1.5 mg TD Q72H PRN 09/02/16 08/22/18 Sennosides/Docusate Sodium [Senna 2 tab PO BID PRN 09/02/16 08/22/18 Plus] Ferrous Sulfate 325 mg PO DAILY 02/26/17 08/22/18 Acetaminophen [Tylenol] 650 mg PO Q6H PRN 10/23/17 08/22/18 Atorvastatin [Lipitor] 10 mg PO 199910/23/17 08/22/18 Apremilast [Otezla] 30 mg PO BID 04/21/18 08/22/18 Insulin ASPART [NovoLOG] 5 unit SQ TIDWM 04/21/18 08/22/18 Fluticasone Propionate Nasal 1 spray NS DAILY 07/30/18 08/22/18 [Flonase] Gabapentin [Neurontin] 300 mg PO TID 07/30/18 08/22/18 Ipratropium/Albuterol Sulfate 1 puff IN Q6H PRN 07/30/18 08/22/18 [Combivent Respimat Inhal [place]] Loratadine [Claritin] 10 mg PO DAILY PRN 07/30/18 08/22/18 Melatonin 5 mg PO 199907/30/18 08/22/18 Venlafaxine XR (24 HR) [Effexor Xr] 150 mg PO 199907/30/18 08/22/18 Aspirin Enteric Coated [Aspirin EC] 81 mg PO DAILY 08/22/18 08/22/18 GI Cocktail [Gi Cocktail] 40 ml PO BID PRN 08/22/18 08/22/18 Insulin Glargine [Lantus] 45 unit SQ BID 08/22/18 08/22/18 Ipratropium/Albuterol Sulfate 3 ml IH QID PRN 08/22/18 08/22/18 [Iprat-Albut 0.5-3(2.5) mg/3 ml] Loperamide [Imodium] 4 mg PO DAILY PRN 08/22/18 08/22/18 Omeprazole [PriLOSEC] 20 mg PO DAILY 08/22/18 08/22/18 Pregabalin [Lyrica] 200 mg PO TID 08/22/18 08/22/18 Previous Rx's Medication Instructions Recorded Guaifenesin [Mucinex] 600 mg PO Q12H PRN 30 Days 04/03/16 tab.er.12h Potassium Chloride [K-Tab ER] 20 meq PO DAILY 30 Days tablet.er 04/03/16 Magnesium Oxide [Mag-Ox] 400 mg PO BID #30 tablet 05/30/16 Isosorbide MONOnitrate (24 HR) 30 mg PO DAILY #30 tab.er.24h 04/23/18 [Imdur] Nystatin POWDER [Nystop] 1 appl TP TID #1 bottle 08/26/18 Allergies Allergy/AdvReac Type Severity Reaction Status Date / Time fentanyl Allergy Itching Verified 04/19/18 22:46 gentamicin AdvReac See Verified 10/23/17 19:31 Comments Past Medical History - Past Medical History Medical history: Reports: arthritis, asthma, CHF, COPD, coronary artery disease, diabetes, GERD, GI bleed, kidney stones, migraine, other Surgical history: Reports: appendectomy, cholecystectomy, hysterectomy, knee replacement, orthopedic, other, other, arthroscopy Psychiatric history: Reports: anxiety, depression - Social History Smoking Status: Former smoker Smokeless Tobacco Status: No Alcohol use: Reports: none Drug use: Reports: none Physical Exam - General Limitations: no limitations General appearance: alert Course Vital Signs Temperature 99.4 F 09/09/18 01:03 Pulse Rate 105 09/09/18 01:03 Respiratory Rate 18 09/09/18 01:03 Blood Pressure 124/63 09/09/18 01:03 O2 Sat by Pulse Oximetry 94 09/09/18 01:03 Temperature 99.4 F 09/09/18 01:03 Pulse Rate 105 09/09/18 01:03 Respiratory Rate 18 09/09/18 01:03 Blood Pressure 124/63 09/09/18 01:03 O2 Sat by Pulse Oximetry 94 09/09/18 01:03 Oxygen Delivery Oxygen Delivery Nasal Cannula Medical Decision Making - Lab Data Result diagrams: 09/09/18 01:44 09/09/18 01:44 Lab Results 09/09/18 09/09/18 09/09/18 Range/Units 01:44 01:44 01:44 WBC 24.3 H (4.3-11.1) K/mcL RBC 4.43 (3.82-4.97) M/mcL Hgb 12.4 (11.5-15.4) g/dL Hct 39.8 (35.3-44.9) % MCV 89.8 (83.0-100.0) fL MCH 28.0 (28.0-33.3) pg MCHC 31.2 L (31.6-35.5) g/dL RDW 17.0 H (11.5-14.5) % Plt Count 261 (140-400) K/mcL MPV 10.1 (9.4-12.4) fL Immature Gran % 0.8 (0-4) % Seg Neutrophils % 88.2 % Lymphocytes % 7.9 % Monocytes % 2.8 % Eosinophils % 0.1 % Basophils % 0.2 % Neutrophils # 21.4 H (1.6-8.9) K/mcL Lymphocytes # 1.9 (0.6-4.6) K/mcL Monocytes # 0.7 (0.0-1.3) K/mcL Eosinophils # 0.0 (0.0-0.6) K/mcL Basophils # 0.1 (0.0-0.2) K/mcL Platelet Estimate Normal (Normal) Sodium 139 (136-145) mEq/L Potassium 4.2 (3.5-5.1) mEq/L Chloride 100 (98-107) mEq/L Carbon Dioxide 27 (23-29) mEq/L BUN 14 (8-23) mg/dL Creatinine 0.86 (0.60-1.20) mg/dL Est GFR ( Amer) > 60 (> 60) Est GFR (Non-Af Amer) > 60 (> 60) BUN/Creatinine Ratio 16 (6-26) Glucose 199 H (70-105) mg/dL Calculated Osmolality 294 (280-300) Lactic Acid 2.5 H (0.5-2.2) mmol/L Calcium 9.5 (8.6-10.3) mg/dL Magnesium (1.6-2.6) mg/dL 09/09/18 Range/Units 01:44 WBC (4.3-11.1) K/mcL RBC (3.82-4.97) M/mcL Hgb (11.5-15.4) g/dL Hct (35.3-44.9) % MCV (83.0-100.0) fL MCH (28.0-33.3) pg MCHC (31.6-35.5) g/dL RDW (11.5-14.5) % Plt Count (140-400) K/mcL MPV (9.4-12.4) fL Immature Gran % (0-4) % Seg Neutrophils % % Lymphocytes % % Monocytes % % Eosinophils % % Basophils % % Neutrophils # (1.6-8.9) K/mcL Lymphocytes # (0.6-4.6) K/mcL Monocytes # (0.0-1.3) K/mcL Eosinophils # (0.0-0.6) K/mcL Basophils # (0.0-0.2) K/mcL Platelet Estimate (Normal) Sodium (136-145) mEq/L Potassium (3.5-5.1) mEq/L Chloride (98-107) mEq/L Carbon Dioxide (23-29) mEq/L BUN (8-23) mg/dL Creatinine (0.60-1.20) mg/dL Est GFR ( Amer) (> 60) Est GFR (Non-Af Amer) (> 60) BUN/Creatinine Ratio (6-26) Glucose (70-105) mg/dL Calculated Osmolality (280-300) Lactic Acid (0.5-2.2) mmol/L Calcium (8.6-10.3) mg/dL Magnesium 1.6 (1.6-2.6) mg/dL Attestation Statement - Attestation Attestation: I have seen this patient with the resident physician, I have personally evaluated this patient. I had reviewed the chart and document dictation by the resident physician and aM in agreement with the information documented by the resident physician. Please see documentation by the resident physician for complete chart including past medical history, family medical history, review of systems, current history and physical and laboratory and imaging studies. I was present for all procedures, provided direct supervision for all procedur es, was present for the entirety of all procedures and provided direct guidance during the procedures. Please see documentation by the resident physician for any procedures performed. Patient presented emergency department with progressively increasing left lower extremity pain and redness, and has been on Bactrim for cellulitis for the last 2 weeks, and tonight she spiked a fever On exam the patient is morbidly obese, appears clinically slightly dehydrated with slightly dry. Warfarin mucous membranes, and is tachycardic but has not had a fever here but did have a documented fever at the snf facility where she stays. Lungs are clear heart is regular but tachycardic no signif icant murmurs rubs or gallops abdomen is obese, seemingly nontender without obvious palpable mass but limited by body habitus. Right lower extremity is normal in appearance apart from one plus edema, no warmth or erythema with normal distal pulses. Left lower extremity has 1-2+ edema, with diffuse erythema of the lower extremity with some erythema extending onto the medial thigh. Some of this does appear to be chronic venous stasis change but there does appear to be warm and pink discoloration associated with this, she appears to have chronic lymphedema of this leg compared to the right side as well. No obvious palpable cord. There are palpable pulses distally. Basic laboratory studies revealed a slightly elevated lactate at 2.5, leukocytosis of 24,900, renal panel within acceptable limits. Blood culture sent. Patient is currently on Bactrim, she was given IV vancomycin and IV Zosyn, had reviewed her chart previously she has had positive blood cultures from UTI in the past which was ESBL, but sensitive to Zosyn. We did order a urinalysis as well. Patient was given IV fluids IV pain medication as well she was admitted to the hospital for further evaluation and management of cellulitis, with failure of outpatient antibiotics leukocytosis and elevated lactate consistent with sepsis.
[2018-09-09 02:43] LABS: Bilirubin,Urine Negative (Negative); Blood,Urine Negative (Negative); Clarity,Urine Cloudy (Clear); Color,Urine Yellow (Yellow); Glucose,Urine (UA) 100 mg/dL (Normal); Ketones,Urine Negative (Negative); Leukocyte Esterase,Urine Moderate (Negative); Nitrite,Urine Negative (Negative); PH,Urine 6.5 pH Units (5.0-8.0); Protein,Urine 30 mg/dL (Neg-Trace); Specific Gravity,Urine 1.012 (1.010-1.025); Urobilinogen,Urine Normal (Normal)
[2018-09-09 02:46] LABS: Bacteria,Urine Few per hpf (None-Few); Hyaline Casts,Urine Few per lpf (None-Few); Squamous Epithelial Cell,Urine Many per lpf (None-Few); WBC,Urine 30-50 per hpf (0-3)
[2018-09-09 02:57] LABS: RBC,Urine 0-3 per hpf (0-3)
[2018-09-09] MEDS ORDERED: Ondansetron ODT 4 MG TAB.RAPDIS SL PRN (04:09)
[2018-09-09] MEDS ORDERED: Naloxone 0.4 MG/ML INJ IVP PRN ×2 (04:09→05:12)
[2018-09-09] MEDS ORDERED: Dextrose Gel 15 GM/37.5 ML TUBE PO PRN ×2 (04:12)
[2018-09-09] MEDS ORDERED: *HR* Dextrose 50 % in Water (Syg) 50 ML SYRINGE IVP PRN (04:12)
[2018-09-09] MEDS ORDERED: D5% in Water 1,000 ML IVC PRN (04:12)
[2018-09-09] MEDS ORDERED: Sennosides/Docusate Sodium TABLET PO PRN (04:16)
--- NOTE | 2018-09-09 04:42 | Internal Med History&Physical ---
<Josselyn White - Last Filed: 09/09/18 05:51> Date of Encounter: 09/09/18 Time of Encounter: 04:00 Internal Medicine - H&P: HPI Chief complaint: left leg erythema Admitted From: Long-term Nursing Facility History of present illness: Ms. Zamora is a 72 year old morbidly obese female with past medical history of diabetes mellitus, COPD on 2 liters of nasal canula, peripheral neuropathy, hypertension, GERD and chronic lower extremity pain who was presented to the ED from her nursing facility, [facility] due to fever of 102 with development of erythema of left lower leg. She was recently admitted three weeks ago for urosepsis and completed a 2 week course of bactrim upon previous discharge. Today she reports one day ago she noticed erythema developing in her left lower leg. She denies any pain associated with it. She also denies any recent injuries to that leg. And reports previous episode of cellulitis about 6 years ago involv ing the same leg. She is bedbound at the outside facility but reports she participates in physical therapy and last participated two days ago and had no pain or difficulty with movement. She is denying any pain upon palpation but does have chronic underlying peripheral neuropathy of bilateral lower extremities decreasing her sensation of lower extremities. She is complaining of severe right foot pain and reports it is chronic. She only elicits fever or chills and denies nausea, emesis, dysuria, shortness of breath or chest pain. In the ED she was noted to have WBC of 24.3 with lactic acid of 2.5. Her heart rate was also elevated at 105 but she was afebrile. CT of the lower extremity is pending. Past Med Surg Social Fam HX - Past Medical History Medical history: arthritis, asthma, CHF, COPD, coronary artery disease, mary betes, GERD, GI bleed, kidney stones, migraine, other Additional medical history: lymphedema BLE, umbilical hernia, neuropathy, home O2 [place] 2L, chest pain/pneumonia, UTI, morbid obesity Psychiatric history: anxiety, depression - Past Surgical History Surgical History: appendectomy, cholecystectomy, hysterectomy, knee replacement, orthopedic, other, other, arthroscopy Additional surgical history: krista right knee replacement x2 , 6 knee scopes, D&C's. 2 left knee surgis. - Social History Smoking Status: Former smoker Smokeless Tobacco Status: No Alcohol use: none Drug use: none - Family History Mother Adopted: No Family Member Ethnicity: Non- Living Status: Hx Family Cardiac Disorders: Yes Hx Family Respiratory Disorders: Yes Hx Family Cancer: No Hx Family GI Disorders: Yes (ulcers) Hx Family Endocrine Disorder: Yes (Diabets) Hx Family Neuromuscular Disorders: No Hx Family Neurologic Disorders: No Hx Family HEENT Disorders: No Hx Family Autoimmune Disorders: No Father Hx Family Cardiac Disorders: Yes Hx Family Respiratory Disorders: Yes Hx Family Cancer: No Hx Family GI Disorders: No Hx Family Endocrine Disorder: Yes Hx Family Neuromuscular Disorders: No Hx Family Neurologic Disorders: No Hx Family HEENT Disorders: No Hx Family Autoimmune Disorders: No Internal Medicine - H&P: Meds Guaifenesin [Mucinex] 600 mg PO Q12H PRN 30 Days tab.er.12h 04/03/16 [Rx] Potassium Chloride [K-Tab ER] 20 meq PO DAILY 30 Days tablet.er 04/03/16 [Rx] Magnesium Oxide [Mag-Ox] 400 mg PO BID #30 tablet 05/30/16 [Rx] Furosemide [Lasix] 40 mg PO DAILY 06/10/16 [History] Metoprolol XL (24 HR) Succ [Toprol Xl] 25 mg PO DAILY 06/10/16 [History] L. Acidophilus/Pectin, [place] [Acidophilus Probiotic Capsule] 1 cap PO DAILY 09/02/16 [History] Polyvinyl Alcohol [Artificial Tears] 1 drop BOTH EYES BID PRN 09/02/16 [History] Scopolamine Patch [Transderm-Scop] 1.5 mg TD Q72H PRN 09/02/16 [History] Sennosides/Docusate Sodium [Senna Plus] 2 tab PO BID PRN 09/02/16 [History] Ferrous Sulfate 325 mg PO DAILY 02/26/17 [History] Acetaminophen [Tylenol] 650 mg PO Q6H PRN 10/23/17 [History] Atorvastatin [Lipitor] 10 mg PO 2000 10/23/17 [History] Apremilast [Otezla] 30 mg PO BID 04/21/18 [History] Insulin ASPART [NovoLOG] 5 unit SQ TIDWM 04/21/18 [History] Isosorbide MONOnitrate (24 HR) [Imdur] 30 mg PO DAILY #30 tab.er.24h 12/12/18 [Rx] Fluticasone Propionate Nasal [Flonase] 1 spray NS DAILY 07/30/18 [History] Gabapentin [Neurontin] 300 mg PO TID 07/30/18 [History] Ipratropium/Albuterol Sulfate [Combivent Respimat Inhal [place]] 1 puff IN Q6H PRN 07/30/18 [History] Loratadine [Claritin] 10 mg PO DAILY PRN 07/30/18 [History] Melatonin 5 mg PO 199907/30/18 [History] Venlafaxine XR (24 HR) [Effexor Xr] 150 mg PO 199907/30/18 [History] Aspirin Enteric Coated [Aspirin EC] 81 mg PO DAILY 08/22/18 [History] GI Cocktail [Gi Cocktail] 40 ml PO BID PRN 08/22/18 [History] Insulin Glargine [Lantus] 45 unit SQ BID 08/22/18 [History] Ipratropium/Albuterol Sulfate [Iprat-Albut 0.5-3(2.5) mg/3 ml] 3 ml IH QID PRN 08/22/18 [History] Loperamide [Imodium] 2 mg PO DAILY PRN 08/22/18 [History] Omeprazole [PriLOSEC] 20 mg PO DAILY 08/22/18 [History] Pregabalin [Lyrica] 200 mg PO TID 08/22/18 [History] Nystatin POWDER [Nystop] 1 appl TP TID #1 bottle 08/26/18 [Rx] Dextran 70/Hypromellose 09/09/18 [History] Hydrocodone-Acetamin 10-300 mg 10 - 325 mg PO Q4HR 09/09/18 [History] Allergy/AdvReac Type Severity Reaction Status Date / Time fentanyl Allergy Itching Verified 04/19/18 22:46 gentamicin AdvReac See Verified 10/23/17 19:31 Comments All Systems PM: A 10-system review of systems was performed and is negative for pertinent findings except as documented above in the HPI. - Constitutional Constitutional: chills, fever(s), no falls, no weakness - EENT Eyes: no blurry vision, no change in vision, no loss of vision, no pain Nose, mouth and throat: no dysphagia, no nasal congestion, no odynophagia, no sore throat - Cardiovascular Cardiovascular ROS IM: no chest pain, no diaphoresis, no dyspnea, no palpitations - Respiratory Respiratory: no cough, no dyspnea, no dyspnea on exertion, no chest congestion - Gastrointestinal Gastrointestinal: no abdominal pain, no diarrhea, no dysphagia, no heartburn, no vomiting - Genitourinary Genitourinary: no dysuria, no hematuria, no urinary hesitancy - Musculoskeletal Musculoskeletal ROS IM: numbness, other (bilateral lower feet pain), no muscle weakness, no stiffness - Integumentary Integumentary IM: erythema (of left lower leg), no new lesions, no pruritus - Neurological Neurological ROS: no confusion, no memory loss, no tremor(s) - Psychiatric Psychiatric: no anxiety, no depression - Hematologic/Lymphatic Hematologic/Lymphatic: no easy bleeding, no easy bruising - Constitutional Vitals: Temp Pulse Resp BP Pulse Ox 99.4 F 105 18 124/63 94 09/09/18 01:03 09/09/18 01:03 09/09/18 01:03 09/09/18 01:03 09/09/18 01:03 Exam: Gen: Vitals noted. No acute distress. Appears mildly uncomfortable, morbidly obese Eyes: anicteric sclerae, moist conjunctivae; no lid-lag HENT: Atraumatic; oropharynx clear with moist mucous membranes and no mucosal ulcerations; normal hard and soft palate Neck: Trachea midline; supple, no thyromegaly or lymphadenopathy Cardiac: Tachycardia, no murmur, +S1/S2. No JVD noted. Pulmonary: CTA bilaterally, no wheezes, rales or rhonchi, equal chest expansion Abdomen: soft, nontender, no guarding. No masses or hepatosplenomegaly MSK: ROM intact, no joint swelling noted Extremities: erythema of left lower leg with blanching of the skin, warmth of left lower leg, left leg appears larger than right leg, bilateral calf nontender Skin: Normal temperature, turgor; no rash, ulcers or subcutaneous nodules Neuro: moves all extremities, no focal deficits. Psych: Appropriate mood and behavior. A&Ox3 Internal Med - H&P Results - Labs CBC & Chem 7: 09/09/18 01:44 09/09/18 01:44 Labs: Short CBC 09/09/18 Range/Units 01:44 WBC 24.3 H (4.3-11.1) K/mcL Hgb 12.4 (11.5-15.4) g/dL Hct 39.8 (35.3-44.9) % Plt Count 261 (140-400) K/mcL Neutrophils # 21.4 H (1.6-8.9) K/mcL BMP 09/09/18 01:44 Sodium 139 Potassium 4.2 Chloride 100 Carbon Dioxide 27 BUN 14 Creatinine 0.86 Glucose 199 H Calcium 9.5 Urine 09/09/18 Range/Units 02:29 Urine Color Yellow (Yellow) Urine Clarity Cloudy A (Clear) Urine pH 6.5 (5.0-8.0) pH Units Ur Specific [place] 1.012 (1.010-1.025) Urine Protein 30 H (Neg-Trace) mg/dL Urine Glucose (UA) 100 H (Normal) mg/dL - Assessment and Plan (1) Sepsis Current Visit: Yes Status: Acute Assessment and plan: Sepsis secondary to soft tissue infection resulting in cellulitis of left lower leg Presented to the ED with temperature of 102, at presenation was afebrile with tachycardia and WBC was noted to be 24.3 and lactic acid was 2.5 CT of the left leg shows severe cellulitis of left leg, left ankle and dorsum of left foot In the ED she received 1 liter of IV fluid and zosyn as well as vancomycin Will continue vancomycin as the suspected agents include MRSA and strep. Also additional 1 liter of fluid ordered Blood cultures pending Continue to monitor vitals and resuscitate with additional fluids as needed Qualifiers: Sepsis type: sepsis due to unspecified organism Qualified Code(s): A41.9 - Sepsis, unspecified organism (2) Asymptomatic bacteriuria Current Visit: Yes Status: Acute Assessment and plan: Urinalysis shows moderate leukocyte esterase with squamous cells No dysuria does not preclude treatment at this time (3) COPD (chronic obstructive pulmonary disease) Current Visit: Yes Status: Acute Assessment and plan: History of COPD on supplemental oxygen, no in exacerbation Continue supplemetal oxygen to keep saturation above 88% Continue Duonebs Qualifiers: COPD type: chronic bronchitis Chronic bronchitis type: unspecified Qualified Code(s): J42 - Unspecified chronic bronchitis (4) Diabetes mellitus Current Visit: Yes Status: Chronic Assessment and plan: History of DM on insulin at home Continue basal insulin with sliding scale Diabetic diet Qualifiers: Diabetes mellitus type: type 2 Diabetes mellitus fpc insulin use: wi th fpc use Diabetes mellitus complication status: with unspecified complications Qualified Code(s): E11.8 - Type 2 diabetes mellitus with un specified complications; 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 (5) Peripheral neuropathy Current Visit: Yes Status: Acute Assessment and plan: History of peripheral neuropathy due to uncontrolled diabetes Continue home gabapentin Qualifiers: Peripheral neuropathy type: polyneuropathy, unspecified Qualified Code(s): G62.9 - Polyneuropathy, unspecified (6) GERD (gastroesophageal reflux disease) Current Visit: Yes Status: Acute Assessment and plan: Continue home omeprazole Qualifiers: Esophagitis presence: esophagitis presence not specified Qualified Code(s): K21.9 - Gastro-esophageal reflux disease without esophagitis (7) Hypertension Current Visit: Yes Status: Acute Assessment and plan: Continue home toprol xl Qualifiers: Hypertension type: essential hypertension Qualified Code(s): I10 - Essential (primary) hypertension (8) Morbid obesity Current Visit: Yes Status: Acute Assessment and plan: BMI of 50.3 Diabetic diet ordered Physical therapy consulted (9) DVT prophylaxis Current Visit: Yes Status: Acute Assessment and plan: SUBQ heparin - Time Spent With Patient Total time spent is greater than 50% in coordination of care (as documented) at patient's floor/unit and/or counseling patient: <JoanneTray - Last Filed: 09/09/18 06:00> Date of Encounter: 09/09/18 All Systems PM: A 10-system review of systems was performed and is negative for pertinent findings except as documented above in the HPI. - Constitutional Vitals: Temp Pulse Resp BP Pulse Ox 99.4 F 105 18 124/63 94 09/09/18 01:03 09/09/18 01:03 09/09/18 01:03 09/09/18 01:03 09/09/18 01:03 Internal Med - H&P Results - Labs CBC & Chem 7: 09/09/18 01:44 09/09/18 01:44 Labs: Short CBC 09/09/18 Range/Units 01:44 WBC 24.3 H (4.3-11.1) K/mcL Hgb 12.4 (11.5-15.4) g/dL Hct 39.8 (35.3-44.9) % Plt Count 261 (140-400) K/mcL Neutrophils # 21.4 H (1.6-8.9) K/mcL BMP 09/09/18 01:44 Sodium 139 Potassium 4.2 Chloride 100 Carbon Dioxide 27 BUN 14 Creatinine 0.86 Glucose 199 H Calcium 9.5 Urine 09/09/18 Range/Units 02:29 Urine Color Yellow (Yellow) Urine Clarity Cloudy A (Clear) Urine pH 6.5 (5.0-8.0) pH Units Ur Specific [place] 1.012 (1.010-1.025) Urine Protein 30 H (Neg-Trace) mg/dL Urine Glucose (UA) 100 H (Normal) mg/dL - Impressions ITS Impressions Lower Extremity CT 09/09/18 03:30 IMPRESSION: 1. Findings consistent with severe cellulitis of the left leg, left ankle and dorsum of the left foot. No discrete organized fluid collection is evident. Associated severe induration of the skin surface of the left leg, left ankle and dorsal left foot. 2. Severe osteopenia. 3. Probable sequela of prior septic joint and antibiotic spacer placement at the left knee. 4. Probable mild cellulitis of the right leg partially visualized. 5. Scattered subcutaneous fat calcification which can be seen with entities such as dermatomyositis. D/ / Jm Goyal MD / Jm Goyal MD Interpreting Provider: Jm Goyal MD - Time Spent With Patient Total time spent is greater than 50% in coordination of care (as documented) at patient's floor/unit and/or counseling patient: - Attending Attestation I performed a history and physical exam of the patient and discussed management with the resident. I reviewed the resident's note and agree with the documented findings and plan of care. Kirti Zamora is a 72 year old morbidly obese woman who presents from SNF with left leg erythema, subjective fever and chills. Physical exam findings correlate with diffuse cellulitis. Lab findings reveal leukocytosis and lactic acidemia. Will keep her on vancomycin for this. The patient also has a history of recurrent UTIs noted to have ESBL organisms in the past. Review of records show that her urine specimens are frequently positive however she has been asymptomatic but all the same receives treatment. Right now she denies abdominal pain or dysuria. Her UA has many squamous epithelial cells in addition to leukocytes but nitrite negative. I consider this specimen to be contaminated and that she has asymptomatic bacteriuria. She has no symptoms whatsoever of UTI. I do not recommend continuing treatment for this unless cultures indicate otherwise as the frequent use of broad spectrum Zosyn and ertapenem is what has led to her development for multidrug resistant organisms. MIREYA CACERES.
[2018-09-09] MEDS ORDERED: Acetaminophen 325 MG TABLET PO PRN (05:12)
[2018-09-09] MEDS ORDERED: *HR* HYDROcodone/Acet 5/325 mg TABLET PO PRN (05:12)
[2018-09-09] MEDS: *HR* Heparin 5,000 UNIT/ML VIAL SQ SCH ×3 (05:34→21:33)
[2018-09-09] MEDS ORDERED: Insulin LISPRO 300 UNITS/3 ML VIAL SQ SCH (06:00)
[2018-09-09] MEDS ORDERED: 0.9 % Sodium Chloride 1,000 ML IVC ONE (07:25)
[2018-09-09] MEDS ORDERED: Loratadine 10 MG TABLET PO PRN (07:25)
[2018-09-09] MEDS ORDERED: Scopolamine Patch 1.5 MG PATCH.TD72 TD PRN ×2 (07:25→09:39)
[2018-09-09] MEDS ORDERED: GI Cocktail 40 ML EACH PO PRN (07:25)
[2018-09-09] MEDS: Ipratropium/Albuterol Neb 3 ML IH SCH ×4 (07:27→22:21)
[2018-09-09] MEDS ORDERED: NON-FORMULARY MEDICATION 1 EACH EACH (Pregabalin [Lyrica] 200 MG) PO SCH (09:00)
[2018-09-09] MEDS: Gabapentin 300 MG CAPSULE PO SCH ×3 (09:15→21:32)
[2018-09-09] MEDS: Metoprolol XL (24 HR) Succ 25 MG TAB.ER.24H PO SCH (09:15)
[2018-09-09] MEDS: Aspirin Enteric Coated 81 MG Tablet PO SCH (09:15)
[2018-09-09] MEDS: Magnesium Oxide 400 MG TABLET PO SCH ×2 (09:15→21:32)
[2018-09-09] MEDS: Isosorbide MONOnitrate (24 HR) 30 MG TAB.ER.24H PO SCH (09:15)
[2018-09-09] MEDS: Fluticasone Propionate Nasal 50 MCG/SPRAY BOTTLE NS SCH (09:16)
[2018-09-09] MEDS: *HR* OxyCODONE Immed Rel 5 MG TABLET PO PRN ×2 (09:20→21:31)
[2018-09-09] MEDS: Insulin DETEMIR 100 UNIT/ML X5UNITS SQ SCH ×2 (09:20→21:33)
--- NOTE | 2018-09-09 09:38 | Event Note ---
Date of Encounter: 09/09/18 Time of Encounter: 07:30 H&P reviewed. Patient with history of diabetes, oxygen dependent COPD, morbid obesity, CKD, was admitted for sepsis secondary to L LE cellulitis. Lactate elevated at 2.5. CT showed findings consistent with severe cellulitis of the left leg, ankle and dorsum of the left foot without any discrete abscess. Continue IV Vnac, given 1L fluid bolus and keep on mIVF 125ml/hr, and repeat lactic acid at noon. Resume levemir at reduced dose and cover with moderate dose sliding scale.
[2018-09-09] MEDS ORDERED: Piperacillin/Tazobactam 3.375 GM in 0.9 % Sodium Chloride Mini Bag 100 ML IVPB SCH (10:00)
--- NOTE | 2018-09-09 10:39 | Electrocardiograph Report ---
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
[2018-09-09] MEDS: Nystatin POWDER 30 GM BOTTLE TP SCH (10:58)
[2018-09-09] MEDS: Insulin LISPRO 300 UNITS/3 ML VIAL SQ SCH ×3 (12:32→21:33)
[2018-09-09] MEDS ORDERED: Insulin DETEMIR 100 UNIT/ML X5UNITS SQ SCH (21:00)
[2018-09-09] MEDS: Melatonin 3 MG TABLET PO SCH (21:32)
[2018-09-09] MEDS: Venlafaxine XR (24 HR) 150 MG CAP.ER.24H PO SCH (21:32)
[2018-09-10] MEDS: Ipratropium/Albuterol Neb 3 ML IH SCH ×2 (04:42→11:58)
[2018-09-10] MEDS: *HR* Heparin 5,000 UNIT/ML VIAL SQ SCH ×3 (05:13→22:43)
[2018-09-10 06:09] LABS: Basophils % 0.2 %; Eosinophils # 0.2 K/mcL (0.0-0.6); Eosinophils % 2.1 %; Hematocrit 31.2 % (35.3-44.9); Immature Granulocytes % 0.5 % (0-4); Lymphocytes # 1.7 K/mcL (0.6-4.6); Lymphocytes % 14.6 %; Mean Corpuscular HGB Conc 31.1 g/dL (31.6-35.5); Mean Corpuscular Hemoglobin 28.3 pg (28.0-33.3); Mean Platelet Volume 10.2 fL (9.4-12.4); Monocytes # 0.6 K/mcL (0.0-1.3); Neutrophils # 8.8 K/mcL (1.6-8.9); Platelet Count 163 K/mcL (140-400); Red Blood Count 3.43 M/mcL (3.82-4.97); Red Cell Distribution Width 17.3 % (11.5-14.5); Segmented Neutrophils % 77.6 %
[2018-09-10 06:12] LABS: Hemoglobin 9.7 g/dL (11.5-15.4)
[2018-09-10 06:28] LABS: BUN/Creatinine Ratio 23 (6-26); Blood Urea Nitrogen 16 mg/dL (8-23); Calcium 8.5 mg/dL (8.6-10.3); Carbon Dioxide 25 mEq/L (23-29); Chloride 105 mEq/L (98-107); Glucose 180 mg/dL (70-105); Osmolality,Calculated 292 (280-300); Potassium 3.6 mEq/L (3.5-5.1); Sodium 138 mEq/L (136-145); eGFR For Non-African Americans > 60 (> 60)
[2018-09-10] MEDS: 0.9 % Sodium Chloride 1,000 ML IVC SCH (09:43)
--- NOTE | 2018-09-10 10:26 | Internal Med Progress Note ---
Hospitalist Progress Note - Encounter Date of Encounter: 09/10/18 Time of Encounter: 10:29 - Subjective Interval History: Patient seen and examined this morning at present. No acute overnight events. Patient feeling better. Denies any abdominal pain nausea vomiting or diarrhea. She denies any urinary difficulties. - Exam Vitals: Temp Pulse Resp BP Pulse Ox 98.3 F 106 15 111/66 93 09/10/18 10:09/10/18 10:09/10/18 10:09/10/18 10:09/10/18 10:01 Exam: General: In no acute distress. Respiratory exam: Distant sounds. no accessory muscle use, rales, rhonchi, wheezes appreciated Cardiovascular exam: RRR, +S1, +S2. no murmur, gallop, rubs. GI/Abdominal exam: Non-tender, Non-distended, normal bowel sounds, soft, no peritoneal signs. Extremities exam: 1+ pedal edema on Lt leg Neurological exam: CN II-XII intact, AO X3, no focal deficits. Skin exam: erythema, warmth, swelling and tenderness on Lt Leg below knee to ankle. - Summary of Assessment and Plan Summary of Assessment and Plan: Sepsis - likely secondary to cellulitis of left lower leg. Now resolved - CT without any abscess. improved clinically - c/w vancomycin - f/u blood cultures. NGTD Asymptomatic bacteriuria - Urinalysis shows moderate leukocyte esterase with squamous cells - no additonal abx needed COPD - not in exacerbation - c/w oxygen and Duonebs Diabetes mellitus - c/w levemir 30 BID, SSI and accuchecks and diabetic diet Peripheral neuropathy - c/w home gabapentin Hypertension - c/w home toprol xl DVT prophylaxis - c/w heparin - Time Spent with Patient Total time spent is greater than 50% in coordination of care (as documented) at patient's floor/unit and/or counseling patient: Internal Medicine: Result - Labs CBC & Chem 7: 09/10/18 05:12 09/10/18 05:12 Labs: Short CBC 09/10/18 Range/Units 05:12 WBC 11.3 H D (4.3-11.1) K/mcL Hgb 9.7 L D (11.5-15.4) g/dL Hct 31.2 L (35.3-44.9) % Plt Count 163 (140-400) K/mcL Neutrophils # 8.8 (1.6-8.9) K/mcL BMP 09/10/18 05:12 Sodium 138 Potassium 3.6 Chloride 105 Carbon Dioxide 25 BUN 16 Creatinine 0.70 Glucose 180 H Calcium 8.5 L - Impressions Impressions Lower Extremity CT 09/09/18 03:30 IMPRESSION: 1. Findings consistent with severe cellulitis of the left leg, left ankle and dorsum of the left foot. No discrete organized fluid collection is evident. Associated severe induration of the skin surface of the left leg, left ankle and dorsal left foot. 2. Severe osteopenia. 3. Probable sequela of prior septic joint and antibiotic spacer placement at the left knee. 4. Probable mild cellulitis of the right leg partially visualized. 5. Scattered subcutaneous fat calcification which can be seen with entities such as dermatomyositis. D/ / 09/09/2018 07:44:30 Jm Goyal MD / ponce Interpreting Provider: Jm Goyal MD Consult Discharge Plan - Plan Referrals: NONE,PCP [Primary Care Provider] -
[2018-09-10] MEDS: Aspirin Enteric Coated 81 MG Tablet PO SCH (11:34)
[2018-09-10] MEDS: *HR* OxyCODONE Immed Rel 5 MG TABLET PO PRN ×2 (11:34→19:53)
[2018-09-10] MEDS: Gabapentin 300 MG CAPSULE PO SCH ×3 (11:34→19:53)
[2018-09-10] MEDS: Magnesium Oxide 400 MG TABLET PO SCH ×2 (11:34→19:53)
[2018-09-10] MEDS: Metoprolol XL (24 HR) Succ 25 MG TAB.ER.24H PO SCH (11:34)
[2018-09-10] MEDS: Insulin LISPRO 300 UNITS/3 ML VIAL SQ SCH ×4 (11:35→22:28)
[2018-09-10] MEDS: Insulin DETEMIR 100 UNIT/ML X5UNITS SQ SCH ×2 (11:35→19:53)
[2018-09-10] MEDS: Isosorbide MONOnitrate (24 HR) 30 MG TAB.ER.24H PO SCH (11:35)
[2018-09-10] MEDS: Fluticasone Propionate Nasal 50 MCG/SPRAY BOTTLE NS SCH (11:36)
[2018-09-10] MEDS: Nystatin POWDER 30 GM BOTTLE TP SCH (11:37)
[2018-09-10] MEDS ORDERED: Ipratropium/Albuterol Neb 3 ML IH PRN (14:46)
[2018-09-10] MEDS: Melatonin 3 MG TABLET PO SCH (19:52)
[2018-09-10] MEDS: Venlafaxine XR (24 HR) 150 MG CAP.ER.24H PO SCH (19:53)
[2018-09-11] MEDS: *HR* OxyCODONE Immed Rel 5 MG TABLET PO PRN ×2 (03:26→16:07)
[2018-09-11 03:50] LABS: Basophils % 0.4 %; Eosinophils # 0.5 K/mcL (0.0-0.6); Eosinophils % 6.5 %; Hematocrit 32.2 % (35.3-44.9); Hemoglobin 9.8 g/dL (11.5-15.4); Immature Granulocytes % 0.7 % (0-4); Lymphocytes # 1.4 K/mcL (0.6-4.6); Lymphocytes % 17.4 %; Mean Corpuscular HGB Conc 30.4 g/dL (31.6-35.5); Mean Corpuscular Hemoglobin 27.9 pg (28.0-33.3); Mean Corpuscular Volume 91.7 fL (83.0-100.0); Mean Platelet Volume 10.2 fL (9.4-12.4); Monocytes # 0.4 K/mcL (0.0-1.3); Monocytes % 4.8 %; Neutrophils # 5.7 K/mcL (1.6-8.9); Platelet Count 160 K/mcL (140-400); Red Blood Count 3.51 M/mcL (3.82-4.97); Red Cell Distribution Width 17.2 % (11.5-14.5); Segmented Neutrophils % 70.2 %
[2018-09-11 04:04] LABS: BUN/Creatinine Ratio 19 (6-26); Blood Urea Nitrogen 13 mg/dL (8-23); Calcium 8.6 mg/dL (8.6-10.3); Carbon Dioxide 24 mEq/L (23-29); Chloride 107 mEq/L (98-107); Glucose 251 mg/dL (70-105); Osmolality,Calculated 297 (280-300); Potassium 3.7 mEq/L (3.5-5.1); Sodium 139 mEq/L (136-145); eGFR For Non-African Americans > 60 (> 60)
[2018-09-11] MEDS: *HR* Heparin 5,000 UNIT/ML VIAL SQ SCH (05:26)
[2018-09-11] MEDS: Insulin DETEMIR 100 UNIT/ML X5UNITS SQ SCH (09:04)
[2018-09-11] MEDS: Nystatin POWDER 30 GM BOTTLE TP SCH (09:04)
[2018-09-11] MEDS: Insulin LISPRO 300 UNITS/3 ML VIAL SQ SCH ×2 (09:04→12:20)
[2018-09-11] MEDS: Gabapentin 300 MG CAPSULE PO SCH (09:05)
[2018-09-11] MEDS: Magnesium Oxide 400 MG TABLET PO SCH (09:05)
[2018-09-11] MEDS: Fluticasone Propionate Nasal 50 MCG/SPRAY BOTTLE NS SCH (09:05)
[2018-09-11] MEDS: Aspirin Enteric Coated 81 MG Tablet PO SCH (09:05)
[2018-09-11] MEDS: Isosorbide MONOnitrate (24 HR) 30 MG TAB.ER.24H PO SCH (09:05)
[2018-09-11] MEDS: Metoprolol XL (24 HR) Succ 25 MG TAB.ER.24H PO SCH (09:05)
[2018-09-11 11:45] VITALS: BP 136/67
--- NOTE | 2018-09-11 12:14 | Discharge Summary ---
- NOTES TO OUTPATIENT PROVIDER Notes to Outpatient Provider: Follow-up patient for resolution of cellulitis on the left lower extremity. Orders not resulted at time of discharge: Pending orders 09/09/18 01:39 Culture,Blood [BC] Stat Date of Encounter: 09/11/18 Time of Encounter: 12:11 - Discharge Diagnosis (1) Asymptomatic bacteriuria Priority: Secondary Status: Acute (2) COPD (chronic obstructive pulmonary disease) Priority: Secondary Status: Acute Qualifiers: COPD type: chronic bronchitis Chronic bronchitis type: unspecified Qualified Code(s): J42 - Unspecified chronic bronchitis (3) Cellulitis of left lower extremity Priority: Primary Status: Acute (4) GERD (gastroesophageal reflux disease) Priority: Secondary Status: Acute Qualifiers: Esophagitis presence: esophagitis presence not specified Qualified Code(s): K21.9 - Gastro-esophageal reflux disease without esophagitis (5) Hypertension Priority: Secondary Status: Acute Qualifiers: Hypertension type: essential hypertension Qualified Code(s): I10 - Essential (primary) hypertension (6) Morbid obesity Priority: Secondary Status: Acute (7) Sepsis Priority: Primary Status: Acute Qualifiers: Sepsis type: sepsis due to unspecified organism Qualified Code(s): A41.9 - Sepsis, unspecified organism (8) Diabetes mellitus Priority: Secondary Status: Chronic Qualifiers: Diabetes mellitus type: type 2 Diabetes mellitus intermediate insulin use: with ride attendant use Diabetes mellitus complication status: with unspecified complications Qualified Code(s): E11.8 - Type 2 diabetes mellitus with unspecified complications; Z79.4 - operations consultant (current) use of insulin (9) DVT prophylaxis Priority: Secondary Status: Acute Hospital course: Ms. Zamora is a 72 year old female with past medical history of morbid obesity and was bedbound, diabetes on insulin, COPD, peripheral neuropathy, hypertension came in from residential with fevers and right lower extremity redness. Patient was found to have sepsis likely related to cellulitis on her left lower extremity. No open wounds were noted in CT did not show any signs of abscess formation. Patient had mild lactic acidosis elevated white count tachycardia. Patient was started on empiric vancomycin and received IV fluids. Patient improved during course of her stay. Patient was noted to have decubitus ulcers on her buttocks and Brown catheter was placed to allow for healing. Patient's white count improved, hemodynamically remained stable. Blood cultures did not grow any organism. Patient remained afebrile. Patient is otherwise stable to be discharged back to residential to finish 10 day co urse of antibiotic therapy with Bactrim. Discharge discussed with: patient, nurse - Time Spent with Patient Total time spent providing and/or coordinating discharge services: Time spent: Greater than 30 minutes (38) - Discharge Medications Prescriptions: New Sulfamethoxazole/Trimeth DS [Bactrim DS] 1 each PO BID 7 Days #14 tablet Continued Guaifenesin [Mucinex] 600 mg PO Q12H PRN 30 Days tab.er.12h PRN Reason: Congestion Potassium Chloride [K-Tab ER] 20 meq PO DAILY 30 Days tablet.er Magnesium Oxide [Mag-Ox] 400 mg PO BID #30 tablet Metoprolol XL (24 HR) Succ [Toprol Xl] 25 mg PO DAILY Furosemide [Lasix] 40 mg PO DAILY L. Acidophilus/Pectin, [place] [Acidophilus Probiotic Capsule] 1 cap PO DAILY Sennosides/Docusate Sodium [Senna Plus] 2 tab PO BID PRN PRN Reason: Constipation Ferrous Sulfate 325 mg PO DAILY Acetaminophen [Tylenol] 650 mg PO Q6H PRN PRN Reason: Pain Atorvastatin [Lipitor] 10 mg PO HS Apremilast [Otezla] 30 mg PO BID Insulin ASPART [NovoLOG] 5 unit SQ TID Isosorbide MONOnitrate (24 HR) [Imdur] 30 mg PO DAILY #30 tab.er.24h Melatonin 5 mg PO HS Venlafaxine XR (24 HR) [Effexor Xr] 150 mg PO HS Ipratropium/Albuterol Sulfate [Combivent Respimat Inhal [place]] 1 puff IN Q6H PRN PRN Reason: Shortness Of Breath Loratadine [Claritin] 10 mg PO DAILY PRN PRN Reason: allergies Fluticasone Propionate Nasal [Flonase] 1 spray NS DAILY Aspirin Enteric Coated [Aspirin EC] 81 mg PO DAILY GI Cocktail [Gi Cocktail] 40 ml PO BID PRN PRN Reason: GERD Insulin Glargine [Lantus] 45 unit SQ BID Ipratropium/Albuterol Sulfate [Iprat-Albut 0.5-3(2.5) mg/3 ml] 3 ml IH QID PRN PRN Reason: Shortness Of Breath Loperamide [Imodium] 4 mg PO DAILY PRN PRN Reason: Diarrhea Omeprazole [PriLOSEC] 20 mg PO DAILY Dextran 70/Hypromellose [Natural Balance Tears Eye Drop] 1 drop BOTH EYES BID PRN PRN Reason: Dry Eyes Nystatin POWDER [Nystop] 1 appl TP AD Scopolamine [Transderm-Scop] 1 each TD Q72H PRN PRN Reason: INCREASED SECRETION OF GLUCAGO Gabapentin [Neurontin] 300 mg PO TID 3 Days #9 capsule Changed HYDROcodone/Acet 10/325 mg [[place] 10-325 mg] 1 tab PO Q12HR PRN 4 Days #4 tablet PRN Reason: Severe Pain Home Medications: Guaifenesin [Mucinex] 600 mg PO Q12H PRN 30 Days tab.er.12h 04/03/16 [Rx] Potassium Chloride [K-Tab ER] 20 meq PO DAILY 30 Days tablet.er 04/03/16 [Rx] Magnesium Oxide [Mag-Ox] 400 mg PO BID #30 tablet 05/30/16 [Rx] Furosemide [Lasix] 40 mg PO DAILY 06/10/16 [History] Metoprolol XL (24 HR) Succ [Toprol Xl] 25 mg PO DAILY 06/10/16 [History] L. Acidophilus/Pectin, [place] [Acidophilus Probiotic Capsule] 1 cap PO DAILY 09/02/16 [History] Sennosides/Docusate Sodium [Senna Plus] 2 tab PO BID PRN 09/02/16 [History] Ferrous Sulfate 325 mg PO DAILY 02/26/17 [History] Acetaminophen [Tylenol] 650 mg PO Q6H PRN 10/23/17 [History] Atorvastatin [Lipitor] 10 mg PO HS 10/23/17 [History] Apremilast [Otezla] 30 mg PO BID 04/21/18 [History] Insulin ASPART [NovoLOG] 5 unit SQ TID 04/21/18 [History] Isosorbide MONOnitrate (24 HR) [Imdur] 30 mg PO DAILY #30 tab.er.24h 04/23/18 [Rx] Fluticasone Propionate Nasal [Flonase] 1 spray NS DAILY 07/30/18 [History] Ipratropium/Albuterol Sulfate [Combivent Respimat Inhal [place]] 1 puff IN Q6H PRN 07/30/18 [History] Loratadine [Claritin] 10 mg PO DAILY PRN 07/30/18 [History] Melatonin 5 mg PO HS 07/30/18 [History] Venlafaxine XR (24 HR) [Effexor Xr] 150 mg PO HS 07/30/18 [History] Aspirin Enteric Coated [Aspirin EC] 81 mg PO DAILY 08/22/18 [History] GI Cocktail [Gi Cocktail] 40 ml PO BID PRN 08/22/18 [History] Insulin Glargine [Lantus] 45 unit SQ BID 08/22/18 [History] Ipratropium/Albuterol Sulfate [Iprat-Albut 0.5-3(2.5) mg/3 ml] 3 ml IH QID PRN 08/22/18 [History] Loperamide [Imodium] 4 mg PO DAILY PRN 08/22/18 [History] Omeprazole [PriLOSEC] 20 mg PO DAILY 08/22/18 [History] Dextran 70/Hypromellose [Natural Balance Tears Eye Drop] 1 drop BOTH EYES BID PRN 09/09/18 [History] Nystatin POWDER [Nystop] 1 appl TP AD 09/09/18 [History] Scopolamine [Transderm-Scop] 1 each TD Q72H PRN 09/09/18 [History] Gabapentin [Neurontin] 300 mg PO TID 3 Days #9 capsule 09/11/18 [Rx] HYDROcodone/Acet 10/325 mg [[place] 10-325 mg] 1 tab PO Q12HR PRN 4 Days #4 tablet 09/11/18 [Rx] Sulfamethoxazole/Trimeth DS [Bactrim DS] 1 each PO BID 7 Days #14 tablet 09/11/18 [Rx] Allergies/Adverse Reactions: Allergy/AdvReac Type Severity Reaction Status Date / Time fentanyl Allergy Itching Verified 04/19/18 22:46 gentamicin AdvReac See Verified 10/23/17 19:31 Comments Date of admission: 09/09/18 03:47 Primary care physician: PCP NONE Consults: 09/09/18 06:19 Consult to Physical Therapy [CONS] Routine Comment: Evaluate, develop and implement POC Reason for Consult: received PT at outside facility, not very mobile due to weight Does patient have active BEDREST order?: No Is patient medically & hemodynamically stable?: Yes 09/09/18 11:17 Consult to Invasive Line Access Team [CONS] Routine Reason for Consult: Limited IV access, vanc treatment Line Type: EPIV Discharging clinician: Anisha Mishra - Constitutional Vitals: Temp Pulse Resp BP Pulse Ox 98.4 F 80 16 136/67 97 09/11/18 11:31 09/11/18 11:31 09/11/18 11:31 09/11/18 11:31 09/11/18 11:31 Exam: General: In no acute distress. Morbidly obsese Respiratory exam: Distant sounds. no accessory muscle use, rales, rhonchi, wheezes appreciated Cardiovascular exam: RRR, +S1, +S2. no murmur, gallop, rubs. GI/Abdominal exam: Non-tender, Non-distended, normal bowel sounds, soft, no peritoneal signs. Extremities exam: 1+ pedal edema on Lt leg Neurological exam: CN II-XII intact, AO X3, no focal deficits. Skin exam: improved erythema, warmth, swelling on Lt Leg below knee to ankle.. No tenderness noted. decubitus ulcers on Buttocks - Patient Status Disposition: Transfer SNF Condition: Fair - Discharge Instructions Follow Up With: NONE,PCP [Primary Care Provider] - Forms: ED Satisfaction Letter, Work/School Release - Diet and Activity Activity: as per physical therapy
--- NOTE | 2018-09-11 12:33 | Physician Discharge Referral ---
ExtendedCare Referral Info Institutional Level of Care: Skilled - Diagnosis (1) Asymptomatic bacteriuria Status: Acute (2) COPD (chronic obstructive pulmonary disease) Status: Acute (3) Cellulitis of left lower extremity Status: Acute (4) GERD (gastroesophageal reflux disease) Status: Acute (5) Hypertension Status: Acute (6) Morbid obesity Status: Acute (7) Sepsis Status: Acute (8) Diabetes mellitus Status: Chronic (9) DVT prophylaxis Status: Acute - Transfer Medications Prescriptions: HYDROcodone/Acet 10/325 mg [[place] 10-325 mg] 1 tab PO Q12HR PRN 4 Days #4 tablet PRN Reason: Severe Pain Sulfamethoxazole/Trimeth DS [Bactrim DS] 1 each PO BID 7 Days #14 tablet Gabapentin [Neurontin] 300 mg PO TID 3 Days #9 capsule Home Medications: Guaifenesin [Mucinex] 600 mg PO Q12H PRN 30 Days tab.er.12h 04/03/16 [Rx] Potassium Chloride [K-Tab ER] 20 meq PO DAILY 30 Days tablet.er 04/03/16 [Rx] Magnesium Oxide [Mag-Ox] 400 mg PO BID #30 tablet 05/30/16 [Rx] Furosemide [Lasix] 40 mg PO DAILY 06/10/16 [History] Metoprolol XL (24 HR) Succ [Toprol Xl] 25 mg PO DAILY 06/10/16 [History] L. Acidophilus/Pectin, [place] [Acidophilus Probiotic Capsule] 1 cap PO DAILY 09/02/16 [History] Sennosides/Docusate Sodium [Senna Plus] 2 tab PO BID PRN 09/02/16 [History] Ferrous Sulfate 325 mg PO DAILY 02/26/17 [History] Acetaminophen [Tylenol] 650 mg PO Q6H PRN 10/23/17 [History] Atorvastatin [Lipitor] 10 mg PO HS 10/23/17 [History] Apremilast [Otezla] 30 mg PO BID 04/21/18 [History] Insulin ASPART [NovoLOG] 5 unit SQ TID 04/21/18 [History] Isosorbide MONOnitrate (24 HR) [Imdur] 30 mg PO DAILY #30 tab.er.24h 04/23/18 [Rx] Fluticasone Propionate Nasal [Flonase] 1 spray NS DAILY 07/30/18 [History] Ipratropium/Albuterol Sulfate [Combivent Respimat Inhal [place]] 1 puff IN Q6H PRN 07/30/18 [History] Loratadine [Claritin] 10 mg PO DAILY PRN 07/30/18 [History] Melatonin 5 mg PO HS 07/30/18 [History] Venlafaxine XR (24 HR) [Effexor Xr] 150 mg PO HS 07/30/18 [History] Aspirin Enteric Coated [Aspirin EC] 81 mg PO DAILY 08/22/18 [History] GI Cocktail [Gi Cocktail] 40 ml PO BID PRN 08/22/18 [History] Insulin Glargine [Lantus] 45 unit SQ BID 08/22/18 [History] Ipratropium/Albuterol Sulfate [Iprat-Albut 0.5-3(2.5) mg/3 ml] 3 ml IH QID PRN 08/22/18 [History] Loperamide [Imodium] 4 mg PO DAILY PRN 08/22/18 [History] Omeprazole [PriLOSEC] 20 mg PO DAILY 08/22/18 [History] Dextran 70/Hypromellose [Natural Balance Tears Eye Drop] 1 drop BOTH EYES BID PRN 09/09/18 [History] Nystatin POWDER [Nystop] 1 appl TP AD 09/09/18 [History] Scopolamine [Transderm-Scop] 1 each TD Q72H PRN 09/09/18 [History] Gabapentin [Neurontin] 300 mg PO TID 3 Days #9 capsule 09/11/18 [Rx] HYDROcodone/Acet 10/325 mg [[place] 10-325 mg] 1 tab PO Q12HR PRN 4 Days #4 tablet 09/11/18 [Rx] Sulfamethoxazole/Trimeth DS [Bactrim DS] 1 each PO BID 7 Days #14 tablet 09/11/18 [Rx] Allergies/Adverse Reactions: Allergy/AdvReac Type Severity Reaction Status Date / Time fentanyl Allergy Itching Verified 04/19/18 22:46 gentamicin AdvReac See Verified 10/23/17 19:31 Comments - Respiratory Orders Smoking Cessation: Smoking cessation has been advised. For more information, call the [place] Tobacco Quit Line at 9-805-QNIT-NOW. CERTIFICATION: I certify that the transfer of the above named patient to an Extended Care Facility is necessary for the continuing treatment of the diagnosis listed. The above information is true and accurate reflection of patient's current condition. Confidential - Redisclosure prohibited without a patient's written consent.
[2018-09-11] MEDS ORDERED: Aminoglycoside Consult 1 EACH MC ONE (16:27)
== END 2018-09-11 16:28 | DRG 872 ==
LOC: EMEROOARM 00:50 → 3ANU 00:50 → OBSVTOIN 03:47 → SUATTDRO 03:47 → 3ANU 04:11
PROVIDERS: ADMIT Internal Medicine; ATTEND Internal Medicine

== ENCOUNTER 2018-10-03 12:11 | Inpatient (IN) ==
--- NOTE | 2018-10-03 12:39 | Emergency Department Note ---
Disposition Clinical Impression: Cellulitis Qualifiers: Site of cellulitis: extremity Site of cellulitis of extremity: lower extremity Laterality: left Qualified Code(s): L03.116 - Cellulitis of left lower limb Disposition: Admitted As Inpatient Condition: Critical Time of Disposition: 18:00 Extremity Problem HPI - General Chief complaint: ED Extremity Problem,Nontraumatic Stated complaint: lower body pain Time Seen by Provider: 10/03/18 12:17 Source: patient, EMS Nursing Notes Reviewed: Yes Vital Signs Reviewed: Yes - History of Present Illness HPI Narrative: 72-year-old female with past medical history of COPD, CHF, diabetes and recent hospitalization for sepsis and cellulitis presents to the emergency department from [facility] with worsening left lower extremity pain and swelling, onset this morning, unchanged since this morning, located in the entire left lower extremity from the knee down, does not radiate [id number], constant and aching in nature, worse with touch and movement, associated with increased redness and swelling. She denies chest pain, shortness of breath, fever or chills, nausea or vomiting. The patient was recently hospitalized for left lower extremity cellulitis, sent to [facility] with Bactrim, IV vancomycin was initiated at nursing facility. Pain Scale: 8 - Related Data Home Medications Medication Instructions Recorded Confirmed Furosemide [Lasix] 40 mg PO DAILY 06/10/16 09/09/18 Metoprolol XL (24 HR) Succ [Toprol 25 mg PO DAILY 06/10/16 09/09/18 Xl] L. Acidophilus/Pectin, [place] 1 cap PO DAILY 09/02/16 09/09/18 [Acidophilus Probiotic Capsule] Sennosides/Docusate Sodium [Senna 2 tab PO BID PRN 09/02/16 09/09/18 Plus] Ferrous Sulfate 325 mg PO DAILY 02/26/17 09/09/18 Acetaminophen [Tylenol] 650 mg PO Q6H PRN 10/23/17 09/09/18 Atorvastatin [Lipitor] 10 mg PO HS 10/23/17 09/09/18 Apremilast [Otezla] 30 mg PO BID 04/21/18 09/09/18 Insulin ASPART [NovoLOG] 5 unit SQ TID 04/21/18 09/09/18 Fluticasone Propionate Nasal 1 spray NS DAILY 07/30/18 09/09/18 [Flonase] Ipratropium/Albuterol Sulfate 1 puff IN Q6H PRN 07/30/18 09/09/18 [Combivent Respimat Inhal [place]] Loratadine [Claritin] 10 mg PO DAILY PRN 07/30/18 09/09/18 Melatonin 5 mg PO HS 07/30/18 09/09/18 Venlafaxine XR (24 HR) [Effexor Xr] 150 mg PO HS 07/30/18 09/09/18 Aspirin Enteric Coated [Aspirin EC] 81 mg PO DAILY 08/22/18 09/09/18 GI Cocktail [Gi Cocktail] 40 ml PO BID PRN 08/22/18 09/09/18 Insulin Glargine [Lantus] 45 unit SQ BID 08/22/18 09/09/18 Ipratropium/Albuterol Sulfate 3 ml IH QID PRN 08/22/18 09/09/18 [Iprat-Albut 0.5-3(2.5) mg/3 ml] Loperamide [Imodium] 4 mg PO DAILY PRN 08/22/18 09/09/18 Omeprazole [PriLOSEC] 20 mg PO DAILY 08/22/18 09/09/18 Dextran 70/Hypromellose [Natural 1 drop BOTH EYES BID PRN 09/09/18 09/09/18 Balance Tears Eye Drop] Nystatin POWDER [Nystop] 1 appl TP AD 09/09/18 09/09/18 Scopolamine [Transderm-Scop] 1 each TD Q72H PRN 09/09/18 09/09/18 Previous Rx's Medication Instructions Recorded Guaifenesin [Mucinex] 600 mg PO Q12H PRN 30 Days 04/03/16 tab.er.12h Potassium Chloride [K-Tab ER] 20 meq PO DAILY 30 Days tablet.er 04/03/16 Magnesium Oxide [Mag-Ox] 400 mg PO BID #30 tablet 05/30/16 Isosorbide MONOnitrate (24 HR) 30 mg PO DAILY #30 tab.er.24h 04/23/18 [Imdur] Allergies Allergy/AdvReac Type Severity Reaction Status Date / Time fentanyl Allergy Itching Verified 04/19/18 22:46 gentamicin AdvReac See Verified 10/23/17 19:31 Comments All systems ED: reviewed and negative except as stated. Review of Systems: As Per HPI Past Medical History - Past Medical History Medical history: Reports: arthritis, asthma, CHF, COPD, coronary artery disease, diabetes, GERD, GI bleed, kidney stones, migraine, other Surgical history: Reports: appendectomy, cholecystectomy, hysterectomy, knee replacement, orthopedic, other, other, arthroscopy Psychiatric history: Reports: anxiety, depression - Social History Smoking Status: Former smoker Smokeless Tobacco Status: No Alcohol use: Reports: none Drug use: Reports: none Physical Exam - General General appearance: alert, in no apparent distress, other (Vitals reviewed and within normal limits, female appearing stated age lying comfortably in bed, conversive and in no distress) - Eye Eye exam: Present: normal appearance, PERRL - Chest Chest inspection: Present: symmetric chest wall rise - Respiratory Respiratory exam: Present: other (Mild crackles in bilateral bases, lung sounds otherwise clear to auscultation bilaterally) - Cardiovascular Cardiovascular exam: Present: regular rate, normal rhythm, normal heart sounds - Abdominal Exam Abdominal exam: Present: soft, tenderness (Diffusely tender to palpation) - Extremities Exam Extremities exam: Present: other (Bilateral lower extremities are significantly nonpitting edematous, left worse than right. The left leg is circumferentially erythematous without clear demarcation, there are no open wounds or blisters, no bleeding or bruising, no induration or fluctuance. The entire left lower extremity distal to the knee is mildly tender to palpation.) - Neurological Exam Neurological exam: Present: alert, oriented X3 - Skin Skin exam: Present: warm, dry Course Course Narrative: Patient with recent hospitalization for cellulitis presenting with increased pain and swelling in the same leg. Vitals are stable. Given the concern for recalcitrant cellulitis will initiate workup with CBC, BMP, lactic acid, BMP, l eft lower extremity Doppler, chest x-ray, EKG. Vital Signs Temperature 98.3 F 10/03/18 12:14 Pulse Rate 87 10/03/18 12:14 Respiratory Rate 18 10/03/18 12:14 Blood Pressure 113/62 10/03/18 12:14 O2 Sat by Pulse Oximetry 96 10/03/18 12:14 Temperature 98.3 F 10/03/18 12:14 Pulse Rate 84 10/03/18 17:34 Respiratory Rate 18 10/03/18 18:47 Blood Pressure 128/57 10/03/18 18:47 O2 Sat by Pulse Oximetry 93 10/03/18 17:34 Oxygen Delivery Oxygen Delivery Nasal Cannula Extremity Problem, [place] - [facility] Narrative Medical decision making narrative: Labs negative except for elevated lactic acid of 2.5. CT of the left lower extremity demonstrating soft tissue edema and subcutaneous inflammation indicative of cellulitis. Patient has failed outpatient antibiotic therapy with IV vancomycin for cellulitis. We will admit the patient to medicine service and for possible infectious disease consultation. Discussed with Dr. Navarro admitting hospitalist who accepted patient for admission to medicine service. Patient will be transferred to care of medicine service in stable condition. - Medical Records Medical records reviewed: Yes I reviewed the patient's medical records. - Lab Data Lab results reviewed: Yes I reviewed the patient's lab results. Result diagrams: 10/03/18 12:28 10/03/18 12:28 Lab Results 10/03/18 10/03/18 10/03/18 Range/Units 12:28 12:28 12:28 WBC 9.5 (4.3-11.1) K/mcL RBC 3.90 (3.82-4.97) M/mcL Hgb 10.9 L (11.5-15.4) g/dL Hct 35.5 (35.3-44.9) % MCV 91.0 (83.0-100.0) fL MCH 27.9 L (28.0-33.3) pg MCHC 30.7 L (31.6-35.5) g/dL RDW 17.2 H (11.5-14.5) % Plt Count 245 (140-400) K/mcL MPV 9.7 (9.4-12.4) fL Immature Gran % 0.6 (0-4) % Seg Neutrophils % 66.5 % Lymphocytes % 17.0 % Monocytes % 6.1 % Eosinophils % 9.1 % Basophils % 0.7 % Neutrophils # 6.3 (1.6-8.9) K/mcL Lymphocytes # 1.6 (0.6-4.6) K/mcL Monocytes # 0.6 (0.0-1.3) K/mcL Eosinophils # 0.9 H (0.0-0.6) K/mcL Basophils # 0.1 (0.0-0.2) K/mcL Sodium 137 (136-145) mEq/L Potassium 4.1 (3.5-5.1) mEq/L Chloride 101 (98-107) mEq/L Carbon Dioxide 27 (23-29) mEq/L BUN 13 (8-23) mg/dL Creatinine 0.71 (0.60-1.20) mg/dL Est GFR ( Amer) > 60 (> 60) Est GFR (Non-Af Amer) > 60 (> 60) BUN/Creatinine Ratio 18 (6-26) Glucose 320 H (70-105) mg/dL Calculated Osmolality 296 (280-300) Lactic Acid 2.5 H (0.5-2.2) mmol/L Calcium 8.9 (8.6-10.3) mg/dL B-Natriuretic Peptide (Less than 100) pg/mL 10/03/18 10/03/18 Range/Units 12:28 16:12 WBC (4.3-11.1) K/mcL RBC (3.82-4.97) M/mcL Hgb (11.5-15.4) g/dL Hct (35.3-44.9) % MCV (83.0-100.0) fL MCH (28.0-33.3) pg MCHC (31.6-35.5) g/dL RDW (11.5-14.5) % Plt Count (140-400) K/mcL MPV (9.4-12.4) fL Immature Gran % (0-4) % Seg Neutrophils % % Lymphocytes % % Monocytes % % Eosinophils % % Basophils % % Neutrophils # (1.6-8.9) K/mcL Lymphocytes # (0.6-4.6) K/mcL Monocytes # (0.0-1.3) K/mcL Eosinophils # (0.0-0.6) K/mcL Basophils # (0.0-0.2) K/mcL Sodium (136-145) mEq/L Potassium (3.5-5.1) mEq/L Chloride (98-107) mEq/L Carbon Dioxide (23-29) mEq/L BUN (8-23) mg/dL Creatinine (0.60-1.20) mg/dL Est GFR ( Amer) (> 60) Est GFR (Non-Af Amer) (> 60) BUN/Creatinine Ratio (6-26) Glucose (70-105) mg/dL Calculated Osmolality (280-300) Lactic Acid 1.8 (0.5-2.2) mmol/L Calcium (8.6-10.3) mg/dL B-Natriuretic Peptide 46 (Less than 100) pg/mL - Radiology Data Radiology results reviewed: Yes I reviewed the patient's radiology results. Chest X-Ray 10/03/18 12:30 IMPRESSION: Minimal atelectasis or infiltrate in the left lung base. No overt failure or pleural fluid. D/ / 10/03/2018 13:13:13 Emily Patel MD / [facility] Interpreting Provider: Emily Patel MD Lower Extremity CT 10/03/18 13:34 IMPRESSION: Extensive, diffuse subcutaneous fatty edema along with dermal thickening throughout the left lower extremity, compatible with cellulitis. That said, no rim enhancing fluid collections are identified to suggest abscess formation. Indeterminate circumscribed relatively low-density lesion seen just anterior to the left greater trochanter, seen as far back as 2016, only minimally increased in size. Given the stability, this likely represents a benign etiology such as loculated bursal fluid or remote hematoma. After resolution of acute symptoms, consider further evaluation with ultrasound to better characterize that. D/ / Michael Calix MD / Michael Calix MD Interpreting Provider: Michael Calix MD - EKG Data EKG attestation: Yes I reviewed and interpreted this EKG. EKG results narrative: EKG performed 10/03/18 at 12:43. Reviewed by myself and the attending. Sinus rhythm, rate 85, IL 195, QTC 425. There is no ST elevation or depression or T- wave changes or inversions to indicate acute ischemia. Unchanged from comparison EKG done 09/09/18. Attestation Statement - Attestation Attestation: I, Yves Segovia, examined this patient and my medical decision-making was reviewed with the FEATHER RENOVATOR/PA/Advanced Practice Nurse/Resident Physician. I agree with the documented findings, disposition and treatment plan as described except to the extent set forth below. 72-year-old female presents emergency Department with concerns of left lower extremity pain and swelling. Patient was recently diagnosed with cellulitis and is being treated with vancomycin via PICC line at the senior care facility. Patient states her symptoms initially improved and then has started to worsen over the past few days. She is sent emergency department for reevaluation. Patient had an elevated lactic acidosis, CT showed persistent and mildly worsened cellulitis without evidence of abscess. Patient will be admitted to hospitalist for further care and evaluation of her cellulitis and likely infectious disease consult.
[2018-10-03 12:44] LABS: Basophils # 0.1 K/mcL (0.0-0.2); Basophils % 0.7 %; Eosinophils # 0.9 K/mcL (0.0-0.6); Eosinophils % 9.1 %; Hematocrit 35.5 % (35.3-44.9); Hemoglobin 10.9 g/dL (11.5-15.4); Immature Granulocytes % 0.6 % (0-4); Lymphocytes # 1.6 K/mcL (0.6-4.6); Mean Corpuscular HGB Conc 30.7 g/dL (31.6-35.5); Mean Corpuscular Hemoglobin 27.9 pg (28.0-33.3); Mean Platelet Volume 9.7 fL (9.4-12.4); Monocytes # 0.6 K/mcL (0.0-1.3); Monocytes % 6.1 %; Neutrophils # 6.3 K/mcL (1.6-8.9); Platelet Count 245 K/mcL (140-400); Red Cell Distribution Width 17.2 % (11.5-14.5); Segmented Neutrophils % 66.5 %
[2018-10-03 13:10] LABS: BUN/Creatinine Ratio 18 (6-26); Blood Urea Nitrogen 13 mg/dL (8-23); Calcium 8.9 mg/dL (8.6-10.3); Carbon Dioxide 27 mEq/L (23-29); Chloride 101 mEq/L (98-107); Glucose 320 mg/dL (70-105); Osmolality,Calculated 296 (280-300); Potassium 4.1 mEq/L (3.5-5.1); Sodium 137 mEq/L (136-145); eGFR For Non-African Americans > 60 (> 60)
[2018-10-03] MEDS ORDERED: Isovue-370 500 ML BOTTLE IVP ONE (13:34)
[2018-10-03] MEDS ORDERED: Ondansetron 4 MG/2 ML VIAL IVP PRN (17:44)
[2018-10-03] MEDS ORDERED: Naloxone 0.4 MG/ML INJ IVP PRN (17:44)
[2018-10-03] MEDS ORDERED: D5% in Water 1,000 ML IVC PRN (17:46)
[2018-10-03] MEDS ORDERED: *HR* Dextrose 50 % in Water (Syg) 50 ML SYRINGE IVP PRN (17:46)
[2018-10-03] MEDS ORDERED: traMADol 50 MG TABLET PO PRN (17:46)
[2018-10-03] MEDS ORDERED: Dextrose Gel 15 GM/37.5 ML TUBE PO PRN ×2 (17:46)
--- NOTE | 2018-10-03 18:02 | Internal Med History&Physical ---
Date of Encounter: 10/03/18 Time of Encounter: 17:45 Internal Medicine - H&P: HPI Chief complaint: Left leg swelling and pain Admitted From: Long-term Nursing Facility History of present illness: Ms. Zamora is a 72 year old female with history of morbid obesity with BMI 55, COPD on 2L O2, diabetes, HFpEF, HTN, who presented from her nursing facility due to worsening left leg pain and swelling. Associated with redness. Of note, she was admitted in early September this year for similar complaints. Patient was discharged on oral Bactrim on 09/11 for a 10 day course but according to patient, her symptoms did not improve and the doctor at the nursing facility started her back on IV Vancomycin at the halfway. She states that she completed 1 course with IV Vanc but symptoms recurred hence the 2nd course of IV Vancomycin was started on 09/29. Despite that, her symptoms continue to progress hence came to the ED for further evaluation today. Denies any fever/chills, nausea/vomiting, chest pain, shortness of breath, orthopnea, or PND. No GI/ symptoms. In the ED, she was afebrile and hemodynamically stable. Workup was largely unremarkable except for mild lactate elevation of 2.5 which subsequently normalized. Normal WBC and Cr at her baseline. BNP 46. Patient was started on IV Clindamycin and admitted for further management. Past Med Surg Social Fam HX - Past Medical History Medical history: arthritis, asthma, CHF, COPD, coronary artery disease, diabetes, GERD, GI bleed, kidney stones, migraine, other Additional medical history: lymphedema BLE, umbilical hernia, neuropathy, home O2 [place] 2L, UTI, morbid obesity Psychiatric history: anxiety, depression - Past Surgical History Surgical History: appendectomy, cholecystectomy, hysterectomy, knee replacement, orthopedic, other, other, arthroscopy Additional surgical history: krista right knee replacement x2 , 6 knee scopes, D&C's. 2 left knee surgis. - Social History Smoking Status: Former smoker Smokeless Tobacco Status: No Alcohol use: none Drug use: none - Family History Mother Adopted: No Family Member Ethnicity: Non- Living Status: Hx Family Cardiac Disorders: Yes Hx Family Respiratory Disorders: Yes Hx Family Cancer: No Hx Family GI Disorders: Yes (ulcers) Hx Family Endocrine Disorder: Yes (Diabets) Hx Family Neuromuscular Disorders: No Hx Family Neurologic Disorders: No Hx Family HEENT Disorders: No Hx Family Autoimmune Disorders: No Father Hx Family Cardiac Disorders: Yes Hx Family Respiratory Disorders: Yes Hx Family Cancer: No Hx Family GI Disorders: No Hx Family Endocrine Disorder: Yes Hx Family Neuromuscular Disorders: No Hx Family Neurologic Disorders: No Hx Family HEENT Disorders: No Hx Family Autoimmune Disorders: No Internal Medicine - H&P: Meds Guaifenesin [Mucinex] 600 mg PO Q12H PRN 30 Days tab.er.12h 04/03/16 [Rx] Potassium Chloride [K-Tab ER] 20 meq PO DAILY 30 Days tablet.er 04/03/16 [Rx] Magnesium Oxide [Mag-Ox] 400 mg PO BID #30 tablet 05/30/16 [Rx] Furosemide [Lasix] 40 mg PO DAILY 06/10/16 [History] Metoprolol XL (24 HR) Succ [Toprol Xl] 25 mg PO DAILY 06/10/16 [History] L. Acidophilus/Pectin, [place] [Acidophilus Probiotic Capsule] 1 cap PO DAILY 09/02/16 [History] Sennosides/Docusate Sodium [Senna Plus] 2 tab PO BID PRN 09/02/16 [History] Ferrous Sulfate 325 mg PO DAILY 02/26/17 [History] Acetaminophen [Tylenol] 650 mg PO Q6H PRN 10/23/17 [History] Atorvastatin [Lipitor] 10 mg PO HS 10/23/17 [History] Apremilast [Otezla] 30 mg PO BID 04/21/18 [History] Insulin ASPART [NovoLOG] 5 unit SQ TID 04/21/18 [History] Isosorbide MONOnitrate (24 HR) [Imdur] 30 mg PO DAILY #30 tab.er.24h 04/23/18 [Rx] Fluticasone Propionate Nasal [Flonase] 1 spray NS DAILY 07/30/18 [History] Ipratropium/Albuterol Sulfate [Combivent Respimat Inhal [place]] 1 puff IN Q6H PRN 07/30/18 [History] Loratadine [Claritin] 10 mg PO DAILY PRN 07/30/18 [History] Melatonin 5 mg PO HS 07/30/18 [History] Venlafaxine XR (24 HR) [Effexor Xr] 150 mg PO HS 07/30/18 [History] Aspirin Enteric Coated [Aspirin EC] 81 mg PO DAILY 08/22/18 [History] GI Cocktail [Gi Cocktail] 40 ml PO BID PRN 08/22/18 [History] Insulin Glargine [Lantus] 45 unit SQ BID 08/22/18 [History] Ipratropium/Albuterol Sulfate [Iprat-Albut 0.5-3(2.5) mg/3 ml] 3 ml IH QID PRN 08/22/18 [History] Loperamide [Imodium] 4 mg PO DAILY PRN 08/22/18 [History] Omeprazole [PriLOSEC] 20 mg PO DAILY 08/22/18 [History] Dextran 70/Hypromellose [Natural Balance Tears Eye Drop] 1 drop BOTH EYES BID PRN 09/09/18 [History] Nystatin POWDER [Nystop] 1 appl TP AD 09/09/18 [History] Scopolamine [Transderm-Scop] 1 each TD Q72H PRN 09/09/18 [History] Allergy/AdvReac Type Severity Reaction Status Date / Time fentanyl Allergy Itching Verified 04/19/18 22:46 gentamicin AdvReac See Verified 10/23/17 19:31 Comments All Systems PM: A 10-system review of systems was performed and is negative for pertinent findings except as documented above in the HPI. - Constitutional Vitals: Temp Pulse Resp BP Pulse Ox 98.3 F 84 16 128/68 93 10/03/18 12:14 10/03/18 17:34 10/03/18 17:34 10/03/18 17:34 10/03/18 17:34 Exam: General: Alert and oriented, not in acute distress. Morbidly obese female HEENT:EOMI, pupils equal, round and reactive. Cardiovascular: Distant heart sounds. Normal S1 & S2, No JVD. Pulse regular. Lungs: clear to auscultation, no wheezes/rales Abdomen:Soft, non-tender, no rigidity. Extremities: Chronic lower extremity lymphedema noted bilaterally but L LE has areas of redness, warmth and tenderness along the lower anterior vazquez. No fluctuance or discharges noted Neurological:Normal cognition and motor skills. Non-focal Skin: Warm and dry Pulses:Carotid and radial pulses normal +2. Rest of the physical exam is non contributory Internal Med - H&P Results - Labs CBC & Chem 7: 05/24/19 12:28 10/03/18 12:28 Labs: Short CBC 10/03/18 Range/Units 12:28 WBC 9.5 (4.3-11.1) K/mcL Hgb 10.9 L (11.5-15.4) g/dL Hct 35.5 (35.3-44.9) % Plt Count 245 (140-400) K/mcL Neutrophils # 6.3 (1.6-8.9) K/mcL BMP 10/03/18 12:28 Sodium 137 Potassium 4.1 Chloride 101 Carbon Dioxide 27 BUN 13 Creatinine 0.71 Glucose 320 H Calcium 8.9 - Impressions ITS Impressions Chest X-Ray 10/03/18 12:30 IMPRESSION: Minimal atelectasis or infiltrate in the left lung base. No overt failure or pleural fluid. D/ / 10/03/2018 13:13:13 Emily Patel MD / [facility] Interpreting Provider: Emily Patel MD Lower Extremity CT 10/03/18 13:34 IMPRESSION: Extensive, diffuse subcutaneous fatty edema along with dermal thickening throughout the left lower extremity, compatible with cellulitis. That said, no rim enhancing fluid collections are identified to suggest abscess formation. Indeterminate circumscribed relatively low-density lesion seen just anterior to the left greater trochanter, seen as far back as 2016, only minimally increased in size. Given the stability, this likely represents a benign etiology such as loculated bursal fluid or remote hematoma. After resolution of acute symptoms, consider further evaluation with ultrasound to better characterize that. D/ / Michael Calix MD / Michael Calix MD Interpreting Provider: Michael Calix MD - Assessment and Plan (1) Cellulitis of left lower extremity Current Visit: Yes Status: Acute Assessment and plan: Recurrent admission for left lower leg cellulitis, was discharged on oral Bactrim earlier this month However, patient had worsening symptoms at the nursing facility prompting 2 rounds of IV vancomycin for the last [address] demonstrated findings compatible with cellulitis but did not show any evidence of abscess also showed low density lesion just anterior to L GT ? 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 transplanted heart: [place] heart Associated angina: with stable angina Qualified Code(s): I25.118 - Atherosclerotic heart disease of [place] coronary artery with other forms of angina pectoris (5) GERD (gastroesophageal reflux disease) Current Visit: No Status: Chronic Assessment and plan: Resume home meds once reconciled Qualifiers: Esophagitis presence: esophagitis presence not specified Qualified Code(s): K21.9 - Gastro-esophageal reflux disease without esophagitis (6) Chronic diastolic (congestive) heart failure Current Visit: No Status: Chronic Assessment and plan: not in decompensation, resume home dose of lasix once verified (7) Morbid obesity Current Visit: No Status: Chronic Assessment and plan: Lifestyle modifications emphasized (8) DVT prophylaxis Current Visit: No Status: Acute Assessment and plan: SQ heparin - Time Spent With Patient Total time spent is greater than 50% in coordination of care (as documented) at patient's floor/unit and/or counseling patient: 25 - 35 minutes
[2018-10-03] MEDS ORDERED: Ipratropium/Albuterol Neb 3 ML IH PRN (18:06)
[2018-10-03] MEDS: *HR* Heparin 5,000 UNIT/ML VIAL SQ SCH (21:22)
[2018-10-03] MEDS: Insulin LISPRO 300 UNITS/3 ML VIAL SQ SCH (22:54)
[2018-10-04] MEDS ORDERED: Clindamycin 600 MG/50 ML 600 MG/50 ML IV.SOLN IVPB SCH
[2018-10-04] MEDS: Piperacillin/Tazobactam 3.375 GM in 0.9 % Sodium Chloride Mini Bag 100 ML IVPB SCH ×3 (00:16→15:51)
[2018-10-04] MEDS: *HR* HYDROcodone/Acet 5/325 mg TABLET PO PRN ×2 (00:24→09:02)
[2018-10-04] MEDS: Acetaminophen 325 MG TABLET PO PRN (03:41)
[2018-10-04] MEDS: *HR* Heparin 5,000 UNIT/ML VIAL SQ SCH ×3 (06:24→21:45)
[2018-10-04 06:39] LABS: Basophils # 0.1 K/mcL (0.0-0.2); Basophils % 0.7 %; Eosinophils # 0.8 K/mcL (0.0-0.6); Eosinophils % 9.6 %; Hematocrit 34.9 % (35.3-44.9); Immature Granulocytes % 0.7 % (0-4); Lymphocytes # 1.8 K/mcL (0.6-4.6); Lymphocytes % 21.5 %; Mean Corpuscular HGB Conc 31.5 g/dL (31.6-35.5); Mean Corpuscular Hemoglobin 28.4 pg (28.0-33.3); Mean Corpuscular Volume 90.2 fL (83.0-100.0); Mean Platelet Volume 9.7 fL (9.4-12.4); Monocytes # 0.6 K/mcL (0.0-1.3); Monocytes % 6.6 %; Neutrophils # 5.2 K/mcL (1.6-8.9); Platelet Count 244 K/mcL (140-400); Red Blood Count 3.87 M/mcL (3.82-4.97); Red Cell Distribution Width 17.4 % (11.5-14.5); Segmented Neutrophils % 60.9 %
[2018-10-04 07:00] LABS: BUN/Creatinine Ratio 17 (6-26); Blood Urea Nitrogen 13 mg/dL (8-23); Calcium 9.1 mg/dL (8.6-10.3); Carbon Dioxide 28 mEq/L (23-29); Chloride 102 mEq/L (98-107); Glucose 274 mg/dL (70-105); Osmolality,Calculated 298 (280-300); Potassium 3.8 mEq/L (3.5-5.1); Sodium 139 mEq/L (136-145); eGFR For Non-African Americans > 60 (> 60)
[2018-10-04] MEDS ORDERED: Scopolamine Patch 1.5 MG PATCH.TD72 TD PRN (07:33)
[2018-10-04] MEDS ORDERED: Sennosides/Docusate Sodium TABLET PO PRN (07:33)
[2018-10-04] MEDS ORDERED: GI Cocktail 40 ML EACH PO PRN (07:33)
[2018-10-04] MEDS ORDERED: Loratadine 10 MG TABLET PO PRN (07:33)
[2018-10-04] MEDS ORDERED: Artificial Tears SOLN 15 ML BOTTLE BOTH EYES PRN (07:33)
[2018-10-04] MEDS: Magnesium Oxide 400 MG TABLET PO SCH ×2 (08:54→21:44)
[2018-10-04] MEDS: Metoprolol XL (24 HR) Succ 25 MG TAB.ER.24H PO SCH (08:54)
[2018-10-04] MEDS: Isosorbide MONOnitrate (24 HR) 30 MG TAB.ER.24H PO SCH (08:54)
[2018-10-04] MEDS: Aspirin Enteric Coated 81 MG Tablet PO SCH (08:54)
[2018-10-04] MEDS: Gabapentin 300 MG CAPSULE PO SCH ×3 (08:54→21:44)
[2018-10-04] MEDS: Furosemide 40 MG TABLET PO SCH (08:54)
[2018-10-04] MEDS: Insulin LISPRO 300 UNITS/3 ML VIAL SQ SCH ×4 (08:56→21:45)
[2018-10-04] MEDS: Nystatin POWDER 30 GM BOTTLE TP SCH ×3 (09:17→21:45)
[2018-10-04] MEDS: Fluticasone Propionate Nasal 50 MCG/SPRAY BOTTLE NS SCH (09:17)
[2018-10-04] MEDS: Insulin DETEMIR 100 UNIT/ML X5UNITS SQ SCH ×2 (09:39→21:56)
--- NOTE | 2018-10-04 11:30 | Internal Med Progress Note ---
Hospitalist Progress Note - Encounter Date of Encounter: 10/04/18 Time of Encounter: 10:00 - Subjective Interval History: States that her leg feels about the same as yesterday. No fever, nausea/vomiting, chest pain, or shortness of breath. - Exam Vitals: Temp Pulse Resp BP Pulse Ox 98.1 F 85 16 152/78 97 10/04/18 07:32 10/04/18 07:32 10/04/18 07:32 10/04/18 07:32 10/04/18 07:32 Exam: General: Alert and oriented, not in acute distress. Morbidly obese female Cardiovascular: Distant heart sounds. Normal S1 & S2, No JVD. Pulse regular. Lungs: clear to auscultation, no wheezes/rales Abdomen:Soft, non-tender, no rigidity. Extremities: Chronic lower extremity lymphedema noted bilaterally with areas of redness on distal LLE anterior, warmth and tenderness along the lower anterior vazquez which is marginally better than yesterday. No fluctuance or discharges n oted Neurological:Normal cognition and motor skills. Non-focal - Assessment and Plan (1) Cellulitis of left lower extremity Current Visit: Yes Status: Acute Assessment and Plan: Recurrent admission for left lower leg cellulitis, was discharged on oral Bactrim earlier this month However, patient had worsening symptoms at the nursing facility prompting 2 rounds of IV vancomycin for the last [address] demonstrated findings compatible with cellulitis but did not show any evidence of abscess also showed low density lesion just anterior to L GT ? Loculated bursal fluid or remote hematoma given the lack of improvement on IV Vancomycin, pt was started on zyvox and zosyn. Continue D2 outpatient follow up with US for low density lesion on L GT (2) Diabetes mellitus Current Visit: No Status: Chronic Assessment and Plan: Will cover with moderate dose sliding scale add levemir 10U BID (3) COPD (chronic obstructive pulmonary disease) Current Visit: No Status: Chronic Assessment and Plan: Not in exacerbation, when necessary DuoNeb (4) CAD (coronary artery disease) Current Visit: No Status: Chronic Assessment and Plan: home meds resumed (5) GERD (gastroesophageal reflux disease) Current Visit: No Status: Chronic Assessment and Plan: home meds resumed (6) Chronic diastolic (congestive) heart failure Current Visit: No Status: Chronic Assessment and Plan: not in decompensation, home dose of lasix resumed (7) Morbid obesity Current Visit: No Status: Chronic Assessment and Plan: Lifestyle modifications emphasized (8) DVT prophylaxis Current Visit: No Status: Acute Assessment and Plan: SQ heparin - Time Spent with Patient Total time spent is greater than 50% in coordination of care (as documented) at patient's floor/unit and/or counseling patient: 25 - 35 minutes Plan of Care Discussed with: patient (discussed with RN) Internal Medicine: Result - Labs CBC & Chem 7: 10/04/18 06:12 10/04/18 06:12 Labs: Short CBC 10/03/18 10/04/18 Range/Units 12:28 06:12 WBC 9.5 8.5 (4.3-11.1) K/mcL Hgb 10.9 L 11.0 L (11.5-15.4) g/dL Hct 35.5 34.9 L (35.3-44.9) % Plt Count 245 244 (140-400) K/mcL Neutrophils # 6.3 5.2 (1.6-8.9) K/mcL BMP 10/03/18 10/04/18 12:28 06:12 Sodium 137 139 Potassium 4.1 3.8 Chloride 101 102 Carbon Dioxide 27 28 BUN 13 13 Creatinine 0.71 0.76 Glucose 320 H 274 H Calcium 8.9 9.1 - Impressions Impressions Chest X-Ray 10/03/18 12:30 IMPRESSION: Minimal atelectasis or infiltrate in the left lung base. No overt failure or pleural fluid. D/ / 10/03/2018 13:13:13 Emily Patel MD / [facility] Interpreting Provider: Emily Patel MD Lower Extremity CT 10/03/18 13:34 IMPRESSION: Extensive, diffuse subcutaneous fatty edema along with dermal thickening throughout the left lower extremity, compatible with cellulitis. That said, no rim enhancing fluid collections are identified to suggest abscess formation. Indeterminate circumscribed relatively low-density lesion seen just anterior to the left greater trochanter, seen as far back as 2016, only minimally increased in size. Given the stability, this likely represents a benign etiology such as loculated bursal fluid or remote hematoma. After resolution of acute symptoms, consider further evaluation with ultrasound to better characterize that. 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 transplanted heart: [place] heart Associated angina: with stable angina Qualified Code(s): I25.118 - Atherosclerotic heart disease of [place] coronary artery with other forms of angina pectoris (5) GERD (gastroesophageal reflux disease) Qualifiers: Esophagitis presence: esophagitis presence not specified Qualified Code(s): K21.9 - Gastro-esophageal reflux disease without esophagitis
--- NOTE | 2018-10-04 19:26 | Electrocardiograph Report ---
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
[2018-10-04] MEDS: *HR* HYDROcodone/Acet 10/325 mg TABLET PO PRN (21:44)
[2018-10-04] MEDS: Venlafaxine XR (24 HR) 150 MG CAP.ER.24H PO SCH (21:44)
[2018-10-04] MEDS: Melatonin 3 MG TABLET PO SCH (21:44)
[2018-10-05] MEDS: Piperacillin/Tazobactam 3.375 GM in 0.9 % Sodium Chloride Mini Bag 100 ML IVPB SCH ×3 (00:28→15:05)
[2018-10-05] MEDS: Acetaminophen 325 MG TABLET PO PRN (00:38)
[2018-10-05] MEDS: *HR* Heparin 5,000 UNIT/ML VIAL SQ SCH ×3 (06:01→20:09)
[2018-10-05] MEDS: Insulin LISPRO 300 UNITS/3 ML VIAL SQ SCH ×4 (08:14→20:13)
[2018-10-05] MEDS: Fluticasone Propionate Nasal 50 MCG/SPRAY BOTTLE NS SCH (08:16)
[2018-10-05] MEDS: Magnesium Oxide 400 MG TABLET PO SCH ×2 (08:16→20:07)
[2018-10-05] MEDS: Gabapentin 300 MG CAPSULE PO SCH ×3 (08:16→20:07)
[2018-10-05] MEDS: Isosorbide MONOnitrate (24 HR) 30 MG TAB.ER.24H PO SCH (08:16)
[2018-10-05] MEDS: Furosemide 40 MG TABLET PO SCH (08:17)
[2018-10-05] MEDS: Metoprolol XL (24 HR) Succ 25 MG TAB.ER.24H PO SCH (08:17)
[2018-10-05] MEDS: Aspirin Enteric Coated 81 MG Tablet PO SCH (08:17)
[2018-10-05] MEDS: Nystatin POWDER 30 GM BOTTLE TP SCH ×2 (08:20→21:06)
[2018-10-05] MEDS: *HR* HYDROcodone/Acet 10/325 mg TABLET PO PRN ×2 (08:30→20:11)
[2018-10-05] MEDS: Insulin DETEMIR 100 UNIT/ML X5UNITS SQ SCH ×2 (10:18→21:06)
--- NOTE | 2018-10-05 11:19 | Internal Med Progress Note ---
Hospitalist Progress Note - Encounter Date of Encounter: 10/05/18 Time of Encounter: 09:00 - Subjective Interval History: Reports improvement in her left leg discomfort and redness. No fever overnight - Exam Vitals: Temp Pulse Resp BP Pulse Ox 97.9 F 86 16 151/74 93 10/05/18 07:33 10/05/18 07:33 10/05/18 07:33 10/05/18 07:33 10/05/18 07:33 Exam: General: Alert and oriented, not in acute distress. Morbidly obese female Cardiovascular: Distant heart sounds. Normal S1 & S2, No JVD. Pulse regular. Lungs: clear to auscultation, no wheezes/rales Abdomen:Soft, non-tender, no rigidity. Extremities: Chronic lower extremity lymphedema noted bilaterally with areas of redness on distal LLE anteriorly, decreasing in size. Warmth and tenderness along the lower anterior vazquez is also better. No fluctuance or discharges noted Neurological:Normal cognition and motor skills. Non-focal - Assessment and Plan (1) Cellulitis of left lower extremity Current Visit: Yes Status: Acute Assessment and Plan: Recurrent admission for left lower leg cellulitis, was discharged on oral Bactrim earlier this month However, patient had worsening symptoms at the nursing facility prompting 2 rounds of IV vancomycin for the last [address] demonstrated findings compatible with cellulitis but did not show any evidence of abscess also showed low density lesion just anterior to L GT ? Loculated bursal fluid or remote hematoma given the lack of improvement on IV Vancomycin, pt was started on zyvox and zosyn. Continue D3 anticipate dc tomorrow, will verify with correction regarding the frequency of IV abx that they can manage there. RN informed outpatient follow up with US for low density lesion on L GT (2) Diabetes mellitus Current Visit: No Status: Chronic Assessment and Plan: poorly controlled, increase levemir to 25U BID cover with moderate dose sliding scale (3) COPD (chronic obstructive pulmonary disease) Current Visit: No Status: Chronic Assessment and Plan: Not in exacerbation, when necessary DuoNeb (4) CAD (coronary artery disease) Current Visit: No Status: Chronic Assessment and Plan: home meds resumed (5) GERD (gastroesophageal reflux disease) Current Visit: No Status: Chronic Assessment and Plan: home meds resumed (6) Chronic diastolic (congestive) heart failure Current Visit: No Status: Chronic Assessment and Plan: not in decompensation, home dose of lasix resumed (7) Morbid obesity Current Visit: No Status: Chronic Assessment and Plan: Lifestyle modifications emphasized (8) DVT prophylaxis Current Visit: No Status: Acute Assessment and Plan: SQ heparin - Time Spent with Patient Total time spent is greater than 50% in coordination of care (as documented) at patient's floor/unit and/or counseling patient: 25 - 35 minutes Plan of Care Discussed with: patient (discussed with RN) Internal Medicine: Result - Labs CBC & Chem 7: 10/04/18 06:12 10/04/18 06:12 - Impressions Impressions Chest X-Ray 10/03/18 12:30 IMPRESSION: Minimal atelectasis or infiltrate in the left lung base. No overt failure or pleural fluid. 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 transplanted heart: [place] heart Associated angina: with stable angina Qualified Code(s): I25.118 - Atherosclerotic heart disease of [place] coronary artery with other forms of angina pectoris (5) GERD (gastroesophageal reflux disease) Qualifiers: Esophagitis presence: esophagitis presence not specified Qualified Code(s): K21.9 - Gastro-esophageal reflux disease without esophagitis
[2018-10-05] MEDS: Melatonin 3 MG TABLET PO SCH (20:07)
[2018-10-05] MEDS: Venlafaxine XR (24 HR) 150 MG CAP.ER.24H PO SCH (20:07)
[2018-10-06] MEDS: Piperacillin/Tazobactam 3.375 GM in 0.9 % Sodium Chloride Mini Bag 100 ML IVPB SCH ×2 (00:01→08:52)
[2018-10-06] MEDS: Acetaminophen 325 MG TABLET PO PRN (00:01)
[2018-10-06] MEDS: *HR* Heparin 5,000 UNIT/ML VIAL SQ SCH (05:11)
[2018-10-06 08:08] VITALS: BP 131/72
[2018-10-06] MEDS: Insulin LISPRO 300 UNITS/3 ML VIAL SQ SCH ×2 (08:48→12:48)
[2018-10-06] MEDS: Fluticasone Propionate Nasal 50 MCG/SPRAY BOTTLE NS SCH (08:48)
[2018-10-06] MEDS: *HR* HYDROcodone/Acet 10/325 mg TABLET PO PRN (08:49)
[2018-10-06] MEDS: Magnesium Oxide 400 MG TABLET PO SCH (08:50)
[2018-10-06] MEDS: Nystatin POWDER 30 GM BOTTLE TP SCH (08:50)
[2018-10-06] MEDS: Isosorbide MONOnitrate (24 HR) 30 MG TAB.ER.24H PO SCH (08:50)
[2018-10-06] MEDS: Metoprolol XL (24 HR) Succ 25 MG TAB.ER.24H PO SCH (08:51)
[2018-10-06] MEDS: Aspirin Enteric Coated 81 MG Tablet PO SCH (08:51)
[2018-10-06] MEDS: Gabapentin 300 MG CAPSULE PO SCH (08:51)
[2018-10-06] MEDS: Furosemide 40 MG TABLET PO SCH (08:51)
[2018-10-06] MEDS ORDERED: Insulin DETEMIR 100 UNIT/ML X5UNITS SQ SCH (09:00)
--- NOTE | 2018-10-06 10:35 | Discharge Summary ---
- NOTES TO OUTPATIENT PROVIDER Notes to Outpatient Provider: Complete a course of Zyvox and Levaquin. Hold off on Effexor while she is on zyvox. While [place] is being continued as it is her chronic medication, please try to use alternative agents for pain due to its potential interaction with Zyvox. 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 transplanted heart: [place] heart Associated angina: with stable angina Qualified Code(s): I25.118 - Atherosclerotic heart disease of [place] coronary artery with other forms of angina pectoris (5) GERD (gastroesophageal reflux disease) Priority: Secondary Status: Chronic Qualifiers: Esophagitis presence: esophagitis presence not specified Qualified Code(s): K21.9 - Gastro-esophageal reflux disease without esophagitis (6) Chronic diastolic (congestive) heart failure Priority: Secondary Status: Chronic (7) Morbid obesity Priority: Secondary Status: Chronic (8) DVT prophylaxis Priority: Secondary Status: Acute Hospital course: Ms. Zamora is a 72 year old female with history of morbid obesity with BMI 55, COPD on 2L O2, diabetes, HFpEF, HTN, who was admitted for L LE cellulitis after being through 2 courses of IV VAncomycin at the nursing facility. No evidence of abscess or bony involvement on CT. Clinically improved with Zyvox and Zosyn and will be discharged on PO zyvox/levaquin for a total of 7 days. Effexor is on hold while pt is on zyvox and please avoid opioids at all cost (Although it is her home medications which is being resumed) due to its potential interaction with zyvox as well. Discharge discussed with: patient, nurse, other (nursing staff at [facility]) - Time Spent with Patient Total time spent providing and/or coordinating discharge services: 32 mins - Discharge Medications Prescriptions: New levoFLOXacin [Levaquin] 750 mg PO DAILY #4 tablet Linezolid [Zyvox] 600 mg PO BID 4 Days #8 tablet Continued Magnesium Oxide [Mag-Ox] 400 mg PO BID #30 tablet Metoprolol XL (24 HR) Succ [Toprol Xl] 25 mg PO DAILY Furosemide [Lasix] 40 mg PO DAILY L. Acidophilus/Pectin, [place] [Acidophilus Probiotic Capsule] 1 cap PO DAILY Sennosides/Docusate Sodium [Senna Plus] 2 tab PO BID PRN PRN Reason: Constipation Ferrous Sulfate 325 mg PO DAILY Acetaminophen [Tylenol] 650 mg PO Q6H PRN PRN Reason: Pain Atorvastatin [Lipitor] 10 mg PO HS Insulin ASPART [NovoLOG] 5 unit SQ TID Isosorbide MONOnitrate (24 HR) [Imdur] 30 mg PO DAILY #30 tab.er.24h Melatonin 5 mg PO HS Ipratropium/Albuterol Sulfate [Combivent Respimat Inhal [place]] 1 puff IN Q6H PRN PRN Reason: Shortness Of Breath Loratadine [Claritin] 10 mg PO DAILY PRN PRN Reason: allergies Fluticasone Propionate Nasal [Flonase] 1 spray NS DAILY Aspirin Enteric Coated [Aspirin EC] 81 mg PO DAILY GI Cocktail [Gi Cocktail] 40 ml PO BID PRN PRN Reason: GERD Insulin Glargine [Lantus] 45 unit SQ BID Ipratropium/Albuterol Sulfate [Iprat-Albut 0.5-3(2.5) mg/3 ml] 3 ml IH QID PRN PRN Reason: Shortness Of Breath Loperamide [Imodium] 4 mg PO DAILY PRN PRN Reason: Diarrhea Omeprazole [PriLOSEC] 20 mg PO DAILY Dextran 70/Hypromellose [Natural Balance Tears Eye Drop] 1 drop BOTH EYES BID PRN PRN Reason: Dry Eyes Nystatin POWDER [Nystop] 1 appl TP BID Gabapentin [Neurontin] 300 mg PO TID Potassium Chloride [K-Tab ER] 20 meq PO DAILY Scopolamine Patch [Transderm-Scop] 1.5 mg TD Q72H PRN PRN Reason: INCREASED SECRETION OF GLUCAGO Guaifenesin [Mucinex] 600 mg PO Q12H PRN PRN Reason: Cough HYDROcodone/Acet 10/325 mg [[place] 10-325 mg] 1 tab PO QID PRN 4 Days #12 tablet PRN Reason: Pain Discontinued Venlafaxine XR (24 HR) [Effexor Xr] 150 mg PO HS Vancomycin/0.9 % Sod Chloride [Vancomycin HCl 1G/200 ml Bag] 1 gm IV BID Home Medications: Magnesium Oxide [Mag-Ox] 400 mg PO BID #30 tablet 05/30/16 [Rx] Furosemide [Lasix] 40 mg PO DAILY 06/10/16 [History] Metoprolol XL (24 HR) Succ [Toprol Xl] 25 mg PO DAILY 06/10/16 [History] L. Acidophilus/Pectin, [place] [Acidophilus Probiotic Capsule] 1 cap PO DAILY 09/02/16 [History] Sennosides/Docusate Sodium [Senna Plus] 2 tab PO BID PRN 09/02/16 [History] Ferrous Sulfate 325 mg PO DAILY 02/26/17 [History] Acetaminophen [Tylenol] 650 mg PO Q6H PRN 10/23/17 [History] Atorvastatin [Lipitor] 10 mg PO HS 10/23/17 [History] Insulin ASPART [NovoLOG] 5 unit SQ TID 04/21/18 [History] Isosorbide MONOnitrate (24 HR) [Imdur] 30 mg PO DAILY #30 tab.er.24h 04/23/18 [Rx] Fluticasone Propionate Nasal [Flonase] 1 spray NS DAILY 07/30/18 [History] Ipratropium/Albuterol Sulfate [Combivent Respimat Inhal [place]] 1 puff IN Q6H PRN 07/30/18 [History] Loratadine [Claritin] 10 mg PO DAILY PRN 07/30/18 [History] Melatonin 5 mg PO HS 07/30/18 [History] Aspirin Enteric Coated [Aspirin EC] 81 mg PO DAILY 08/22/18 [History] GI Cocktail [Gi Cocktail] 40 ml PO BID PRN 08/22/18 [History] Insulin Glargine [Lantus] 45 unit SQ BID 08/22/18 [History] Ipratropium/Albuterol Sulfate [Iprat-Albut 0.5-3(2.5) mg/3 ml] 3 ml IH QID PRN 08/22/18 [History] Loperamide [Imodium] 4 mg PO DAILY PRN 08/22/18 [History] Omeprazole [PriLOSEC] 20 mg PO DAILY 08/22/18 [History] Dextran 70/Hypromellose [Natural Balance Tears Eye Drop] 1 drop BOTH EYES BID PRN 09/09/18 [History] Nystatin POWDER [Nystop] 1 appl TP BID 09/09/18 [History] Gabapentin [Neurontin] 300 mg PO TID 10/03/18 [History] Guaifenesin [Mucinex] 600 mg PO Q12H PRN 10/03/18 [History] Potassium Chloride [K-Tab ER] 20 meq PO DAILY 10/03/18 [History] Scopolamine Patch [Transderm-Scop] 1.5 mg TD Q72H PRN 10/03/18 [History] HYDROcodone/Acet 10/325 mg [[place] 10-325 mg] 1 tab PO QID PRN 4 Days #12 tablet 10/06/18 [Rx] Linezolid [Zyvox] 600 mg PO BID 4 Days #8 tablet 10/06/18 [Rx] levoFLOXacin [Levaquin] 750 mg PO DAILY #4 tablet 10/06/18 [Rx] Allergies/Adverse Reactions: Allergy/AdvReac Type Severity Reaction Status Date / Time fentanyl Allergy Itching Verified 04/19/18 22:46 gentamicin AdvReac See Verified 10/23/17 19:31 Comments Date of admission: 10/05/18 18:09 Primary care physician: Gideon Lundberg MD - Constitutional Vitals: Temp Pulse Resp BP Pulse Ox 97.8 F 83 16 131/72 96 10/06/18 08:02 10/06/18 08:02 10/06/18 08:02 10/06/18 08:02 10/06/18 08:02 Exam: General: Alert and oriented, not in acute distress. Morbidly obese female Cardiovascular: Distant heart sounds. Normal S1 & S2, No JVD. Pulse regular. Lungs: clear to auscultation, no wheezes/rales Abdomen:Soft, non-tender, no rigidity. Extremities: Chronic lower extremity lymphedema noted bilaterally. Improving areas of redness on distal LLE anteriorly. Decreased warmth and tenderness as well Neurological:Normal cognition and motor skills. Non-focal - Patient Status Disposition: Transfer SNF Condition: Critical Overall status at discharge: patient is progressing back to baseline - Discharge Instructions Instructions: Cellulitis (DC), Chronic Obstructive Pulmonary Disease (DC), Diabetes Mellitus Type 2 in Adults (DC) Follow Up With: Gideon Lundberg MD [Primary Care Provider] - - Diet and Activity Activity: resume usual activities as tolerated Diet: diabetic diet, low salt diet
--- NOTE | 2018-10-06 10:41 | Physician Discharge Referral ---
ExtendedCare Referral Info Institutional Level of Care: Skilled - Diagnosis (1) Cellulitis of left lower extremity Priority: Primary Status: Acute (2) Diabetes mellitus Priority: Secondary Status: Chronic (3) COPD (chronic obstructive pulmonary disease) Priority: Secondary Status: Chronic (4) CAD (coronary artery disease) Priority: Secondary Status: Chronic (5) GERD (gastroesophageal reflux disease) Priority: Secondary Status: Chronic (6) Chronic diastolic (congestive) heart failure Priority: Secondary Status: Chronic (7) Morbid obesity Priority: Secondary Status: Chronic (8) DVT prophylaxis Priority: Secondary Status: Acute - Transfer Medications Prescriptions: levoFLOXacin [Levaquin] 750 mg PO DAILY #4 tablet HYDROcodone/Acet 10/325 mg [[place] 10-325 mg] 1 tab PO QID PRN 4 Days #12 tablet PRN Reason: Pain Linezolid [Zyvox] 600 mg PO BID 4 Days #8 tablet Home Medications: Magnesium Oxide [Mag-Ox] 400 mg PO BID #30 tablet 05/30/16 [Rx] Furosemide [Lasix] 40 mg PO DAILY 06/10/16 [History] Metoprolol XL (24 HR) Succ [Toprol Xl] 25 mg PO DAILY 06/10/16 [History] L. Acidophilus/Pectin, [place] [Acidophilus Probiotic Capsule] 1 cap PO DAILY 09/02/16 [History] Sennosides/Docusate Sodium [Senna Plus] 2 tab PO BID PRN 09/02/16 [History] Ferrous Sulfate 325 mg PO DAILY 02/26/17 [History] Acetaminophen [Tylenol] 650 mg PO Q6H PRN 10/23/17 [History] Atorvastatin [Lipitor] 10 mg PO HS 10/23/17 [History] Insulin ASPART [NovoLOG] 5 unit SQ TID 04/21/18 [History] Isosorbide MONOnitrate (24 HR) [Imdur] 30 mg PO DAILY #30 tab.er.24h 04/23/18 [Rx] Fluticasone Propionate Nasal [Flonase] 1 spray NS DAILY 07/30/18 [History] Ipratropium/Albuterol Sulfate [Combivent Respimat Inhal [place]] 1 puff IN Q6H PRN 07/30/18 [History] Loratadine [Claritin] 10 mg PO DAILY PRN 07/30/18 [History] Melatonin 5 mg PO HS 07/30/18 [History] Aspirin Enteric Coated [Aspirin EC] 81 mg PO DAILY 08/22/18 [History] GI Cocktail [Gi Cocktail] 40 ml PO BID PRN 08/22/18 [History] Insulin Glargine [Lantus] 45 unit SQ BID 08/22/18 [History] Ipratropium/Albuterol Sulfate [Iprat-Albut 0.5-3(2.5) mg/3 ml] 3 ml IH QID PRN 08/22/18 [History] Loperamide [Imodium] 4 mg PO DAILY PRN 08/22/18 [History] Omeprazole [PriLOSEC] 20 mg PO DAILY 08/22/18 [History] Dextran 70/Hypromellose [Natural Balance Tears Eye Drop] 1 drop BOTH EYES BID PRN 09/09/18 [History] Nystatin POWDER [Nystop] 1 appl TP BID 09/09/18 [History] Gabapentin [Neurontin] 300 mg PO TID 10/03/18 [History] Guaifenesin [Mucinex] 600 mg PO Q12H PRN 10/03/18 [History] Potassium Chloride [K-Tab ER] 20 meq PO DAILY 10/03/18 [History] Scopolamine Patch [Transderm-Scop] 1.5 mg TD Q72H PRN 10/03/18 [History] HYDROcodone/Acet 10/325 mg [[place] 10-325 mg] 1 tab PO QID PRN 4 Days #12 tablet 10/06/18 [Rx] Linezolid [Zyvox] 600 mg PO BID 4 Days #8 tablet 10/06/18 [Rx] levoFLOXacin [Levaquin] 750 mg PO DAILY #4 tablet 10/06/18 [Rx] Allergies/Adverse Reactions: Allergy/AdvReac Type Severity Reaction Status Date / Time fentanyl Allergy Itching Verified 04/19/18 22:46 gentamicin AdvReac See Verified 10/23/17 19:31 Comments - Respiratory Orders Smoking Cessation: Smoking cessation has been advised. For more information, call the [place] Tobacco Quit Line at 2-363-FMHD-NOW. - Rehabiliation Orders Rehab Orders: Evaluation for Physical Therapy, Evaluation for Occupational Therapy - Treatments List/Other: zyvox and levaquin for 4 additional days Hold effexor while on Zyvox Please try to use alternative medication for pain other than norco due to its potential interaction with zyvox as well - Diet Orders No Concentrated Sweets CERTIFICATION: I certify that the transfer of the above named patient to an Extended Care Facility is necessary for the continuing treatment of the diagnosis listed. The above information is true and accurate reflection of patient's current condition. Confidential - Redisclosure prohibited without a patient's written consent.
== END 2018-10-06 13:24 | DRG 603 ==
LOC: EMEROOARM 12:11 → 3ANU 12:11 → SUATTDRO 17:55 → 3ANU 19:34
PROVIDERS: ADMIT Internal Medicine Nephrology; ATTEND Internal Medicine

== ENCOUNTER 2018-10-31 08:08 | Inpatient (IN) ==
[2018-10-31] MEDS ORDERED: Piperacillin/Tazobactam 3.375 GM in Water for inj. (sterile) 20 ML IVP ONE (08:14)
[2018-10-31] MEDS ORDERED: 0.9 % Sodium Chloride 1,000 ML IVC ONE ×2 (08:14→09:34)
--- NOTE | 2018-10-31 08:18 | Emergency Department Note ---
Disposition Clinical Impression: Sepsis Qualifiers: Sepsis type: sepsis due to unspecified organism Qualified Code(s): A41.9 - Sepsis, unspecified organism Cellulitis Qualifiers: Site of cellulitis: extremity Site of cellulitis of extremity: lower extremity Laterality: left Qualified Code(s): L03.116 - Cellulitis of left lower limb Pneumonia Qualifiers: Pneumonia type: due to unspecified organism Laterality: bilateral Lung location: lower lobe of lung Qualified Code(s): J18.1 - Lobar pneumonia, unspecified organism UTI (urinary tract infection) Qualifiers: Urinary tract infection type: acute cystitis Hematuria presence: without hematuria Qualified Code(s): N30.00 - Acute cystitis without hematuria Disposition: Admitted As Inpatient Condition: Fair Forms: ED Satisfaction Letter Time of Disposition: 10:16 General Adult HPI - General Stated complaint: general illness Time Seen by Provider: 10/31/18 08:14 Source: patient, EMS Mode of arrival: EMS Limitations: no limitations Nursing Notes Reviewed: Yes Vital Signs Reviewed: Yes - History of Present Illness HPI Narrative: Patient is a 72-year-old female presenting via EMS from [facility] for fever. Patient with history of congestive heart failure, COPD chronically on 2 L nasal cannula, hypertension, hyperlipidemia as well as cellulitis to the left lower leg. Patient was discharged from the hospital on 10/03/2018 with left leg cellulitis was placed on Linezolid and Levaquin for 1 week following 2 ro unds of vancomycin which did not change the patient's cellulitis. Patient states for the past week she has had generalized fatigue, fevers and chills, but as though her heart was racing with increased pain to the left leg. She has noticed increased redness that is going up into her thigh at this point. She denies any chest pain or difficulty breathing. She does have a cough which is gone unchanged. She denies any urinary symptoms however is chronically incontinent. No diarrhea or vomiting. No abdominal pain. - Related Data Home Medications Medication Instructions Recorded Confirmed Furosemide [Lasix] 40 mg PO DAILY 06/10/16 10/03/18 Metoprolol XL (24 HR) Succ [Toprol 25 mg PO DAILY 06/10/16 10/03/18 Xl] L. Acidophilus/Pectin, [place] 1 cap PO DAILY 09/02/16 10/03/18 [Acidophilus Probiotic Capsule] Sennosides/Docusate Sodium [Senna 2 tab PO BID PRN 09/02/16 10/03/18 Plus] Ferrous Sulfate 325 mg PO DAILY 02/26/17 10/03/18 Acetaminophen [Tylenol] 650 mg PO Q6H PRN 10/23/17 10/03/18 Atorvastatin [Lipitor] 10 mg PO HS 10/23/17 10/03/18 Insulin ASPART [NovoLOG] 5 unit SQ TID 04/21/18 10/03/18 Fluticasone Propionate Nasal 1 spray NS DAILY 07/30/18 10/03/18 [Flonase] Ipratropium/Albuterol Sulfate 1 puff IN Q6H PRN 07/30/18 10/03/18 [Combivent Respimat Inhal [place]] Loratadine [Claritin] 10 mg PO DAILY PRN 07/30/18 10/03/18 Melatonin 5 mg PO HS 07/30/18 10/03/18 Aspirin Enteric Coated [Aspirin EC] 81 mg PO DAILY 08/22/18 10/03/18 GI Cocktail [Gi Cocktail] 40 ml PO BID PRN 08/22/18 10/03/18 Insulin Glargine [Lantus] 45 unit SQ BID 08/22/18 10/03/18 Ipratropium/Albuterol Sulfate 3 ml IH QID PRN 08/22/18 10/03/18 [Iprat-Albut 0.5-3(2.5) mg/3 ml] Loperamide [Imodium] 4 mg PO DAILY PRN 08/22/18 10/03/18 Omeprazole [PriLOSEC] 20 mg PO DAILY 08/22/18 10/03/18 Dextran 70/Hypromellose [Natural 1 drop BOTH EYES BID PRN 09/09/18 10/03/18 Balance Tears Eye Drop] Nystatin POWDER [Nystop] 1 appl TP BID 09/09/18 10/03/18 Gabapentin [Neurontin] 300 mg PO TID 10/03/18 10/03/18 Guaifenesin [Mucinex] 600 mg PO Q12H PRN 10/03/18 10/03/18 Potassium Chloride [K-Tab ER] 20 meq PO DAILY 10/03/18 10/03/18 Scopolamine Patch [Transderm-Scop] 1.5 mg TD Q72H PRN 10/03/18 10/03/18 HYDROcodone/Acet 10/325 mg [[place] 1 tab PO Q6HR PRN 10/31/18 10/31/18 10-325 mg] Previous Rx's Medication Instructions Recorded Magnesium Oxide [Mag-Ox] 400 mg PO BID #30 tablet 05/30/16 Isosorbide MONOnitrate (24 HR) 30 mg PO DAILY #30 tab.er.24h 04/23/18 [Imdur] Allergies Allergy/AdvReac Type Severity Reaction Status Date / Time fentanyl Allergy Itching Verified 04/19/18 22:46 gentamicin AdvReac See Verified 10/23/17 19:31 Comments All systems ED: reviewed and negative except as stated. Review of Systems: As Per HPI Constitutional: Reports: fever, chills, weakness ENT ED: Denies: congestion Cardiovascular: Reports: palpitations. Denies: chest pain, dyspnea on exertion, syncope Respiratory: Reports: cough. Denies: dyspnea, wheezes, hemoptysis, sputum production Gastrointestinal: Denies: abdominal pain, nausea, vomiting, diarrhea, hematemesis, melena, hematochezia Genitourinary: Denies: dysuria Musculoskeletal: Denies: back pain Integumentary: Reports: other (Left leg cellulitis) Neurological: Reports: weakness. Denies: headache, numbness, confusion Hematological/Lymphatic: Denies: easy bleeding Past Medical History - Past Medical History Medical history: Reports: arthritis, asthma, CHF, COPD, coronary artery disease, diabetes, GERD, GI bleed, kidney stones, migraine, other Surgical history: Reports: appendectomy, cholecystectomy, hysterectomy, knee replacement, orthopedic, other, other, arthroscopy Psychiatric history: Reports: anxiety, depression - Social History Smoking Status: Former smoker Smokeless Tobacco Status: No Alcohol use: Reports: none Drug use: Reports: none Physical Exam - General Limitations: no limitations General appearance: alert - Head Head exam: atraumatic, normocephalic, normal inspection - Eye Eye exam: Present: normal appearance, PERRL, EOMI - ENT ENT exam: mucous membranes dry - Neck Neck exam: Present: normal inspection, full ROM, trachea midline - Chest Chest inspection: Present: normal inspection, symmetric chest wall rise - Respiratory Respiratory exam: Present: normal lung sounds bilaterally, other (On 4 L nasal cannula) - Cardiovascular Cardiovascular exam: Present: normal rhythm, tachycardia - Abdominal Exam Abdominal exam: Present: soft, Non-Tender. Absent: tenderness, distention, guarding, rebound, rigidity - Extremities Exam Extremities exam: Present: tenderness (Case tenderness to the left leg, with cellulitic changes going up into the upper mid thigh and groin.), normal capillary refill, pedal edema (1 to 2+ pitting LE edema) - Neurological Exam Neurological exam: Present: alert, oriented X3 - Psychiatric Psychiatric exam: Present: normal affect, normal mood - Skin Skin exam: Present: warm, dry Course Vital Signs Temperature 101.7 F H 10/31/18 08:10 Pulse Rate 128 10/31/18 08:10 Respiratory Rate 26 10/31/18 08:10 Blood Pressure 156/71 10/31/18 08:10 O2 Sat by Pulse Oximetry 95 10/31/18 08:10 Temperature 100.2 F H 10/31/18 09:21 Pulse Rate 120 10/31/18 09:21 Respiratory Rate 28 10/31/18 09:21 Blood Pressure 126/56 10/31/18 09:21 O2 Sat by Pulse Oximetry 96 10/31/18 09:21 Oxygen Delivery Oxygen Delivery Nasal Cannula Medical Decision Making - [facility] Narrative Medical decision making narrative: Patient is a 72-year-old female who is presenting with fever from [facility] via EMS. On arrival, patient appears unwell and is warm to touch, she has had be febrile with a temperature of 101.7 she is also tachycardic in the 120s. Prior to arrival to the ER, EMS and given the patient a total of approximately 500 mL's of normal saline. Given patient's history of cellulitis to the left leg with admission approximately 1 month ago, concern for sepsis secondary to cellulitic changes to the left leg. We will continue to evaluate for further signs and etiologies of infection. Blood cultures were drawn, lactic acid performed. Patient was started on initially vancomycin and Zosyn, concern for continuing cellulitic changes. Broad spectrum. Upon review of chart, appears that the patient had been on vancomycin however feel that therapy and was recently discharged from hospital on Zyvox and Levaquin. We will continue Zosyn however change the vancomycin order to Zyvox. CBC, BMP, troponin, lipase. EKG as well as chest x-ray were performed. Urinalysis as well. Patient was given a total of 2 L normal saline while here in the ER, patient d oes have history of congestive heart failure with an ejection fraction of 65% noted on last echocardiogram performed on 04/2018. The patient's history, we will progress slowly with fluids. Patient was also given Tylenol here in the ER. Following laboratory work, it appears the patient has urinary tract infection, she is chronically incontinent with last urine culture showing sensitivity to Zosyn. She does have a history of ESBL in August which was also sensitive to Zosyn. Patient's blood work shows leukocytosis with a lactic acid of 3.5. Chest x-ray shows concern for bilateral airspace disease, edema versus infection, patient does have fever and has had a cough, this point in time, we w ill add Levaquin on already dosed Zyvox and Zosyn for healthcare associated pneumonia. Patient will be admitted to the hospital, hospitalist has been patient at 0942. - Medical Records Medical records reviewed: Yes I reviewed the patient's medical records. - Lab Data Lab results reviewed: Yes I reviewed the patient's lab results. Result diagrams: 10/31/18 08:25 10/31/18 08:28 Lab Results 10/31/18 10/31/18 10/31/18 Range/Units 08:25 08:25 08:25 WBC 25.2 H D (4.3-11.1) K/mcL RBC 4.41 (3.82-4.97) M/mcL Hgb 12.8 (11.5-15.4) g/dL Hct 39.9 (35.3-44.9) % MCV 90.5 (83.0-100.0) fL MCH 29.0 (28.0-33.3) pg MCHC 32.1 (31.6-35.5) g/dL RDW 17.0 H (11.5-14.5) % Plt Count 230 (140-400) K/mcL MPV 9.1 L (9.4-12.4) fL Immature Gran % 0.8 (0-4) % Seg Neutrophils % 94.4 % Lymphocytes % 2.9 % Monocytes % 1.7 % Eosinophils % 0.0 % Basophils % 0.2 % Neutrophils # 23.8 H (1.6-8.9) K/mcL Lymphocytes # 0.7 (0.6-4.6) K/mcL Monocytes # 0.4 (0.0-1.3) K/mcL Eosinophils # 0.0 (0.0-0.6) K/mcL Basophils # 0.1 (0.0-0.2) K/mcL Platelet Estimate Normal (Normal) PT 11.7 (9.4-12.1) Seconds INR 1.0 APTT 31.9 (26.0-36.0) Seconds Sodium (136-145) mEq/L Potassium (3.5-5.1) mEq/L Chloride (98-107) mEq/L Carbon Dioxide (23-29) mEq/L BUN (8-23) mg/dL Creatinine (0.60-1.20) mg/dL Est GFR ( Amer) (> 60) Est GFR (Non-Af Amer) (> 60) BUN/Creatinine Ratio (6-26) Glucose (70-105) mg/dL Calculated Osmolality (280-300) Lactic Acid 3.5 H (0.5-2.2) mmol/L Calcium (8.6-10.3) mg/dL Phosphorus (2.7-4.5) mg/dL Magnesium (1.6-2.6) mg/dL Total Bilirubin (0.3-1.0) mg/dL Direct Bilirubin (0.0-0.2) mg/dL Indirect Bilirubin (0.0-1.2) mg/dL AST (13-39) Units/L ALT (7-52) Units/L Alkaline Phosphatase (34-104) Units/L Troponin I (< 0.04) ng/mL Serum Total Protein (6.4-8.9) g/dL Albumin (3.5-5.7) g/dL Globulin (2.4-3.5) g/dL Albumin/Globulin Ratio (1.1-2.2) Random Cortisol mcg/dl Urine Color (Yellow) Urine Clarity (Clear) Urine pH (5.0-8.0) pH Units Ur Specific [place] (1.010-1.025) Urine Protein (Neg-Trace) mg/dL Urine Glucose (UA) (Normal) mg/dL Urine Ketones (Negative) mg/dL Urine Blood (Negative) Urine Nitrite (Negative) Urine Bilirubin (Negative) Urine Urobilinogen (Normal) mg/dL Ur Leukocyte Esterase (Negative) Urine Microscopic RBC (0-3) per hpf Urine Microscopic WBC (0-3) per hpf Ur Squamous Epith Cells (None-Few) per lpf Urine Bacteria (None-Few) per hpf Hyaline Casts (None-Few) per lpf Ur Culture Indicated? (NO) Random Vancomycin mcg/mL Blood Type Antibody Screen 10/31/18 10/31/18 10/31/18 Range/Units 08:25 08:28 08:40 WBC (4.3-11.1) K/mcL RBC (3.82-4.97) M/mcL Hgb (11.5-15.4) g/dL Hct (35.3-44.9) % MCV (83.0-100.0) fL MCH (28.0-33.3) pg MCHC (31.6-35.5) g/dL RDW (11.5-14.5) % Plt Count (140-400) K/mcL MPV (9.4-12.4) fL Immature Gran % (0-4) % Seg Neutrophils % % Lymphocytes % % Monocytes % % Eosinophils % % Basophils % % Neutrophils # (1.6-8.9) K/mcL Lymphocytes # (0.6-4.6) K/mcL Monocytes # (0.0-1.3) K/mcL Eosinophils # (0.0-0.6) K/mcL Basophils # (0.0-0.2) K/mcL Platelet Estimate (Normal) PT (9.4-12.1) Seconds INR APTT (26.0-36.0) Seconds Sodium 138 (136-145) mEq/L Potassium 4.4 (3.5-5.1) mEq/L Chloride 101 (98-107) mEq/L Carbon Dioxide 24 (23-29) mEq/L BUN 12 (8-23) mg/dL Creatinine 0.75 (0.60-1.20) mg/dL Est GFR ( Amer) > 60 (> 60) Est GFR (Non-Af Amer) > 60 (> 60) BUN/Creatinine Ratio 16 (6-26) Glucose 357 H (70-105) mg/dL Calculated Osmolality 300 (280-300) Lactic Acid (0.5-2.2) mmol/L Calcium 9.4 (8.6-10.3) mg/dL Phosphorus 2.6 L (2.7-4.5) mg/dL Magnesium 1.6 (1.6-2.6) mg/dL Total Bilirubin 0.6 (0.3-1.0) mg/dL Direct Bilirubin 0.2 (0.0-0.2) mg/dL Indirect Bilirubin 0.4 (0.0-1.2) mg/dL AST 14 (13-39) Units/L ALT 14 (7-52) Units/L Alkaline Phosphatase 75 (34-104) Units/L Troponin I < 0.03 (< 0.04) ng/mL Serum Total Protein 7.1 (6.4-8.9) g/dL Albumin 3.8 (3.5-5.7) g/dL Globulin 3.3 (2.4-3.5) g/dL Albumin/Globulin Ratio 1.2 (1.1-2.2) Random Cortisol 37.2 mcg/dl Urine Color Yellow (Yellow) Urine Clarity Cloudy A (Clear) Urine pH 5.5 (5.0-8.0) pH Units Ur Specific [place] 1.018 (1.010-1.025) Urine Protein 100 H (Neg-Trace) mg/dL Urine Glucose (UA) >=1000 H (Normal) mg/dL Urine Ketones Negative (Negative) mg/dL Urine Blood Trace H (Negative) Urine Nitrite Positive A (Negative) Urine Bilirubin Negative (Negative) Urine Urobilinogen Normal (Normal) mg/dL Ur Leukocyte Esterase Large H (Negative) Urine Microscopic RBC 0-3 (0-3) per hpf Urine Microscopic WBC TNTC H (0-3) per hpf Ur Squamous Epith Cells Many H (None-Few) per lpf Urine Bacteria Many H (None-Few) per hpf Hyaline Casts None Seen (None-Few) per lpf Ur Culture Indicated? YES A (NO) Random Vancomycin < 2 mcg/mL Blood Type O POSITIVE Antibody Screen NEGATIVE - Radiology Data Radiology results reviewed: Yes I reviewed the patient's radiology results. - EKG Data EKG #1 EKG attestation: Yes I reviewed and interpreted this EKG. EKG results narrative: EKG obtained at 0 819 with ventricular rate of 127, regular rhythm, normal axis, no ST segment elevation, depression or T-wave changes. Overall appears to be sinus tachycardia. S.No.Sofia - [place] Situation: Demographics, MOA Background: Presenting Complaint, Relevant PMH, Meds, & Allergies Assessment: Vital Signs, Course and respsone to treatment, Exam Concerns, Patient/Family Expectation, Pertinant Lab Results, Outstanding Labs Recommendation: Barrier(s) to disposition, Recommendation based on pending studies, treatments, or consults SJimmie Report Given to: Dr. Ramon Mojica Repor Time: 10:16 (accepted) Attestation Statement - Attestation Attestation: I, Missael Gasca DO, examined this patient [id number] and my medical decision-making was reviewed with Dr. Jose Juan Sheldon , Resident Physician. I agree with the documented findings, disposition and treatment plan as described except to the extent set forth below. I personally supervised and was present for the islas/critical portions of the procedures completed by the resident documented below. Please see my progress notes for details.
--- NOTE | 2018-10-31 08:27 | Emergency Department Note ---
Disposition Clinical Impression: UTI (urinary tract infection) Qualifiers: Urinary tract infection type: acute cystitis Hematuria presence: without hematuria Qualified Code(s): N30.00 - Acute cystitis without hematuria Sepsis Qualifiers: Sepsis type: sepsis due to unspecified organism Qualified Code(s): A41.9 - Sepsis, unspecified organism Cellulitis Qualifiers: Site of cellulitis: extremity Site of cellulitis of extremity: lower extremity Laterality: left Qualified Code(s): L03.116 - Cellulitis of left lower limb Pneumonia Qualifiers: Pneumonia type: due to unspecified organism Laterality: bilateral Lung location: lower lobe of lung Qualified Code(s): J18.1 - Lobar pneumonia, unspecified organism Disposition: Admitted As Inpatient Condition: Fair Forms: ED Satisfaction Letter Time of Disposition: 10:38 General Adult HPI - General Chief complaint: ED Weakness Stated complaint: general illness Time Seen by Provider: 10/31/18 08:14 - Related Data Home Medications Medication Instructions Recorded Confirmed Furosemide [Lasix] 40 mg PO DAILY 06/10/16 10/03/18 Metoprolol XL (24 HR) Succ [Toprol 25 mg PO DAILY 06/10/16 10/03/18 Xl] L. Acidophilus/Pectin, [place] 1 cap PO DAILY 09/02/16 10/03/18 [Acidophilus Probiotic Capsule] Sennosides/Docusate Sodium [Senna 2 tab PO BID PRN 09/02/16 10/03/18 Plus] Ferrous Sulfate 325 mg PO DAILY 02/26/17 10/03/18 Acetaminophen [Tylenol] 650 mg PO Q6H PRN 10/23/17 10/03/18 Atorvastatin [Lipitor] 10 mg PO HS 10/23/17 10/03/18 Insulin ASPART [NovoLOG] 5 unit SQ TID 04/21/18 10/03/18 Fluticasone Propionate Nasal 1 spray NS DAILY 07/30/18 10/03/18 [Flonase] Ipratropium/Albuterol Sulfate 1 puff IN Q6H PRN 07/30/18 10/03/18 [Combivent Respimat Inhal [place]] Loratadine [Claritin] 10 mg PO DAILY PRN 07/30/18 10/03/18 Melatonin 5 mg PO HS 07/30/18 10/03/18 Aspirin Enteric Coated [Aspirin EC] 81 mg PO DAILY 08/22/18 10/03/18 GI Cocktail [Gi Cocktail] 40 ml PO BID PRN 08/22/18 10/03/18 Insulin Glargine [Lantus] 45 unit SQ BID 08/22/18 10/03/18 Ipratropium/Albuterol Sulfate 3 ml IH QID PRN 08/22/18 10/03/18 [Iprat-Albut 0.5-3(2.5) mg/3 ml] Loperamide [Imodium] 4 mg PO DAILY PRN 08/22/18 10/03/18 Omeprazole [PriLOSEC] 20 mg PO DAILY 08/22/18 10/03/18 Dextran 70/Hypromellose [Natural 1 drop BOTH EYES BID PRN 09/09/18 10/03/18 Balance Tears Eye Drop] Nystatin POWDER [Nystop] 1 appl TP BID 09/09/18 10/03/18 Gabapentin [Neurontin] 300 mg PO TID 10/03/18 10/03/18 Guaifenesin [Mucinex] 600 mg PO Q12H PRN 10/03/18 10/03/18 Potassium Chloride [K-Tab ER] 20 meq PO DAILY 10/03/18 10/03/18 Scopolamine Patch [Transderm-Scop] 1.5 mg TD Q72H PRN 10/03/18 10/03/18 HYDROcodone/Acet 10/325 mg [[place] 1 tab PO Q6HR PRN 10/31/18 10/31/18 10-325 mg] Previous Rx's Medication Instructions Recorded Magnesium Oxide [Mag-Ox] 400 mg PO BID #30 tablet 05/30/16 Isosorbide MONOnitrate (24 HR) 30 mg PO DAILY #30 tab.er.24h 04/23/18 [Imdur] Allergies Allergy/AdvReac Type Severity Reaction Status Date / Time fentanyl Allergy Itching Verified 04/19/18 22:46 gentamicin AdvReac See Verified 10/23/17 19:31 Comments Past Medical History - Past Medical History Medical history: Reports: arthritis, asthma, CHF, COPD, coronary artery disease, diabetes, GERD, GI bleed, kidney stones, migraine, other Surgical history: Reports: appendectomy, cholecystectomy, hysterectomy, knee replacement, orthopedic, other, other, arthroscopy Psychiatric history: Reports: anxiety, depression - Social History Smoking Status: Former smoker Smokeless Tobacco Status: No Alcohol use: Reports: none Drug use: Reports: none Course Vital Signs Temperature 101.7 F H 10/31/18 08:10 Pulse Rate 128 10/31/18 08:10 Respiratory Rate 26 10/31/18 08:10 Blood Pressure 156/71 10/31/18 08:10 O2 Sat by Pulse Oximetry 95 10/31/18 08:10 Temperature 100.2 F H 10/31/18 10:28 Pulse Rate 115 10/31/18 10:28 Respiratory Rate 24 10/31/18 10:28 Blood Pressure 132/77 10/31/18 10:28 O2 Sat by Pulse Oximetry 96 10/31/18 10:28 Oxygen Delivery Oxygen Delivery Nasal Cannula Medical Decision Making - Lab Data Result diagrams: 10/31/18 08:25 10/31/18 08:28 Lab Results 10/31/18 10/31/18 10/31/18 Range/Units 08:25 08:25 08:25 WBC 25.2 H D (4.3-11.1) K/mcL RBC 4.41 (3.82-4.97) M/mcL Hgb 12.8 (11.5-15.4) g/dL Hct 39.9 (35.3-44.9) % MCV 90.5 (83.0-100.0) fL MCH 29.0 (28.0-33.3) pg MCHC 32.1 (31.6-35.5) g/dL RDW 17.0 H (11.5-14.5) % Plt Count 230 (140-400) K/mcL MPV 9.1 L (9.4-12.4) fL Immature Gran % 0.8 (0-4) % Seg Neutrophils % 94.4 % Lymphocytes % 2.9 % Monocytes % 1.7 % Eosinophils % 0.0 % Basophils % 0.2 % Neutrophils # 23.8 H (1.6-8.9) K/mcL Lymphocytes # 0.7 (0.6-4.6) K/mcL Monocytes # 0.4 (0.0-1.3) K/mcL Eosinophils # 0.0 (0.0-0.6) K/mcL Basophils # 0.1 (0.0-0.2) K/mcL Platelet Estimate Normal (Normal) PT 11.7 (9.4-12.1) Seconds INR 1.0 APTT 31.9 (26.0-36.0) Seconds Sodium (136-145) mEq/L Potassium (3.5-5.1) mEq/L Chloride (98-107) mEq/L Carbon Dioxide (23-29) mEq/L BUN (8-23) mg/dL Creatinine (0.60-1.20) mg/dL Est GFR ( Amer) (> 60) Est GFR (Non-Af Amer) (> 60) BUN/Creatinine Ratio (6-26) Glucose (70-105) mg/dL Calculated Osmolality (280-300) Lactic Acid 3.5 H (0.5-2.2) mmol/L Calcium (8.6-10.3) mg/dL Phosphorus (2.7-4.5) mg/dL Magnesium (1.6-2.6) mg/dL Total Bilirubin (0.3-1.0) mg/dL Direct Bilirubin (0.0-0.2) mg/dL Indirect Bilirubin (0.0-1.2) mg/dL AST (13-39) Units/L ALT (7-52) Units/L Alkaline Phosphatase (34-104) Units/L Troponin I (< 0.04) ng/mL B-Natriuretic Peptide (Less than 100) pg/mL Serum Total Protein (6.4-8.9) g/dL Albumin (3.5-5.7) g/dL Globulin (2.4-3.5) g/dL Albumin/Globulin Ratio (1.1-2.2) Random Cortisol mcg/dl Urine Color (Yellow) Urine Clarity (Clear) Urine pH (5.0-8.0) pH Units Ur Specific [place] (1.010-1.025) Urine Protein (Neg-Trace) mg/dL Urine Glucose (UA) (Normal) mg/dL Urine Ketones (Negative) mg/dL Urine Blood (Negative) Urine Nitrite (Negative) Urine Bilirubin (Negative) Urine Urobilinogen (Normal) mg/dL Ur Leukocyte Esterase (Negative) Urine Microscopic RBC (0-3) per hpf Urine Microscopic WBC (0-3) per hpf Ur Squamous Epith Cells (None-Few) per lpf Urine Bacteria (None-Few) per hpf Hyaline Casts (None-Few) per lpf Ur Culture Indicated? (NO) Random Vancomycin mcg/mL Blood Type Antibody Screen 10/31/18 10/31/18 10/31/18 Range/Units 08:25 08:25 08:28 WBC (4.3-11.1) K/mcL RBC (3.82-4.97) M/mcL Hgb (11.5-15.4) g/dL Hct (35.3-44.9) % MCV (83.0-100.0) fL MCH (28.0-33.3) pg MCHC (31.6-35.5) g/dL RDW (11.5-14.5) % Plt Count (140-400) K/mcL MPV (9.4-12.4) fL Immature Gran % (0-4) % Seg Neutrophils % % Lymphocytes % % Monocytes % % Eosinophils % % Basophils % % Neutrophils # (1.6-8.9) K/mcL Lymphocytes # (0.6-4.6) K/mcL Monocytes # (0.0-1.3) K/mcL Eosinophils # (0.0-0.6) K/mcL Basophils # (0.0-0.2) K/mcL Platelet Estimate (Normal) PT (9.4-12.1) Seconds INR APTT (26.0-36.0) Seconds Sodium 138 (136-145) mEq/L Potassium 4.4 (3.5-5.1) mEq/L Chloride 101 (98-107) mEq/L Carbon Dioxide 24 (23-29) mEq/L BUN 12 (8-23) mg/dL Creatinine 0.75 (0.60-1.20) mg/dL Est GFR ( Amer) > 60 (> 60) Est GFR (Non-Af Amer) > 60 (> 60) BUN/Creatinine Ratio 16 (6-26) Glucose 357 H (70-105) mg/dL Calculated Osmolality 300 (280-300) Lactic Acid (0.5-2.2) mmol/L Calcium 9.4 (8.6-10.3) mg/dL Phosphorus 2.6 L (2.7-4.5) mg/dL Magnesium 1.6 (1.6-2.6) mg/dL Total Bilirubin 0.6 (0.3-1.0) mg/dL Direct Bilirubin 0.2 (0.0-0.2) mg/dL Indirect Bilirubin 0.4 (0.0-1.2) mg/dL AST 14 (13-39) Units/L ALT 14 (7-52) Units/L Alkaline Phosphatase 75 (34-104) Units/L Troponin I < 0.03 (< 0.04) ng/mL B-Natriuretic Peptide 94 (Less than 100) pg/mL Serum Total Protein 7.1 (6.4-8.9) g/dL Albumin 3.8 (3.5-5.7) g/dL Globulin 3.3 (2.4-3.5) g/dL Albumin/Globulin Ratio 1.2 (1.1-2.2) Random Cortisol 37.2 mcg/dl Urine Color (Yellow) Urine Clarity (Clear) Urine pH (5.0-8.0) pH Units Ur Specific [place] (1.010-1.025) Urine Protein (Neg-Trace) mg/dL Urine Glucose (UA) (Normal) mg/dL Urine Ketones (Negative) mg/dL Urine Blood (Negative) Urine Nitrite (Negative) Urine Bilirubin (Negative) Urine Urobilinogen (Normal) mg/dL Ur Leukocyte Esterase (Negative) Urine Microscopic RBC (0-3) per hpf Urine Microscopic WBC (0-3) per hpf Ur Squamous Epith Cells (None-Few) per lpf Urine Bacteria (None-Few) per hpf Hyaline Casts (None-Few) per lpf Ur Culture Indicated? (NO) Random Vancomycin < 2 mcg/mL Blood Type O POSITIVE Antibody Screen NEGATIVE 10/31/18 Range/Units 08:40 WBC (4.3-11.1) K/mcL RBC (3.82-4.97) M/mcL Hgb (11.5-15.4) g/dL Hct (35.3-44.9) % MCV (83.0-100.0) fL MCH (28.0-33.3) pg MCHC (31.6-35.5) g/dL RDW (11.5-14.5) % Plt Count (140-400) K/mcL MPV (9.4-12.4) fL Immature Gran % (0-4) % Seg Neutrophils % % Lymphocytes % % Monocytes % % Eosinophils % % Basophils % % Neutrophils # (1.6-8.9) K/mcL Lymphocytes # (0.6-4.6) K/mcL Monocytes # (0.0-1.3) K/mcL Eosinophils # (0.0-0.6) K/mcL Basophils # (0.0-0.2) K/mcL Platelet Estimate (Normal) PT (9.4-12.1) Seconds INR APTT (26.0-36.0) Seconds Sodium (136-145) mEq/L Potassium (3.5-5.1) mEq/L Chloride (98-107) mEq/L Carbon Dioxide (23-29) mEq/L BUN (8-23) mg/dL Creatinine (0.60-1.20) mg/dL Est GFR ( Amer) (> 60) Est GFR (Non-Af Amer) (> 60) BUN/Creatinine Ratio (6-26) Glucose (70-105) mg/dL Calculated Osmolality (280-300) Lactic Acid (0.5-2.2) mmol/L Calcium (8.6-10.3) mg/dL Phosphorus (2.7-4.5) mg/dL Magnesium (1.6-2.6) mg/dL Total Bilirubin (0.3-1.0) mg/dL Direct Bilirubin (0.0-0.2) mg/dL Indirect Bilirubin (0.0-1.2) mg/dL AST (13-39) Units/L ALT (7-52) Units/L Alkaline Phosphatase (34-104) Units/L Troponin I (< 0.04) ng/mL B-Natriuretic Peptide (Less than 100) pg/mL Serum Total Protein (6.4-8.9) g/dL Albumin (3.5-5.7) g/dL Globulin (2.4-3.5) g/dL Albumin/Globulin Ratio (1.1-2.2) Random Cortisol mcg/dl Urine Color Yellow (Yellow) Urine Clarity Cloudy A (Clear) Urine pH 5.5 (5.0-8.0) pH Units Ur Specific [place] 1.018 (1.010-1.025) Urine Protein 100 H (Neg-Trace) mg/dL Urine Glucose (UA) >=1000 H (Normal) mg/dL Urine Ketones Negative (Negative) mg/dL Urine Blood Trace H (Negative) Urine Nitrite Positive A (Negative) Urine Bilirubin Negative (Negative) Urine Urobilinogen Normal (Normal) mg/dL Ur Leukocyte Esterase Large H (Negative) Urine Microscopic RBC 0-3 (0-3) per hpf Urine Microscopic WBC TNTC H (0-3) per hpf Ur Squamous Epith Cells Many H (None-Few) per lpf Urine Bacteria Many H (None-Few) per hpf Hyaline Casts None Seen (None-Few) per lpf Ur Culture Indicated? YES A (NO) Random Vancomycin mcg/mL Blood Type Antibody Screen Attestation Statement - Attestation Attestation: I, Missael Gasca DO, examined this patient [id number] and my medical decision-making was reviewed with Dr. Jose Juan Sheldon , Resident Physician. I agree with the documented findings, disposition and treatment plan as described except to the extent set forth below. I personally supervised and was present for the islas/critical portions of the procedures completed by the resident documented below. Please see my progress notes for details. 72-year-old female presents to the emergency room for evaluation of generalized malaise tachycardia and fever. Patient had a heart rate of 130 as well as a temperature of 101 oral on EMS evaluation. Patient was just discharged from the hospital after being treated for sepsis. Patient denies any falls trauma or injury. She has not had any chest pain or shortness of breath. She has been taking all of her medications as they have been prescribed. She did have a PICC line in the right upper extremity that was removed without any complication. Vital signs initial presentation were consistent with EMS transport. Patient is febrile. She is warm to the touch. Lungs are clear heart is regular abdomen is soft with no point tenderness guarding or rigidity. Left lower extremity still has significant redness to the mid aspect of the groin. There is no crepitus or palpable skin breakdown noted. Patient denies any decubitus ulcer. She is wearing diapers at this time consistent with bladder incontinence. Patient will have Brown catheter placed to help with wound control care at this point. EKG will be collected and reviewed by myself and the documented resident physician's note. Sepsis evaluation will be started. Vancomycin is been ordered along with Zosyn was pseudomonal coverage. Vancomycin trough is also been ordered secondary to the suspicion is the patient has been on this medication even when discharged home. We do not have the full records reviewed yet at this time. Patient will require 1 L of fluid at this point we will cautiously provider with more fluids over time with her history of congestive heart failure. Will monitor closely at this point. Patient is concerning for sepsis but does not appear to have septic shock with a stable blood pressure during transport and on arrival. Patient is otherwise clinically stable despite looking quite ill on presentation. She did take Tylenol prior to coming in and she said that she is not supposed to take Motrin secondary to history of renal insufficiency. We will review the charting incision and provided Motrin in the past and then appropriately treat her fever. Patient is otherwise informed and comfortable with the plan. See detailed documentation the physical exam, medical intervention, medical decision-making disposition the resident physician's note. No critical care by the patient's treatment course at this time. [id number] Patient is found to have contaminated urine again at this time. Program on a regimen has been started. She will also has concern for pulmonary congestion versus pneumonia on chest x-ray. Levaquin was added on. Patient was previously on Zyvox and Levaquin for her previous infection. This antibiotic regimen was continued including the Zosyn. Vancomycin was canceled secondary to the historical findings on the cultures. Patient is otherwise stable. Lactic acid was 3.5. She does not show any acute signs of septic shock but she will be provided with a second liter of fluid. We will continue to monitor closely for any signs of pulmonary congestion or respiratory distress. Patient is otherwise a full code and resting comfortably in the bed. The hospitalist has been paged for admission [id number] Dr. Navarro reviewed the case and is happy to accept the patient for admission. no other recommendations or concerns at this time. Patient will be monitored here in the emergency department until the admission process is completed.
[2018-10-31 08:41] LABS: Basophils % 0.2 %; Hematocrit 39.9 % (35.3-44.9); Hemoglobin 12.8 g/dL (11.5-15.4); Immature Granulocytes % 0.8 % (0-4); Lymphocytes # 0.7 K/mcL (0.6-4.6); Lymphocytes % 2.9 %; Mean Corpuscular HGB Conc 32.1 g/dL (31.6-35.5); Mean Corpuscular Volume 90.5 fL (83.0-100.0); Mean Platelet Volume 9.1 fL (9.4-12.4); Monocytes # 0.4 K/mcL (0.0-1.3); Monocytes % 1.7 %; Neutrophils # 23.8 K/mcL (1.6-8.9); Platelet Count 230 K/mcL (140-400); Red Blood Count 4.41 M/mcL (3.82-4.97); Segmented Neutrophils % 94.4 %
[2018-10-31 08:42] LABS: Basophils # 0.1 K/mcL (0.0-0.2); White Blood Count 25.2 K/mcL (4.3-11.1)
[2018-10-31 08:48] LABS: Bilirubin,Urine Negative (Negative); Blood,Urine Trace (Negative); Clarity,Urine Cloudy (Clear); Color,Urine Yellow (Yellow); Glucose,Urine (UA) >=1000 mg/dL (Normal); Ketones,Urine Negative (Negative); Leukocyte Esterase,Urine Large (Negative); Nitrite,Urine Positive (Negative); PH,Urine 5.5 pH Units (5.0-8.0); Protein,Urine 100 mg/dL (Neg-Trace); Specific Gravity,Urine 1.018 (1.010-1.025); Urobilinogen,Urine Normal (Normal)
[2018-10-31 08:49] LABS: Prothrombin Time 11.7 Seconds (9.4-12.1)
[2018-10-31 08:50] LABS: Bacteria,Urine Many per hpf (None-Few); Hyaline Casts,Urine None Seen per lpf (None-Few); RBC,Urine 0-3 per hpf (0-3); Squamous Epithelial Cell,Urine Many per lpf (None-Few); WBC,Urine TNTC per hpf (0-3)
[2018-10-31 08:52] LABS: Activated Partial Thrombo Time 31.9 Seconds (26.0-36.0)
[2018-10-31 09:05] LABS: Platelet Estimate Normal (Normal)
[2018-10-31 09:14] LABS: Alanine Aminotransferase 14 Units/L (7-52); Albumin 3.8 g/dL (3.5-5.7); Albumin/Globulin Ratio 1.2 (1.1-2.2); Alkaline Phosphatase 75 Units/L (34-104); Aspartate Amino Transferase 14 Units/L (13-39); BUN/Creatinine Ratio 16 (6-26); Bilirubin,Direct 0.2 mg/dL (0.0-0.2); Bilirubin,Indirect 0.4 mg/dL (0.0-1.2); Bilirubin,Total 0.6 mg/dL (0.3-1.0); Blood Urea Nitrogen 12 mg/dL (8-23); Calcium 9.4 mg/dL (8.6-10.3); Carbon Dioxide 24 mEq/L (23-29); Chloride 101 mEq/L (98-107); Globulin 3.3 g/dL (2.4-3.5); Glucose 357 mg/dL (70-105); Magnesium 1.6 mg/dL (1.6-2.6); Osmolality,Calculated 300 (280-300); Phosphorous 2.6 mg/dL (2.7-4.5); Potassium 4.4 mEq/L (3.5-5.1); Sodium 138 mEq/L (136-145); Total Protein 7.1 g/dL (6.4-8.9); Troponin I < 0.03 ng/mL (< 0.04); Vancomycin,Random < 2 mcg/mL; eGFR For African Americans > 60 (> 60); eGFR For Non-African Americans > 60 (> 60)
[2018-10-31] MEDS ORDERED: levoFLOXacin 750 MG/150 ML 750 MG/150 ML BAG IVPB ONE (09:51)
[2018-10-31] MEDS ORDERED: Naloxone 0.4 MG/ML INJ IVP PRN (11:57)
[2018-10-31] MEDS ORDERED: Insulin DETEMIR 100 UNIT/ML X5UNITS SQ ONE (13:22)
[2018-10-31] MEDS ORDERED: D5% in Water 1,000 ML IVC PRN (13:24)
[2018-10-31] MEDS ORDERED: *HR* Dextrose 50 % in Water (Syg) 50 ML SYRINGE IVP PRN (13:24)
[2018-10-31] MEDS ORDERED: Dextrose Gel 15 GM/37.5 ML TUBE PO PRN ×2 (13:24)
[2018-10-31] MEDS ORDERED: Sennosides/Docusate Sodium TABLET PO PRN (13:26)
[2018-10-31] MEDS ORDERED: Artificial Tears SOLN 15 ML BOTTLE BOTH EYES PRN (13:26)
[2018-10-31] MEDS ORDERED: Loratadine 10 MG TABLET PO PRN (13:26)
[2018-10-31] MEDS ORDERED: (Ipratropium/Albuterol Sulfate [Combivent Respimat In IH PRN (13:26)
[2018-10-31] MEDS ORDERED: Ipratropium/Albuterol Neb 3 ML IH PRN ×2 (13:26→14:06)
[2018-10-31] MEDS ORDERED: GI Cocktail 40 ML EACH PO PRN (13:26)
--- NOTE | 2018-10-31 13:40 | Internal Med History&Physical ---
<Sebastian Guaman - Last Filed: 10/31/18 17:01> Date of Encounter: 10/31/18 Time of Encounter: 13:32 Internal Medicine - H&P: HPI Chief complaint: cellulitis Admitted From: Emergency Dept Plans for Post Hospital Care: Home History of present illness: Ms. Zamora is a 72 year old female with past medical history of morbid obesity, type 2DM, COPD on 2L home oxygen, peripheral neuropathy, HTN, GERD, chronic left lower extremity pain. She presented to ED from assisted due to left lower extremity cellulitis. Of note, patient has had extensive history of multiple admissions for left lower extremity chronic cellulitis E.Coli ESBL bacteremia, E.Coli ESBL UTI. When interviewing the patient, she is very so mnolent, slow to answer questions, and is intermittently alert. She is alert and oriented x3 and states she would like to be a full code. She is a poor historian and it is very difficult to obtain a history from her due to her intermittent alertness. She denies nausea, vomiting, diarrhea. She admits to fevers and chills. She denies chest pain and admits to shortness of breath. Past Med Surg Social Fam HX - Past Medical History Medical history: atrial fibrillation, CHF, COPD, coronary artery disease, diabetes, GERD, hyperlipidemia, hypertension, other Additional medical history: lymphedema BLE, umbilical hernia, neuropathy, home O2 NC 2L, UTI, morbid obesity Psychiatric history: anxiety, depression - Past Surgical History Surgical History: appendectomy, cholecystectomy, hysterectomy, knee replacement, orthopedic, other, other, arthroscopy Additional surgical history: bilateral knee replacement x2 , 6 knee scopes, D&C's. 2 left knee surgies. - Social History Smoking Status: Former smoker Smokeless Tobacco Status: No Alcohol use: none Drug use: none - Family History Mother Adopted: No Family Member Ethnicity: Non- Living Status: Hx Family Cardiac Disorders: Yes Hx Family Respiratory Disorders: Yes Hx Family Cancer: No Hx Family GI Disorders: Yes (ulcers) Hx Family Endocrine Disorder: Yes (Diabets) Hx Family Neuromuscular Disorders: No Hx Family Neurologic Disorders: No Hx Family HEENT Disorders: No Hx Family Autoimmune Disorders: No Father Hx Family Cardiac Disorders: Yes Hx Family Respiratory Disorders: Yes Hx Family Cancer: No Hx Family GI Disorders: No Hx Family Endocrine Disorder: Yes Hx Family Neuromuscular Disorders: No Hx Family Neurologic Disorders: No Hx Family HEENT Disorders: No Hx Family Autoimmune Disorders: No Internal Medicine - H&P: Meds Magnesium Oxide [Mag-Ox] 400 mg PO BID #30 tablet 05/30/16 [Rx] Furosemide [Lasix] 40 mg PO DAILY 06/10/16 [History] Metoprolol XL (24 HR) Succ [Toprol Xl] 25 mg PO DAILY 06/10/16 [History] L. Acidophilus/Pectin, [place] [Acidophilus Probiotic Capsule] 1 cap PO DAILY 09/02/16 [History] Sennosides/Docusate Sodium [Senna Plus] 2 tab PO BID PRN 09/02/16 [History] Ferrous Sulfate 325 mg PO DAILY 02/26/17 [History] Acetaminophen [Tylenol] 650 mg PO Q6H PRN 10/23/17 [History] Atorvastatin [Lipitor] 10 mg PO HS 10/23/17 [History] Insulin ASPART [NovoLOG] 5 unit SQ TID 04/21/18 [History] Isosorbide MONOnitrate (24 HR) [Imdur] 30 mg PO DAILY #30 tab.er.24h 04/23/18 [Rx] Fluticasone Propionate Nasal [Flonase] 1 spray NS DAILY 07/30/18 [History] Ipratropium/Albuterol Sulfate [Combivent Respimat Inhal [place]] 1 puff IN Q6H PRN 07/30/18 [History] Loratadine [Claritin] 10 mg PO DAILY PRN 07/30/18 [History] Aspirin Enteric Coated [Aspirin EC] 81 mg PO DAILY 08/22/18 [History] GI Cocktail [Gi Cocktail] 40 ml PO BID PRN 08/22/18 [History] Insulin Glargine [Lantus] 45 unit SQ BID 08/22/18 [History] Ipratropium/Albuterol Sulfate [Iprat-Albut 0.5-3(2.5) mg/3 ml] 3 ml IH QID PRN 08/22/18 [History] Loperamide [Imodium] 4 mg PO DAILY PRN 08/22/18 [History] Omeprazole [PriLOSEC] 20 mg PO DAILY 08/22/18 [History] Dextran 70/Hypromellose [Natural Balance Tears Eye Drop] 1 drop BOTH EYES BID PRN 09/09/18 [History] Nystatin POWDER [Nystop] 1 appl TP BID 09/09/18 [History] Guaifenesin [Mucinex] 600 mg PO Q12H PRN 10/03/18 [History] Potassium Chloride [K-Tab ER] 20 meq PO DAILY 10/03/18 [History] Scopolamine Patch [Transderm-Scop] 1.5 mg TD Q72H PRN 10/03/18 [History] DiphenhydraMINE [Benadryl] 25 mg PO QID PRN 10/31/18 [History] Gabapentin [Neurontin] 600 mg PO TID 10/31/18 [History] HYDROcodone/Acet 10/325 mg [[place] 10-325 mg] 1 tab PO QID PRN 10/31/18 [History] Melatonin 10 mg PO HS 10/31/18 [History] Venlafaxine HCl [Venlafaxine HCl ER] 150 mg PO DAILY 10/31/18 [History] Zinc Oxide [Z-Bum] 1 appl TP BID 10/31/18 [History] Allergy/AdvReac Type Severity Reaction Status Date / Time fentanyl Allergy Itching Verified 04/19/18 22:46 gentamicin AdvReac See Verified 10/23/17 19:31 Comments ROS unobtainable: due to mental status All Systems PM: A 10-system review of systems was performed and is negative for pertinent findings except as documented above in the HPI. - Constitutional Constitutional: as per HPI - Constitutional Vitals: Temp Pulse Resp BP Pulse Ox 99.9 F H 115 24 126/54 96 10/31/18 11:41 10/31/18 10:28 10/31/18 11:41 10/31/18 11:41 10/31/18 10:28 General appearance: Present: obese Exam: alert and oriented x3. somnolent. very slow to answer questions. intermittently alert. morbidly obese - Head Head exam: Present: atraumatic, normocephalic - Neck Neck exam general surgery: Present: supple, trachea midline - Respiratory Additional comments: decreased breath sounds throughout. hard to hear breath sounds due to body habitus. - Cardiovascular Cardiovascular exam: Present: +S1, +S2, tachycardia - GI/Abdominal GI/Abdominal exam: Present: distended, hypoactive bowel sounds, soft. Absent: tenderness - Extremities Exam Additional comments: left lower extremity warm, erythematous up to the knees, appears infected. no obvious induration noted. - Neurological Exam Neurological exam: Present: alert, oriented X3 Additional comments: very somnolent, slow to answer questions. - Psychiatric Psychiatric exam: Present: normal affect, normal mood Internal Med - H&P Results - Labs CBC & Chem 7: 10/31/18 08:25 10/31/18 08:28 Labs: Short CBC 10/31/18 Range/Units 08:25 WBC 25.2 H D (4.3-11.1) K/mcL Hgb 12.8 (11.5-15.4) g/dL Hct 39.9 (35.3-44.9) % Plt Count 230 (140-400) K/mcL Neutrophils # 23.8 H (1.6-8.9) K/mcL BMP 10/31/18 08:28 Sodium 138 Potassium 4.4 Chloride 101 Carbon Dioxide 24 BUN 12 Creatinine 0.75 Glucose 357 H Calcium 9.4 Cardiac Enzymes 10/31/18 Range/Units 08:28 Troponin I < 0.03 (< 0.04) ng/mL Liver Function 10/31/18 Range/Units 08:28 Total Bilirubin 0.6 (0.3-1.0) mg/dL Direct Bilirubin 0.2 (0.0-0.2) mg/dL AST 14 (13-39) Units/L ALT 14 (7-52) Units/L Alkaline Phosphatase 75 (34-104) Units/L Albumin 3.8 (3.5-5.7) g/dL Urine 10/31/18 Range/Units 08:40 Urine Color Yellow (Yellow) Urine Clarity Cloudy A (Clear) Urine pH 5.5 (5.0-8.0) pH Units Ur Specific [place] 1.018 (1.010-1.025) Urine Protein 100 H (Neg-Trace) mg/dL Urine Glucose (UA) >=1000 H (Normal) mg/dL - Impressions ITS Impressions Chest X-Ray 10/31/18 09:30 IMPRESSION: Bilateral airspace disease, either secondary to edema or infection. Radiographic follow-up to document resolution is suggested. D/ / Ky Mcbride MD / Ky Mcbride MD Interpreting Provider: Ky Mcbride MD - Assessment and Plan (1) Severe sepsis Current Visit: No Status: Resolved Assessment and plan: Tmax 101.7, HR 120s, HR>20, WBC 25.2 CXR showed bilateral airspace disease. extensive history of E.Coli ESBL bacteremia secondary to UTI. sensitive to zosyn. currently, unclear source of infection for sepsis. patient received one dose of levaquin, zosyn, zyvox in ED. Plan: Blood cultures x2, urine culture pending appreicate ID recommendations. Source of infection unclear. linezolid, zosyn day 1 (will start these ABX based on past cultures and based off of what she received in prior hospitalizations) (2) Cellulitis of left lower extremity Current Visit: No Status: Acute (3) CAD in [place] artery Current Visit: No Status: Acute Assessment and plan: continue ASA, statin, beta jeovany. (4) COPD (chronic obstructive pulmonary disease) Current Visit: No Status: Chronic Assessment and plan: Hx of COPD on chronic oxygen. likely component of obesity hypoventilation syndrome as well. continue home inhalers, PRN duonebs. Qualifiers: COPD type: unspecified COPD Qualified Code(s): J44.9 - Chronic obstructive pulmonary disease, unspecified (5) GERD (gastroesophageal reflux disease) Current Visit: No Status: Chronic Assessment and plan: continue home medication omeprazole. Qualifiers: Esophagitis presence: esophagitis presence not specified Qualified Code(s): K21.9 - Gastro-esophageal reflux disease without esophagitis (6) IDDM (insulin dependent diabetes mellitus) Current Visit: No Status: Chronic Assessment and plan: hx of type 2DM. last A1C 09/15/18 9.3% currently glucose uncontrolled. start basal insulin with high dose sliding scale coverage ADA diet ACHS accuchecks. (7) Morbid obesity due to excess calories Current Visit: No Status: Acute Assessment and plan: lifestyle modifications advised (8) Diastolic CHF Current Visit: Yes Status: Acute Assessment and plan: chronic diastolic CHF. last echo from 04/20/18 shows EF 65-70%. Plan: hold lasix for now in setting of severe sepsis. s/p 2L fluid bolus. continue to monitor blood pressure closely. Qualifiers: Heart failure chronicity: chronic Qualified Code(s): I50.32 - Chronic diastolic (congestive) heart failure (9) DVT prophylaxis Current Visit: No Status: Acute Assessment and plan: Heparin SQ - Time Spent With Patient Total time spent is greater than 50% in coordination of care (as documented) at patient's floor/unit and/or counseling patient: <Adry Navarro - Last Filed: 11/07/18 06:47> Date of Encounter: 10/31/18 Internal Medicine - H&P: HPI History of present illness: Ms. Zamora is a 72 year old female All Systems PM: A 10-system review of systems was performed and is negative for pertinent findings except as documented above in the HPI. - Constitutional Vitals: Temp Pulse Resp BP Pulse Ox 97.9 F 94 16 129/76 94 11/07/18 03:09 11/07/18 03:09 11/07/18 03:09 11/07/18 03:09 11/07/18 03:09 Internal Med - H&P Results - Labs CBC & Chem 7: 11/06/18 07:11 11/06/18 07:11 Labs: Short CBC 11/06/18 Range/Units 07:11 WBC 12.6 H (4.3-11.1) K/mcL Hgb 12.1 (11.5-15.4) g/dL Hct 38.3 (35.3-44.9) % Plt Count 333 (140-400) K/mcL Neutrophils # 8.1 (1.6-8.9) K/mcL BMP 11/06/18 07:11 Sodium 138 Potassium 3.7 Chloride 100 Carbon Dioxide 28 BUN 20 Creatinine 0.81 Glucose 257 H Calcium 9.3 - Impressions ITS Impressions Chest X-Ray 10/31/18 09:30 IMPRESSION: Bilateral airspace disease, either secondary to edema or infection. Radiographic follow-up to document resolution is suggested. D/ / Ky Mcbride MD / Ky Mcbride MD Interpreting Provider: Ky Mcbride MD Abdomen/Pelvis CT 10/31/18 17:24 IMPRESSION: 1. No evidence of abdominal infection. 2. Trace right pleural effusion and peripheral airspace opacities in the visualized lung bases. Correlate with any pulmonary symptoms. 3. Wedge-shaped area of decreased attenuation in the right hepatic lobe that appears new from prior imaging. This could represent an area of infarction. Cyst considered less likely. D/ / Haseeb Piña MD / Haseeb Piña MD Interpreting Provider: Haseeb Piña MD Lower Extremity CT 10/31/18 18:03 IMPRESSION: 1. Extensive subcutaneous edema of the left lower extremity with associated skin thickening similar to previous exam. Findings again may reflect bland edema versus cellulitis. No organized drainable subcutaneous fluid collection or subcutaneous gas identified. 2. Similar appearance of ovoid fluid density collection anterior to the proximal femur which is unchanged dating back to 2017 as described on previous exams. 3. Explantation of the left knee prosthesis with subsequent antibiotic cement placement similar to previous exams. D/ / Moises Mccain MD / Moises Mccain MD Interpreting Provider: Moises Mccain MD - Assessment and Plan (1) Lymphedema of both lower extremities Current Visit: Yes Status: Chronic (2) Morbid obesity Current Visit: Yes Status: Chronic (3) UTI (urinary tract infection) Current Visit: Yes Status: Acute Qualifiers: Urinary tract infection type: acute cystitis Hematuria presence: without hematuria Qualified Code(s): N30.00 - Acute cystitis without hematuria (4) Cellulitis Current Visit: Yes Status: Acute Qualifiers: Site of cellulitis: extremity Site of cellulitis of extremity: lower extremity Laterality: left Qualified Code(s): L03.116 - Cellulitis of left lower limb (5) Sepsis Current Visit: Yes Status: Acute Qualifiers: Sepsis type: sepsis due to unspecified organism Qualified Code(s): A41.9 - Sepsis, unspecified organism (6) Diastolic CHF Current Visit: Yes Status: Acute Qualifiers: Heart failure chronicity: chronic Qualified Code(s): I50.32 - Chronic diastolic (congestive) heart failure - Time Spent With Patient Total time spent is greater than 50% in coordination of care (as documented) at patient's floor/unit and/or counseling patient: - Attending Attestation I performed a history and physical examination of the patient and discussed his management with the resident. I reviewed the residents note and agree with the documented findings and plan of care.
--- NOTE | 2018-10-31 13:53 | Electrocardiograph Report ---
[place] [id number] Test Date: 2018-10-31 Pat Name: Kirti Zamora Department: EXAM19 Room: 2N03 Gender: F Mail Inserter: : 1945 Requested By: Missael Gasca Order Number: [id number] Reading MD: Tre Chacon Measurements Intervals [place] Rate: 127 P: 53 MT: 152 QRS: 45 QRSD: 103 T: 16 QT: 325 QTc: 473 Interpretive Statements Sinus tachycardia Low voltage, precordial leads Nonspecific ST-T wave abnormalities Electronically Signed On 10-31-2018 13:52:13 EDT by Tre Chacon
[2018-10-31] MEDS: Metoprolol XL (24 HR) Succ 25 MG TAB.ER.24H PO SCH (14:44)
[2018-10-31] MEDS: Gabapentin 300 MG CAPSULE PO SCH ×2 (14:44→20:55)
[2018-10-31] MEDS: *HR* HYDROcodone/Acet 10/325 mg TABLET PO PRN ×2 (14:53→20:55)
[2018-10-31] MEDS: *HR* Heparin 5,000 UNIT/ML VIAL SQ SCH (16:55)
[2018-10-31] MEDS: Insulin LISPRO 300 UNITS/3 ML VIAL SQ SCH ×2 (16:55→20:58)
[2018-10-31] MEDS: Acetaminophen 325 MG TABLET PO PRN (16:59)
--- NOTE | 2018-10-31 18:01 | Infectious Disease Consult ---
Infectious Disease-Consult - Encounter Date/Time Date of Encounter: 10/31/18 Time of Encounter: 17:47 - Data of Consult Patient: new to practice Reason for consult: Left lower extremity cellulitis and extensive history of Escherichia coli ESBL bacteremia Consult date: 10/31/18 Requesting Physician: Adry Navarro Primary Care Provider: PCP NONE - HPI HPI: Patient is a 72-year-old woman who presented to [facility] today with recurrent ESBL bacteremia. We are consulted for cellulitis left lower extremity and sepsis. Patient is 72-year-old woman who has extensive past medical history mentioned below including CHF, COPD, CAD, diabetes, GI bleed, kidney stones, and recurrent UTI who was recently seen by us in August 2018 for severe sepsis and bacteremia with Escherichia coli ESBL from a pyelonephritis/urinary tract infection source. Patient will also admitted on September 11 with fever and right lower extremity redness. Patient was discharged 2 days later on Bactrim. Patient came back here on October 03 with left leg swelling and pain and at that time patient was treated with Zosyn and Zyvox for 7 days total. Most of the information gathered patient for significant from medical records since the patient is not really a good historian. Since admission, patient has been febrile with MAXIMUM TEMPERATURE of 101.7 Fahrenheit, tachycardic and tachypneic but hemodynamically stable. Labs revealed a WBC of 25.1 with 95% neutrophils no bands. Chemistry reveals a BUN of 12 creatinine 0.75 and a lactic acid of 3.5 on admission. Urine culture showed pyuria even though the urine was contaminated. Urine and blood cultures were obtained and are so far no growth. A chest x-ray revealed bilateral airspace disease either significant erythema or infection. Patient was started on Zosyn and Zyvox and we were asked to evaluate the patient and make further recommendations. - ROS Review of Systems: 10 point review of systems done, negative other for what mentioned in the history of present illness. - Results CBC & Chem 7: 10/31/18 08:25 10/31/18 08:28 - Exam Vitals: Temp Pulse Resp BP Pulse Ox 99.2 F 96 16 124/69 95 10/31/18 16:23 10/31/18 16:23 10/31/18 16:23 10/31/18 16:23 10/31/18 16:23 Exam: Head: Atraumatic, normal inspection, normocephalic. Eye: EOMI, PERRLA, no scleral icterus noted. ENT: Mucous membranes dry. No odontogenic infection noted. Neck: Normal inspection, no meningismus. Respiratory: Diminished breath sounds universally. Poor inspiratory effort. Limited exam due to body habitus I did not appreciate any wheezing or rhonchi Cardiovascular: Regular rate and rhythm, S1 and S2 audible. No murmurs, rubs, or gallops. GI: Soft, morbidly obese, hypoactive bowel sounds but severe tenderness on the right upper quadrant and right lower quadrant on palpation. Extremities: left lower extremity warm, erythematous up to the knees, appears infected. no obvious induration noted. Back: Normal inspection. Bilateral CVA tenderness noted. Neurological: MONTENEGRO x 4 on command. Slow to respond to questions/commands. Psychiatric: anvxious and mildly agitated Skin: Dry, intact, warm. Normal color. No rashes. Magnesium Oxide [Mag-Ox] 400 mg PO BID #30 tablet 05/30/16 [Rx] Furosemide [Lasix] 40 mg PO DAILY 06/10/16 [History] Metoprolol XL (24 HR) Succ [Toprol Xl] 25 mg PO DAILY 06/10/16 [History] L. Acidophilus/Pectin, [place] [Acidophilus Probiotic Capsule] 1 cap PO DAILY 09/02/16 [History] Sennosides/Docusate Sodium [Senna Plus] 2 tab PO BID PRN 09/02/16 [History] Ferrous Sulfate 325 mg PO DAILY 02/26/17 [History] Acetaminophen [Tylenol] 650 mg PO Q6H PRN 10/23/17 [History] Atorvastatin [Lipitor] 10 mg PO HS 10/23/17 [History] Insulin ASPART [NovoLOG] 5 unit SQ TID 04/21/18 [History] Isosorbide MONOnitrate (24 HR) [Imdur] 30 mg PO DAILY #30 tab.er.24h 04/23/18 [Rx] Fluticasone Propionate Nasal [Flonase] 1 spray NS DAILY 07/30/18 [History] Ipratropium/Albuterol Sulfate [Combivent Respimat Inhal [place]] 1 puff IN Q6H PRN 07/30/18 [History] Loratadine [Claritin] 10 mg PO DAILY PRN 07/30/18 [History] Melatonin 5 mg PO HS 07/30/18 [History] Aspirin Enteric Coated [Aspirin EC] 81 mg PO DAILY 08/22/18 [History] GI Cocktail [Gi Cocktail] 40 ml PO BID PRN 08/22/18 [History] Insulin Glargine [Lantus] 45 unit SQ BID 08/22/18 [History] Ipratropium/Albuterol Sulfate [Iprat-Albut 0.5-3(2.5) mg/3 ml] 3 ml IH QID PRN 08/22/18 [History] Loperamide [Imodium] 4 mg PO DAILY PRN 08/22/18 [History] Omeprazole [PriLOSEC] 20 mg PO DAILY 08/22/18 [History] Dextran 70/Hypromellose [Natural Balance Tears Eye Drop] 1 drop BOTH EYES BID PRN 09/09/18 [History] Nystatin POWDER [Nystop] 1 appl TP BID 09/09/18 [History] Gabapentin [Neurontin] 300 mg PO TID 10/03/18 [History] Guaifenesin [Mucinex] 600 mg PO Q12H PRN 10/03/18 [History] Potassium Chloride [K-Tab ER] 20 meq PO DAILY 10/03/18 [History] Scopolamine Patch [Transderm-Scop] 1.5 mg TD Q72H PRN 10/03/18 [History] HYDROcodone/Acet 10/325 mg [[place] 10-325 mg] 1 tab PO Q6HR PRN 10/31/18 [History] Allergy/AdvReac Type Severity Reaction Status Date / Time fentanyl Allergy Itching Verified 04/19/18 22:46 gentamicin AdvReac See Verified 10/23/17 19:31 Comments - Assessment and Plan (1) Severe sepsis Current Visit: No Status: Resolved Patient had 3 SIRS criteria and left acidosis on admission Etiology not clear could be due to the cellulitis versus urosepsis versus intra- abdominal process. SNOMED Code(s): 68797754 (2) Cellulitis Current Visit: Yes Status: Acute Left lower extremity Causative organism not clear Patient was on Zyvox and Zosyn DC Zyvox Start vancomycin with goal vancomycin trough 10-15 Concern for Escherichia coli ESBL infection last I will stop the Zosyn and start ertapenem get CT lower extremity to rule out abscess vs osteo vs other. Especially that this is the patient third admission with the same cellulitis that is not resolving with Bactrim or Zyvox. Qualifiers: Site of cellulitis: extremity Site of cellulitis of extremity: lower extremity Laterality: left Qualified Code(s): L03.116 - Cellulitis of left lower limb SNOMED Code(s): 857224148 (3) Abdominal pain Current Visit: No Status: Acute d/w primary team etiology not clear patient had gallbladder surgically removed in the past Considering getting CT abdomen and pelvis and maybe check LFTs lipase and amylase. Qualifiers: Abdominal location: epigastric Qualified Code(s): R10.13 - Epigastric pain SNOMED Code(s): 99256503 (4) Anxiety Current Visit: Yes Status: Acute defer to primary team consider restarting SSRI's? 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 controller (current) use of insulin SNOMED Code(s): 83401978 (7) Lymphedema of both lower extremities Current Visit: No Status: Chronic SNOMED Code(s): 03540036227302940 Past Med Surg Social Fam HX - Past Medical History Medical history: atrial fibrillation, CHF, COPD, coronary artery disease, diabetes, GERD, hyperlipidemia, hypertension, other Additional medical history: lymphedema BLE, umbilical hernia, neuropathy, home O2 [place] 2L, UTI, morbid obesity Psychiatric history: anxiety, depression - Past Surgical History Surgical History: appendectomy, cholecystectomy, hysterectomy, knee replacement, orthopedic, other, other, arthroscopy Additional surgical history: bilateral knee replacement x2 , 6 knee scopes, D&C's. 2 left knee surgies. - Social History Smoking Status: Former smoker Smokeless Tobacco Status: No Alcohol use: none Drug use: none - Family History Mother Adopted: No Family Member Ethnicity: Non- Living Status: Hx Family Cardiac Disorders: Yes Hx Family Respiratory Disorders: Yes Hx Family Cancer: No Hx Family GI Disorders: Yes (ulcers) Hx Family Endocrine Disorder: Yes (Diabets) Hx Family Neuromuscular Disorders: No Hx Family Neurologic Disorders: No Hx Family HEENT Disorders: No Hx Family Autoimmune Disorders: No Father Hx Family Cardiac Disorders: Yes Hx Family Respiratory Disorders: Yes Hx Family Cancer: No Hx Family GI Disorders: No Hx Family Endocrine Disorder: Yes Hx Family Neuromuscular Disorders: No Hx Family Neurologic Disorders: No Hx Family HEENT Disorders: No Hx Family Autoimmune Disorders: No Consult Discharge Plan - Plan Referrals: NONE,PCP [Primary Care Provider] -
[2018-10-31] MEDS: Ertapenem 1,000 MG in 0.9 % Sodium Chloride Mini Bag 100 ML IVPB SCH (19:26)
[2018-10-31] MEDS: Melatonin 3 MG TABLET PO SCH (20:55)
[2018-10-31] MEDS: Nystatin POWDER 30 GM BOTTLE TP SCH (20:56)
[2018-10-31] MEDS: Insulin DETEMIR 100 UNIT/ML X5UNITS SQ SCH (21:00)
[2018-10-31] MEDS: Ibuprofen 400 MG TABLET PO PRN (22:07)
[2018-11-01] MEDS ORDERED: Piperacillin/Tazobactam 3.375 GM in 0.9 % Sodium Chloride Mini Bag 100 ML IVPB SCH
[2018-11-01 02:34] LABS: Basophils % 0.2 %; Eosinophils % 0.2 %; Hematocrit 34.9 % (35.3-44.9); Hemoglobin 11.3 g/dL (11.5-15.4); Immature Granulocytes % 0.7 % (0-4); Immature Platelets 2.2 % (1.1-6.1); Lymphocytes # 1.1 K/mcL (0.6-4.6); Lymphocytes % 5.6 %; Mean Corpuscular HGB Conc 32.4 g/dL (31.6-35.5); Mean Corpuscular Hemoglobin 29.6 pg (28.0-33.3); Mean Corpuscular Volume 91.4 fL (83.0-100.0); Mean Platelet Volume 9.5 fL (9.4-12.4); Monocytes # 0.5 K/mcL (0.0-1.3); Monocytes % 2.6 %; Neutrophils # 17.3 K/mcL (1.6-8.9); Platelet Count 210 K/mcL (140-400); Red Blood Count 3.82 M/mcL (3.82-4.97); Red Cell Distribution Width 17.3 % (11.5-14.5); Segmented Neutrophils % 90.7 %; White Blood Count 19.1 K/mcL (4.3-11.1)
[2018-11-01 03:57] LABS: BUN/Creatinine Ratio 22 (6-26); Blood Urea Nitrogen 17 mg/dL (8-23); Calcium 8.7 mg/dL (8.6-10.3); Carbon Dioxide 24 mEq/L (23-29); Chloride 102 mEq/L (98-107); Glucose 141 mg/dL (70-105); Magnesium 1.8 mg/dL (1.6-2.6); Osmolality,Calculated 288 (280-300); Phosphorous 2.5 mg/dL (2.7-4.5); Potassium 4.8 mEq/L (3.5-5.1); Sodium 137 mEq/L (136-145); eGFR For African Americans > 60 (> 60); eGFR For Non-African Americans > 60 (> 60)
[2018-11-01] MEDS: *HR* Heparin 5,000 UNIT/ML VIAL SQ SCH ×2 (05:04→17:05)
--- NOTE | 2018-11-01 08:13 | Internal Med Progress Note ---
Hospitalist Progress Note - Encounter Date of Encounter: 11/01/18 Time of Encounter: 08:00 - Subjective Interval History: No acute events overnight - Exam Vitals: Temp Pulse Resp BP Pulse Ox 98.7 F 91 18 104/60 99 11/01/18 07:16 11/01/18 07:16 11/01/18 07:16 11/01/18 03:13 11/01/18 07:16 Exam: General appearance: Present: A&O X 3, lethargic, morbidly obese Head exam: Present: normocephalic Respiratory exam: Present: CTAB. Absent: accessory muscle use, rales, rhonchi, wheezes Cardiovascular exam: Present: RRR, +S1, +S2. Absent: diastolic murmur, gallop, rubs, systolic murmur GI/Abdominal exam: Soft, NT, ND, +BS Extremities exam: gross lymphedema Neurological exam: Present: alert, oriented X3, no focal deficits. Absent: altered - Assessment and Plan (1) Sepsis Current Visit: Yes Status: Acute Assessment and Plan: Pt came in with severe sepsis likely secondary to ESBL E. coli UTI with elevated lactate On vanc and ertapenem. ID on board (2) UTI (urinary tract infection) Current Visit: Yes Status: Acute Assessment and Plan: UTI sepsis likley secondary to ESBL e coli. Continue vanc and ertapenem Follow cultures (3) Diastolic CHF Current Visit: Yes Status: Acute Assessment and Plan: No acute exacerbation. resume po lasix (4) Lymphedema of both lower extremities Current Visit: Yes Status: Chronic Assessment and Plan: Continue lasix (5) Morbid obesity Current Visit: Yes Status: Chronic Assessment and Plan: diet and exercise DVT Prophylaxis: Heparin sc - Time Spent with Patient Total time spent is greater than 50% in coordination of care (as documented) at patient's floor/unit and/or counseling patient: Internal Medicine: Result - Labs CBC & Chem 7: 11/01/18 00:40 11/01/18 00:40 Labs: Short CBC 10/31/18 11/01/18 Range/Units 08:25 00:40 WBC 25.2 H D 19.1 H (4.3-11.1) K/mcL Hgb 12.8 11.3 L D (11.5-15.4) g/dL Hct 39.9 34.9 L (35.3-44.9) % Plt Count 230 210 (140-400) K/mcL Neutrophils # 23.8 H 17.3 H (1.6-8.9) K/mcL BMP 10/31/18 11/01/18 08:28 00:40 Sodium 138 137 Potassium 4.4 4.8 Chloride 101 102 Carbon Dioxide 24 24 BUN 12 17 Creatinine 0.75 0.77 Glucose 357 H 141 H Calcium 9.4 8.7 Cardiac Enzymes 10/31/18 Range/Units 08:28 Troponin I < 0.03 (< 0.04) ng/mL Liver Function 10/31/18 Range/Units 08:28 Total Bilirubin 0.6 (0.3-1.0) mg/dL Direct Bilirubin 0.2 (0.0-0.2) mg/dL AST 14 (13-39) Units/L ALT 14 (7-52) Units/L Alkaline Phosphatase 75 (34-104) Units/L Albumin 3.8 (3.5-5.7) g/dL Urine 10/31/18 Range/Units 08:40 Urine Color Yellow (Yellow) Urine Clarity Cloudy A (Clear) Urine pH 5.5 (5.0-8.0) pH Units Ur Specific [place] 1.018 (1.010-1.025) Urine Protein 100 H (Neg-Trace) mg/dL Urine Glucose (UA) >=1000 H (Normal) mg/dL - ABG Interpretation ABG results: PT/INR, D-dimer PT 11.7 Seconds (9.4-12.1) 10/31/18 08:25 - Impressions Impressions Chest X-Ray 10/31/18 09:30 IMPRESSION: Bilateral airspace disease, either secondary to edema or infection. Radiographic follow-up to document resolution is suggested. D/ / Ky Mcbride MD / Ky Mcbride MD Interpreting Provider: Ky Mcbride MD Abdomen/Pelvis CT 10/31/18 17:24 IMPRESSION: 1. No evidence of abdominal infection. 2. Trace right pleural effusion and peripheral airspace opacities in the visualized lung bases. Correlate with any pulmonary symptoms. 3. Wedge-shaped area of decreased attenuation in the right hepatic lobe that appears new from prior imaging. This could represent an area of infarction. Cyst considered less likely. D/ / Haseeb Piña MD / Haseeb Piña MD Interpreting Provider: Haseeb Piña MD Lower Extremity CT 10/31/18 18:03 IMPRESSION: 1. Extensive subcutaneous edema of the left lower extremity with associated skin thickening similar to previous exam. Findings again may reflect bland edema versus cellulitis. No organized drainable subcutaneous fluid collection or subcutaneous gas identified. 2. Similar appearance of ovoid fluid density collection anterior to the proximal femur which is unchanged dating back to 2017 as described on previous exams. 3. Explantation of the left knee prosthesis with subsequent antibiotic cement placement similar to previous exams. D/ / Moises Mccain MD / Moises Mccain MD Interpreting Provider: Moises Mccain MD Consult Discharge Plan - Plan Referrals: NONE,PCP [Primary Care Provider] - (1) Sepsis Qualifiers: Sepsis type: sepsis due to unspecified organism Qualified Code(s): A41.9 - Sepsis, unspecified organism (2) UTI (urinary tract infection) Qualifiers: Urinary tract infection type: acute cystitis Hematuria presence: without hematuria Qualified Code(s): N30.00 - Acute cystitis without hematuria (3) Diastolic CHF Qualifiers: Heart failure chronicity: chronic Qualified Code(s): I50.32 - Chronic diastolic (congestive) heart failure
[2018-11-01] MEDS: Metoprolol XL (24 HR) Succ 25 MG TAB.ER.24H PO SCH (08:22)
[2018-11-01] MEDS: Gabapentin 300 MG CAPSULE PO SCH ×3 (08:22→21:21)
[2018-11-01] MEDS: *HR* HYDROcodone/Acet 10/325 mg TABLET PO PRN ×3 (08:23→22:55)
[2018-11-01] MEDS: Nystatin POWDER 30 GM BOTTLE TP SCH ×2 (08:23→22:55)
[2018-11-01] MEDS: Fluticasone Propionate Nasal 50 MCG/SPRAY BOTTLE NS SCH (08:23)
[2018-11-01] MEDS: Insulin DETEMIR 100 UNIT/ML X5UNITS SQ SCH ×2 (08:23→21:24)
[2018-11-01] MEDS: Isosorbide MONOnitrate (24 HR) 30 MG TAB.ER.24H PO SCH (08:23)
[2018-11-01] MEDS: Aspirin Enteric Coated 81 MG Tablet PO SCH (08:23)
[2018-11-01] MEDS: Insulin LISPRO 300 UNITS/3 ML VIAL SQ SCH ×4 (08:23→20:02)
[2018-11-01] MEDS: Ibuprofen 400 MG TABLET PO PRN ×2 (12:04→18:40)
[2018-11-01] MEDS: Ertapenem 1,000 MG in 0.9 % Sodium Chloride Mini Bag 100 ML IVPB SCH (18:41)
[2018-11-01] MEDS: Melatonin 3 MG TABLET PO SCH (21:21)
[2018-11-02] MEDS: Ibuprofen 400 MG TABLET PO PRN ×3 (03:35→22:37)
[2018-11-02] MEDS: Acetaminophen 325 MG TABLET PO PRN ×2 (05:35→17:08)
[2018-11-02] MEDS: *HR* Heparin 5,000 UNIT/ML VIAL SQ SCH ×2 (05:35→17:09)
--- NOTE | 2018-11-02 07:44 | Internal Med Progress Note ---
Hospitalist Progress Note - Encounter Date of Encounter: 11/02/18 Time of Encounter: 12:00 - Subjective Interval History: No acute events overnight - Exam Vitals: Temp Pulse Resp BP Pulse Ox 97.9 F 78 12 117/62 94 11/02/18 07:23 11/02/18 07:23 11/02/18 07:23 11/02/18 07:23 11/02/18 07:23 Exam: General appearance: Present: A&O X 3, lethargic, morbidly obese Head exam: Present: normocephalic Respiratory exam: Present: CTAB. Absent: accessory muscle use, rales, rhonchi, wheezes Cardiovascular exam: Present: RRR, +S1, +S2. Absent: diastolic murmur, gallop, rubs, systolic murmur GI/Abdominal exam: Soft, NT, ND, +BS Extremities exam: gross lymphedema Neurological exam: Present: alert, oriented X3, no focal deficits. Absent: altered - Assessment and Plan (1) Sepsis Current Visit: Yes Status: Acute Assessment and Plan: Pt came in with severe sepsis likely secondary to ESBL E. coli UTI (from previous cultures) with elevated lactate On vanc and ertapenem. ID on board WBC trending down. Lactate now WNL [place] culture growing gram negative rods. Identification and sensitivities pending (2) UTI (urinary tract infection) Current Visit: Yes Status: Acute Assessment and Plan: UTI sepsis papaley secondary to ESBL e coli. Continue vanc and ertapenem Follow cultures (3) Diastolic CHF Current Visit: Yes Status: Acute Assessment and Plan: No acute exacerbation. resume po lasix (4) Lymphedema of both lower extremities Current Visit: Yes Status: Chronic Assessment and Plan: Continue lasix (5) Morbid obesity Current Visit: Yes Status: Chronic Assessment and Plan: diet and exercise DVT Prophylaxis: Heparin sc - Time Spent with Patient Total time spent is greater than 50% in coordination of care (as documented) at patient's floor/unit and/or counseling patient: Internal Medicine: Result - Labs CBC & Chem 7: 11/02/18 10:22 11/02/18 10:22 - ABG Interpretation ABG results: PT/INR, D-dimer PT 11.7 Seconds (9.4-12.1) 10/31/18 08:25 Consult Discharge Plan - Plan Referrals: NONE,PCP [Primary Care Provider] - (1) Sepsis Qualifiers: Sepsis type: sepsis due to unspecified organism Qualified Code(s): A41.9 - Sepsis, unspecified organism (2) UTI (urinary tract infection) Qualifiers: Urinary tract infection type: acute cystitis Hematuria presence: without hematuria Qualified Code(s): N30.00 - Acute cystitis without hematuria (3) Diastolic CHF Qualifiers: Heart failure chronicity: chronic Qualified Code(s): I50.32 - Chronic diastolic (congestive) heart failure
[2018-11-02] MEDS: *HR* HYDROcodone/Acet 10/325 mg TABLET PO PRN ×2 (08:26→15:09)
[2018-11-02] MEDS: Metoprolol XL (24 HR) Succ 25 MG TAB.ER.24H PO SCH (08:26)
[2018-11-02] MEDS: Isosorbide MONOnitrate (24 HR) 30 MG TAB.ER.24H PO SCH (08:27)
[2018-11-02] MEDS: Nystatin POWDER 30 GM BOTTLE TP SCH ×2 (08:27→22:29)
[2018-11-02] MEDS: Fluticasone Propionate Nasal 50 MCG/SPRAY BOTTLE NS SCH (08:27)
[2018-11-02] MEDS: Aspirin Enteric Coated 81 MG Tablet PO SCH (08:27)
[2018-11-02] MEDS: Insulin DETEMIR 100 UNIT/ML X5UNITS SQ SCH ×2 (08:27→22:29)
[2018-11-02] MEDS: Gabapentin 300 MG CAPSULE PO SCH ×3 (08:27→22:28)
[2018-11-02] MEDS: Insulin LISPRO 300 UNITS/3 ML VIAL SQ SCH ×4 (08:27→22:23)
[2018-11-02] MEDS ORDERED: Furosemide 40 MG TABLET PO SCH (09:00)
[2018-11-02 10:35] LABS: Basophils % 0.4 %; Eosinophils # 0.7 K/mcL (0.0-0.6); Eosinophils % 7.4 %; Hematocrit 35.2 % (35.3-44.9); Hemoglobin 10.8 g/dL (11.5-15.4); Immature Granulocytes % 0.6 % (0-4); Lymphocytes % 9.7 %; Mean Corpuscular HGB Conc 30.7 g/dL (31.6-35.5); Mean Corpuscular Volume 94.6 fL (83.0-100.0); Mean Platelet Volume 8.9 fL (9.4-12.4); Monocytes # 0.5 K/mcL (0.0-1.3); Monocytes % 4.8 %; Neutrophils # 7.6 K/mcL (1.6-8.9); Platelet Count 192 K/mcL (140-400); Red Blood Count 3.72 M/mcL (3.82-4.97); Red Cell Distribution Width 17.4 % (11.5-14.5); Segmented Neutrophils % 77.1 %; White Blood Count 9.9 K/mcL (4.3-11.1)
[2018-11-02 10:54] LABS: BUN/Creatinine Ratio 25 (6-26); Blood Urea Nitrogen 20 mg/dL (8-23); Calcium 8.9 mg/dL (8.6-10.3); Carbon Dioxide 28 mEq/L (23-29); Chloride 103 mEq/L (98-107); Glucose 200 mg/dL (70-105); Osmolality,Calculated 294 (280-300); Potassium 3.7 mEq/L (3.5-5.1); Sodium 138 mEq/L (136-145); eGFR For African Americans > 60 (> 60); eGFR For Non-African Americans > 60 (> 60)
[2018-11-02] MEDS: Furosemide 40 MG/4 ML VIAL IVP SCH (17:09)
[2018-11-02] MEDS: Ertapenem 1,000 MG in 0.9 % Sodium Chloride Mini Bag 100 ML IVPB SCH (18:21)
[2018-11-02] MEDS: Melatonin 3 MG TABLET PO SCH (22:28)
[2018-11-03] MEDS: *HR* HYDROcodone/Acet 10/325 mg TABLET PO PRN ×3 (00:19→20:11)
[2018-11-03 05:22] LABS: Basophils % 0.4 %; Eosinophils # 0.7 K/mcL (0.0-0.6); Eosinophils % 7.6 %; Hematocrit 34.4 % (35.3-44.9); Hemoglobin 10.9 g/dL (11.5-15.4); Lymphocytes # 1.5 K/mcL (0.6-4.6); Mean Corpuscular HGB Conc 31.7 g/dL (31.6-35.5); Mean Corpuscular Hemoglobin 29.5 pg (28.0-33.3); Mean Platelet Volume 9.5 fL (9.4-12.4); Monocytes # 0.5 K/mcL (0.0-1.3); Monocytes % 5.1 %; Neutrophils # 6.1 K/mcL (1.6-8.9); Platelet Count 232 K/mcL (140-400); Red Cell Distribution Width 17.1 % (11.5-14.5); Segmented Neutrophils % 68.9 %; White Blood Count 8.9 K/mcL (4.3-11.1)
[2018-11-03] MEDS: *HR* Heparin 5,000 UNIT/ML VIAL SQ SCH ×2 (05:42→17:25)
[2018-11-03] MEDS: Acetaminophen 325 MG TABLET PO PRN ×2 (05:47→22:54)
[2018-11-03 05:56] LABS: BUN/Creatinine Ratio 27 (6-26); Blood Urea Nitrogen 21 mg/dL (8-23); Carbon Dioxide 24 mEq/L (23-29); Chloride 104 mEq/L (98-107); Sodium 138 mEq/L (136-145)
[2018-11-03 05:57] LABS: Calcium 8.7 mg/dL (8.6-10.3); Glucose 273 mg/dL (70-105); Magnesium 1.8 mg/dL (1.6-2.6); Osmolality,Calculated 299 (280-300); Phosphorous 3.6 mg/dL (2.7-4.5); eGFR For African Americans > 60 (> 60); eGFR For Non-African Americans > 60 (> 60)
--- NOTE | 2018-11-03 07:43 | Internal Med Progress Note ---
Hospitalist Progress Note - Encounter Date of Encounter: 11/03/18 Time of Encounter: 07:30 - Subjective Interval History: No acute events overnight - Exam Vitals: Temp Pulse Resp BP Pulse Ox 98.4 F 84 18 111/67 97 11/03/18 07:30 11/03/18 07:30 11/03/18 07:30 11/03/18 07:30 11/03/18 07:30 Exam: General appearance: Present: A&O X 3, lethargic, morbidly obese Head exam: Present: normocephalic Respiratory exam: Present: CTAB. Absent: accessory muscle use, rales, rhonchi, wheezes Cardiovascular exam: Present: RRR, +S1, +S2. Absent: diastolic murmur, gallop, rubs, systolic murmur GI/Abdominal exam: Soft, NT, ND, +BS Extremities exam: gross lymphedema Neurological exam: Present: alert, oriented X3, no focal deficits. Absent: altered - Assessment and Plan (1) Sepsis Current Visit: Yes Status: Acute Assessment and Plan: Pt came in with severe sepsis likely secondary to ESBL E. coli UTI (from previous cultures) with elevated lactate On vanc and ertapenem. ID on board WBC trending down. Lactate now WNL [place] culture growing gram negative rods. Identification and sensitivities pending (2) UTI (urinary tract infection) Current Visit: Yes Status: Acute Assessment and Plan: UTI sepsis appaley secondary to ESBL e coli. Continue vanc and ertapenem Follow cultures (3) Diastolic CHF Current Visit: Yes Status: Acute Assessment and Plan: No acute exacerbation. resume po lasix (4) Lymphedema of both lower extremities Current Visit: Yes Status: Chronic Assessment and Plan: Continue lasix (5) Morbid obesity Current Visit: Yes Status: Chronic Assessment and Plan: diet and exercise DVT Prophylaxis: Heparin sc - Time Spent with Patient Total time spent is greater than 50% in coordination of care (as documented) at patient's floor/unit and/or counseling patient: Internal Medicine: Result - Labs CBC & Chem 7: 11/03/18 04:15 11/03/18 04:15 Labs: Short CBC 11/02/18 11/03/18 Range/Units 10:22 04:15 WBC 9.9 8.9 (4.3-11.1) K/mcL Hgb 10.8 L 10.9 L (11.5-15.4) g/dL Hct 35.2 L 34.4 L (35.3-44.9) % Plt Count 192 232 (140-400) K/mcL Neutrophils # 7.6 6.1 (1.6-8.9) K/mcL BMP 11/02/18 11/03/18 10:22 04:15 Sodium 138 138 Potassium 3.7 4.0 Chloride 103 104 Carbon Dioxide 28 24 BUN 20 21 Creatinine 0.81 0.77 Glucose 200 H 273 H Calcium 8.9 8.7 - ABG Interpretation ABG results: PT/INR, D-dimer PT 11.7 Seconds (9.4-12.1) 10/31/18 08:25 Consult Discharge Plan - Plan Referrals: NONE,PCP [Primary Care Provider] - (1) Sepsis Qualifiers: Sepsis type: sepsis due to unspecified organism Qualified Code(s): A41.9 - Sepsis, unspecified organism (2) UTI (urinary tract infection) Qualifiers: Urinary tract infection type: acute cystitis Hematuria presence: without hematuria Qualified Code(s): N30.00 - Acute cystitis without hematuria (3) Diastolic CHF Qualifiers: Heart failure chronicity: chronic Qualified Code(s): I50.32 - Chronic diastolic (congestive) heart failure
[2018-11-03] MEDS: Metoprolol XL (24 HR) Succ 25 MG TAB.ER.24H PO SCH (09:06)
[2018-11-03] MEDS: Aspirin Enteric Coated 81 MG Tablet PO SCH (09:06)
[2018-11-03] MEDS: Furosemide 40 MG/4 ML VIAL IVP SCH ×2 (09:06→17:24)
[2018-11-03] MEDS: Gabapentin 300 MG CAPSULE PO SCH ×3 (09:06→20:11)
[2018-11-03] MEDS: Isosorbide MONOnitrate (24 HR) 30 MG TAB.ER.24H PO SCH (09:06)
[2018-11-03] MEDS: Nystatin POWDER 30 GM BOTTLE TP SCH ×2 (09:07→20:12)
[2018-11-03] MEDS: Insulin DETEMIR 100 UNIT/ML X5UNITS SQ SCH ×2 (09:08→20:14)
[2018-11-03] MEDS: Insulin LISPRO 300 UNITS/3 ML VIAL SQ SCH ×4 (09:09→20:13)
[2018-11-03] MEDS: Fluticasone Propionate Nasal 50 MCG/SPRAY BOTTLE NS SCH (09:10)
--- NOTE | 2018-11-03 13:35 | Infectious Disease Progress No ---
ID Progress Note Date of Encounter: 11/03/18 Time of Encounter: 13:27 - Subjective Subjective: Patient seen and examined. No acute events overnight. Patient states overall she does not feel much better. She reports chills, but denies fevers or rigors. Denies headache or neck pain. Denies chest pain, shortness of breath, or cough. Reports some intermittent nausea, but denies vomiting. States her appetite is okay. Denies abdominal pain. Reports some dysuria, but denies urinary frequency. Complains of bilateral lower back pain which is new for her. Complains of chronic pain in her bilateral feet. States she does not feel like her left leg is any better. Denies oral thrush or other skin rashes. - Objective CBC & Chem 7: 11/04/18 03:37 11/04/18 03:37 - Exam Vitals: Temp Pulse Resp BP Pulse Ox 98.2 F 80 18 122/56 98 11/03/18 11:19 11/03/18 11:19 11/03/18 11:19 11/03/18 11:19 11/03/18 11:19 Exam: Head: Atraumatic, normal inspection, normocephalic. Eye: EOMI, PERRLA, no scleral icterus noted. ENT: Mucous membranes moist. No odontogenic infection noted. Neck: Normal inspection, no meningismus. Respiratory: Clear to auscultation. No rales, respiratory distress, rhonchi, or wheezes noted. Cardiovascular: Regular rate and rhythm, S1 and S2 audible. No murmurs, rubs, or gallops. GI: Soft, nondistended, normal bowel sounds. Extremities: Erythema, warmth, edema, and tenderness noted to the left lower leg. No open lesion noted. Back: Normal inspection. No vertebral tenderness noted. Lower back tenderness noted. Neurological: Alert, oriented 3, no focal deficits. Psychiatric: normal affect, normal mood. Skin: Dry, intact, warm. Normal color. No rashes. - Assessment and Plan (1) Severe sepsis Current Visit: No Status: Resolved Patient had 3 SIRS criteria and lactic acidosis on admission. Etiology not clear, but could be due to the cellulitis versus urosepsis. Improved. WBC normal. Afebrile. No tachycardia. Lactic acidosis resolved. Blood cultures drawn 10/31/18 are NGTD x 2 sets. SNOMED Code(s): 34575582 (2) Cellulitis Current Visit: Yes Status: Acute Location: Left lower extremity. Causative organism not clear. Cellulitis vs. venous stasis. CT negative for abscess or osteomyelitis, but does show an unchanged fluid collection anterior to the left femur, unchanged from previous imaging. Unchanged per patient report. Currently on Vanc and ertapenem. Qualifiers: Site of cellulitis: extremity Site of cellulitis of extremity: lower extremity Laterality: left Qualified Code(s): L03.116 - Cellulitis of left lower limb SNOMED Code(s): 331739559 (3) UTI (urinary tract infection) Current Visit: Yes Status: Acute Causative organism: Unclear. Urine culture positive for GNR, final ID and sensitivities pending. Has a history of E. coli ESBL. CT abdomen and pelvis negative for intra-abdominal process. Currently on Ertapenem. Qualifiers: Urinary tract infection type: acute cystitis Hematuria presence: without hematuria Qualified Code(s): N30.00 - Acute cystitis without hematuria SNOMED Code(s): 68738278 (4) Abdominal pain Current Visit: No Status: Acute Etiology not clear. Patient had gallbladder surgically removed in the past. CT abdomen and pelvis non-revealing. LFTs normal. Check amylase and lipase. Qualifiers: Abdominal location: epigastric Qualified Code(s): R10.13 - Epigastric pain SNOMED Code(s): 55020616 (5) Anxiety Current Visit: Yes Status: Chronic SNOMED Code(s): 63828038 (6) Lymphedema Current Visit: No Status: Chronic SNOMED Code(s): 344828372 (7) Morbid obesity with BMI of 50.0-59.9, adult Current Visit: No Status: Chronic SNOMED Code(s): 061926954, 91196822188532 (8) Type 2 diabetes mellitus Current Visit: No Status: Chronic Qualifiers: Diabetes mellitus terminal make up operator insulin use: with terminal make up operator use Diabetes shital litus complication status: with hyperglycemia Qualified Code(s): E11.65 - Type 2 diabetes mellitus with hyperglycemia; Z79.4 - terminal manager (current) use of insulin SNOMED Code(s): 22542087 - Recommendations Recommendations: Await blood cultures to finalize. Await urine culture to finalize. Check amylase and lipase. Continue Vancomycin IV. Pharmacy to dose. Goal trough ~15. Continue Ertapenem 1 gram IV daily. Duration of treatment depends on the clinical picture. Monitor renal function and for drug toxicity and dose-adjust antibiotics. Contact precautions per hospital policy. Consult Discharge Plan - Plan Referrals: NONE,PCP [Primary Care Provider] - - Attending Attestation I have personally performed a face to face evaluation on this patient. I have reviewed and agree with the care plan. History and Exam by me shows: Assessment and plan: 1.Severe sepsis 2.Cellulitis left lower extremity causative organism unclear 3.Abdominal painunchanged. CT abdomen and pelvis within normal limit 4.Anxiety 5.Morbid obesity 6.Diabetes mellitus type 2 7.Lymphedema bilateral lower extremity Recommendations: Await blood cultures to finalize. Await urine culture to finalize. Check amylase and lipase. Continue Vancomycin IV. Pharmacy to dose. Goal trough ~15. Continue Ertapenem 1 gram IV daily. Duration of treatment depends on the clinical picture. Monitor renal function and for drug toxicity and dose-adjust antibiotics. Contact precautions per hospital policy.
[2018-11-03] MEDS: Ibuprofen 400 MG TABLET PO PRN (14:16)
[2018-11-03] MEDS: Ertapenem 1,000 MG in 0.9 % Sodium Chloride Mini Bag 100 ML IVPB SCH (17:24)
[2018-11-03] MEDS: Melatonin 3 MG TABLET PO SCH (20:11)
[2018-11-04] MEDS: Ibuprofen 400 MG TABLET PO PRN ×3 (02:06→20:13)
[2018-11-04 04:12] LABS: BUN/Creatinine Ratio 25 (6-26); Blood Urea Nitrogen 19 mg/dL (8-23); Calcium 8.7 mg/dL (8.6-10.3); Carbon Dioxide 25 mEq/L (23-29); Chloride 106 mEq/L (98-107); Glucose 249 mg/dL (70-105); Magnesium 1.7 mg/dL (1.6-2.6); Osmolality,Calculated 299 (280-300); Phosphorous 3.5 mg/dL (2.7-4.5); Potassium 3.8 mEq/L (3.5-5.1); Sodium 139 mEq/L (136-145); eGFR For African Americans > 60 (> 60); eGFR For Non-African Americans > 60 (> 60)
[2018-11-04 04:13] LABS: Amylase 14 Units/L (29-103); Basophils # 0.1 K/mcL (0.0-0.2); Basophils % 0.6 %; Eosinophils # 0.6 K/mcL (0.0-0.6); Hematocrit 33.8 % (35.3-44.9); Hemoglobin 10.8 g/dL (11.5-15.4); Immature Granulocytes % 2.3 % (0-4); Lipase 20 Units/L (11-82); Lymphocytes # 1.8 K/mcL (0.6-4.6); Lymphocytes % 20.3 %; Mean Corpuscular Hemoglobin 29.4 pg (28.0-33.3); Mean Corpuscular Volume 92.1 fL (83.0-100.0); Mean Platelet Volume 9.4 fL (9.4-12.4); Monocytes # 0.5 K/mcL (0.0-1.3); Monocytes % 6.2 %; Neutrophils # 5.6 K/mcL (1.6-8.9); Platelet Count 242 K/mcL (140-400); Red Blood Count 3.67 M/mcL (3.82-4.97); Segmented Neutrophils % 63.6 %; White Blood Count 8.8 K/mcL (4.3-11.1)
[2018-11-04] MEDS: *HR* Heparin 5,000 UNIT/ML VIAL SQ SCH ×2 (06:42→17:26)
[2018-11-04] MEDS: Acetaminophen 325 MG TABLET PO PRN ×2 (06:43→18:29)
--- NOTE | 2018-11-04 07:38 | Internal Med Progress Note ---
Hospitalist Progress Note - Encounter Date of Encounter: 11/04/18 Time of Encounter: 07:35 - Subjective Interval History: No acute events overnight - Exam Vitals: Temp Pulse Resp BP Pulse Ox 98.3 F 75 18 134/69 96 11/04/18 07:18 11/04/18 07:18 11/04/18 07:18 11/04/18 07:18 11/04/18 07:18 Exam: General appearance: Present: A&O X 3, lethargic, morbidly obese Head exam: Present: normocephalic Respiratory exam: Present: CTAB. Absent: accessory muscle use, rales, rhonchi, wheezes Cardiovascular exam: Present: RRR, +S1, +S2. Absent: diastolic murmur, gallop, rubs, systolic murmur GI/Abdominal exam: Soft, NT, ND, +BS Extremities exam: gross lymphedema Neurological exam: Present: alert, oriented X3, no focal deficits. Absent: altered - Assessment and Plan (1) Sepsis Current Visit: Yes Status: Acute Assessment and Plan: Pt came in with severe sepsis likely secondary to ESBL E. coli UTI (from previous cultures) with elevated lactate On vanc and ertapenem. ID on board WBC trending down. Lactate now WNL Urine culture growing gram negative rods. Identification and sensitivities pending ID recs for discharge planning once sensitivities return (2) UTI (urinary tract infection) Current Visit: Yes Status: Acute Assessment and Plan: UTI sepsis likley secondary to ESBL e coli. Continue vanc and ertapenem Follow cultures (3) Diastolic CHF Current Visit: Yes Status: Acute Assessment and Plan: No acute exacerbation. resume po lasix (4) Lymphedema of both lower extremities Current Visit: Yes Status: Chronic Assessment and Plan: Continue lasix (5) Morbid obesity Current Visit: Yes Status: Chronic Assessment and Plan: diet and exercise DVT Prophylaxis: Heparin sc - Time Spent with Patient Total time spent is greater than 50% in coordination of care (as documented) at patient's floor/unit and/or counseling patient: Internal Medicine: Result - Labs CBC & Chem 7: 11/04/18 03:37 11/04/18 03:37 Labs: Short CBC 11/04/18 Range/Units 03:37 WBC 8.8 (4.3-11.1) K/mcL Hgb 10.8 L (11.5-15.4) g/dL Hct 33.8 L (35.3-44.9) % Plt Count 242 (140-400) K/mcL Neutrophils # 5.6 (1.6-8.9) K/mcL BMP 11/04/18 03:37 Sodium 139 Potassium 3.8 Chloride 106 Carbon Dioxide 25 BUN 19 Creatinine 0.75 Glucose 249 H Calcium 8.7 - ABG Interpretation ABG results: PT/INR, D-dimer PT 11.7 Seconds (9.4-12.1) 10/31/18 08:25 Consult Discharge Plan - Plan Referrals: NONE,PCP [Primary Care Provider] - (1) Sepsis Qualifiers: Sepsis type: sepsis due to unspecified organism Qualified Code(s): A41.9 - Sepsis, unspecified organism (2) UTI (urinary tract infection) Qualifiers: Urinary tract infection type: acute cystitis Hematuria presence: without hematuria Qualified Code(s): N30.00 - Acute cystitis without hematuria (3) Diastolic CHF Qualifiers: Heart failure chronicity: chronic Qualified Code(s): I50.32 - Chronic diastolic (congestive) heart failure
[2018-11-04] MEDS: Furosemide 40 MG/4 ML VIAL IVP SCH ×2 (08:38→15:03)
[2018-11-04] MEDS: Isosorbide MONOnitrate (24 HR) 30 MG TAB.ER.24H PO SCH (08:39)
[2018-11-04] MEDS: Metoprolol XL (24 HR) Succ 25 MG TAB.ER.24H PO SCH (08:39)
[2018-11-04] MEDS: Aspirin Enteric Coated 81 MG Tablet PO SCH (08:39)
[2018-11-04] MEDS: Nystatin POWDER 30 GM BOTTLE TP SCH ×2 (08:39→20:50)
[2018-11-04] MEDS: Fluticasone Propionate Nasal 50 MCG/SPRAY BOTTLE NS SCH (08:39)
[2018-11-04] MEDS: Insulin DETEMIR 100 UNIT/ML X5UNITS SQ SCH ×2 (08:39→23:46)
[2018-11-04] MEDS: Gabapentin 300 MG CAPSULE PO SCH ×3 (08:39→21:36)
[2018-11-04] MEDS: Insulin LISPRO 300 UNITS/3 ML VIAL SQ SCH ×4 (08:40→21:37)
--- NOTE | 2018-11-04 09:54 | Infectious Disease Progress No ---
ID Progress Note Date of Encounter: 11/04/18 Time of Encounter: 09:15 - Subjective Subjective: Patient seen and examined. No acute events overnight. Patient states overall she feels a little better. She denies chills, fevers, or rigors. Denies headache or neck pain. Denies chest pain, shortness of breath, or cough. Reports some intermittent nausea, but denies vomiting. States her appetite is okay. Denies abdominal pain. Reports some dysuria, but states she thinks the external catheter is irritating her. States back pain is resolved. Complains of chronic pain in her bilateral feet and legs. States she feels like her left left is improved.. Denies oral thrush or other skin rashes. - Objective CBC & Chem 7: 11/04/18 03:37 11/04/18 03:37 - Exam Vitals: Temp Pulse Resp BP Pulse Ox 98.3 F 75 18 134/69 96 11/04/18 07:18 11/04/18 07:18 11/04/18 07:18 11/04/18 07:18 11/04/18 07:18 Exam: Head: Atraumatic, normal inspection, normocephalic. Eye: EOMI, PERRLA, no scleral icterus noted. ENT: Mucous membranes moist. No odontogenic infection noted. Neck: Normal inspection, no meningismus. Respiratory: Clear to auscultation. No rales, respiratory distress, rhonchi, or wheezes noted. Cardiovascular: Regular rate and rhythm, S1 and S2 audible. No murmurs, rubs, or gallops. GI: Soft, obese, normal bowel sounds. Extremities: Erythema, warmth, edema, and tenderness noted to the left lower leg, decreased in size from previous exam. No open lesion noted. Back: No CVA tenderness noted. Neurological: Alert, oriented 3, no focal deficits. Psychiatric: normal affect, normal mood. Skin: Dry, intact, warm. Normal color. No rashes. - Assessment and Plan (1) Severe sepsis Current Visit: No Status: Resolved Patient had 3 SIRS criteria and lactic acidosis on admission. Etiology not clear, but could be due to the cellulitis versus urosepsis. Improved. WBC normal. Afebrile. No tachycardia. Lactic acidosis resolved. Blood cultures drawn 10/31/18 are NGTD x 2 sets. SNOMED Code(s): 85050016 (2) Cellulitis Current Visit: Yes Status: Acute Location: Left lower extremity. Causative organism not clear. Cellulitis vs. venous stasis vs. lymphedema. CT negative for abscess or osteomyelitis, but does show an unchanged fluid collection anterior to the left femur, unchanged from previous imaging. Improved. Currently on Vanc and ertapenem. Qualifiers: Site of cellulitis: extremity Site of cellulitis of extremity: lower extremity Laterality: left Qualified Code(s): L03.116 - Cellulitis of left lower limb SNOMED Code(s): 481023531 (3) UTI (urinary tract infection) Current Visit: Yes Status: Acute Causative organism: Unclear. Urine culture positive for GNR, final ID and sensitivities pending. Has a history of E. coli ESBL. CT abdomen and pelvis negative for intra-abdominal process. Currently on Ertapenem. Qualifiers: Urinary tract infection type: acute cystitis Hematuria presence: without hematuria Qualified Code(s): N30.00 - Acute cystitis without hematuria SNOMED Code(s): 42999263 (4) Abdominal pain Current Visit: No Status: Acute Etiology not clear. Patient had gallbladder surgically removed in the past. CT abdomen and pelvis non-revealing. LFTs normal. Amylase and lipase normal. Qualifiers: Abdominal location: epigastric Qualified Code(s): R10.13 - Epigastric pain SNOMED Code(s): 37211158 (5) Anxiety Current Visit: Yes Status: Chronic SNOMED Code(s): 90634415 (6) Lymphedema Current Visit: No Status: Chronic SNOMED Code(s): 695862745 (7) Morbid obesity with BMI of 50.0-59.9, adult Current Visit: No Status: Chronic SNOMED Code(s): 012571239, 53636932408024 (8) Type 2 diabetes mellitus Current Visit: No Status: Chronic Qualifiers: Diabetes mellitus intermediate insulin use: with intermediate use Diabetes mellitus complication status: with hyperglycemia Qualified Code(s): E11.65 - Type 2 diabetes mellitus with hyperglycemia; Z79.4 - technician terminal and repeater (current) use of insulin SNOMED Code(s): 86316177 - Recommendations Recommendations: Await blood cultures to finalize. Await urine culture to finalize. Continue Vancomycin IV. Pharmacy to dose. Goal trough ~15. Continue Ertapenem 1 gram IV daily. Duration of treatment depends on the clinical picture. Monitor renal function and for drug toxicity and dose-adjust antibiotics. Contact precautions per hospital policy. Consult Discharge Plan - Plan Referrals: NONE,PCP [Primary Care Provider] - - Attending Attestation I have personally performed a face to face evaluation on this patient. I have reviewed and agree with the care plan. History and Exam by me shows: Assessment and plan: 1.Severe sepsis - improved 2.Cellulitis left lower extremity causative organism unclear 3.Abdominal painunchanged. CT abdomen and pelvis within normal limit 4.Anxiety 5.Morbid obesity 6.Diabetes mellitus type 2 7.Lymphedema bilateral lower extremity Recommendations: Await blood cultures to finalize. Await urine culture to finalize. Check amylase and lipase. Continue Vancomycin IV. Pharmacy to dose. Goal trough ~15. Continue Ertapenem 1 gram IV daily. Duration of treatment depends on the clinical picture. Monitor renal function and for drug toxicity and dose-adjust antibiotics. Contact precautions per hospital policy.
[2018-11-04] MEDS: Ertapenem 1,000 MG in 0.9 % Sodium Chloride Mini Bag 100 ML IVPB SCH (17:25)
[2018-11-04] MEDS: *HR* HYDROcodone/Acet 10/325 mg TABLET PO PRN (21:36)
[2018-11-04] MEDS: Melatonin 3 MG TABLET PO SCH (21:37)
[2018-11-05] MEDS: Acetaminophen 325 MG TABLET PO PRN (00:51)
[2018-11-05] MEDS: Ibuprofen 400 MG TABLET PO PRN (04:32)
[2018-11-05] MEDS: *HR* Heparin 5,000 UNIT/ML VIAL SQ SCH ×2 (05:28→17:50)
[2018-11-05 05:31] LABS: Basophils # 0.1 K/mcL (0.0-0.2); Basophils % 0.7 %; Eosinophils # 0.6 K/mcL (0.0-0.6); Eosinophils % 5.7 %; Hematocrit 35.6 % (35.3-44.9); Immature Granulocytes % 3.5 % (0-4); Lymphocytes # 2.1 K/mcL (0.6-4.6); Mean Corpuscular HGB Conc 30.9 g/dL (31.6-35.5); Mean Corpuscular Hemoglobin 28.1 pg (28.0-33.3); Mean Corpuscular Volume 90.8 fL (83.0-100.0); Monocytes # 0.7 K/mcL (0.0-1.3); Monocytes % 6.5 %; Neutrophils # 6.7 K/mcL (1.6-8.9); Platelet Count 279 K/mcL (140-400); Red Blood Count 3.92 M/mcL (3.82-4.97); Red Cell Distribution Width 16.7 % (11.5-14.5); Segmented Neutrophils % 63.6 %; White Blood Count 10.5 K/mcL (4.3-11.1)
[2018-11-05 05:54] LABS: BUN/Creatinine Ratio 25 (6-26); Blood Urea Nitrogen 19 mg/dL (8-23); Calcium 9.4 mg/dL (8.6-10.3); Carbon Dioxide 28 mEq/L (23-29); Chloride 103 mEq/L (98-107); Glucose 225 mg/dL (70-105); Magnesium 1.7 mg/dL (1.6-2.6); Osmolality,Calculated 301 (280-300); Phosphorous 3.6 mg/dL (2.7-4.5); Potassium 3.8 mEq/L (3.5-5.1); Sodium 141 mEq/L (136-145); eGFR For African Americans > 60 (> 60); eGFR For Non-African Americans > 60 (> 60)
[2018-11-05] MEDS: Aspirin Enteric Coated 81 MG Tablet PO SCH (07:56)
[2018-11-05] MEDS: Metoprolol XL (24 HR) Succ 25 MG TAB.ER.24H PO SCH (07:56)
[2018-11-05] MEDS: Gabapentin 300 MG CAPSULE PO SCH (07:56)
[2018-11-05] MEDS: Isosorbide MONOnitrate (24 HR) 30 MG TAB.ER.24H PO SCH (07:56)
[2018-11-05] MEDS: Furosemide 40 MG/4 ML VIAL IVP SCH ×2 (07:57→17:49)
[2018-11-05] MEDS: Insulin LISPRO 300 UNITS/3 ML VIAL SQ SCH ×4 (07:57→20:41)
[2018-11-05] MEDS: Insulin DETEMIR 100 UNIT/ML X5UNITS SQ SCH ×2 (08:01→20:41)
[2018-11-05] MEDS ORDERED: *HR* HYDROcodone/Acet 10/325 mg TABLET PO PRN (09:48)
[2018-11-05] MEDS ORDERED: traMADol 50 MG TABLET PO PRN (09:50)
[2018-11-05] MEDS: Fluticasone Propionate Nasal 50 MCG/SPRAY BOTTLE NS SCH (10:30)
[2018-11-05] MEDS ORDERED: Furosemide 40 MG/4 ML VIAL IVP ONE (11:26)
--- NOTE | 2018-11-05 11:27 | Infectious Disease Progress No ---
ID Progress Note Date of Encounter: 11/05/18 Time of Encounter: 10:55 - Subjective Subjective: Patient seen and examined. No acute events overnight. Patient states overall she feels better. She denies chills, fevers, or rigors. Denies headache or neck pain. Denies chest pain, shortness of breath, or cough. Denies nausea or vomiting. States her appetite is okay. Denies abdominal pain. Dysuria resolved. External catheter removed and patient incontinent of urine at the time of my exam. States back pain is resolved. Complains of chronic pain in her bilateral feet and legs. States she feels like her left left is improved. Denies oral thrush or other skin rashes. - Objective CBC & Chem 7: 11/07/18 06:19 11/07/18 06:19 - Exam Vitals: Temp Pulse Resp BP Pulse Ox 98.0 F 76 15 138/78 99 11/05/18 07:08 11/05/18 07:08 11/05/18 07:08 11/05/18 07:08 11/05/18 07:08 Exam: Head: Atraumatic, normal inspection, normocephalic. Eye: EOMI, PERRLA, no scleral icterus noted. ENT: Mucous membranes moist. No odontogenic infection noted. Neck: Normal inspection, no meningismus. Respiratory: Clear to auscultation. No rales, respiratory distress, rhonchi, or wheezes noted. Cardiovascular: Regular rate and rhythm, S1 and S2 audible. No murmurs, rubs, or gallops. GI: Soft, obese, normal bowel sounds. Extremities: Erythema, warmth, edema, and tenderness noted to the left lower leg, decreased in size from previous exam. No open lesion noted. Skin desquamation noted. Back: No CVA tenderness noted. Neurological: Alert, oriented 3, no focal deficits. Psychiatric: normal affect, normal mood. Skin: Dry, intact, warm. Normal color. No rashes. - Assessment and Plan (1) Severe sepsis Current Visit: No Status: Resolved Patient had 3 SIRS criteria and lactic acidosis on admission. Etiology not clear, but could be due to the cellulitis versus urosepsis. Improved. WBC normal. Afebrile. No tachycardia. Lactic acidosis resolved. Blood cultures drawn 10/31/18 are negative x 2 sets. SNOMED Code(s): 56765708 (2) Cellulitis Current Visit: Yes Status: Acute Location: Left lower extremity. Causative organism not clear. Cellulitis vs. venous stasis vs. lymphedema. CT negative for abscess or osteomyelitis, but does show an unchanged fluid collection anterior to the left femur, unchanged from previous imaging. Improved. Currently on Vanc and ertapenem. Qualifiers: Site of cellulitis: extremity Site of cellulitis of extremity: lower extremity Laterality: left Qualified Code(s): L03.116 - Cellulitis of left lower limb SNOMED Code(s): 838139211 (3) UTI (urinary tract infection) Current Visit: Yes Status: Acute Causative organism: E. coli MDRO and E. coli ESBL. CT abdomen and pelvis negative for intra-abdominal process. Currently on Ertapenem. Qualifiers: Urinary tract infection type: acute cystitis Hematuria presence: without hematuria Qualified Code(s): N30.00 - Acute cystitis without hematuria SNOMED Code(s): 87479453 (4) Abdominal pain Current Visit: No Status: Acute Etiology not clear. Patient had gallbladder surgically removed in the past. CT abdomen and pelvis non-revealing. LFTs normal. Amylase and lipase normal. Qualifiers: Abdominal location: epigastric Qualified Code(s): R10.13 - Epigastric pain SNOMED Code(s): 00937891 (5) Anxiety Current Visit: Yes Status: Chronic SNOMED Code(s): 95672634 (6) Lymphedema Current Visit: No Status: Chronic SNOMED Code(s): 063217944 (7) Morbid obesity with BMI of 50.0-59.9, adult Current Visit: No Status: Chronic SNOMED Code(s): 651263409, 75718911156753 (8) Type 2 diabetes mellitus Current Visit: No Status: Chronic Qualifiers: Diabetes mellitus care home insulin use: with care home use Diabetes mellitus complication status: with hyperglycemia Qualified Code(s): E11.65 - Type 2 diabetes mellitus with hyperglycemia; Z79.4 - [facility] (current) use of insulin SNOMED Code(s): 66913042 - Recommendations Recommendations: Await blood cultures to finalize. Continue Vancomycin IV. Pharmacy to dose. Goal trough ~15. Continue Ertapenem 1 gram IV daily. Duration of treatment depends on the clinical picture. Can likely transition to PO fosfomycin when ready for discharge to complete course of treatment for UTI. As far as the cellulitis, can likely transition to PO antibiotics when ready for discharge to complete a total of 10 days of treatment. Monitor renal function and for drug toxicity and dose-adjust antibiotics. Contact precautions per hospital policy. Consult Discharge Plan - Plan Instructions: Cellulitis (DC), Sepsis (DC) Referrals: NONE,PCP [Primary Care Provider] - (in 1 week) Prescriptions: Amoxicillin/Clavulanate [Augmentin] 875 mg PO BIDWM #4 tablet Doxycycline Hyclate 100 mg PO BID #4 tablet Furosemide [Lasix] 80 mg PO BID #60 tablet Pregabalin [Lyrica] 75 mg PO BID 30 Days #60 capsule HYDROcodone/Acet 10/325 mg [[place] 10-325 mg] 1 tab PO QID PRN 5 Days #20 tablet PRN Reason: Pain rOPINIRole [Requip] 1 mg PO HS #30 tablet - Attending Attestation I have personally performed a face to face evaluation on this patient. I have reviewed and agree with the care plan. History and Exam by me shows: Assessment and plan: 1.Severe sepsis 2.Cellulitis left lower extremity causative organism unclear 3.Abdominal painunchanged. CT abdomen and pelvis within normal limit 4.Anxiety 5.Morbid obesity 6.Diabetes mellitus type 2 7.Lymphedema bilateral lower extremity Recommendations: Await blood cultures to finalize. Await urine culture to finalize. Check amylase and lipase. Continue Vancomycin IV. Pharmacy to dose. Goal trough ~15. Continue Ertapenem 1 gram IV daily. Duration of treatment depends on the clinical picture. Monitor renal function and for drug toxicity and dose-adjust antibiotics. Contact precautions per hospital policy.
--- NOTE | 2018-11-05 12:17 | Internal Med Progress Note ---
Hospitalist Progress Note - Encounter Date of Encounter: 11/05/18 Time of Encounter: 09:20 - Subjective Interval History: Patient is awake and alert. Lying down in bed. Comfortable. Complains of pain related to neuropathy in her lower extremities. She had previously been on gabapentin and Lyrica which seemed to be controlling her symptoms. She does describe symptoms of bilateral lower extremity cramps especially when lying down. No fevers or chills. No nausea or vomiting. - Exam Vitals: Temp Pulse Resp BP Pulse Ox 98.0 F 76 15 138/78 99 11/05/18 07:08 11/05/18 07:08 11/05/18 07:08 11/05/18 07:08 11/05/18 07:08 Exam: General: Patient is alert, no acute distress, oriented x 3 ENT: Mucous membranes moist Respiratory: Good respiratory effort. Normal breath sounds. No wheezing or crackles. Cardiovascular: Regular rate and rhythm. s1 and s2 normal No clicks, rubs, gallops, or murmurs. Severe bilateral lower extremity pedal edema. Abdomen: Abdomen is soft, nontender. Bowel sounds are present Musculoskeletal: Spontaneously moving all extremities Skin: Erythema involving the left lower extremity over the anterolateral vazquez Neuro: Alert oriented x 3 normal cranial nerves, no focal deficits - Assessment and Plan (1) Sepsis Current Visit: Yes Status: Acute (2) Lymphedema of both lower extremities Current Visit: Yes Status: Chronic (3) Morbid obesity Current Visit: Yes Status: Chronic (4) UTI (urinary tract infection) Current Visit: Yes Status: Acute (5) Diastolic CHF Current Visit: Yes Status: Acute (6) Cellulitis Current Visit: Yes Status: Acute DVT Prophylaxis: Subcutaneous heparin - Summary of Assessment and Plan Summary of Assessment and Plan: Sepsis related to acute urinary tract infection and cellulitis: Clinically, patient is improving from this condition. Urine culture growing ESBL Escherichia coli and MDR Klebsiella. Both are sensitive to ertapenem. Will continue. Infectious disease following. Patient is also on vancomycin for cellulitis. Bilateral lymphedema: patient still has positive fluid balance despite receiving 40 mg of IV Lasix twice a day. We will increase dosage to 80 mg twice a day Bilateral lower extremity pain: Cellulitis. Patient is cramps and neuropathy pain especially when lying down. Possible restless leg syndrome. Will place her on Requip. Will switch her gabapentin to Lyrica receive this controls and neuropathy pain better. Diabetes mellitus type 2: Uncontrolled. Will increase Levemir dosage to 45 units twice a day. Essential hypertension: Continue metoprolol, Imdur. Morbid obesity. Moderate risk for complications. - Time Spent with Patient Total time spent is greater than 50% in coordination of care (as documented) at patient's floor/unit and/or counseling patient: Plan of Care Discussed with: patient Internal Medicine: Result - Labs CBC & Chem 7: 11/05/18 05:09 11/05/18 05:09 Labs: Short CBC 11/05/18 Range/Units 05:09 WBC 10.5 (4.3-11.1) K/mcL Hgb 11.0 L (11.5-15.4) g/dL Hct 35.6 (35.3-44.9) % Plt Count 279 (140-400) K/mcL Neutrophils # 6.7 (1.6-8.9) K/mcL BMP 11/05/18 05:09 Sodium 141 Potassium 3.8 Chloride 103 Carbon Dioxide 28 BUN 19 Creatinine 0.77 Glucose 225 H Calcium 9.4 - ABG Interpretation ABG results: PT/INR, D-dimer PT 11.7 Seconds (9.4-12.1) 10/31/18 08:25 Consult Discharge Plan - Plan Referrals: NONE,PCP [Primary Care Provider] - (1) Sepsis Qualifiers: Sepsis type: sepsis due to unspecified organism Qualified Code(s): A41.9 - Sepsis, unspecified organism (4) UTI (urinary tract infection) Qualifiers: Urinary tract infection type: acute cystitis Hematuria presence: without hematuria Qualified Code(s): N30.00 - Acute cystitis without hematuria (5) Diastolic CHF Qualifiers: Heart failure chronicity: chronic Qualified Code(s): I50.32 - Chronic mary stolic (congestive) heart failure (6) Cellulitis Qualifiers: Site of cellulitis: extremity Site of cellulitis of extremity: lower extremity Laterality: left Qualified Code(s): L03.116 - Cellulitis of left lower limb
[2018-11-05] MEDS: Nystatin POWDER 30 GM BOTTLE TP SCH ×2 (12:31→20:43)
[2018-11-05] MEDS: Ertapenem 1,000 MG in 0.9 % Sodium Chloride Mini Bag 100 ML IVPB SCH (17:50)
[2018-11-05] MEDS: Ondansetron 4 MG/2 ML VIAL IVP PRN (17:51)
[2018-11-05] MEDS: Pregabalin 75 MG CAPSULE PO SCH (20:40)
[2018-11-05] MEDS: rOPINIRole 1 MG TABLET PO SCH (20:40)
[2018-11-05] MEDS: Melatonin 3 MG TABLET PO SCH (20:41)
[2018-11-05] MEDS: traMADol 50 MG TABLET PO PRN (20:50)
[2018-11-06] MEDS: *HR* HYDROcodone/Acet 10/325 mg TABLET PO PRN ×3 (01:09→15:24)
[2018-11-06] MEDS: *HR* Heparin 5,000 UNIT/ML VIAL SQ SCH ×2 (05:52→16:35)
[2018-11-06 08:02] LABS: Basophils # 0.1 K/mcL (0.0-0.2); Basophils % 0.6 %; Eosinophils # 0.7 K/mcL (0.0-0.6); Eosinophils % 5.5 %; Hematocrit 38.3 % (35.3-44.9); Hemoglobin 12.1 g/dL (11.5-15.4); Immature Granulocytes % 4.4 % (0-4); Lymphocytes # 2.5 K/mcL (0.6-4.6); Lymphocytes % 19.4 %; Mean Corpuscular HGB Conc 31.6 g/dL (31.6-35.5); Mean Corpuscular Hemoglobin 28.7 pg (28.0-33.3); Mean Platelet Volume 9.2 fL (9.4-12.4); Monocytes # 0.7 K/mcL (0.0-1.3); Monocytes % 5.9 %; Neutrophils # 8.1 K/mcL (1.6-8.9); Platelet Count 333 K/mcL (140-400); Red Blood Count 4.21 M/mcL (3.82-4.97); Red Cell Distribution Width 16.6 % (11.5-14.5); Segmented Neutrophils % 64.2 %; White Blood Count 12.6 K/mcL (4.3-11.1)
[2018-11-06 08:12] LABS: BUN/Creatinine Ratio 25 (6-26); Blood Urea Nitrogen 20 mg/dL (8-23); Calcium 9.3 mg/dL (8.6-10.3); Carbon Dioxide 28 mEq/L (23-29); Chloride 100 mEq/L (98-107); Glucose 257 mg/dL (70-105); Magnesium 1.6 mg/dL (1.6-2.6); Osmolality,Calculated 297 (280-300); Potassium 3.7 mEq/L (3.5-5.1); Sodium 138 mEq/L (136-145); eGFR For African Americans > 60 (> 60); eGFR For Non-African Americans > 60 (> 60)
[2018-11-06] MEDS: Insulin DETEMIR 100 UNIT/ML X5UNITS SQ SCH ×2 (08:46→20:10)
[2018-11-06] MEDS: Insulin LISPRO 300 UNITS/3 ML VIAL SQ SCH ×5 (08:46→20:10)
[2018-11-06] MEDS: Fluticasone Propionate Nasal 50 MCG/SPRAY BOTTLE NS SCH (08:47)
[2018-11-06] MEDS: Aspirin Enteric Coated 81 MG Tablet PO SCH (08:47)
[2018-11-06] MEDS: Isosorbide MONOnitrate (24 HR) 30 MG TAB.ER.24H PO SCH (08:47)
[2018-11-06] MEDS: Furosemide 40 MG/4 ML VIAL IVP SCH ×2 (08:47→16:35)
[2018-11-06] MEDS: Venlafaxine XR (24 HR) 150 MG CAP.ER.24H PO SCH (08:47)
[2018-11-06] MEDS: Pregabalin 75 MG CAPSULE PO SCH ×2 (08:47→20:09)
[2018-11-06] MEDS: Metoprolol XL (24 HR) Succ 25 MG TAB.ER.24H PO SCH (08:47)
[2018-11-06] MEDS: Ondansetron 4 MG/2 ML VIAL IVP PRN (09:09)
[2018-11-06] MEDS: Nystatin POWDER 30 GM BOTTLE TP SCH ×2 (10:37→20:18)
--- NOTE | 2018-11-06 12:24 | Infectious Disease Progress No ---
ID Progress Note Date of Encounter: 11/06/18 Time of Encounter: 11:50 - Subjective Subjective: Patient seen and examined. No acute events overnight. Patient states overall she feels better. She denies chills, fevers, or rigors. Denies headache or neck pain. Denies chest pain, shortness of breath, or cough. Denies nausea or vomiting. States her appetite is okay. Denies abdominal pain. Dysuria resolved. External catheter back in place and draining clear yellow urine. [place] back pain is resolved. Complains of chronic pain in her bilateral feet and legs. States she feels like her left left is improved. Denies oral thrush or other skin rashes. - Objective CBC & Chem 7: 11/06/18 07:11 11/06/18 07:11 - Exam Vitals: Temp Pulse Resp BP Pulse Ox 97.6 F 88 18 120/74 98 11/06/18 07:34 11/06/18 11:38 11/06/18 11:38 11/06/18 11:38 11/06/18 11:38 Exam: Head: Atraumatic, normal inspection, normocephalic. Eye: EOMI, PERRLA, no scleral icterus noted. ENT: Mucous membranes moist. No odontogenic infection noted. Neck: Normal inspection, no meningismus. Respiratory: Clear to auscultation. No rales, respiratory distress, rhonchi, or wheezes noted. Cardiovascular: Regular rate and rhythm, S1 and S2 audible. No murmurs, rubs, or gallops. GI: Soft, obese, normal bowel sounds. Extremities: Erythema, warmth, edema, and tenderness noted to the left lower leg, decreased in size from previous exam. No open lesion noted. Skin desquamati on noted. Back: No CVA tenderness noted. Neurological: Alert, oriented 3, no focal deficits. Psychiatric: normal affect, normal mood. Skin: Dry, intact, warm. Normal color. No rashes. - Assessment and Plan (1) Severe sepsis Current Visit: No Status: Resolved Patient had 3 SIRS criteria and lactic acidosis on admission. Etiology not clear, but could be due to the cellulitis versus urosepsis. Improved. WBC back up a little today, unclear etiology as the patient looks great. Afebrile. No tachycardia. Lactic acidosis resolved. Blood cultures drawn 10/31/18 are negative x 2 sets. SNOMED Code(s): 89225505 (2) Cellulitis Current Visit: Yes Status: Acute Location: Left lower extremity. Causative organism not clear. Cellulitis vs. venous stasis vs. lymphedema. CT negative for abscess or osteomyelitis, but does show an unchanged fluid collection anterior to the left femur, unchanged from previous imaging. Improved. Currently on Vanc and ertapenem. Qualifiers: Site of cellulitis: extremity Site of cellulitis of extremity: lower extremity Laterality: left Qualified Code(s): L03.116 - Cellulitis of left lower limb SNOMED Code(s): 204693154 (3) UTI (urinary tract infection) Current Visit: Yes Status: Acute Causative organism: K. pneumoniae MDRO and E. coli ESBL. CT abdomen and pelvis negative for intra-abdominal process. Currently on Ertapenem. Qualifiers: Urinary tract infection type: acute cystitis Hematuria presence: without hematuria Qualified Code(s): N30.00 - Acute cystitis without hematuria SNOMED Code(s): 34253166 (4) Abdominal pain Current Visit: No Status: Acute Etiology not clear. Patient had gallbladder surgically removed in the past. CT abdomen and pelvis non-revealing. LFTs normal. Amylase and lipase normal. Resolved. Qualifiers: Abdominal location: epigastric Qualified Code(s): R10.13 - Epigastric pain SNOMED Code(s): 28141590 (5) Anxiety Current Visit: Yes Status: Chronic SNOMED Code(s): 74391450 (6) Lymphedema Current Visit: No Status: Chronic Likely contributing to the patient LLE swelling and erythema. 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 Continue Vancomycin IV. Pharmacy to dose. Goal trough ~15. Continue Ertapenem 1 gram IV daily. Duration of treatment depends on the clinical picture. Can likely transition to PO fosfomycin x 1 dose when ready for discharge to complete course of treatment for UTI. As far as the cellulitis, can likely transition to PO antibiotics when ready for discharge to complete a total of 10 days of treatment (likely doxycycline and Augmentin). Monitor renal function and for drug toxicity and dose-adjust antibiotics. Contact precautions per hospital policy. Consult Discharge Plan - Plan Referrals: NONE,PCP [Primary Care Provider] -
--- NOTE | 2018-11-06 14:37 | Internal Med Progress Note ---
Hospitalist Progress Note - Encounter Date of Encounter: 11/06/18 Time of Encounter: 14:32 - Subjective Interval History: Patient doing well this morning. She reports some relief with the new medications that she was started on yesterday with regards to her lower extremity pain. Denies any fevers or chills overnight. No nausea or vomiting. Tolerating diet well. - Exam Vitals: Temp Pulse Resp BP Pulse Ox 97.6 F 88 18 120/74 98 11/06/18 07:34 11/06/18 11:38 11/06/18 11:38 11/06/18 11:38 11/06/18 11:38 Exam: General: Patient is alert, no acute distress, oriented x 3 ENT: Mucous membranes moist Respiratory: Good respiratory effort. Normal breath sounds. No wheezing or crackles. Cardiovascular: Regular rate and rhythm. s1 and s2 normal No clicks, rubs, gallops, or murmurs. Abdomen: Soft, nontender Musculoskeletal: Spontaneously moving all extremities. Bilateral lower extremity lymphedema Skin: warm, dry, intact. Erythema involving left lower extremity Neuro: Alert oriented x 3 normal cranial nerves, no focal deficits - Assessment and Plan (1) Sepsis Current Visit: Yes Status: Acute (2) Lymphedema of both lower extremities Current Visit: Yes Status: Chronic (3) Morbid obesity Current Visit: Yes Status: Chronic (4) UTI (urinary tract infection) Current Visit: Yes Status: Acute (5) Diastolic CHF Current Visit: Yes Status: Acute (6) Cellulitis Current Visit: Yes Status: Acute DVT Prophylaxis: Subcutaneous heparin - Summary of Assessment and Plan Summary of Assessment and Plan: Sepsis related to acute urinary tract infection and cellulitis: Overall, patient appears to be improving. WBC count slightly elevated today. Will monitor for now. Continue current antibiotics. Will complete 7 days of ertapenem therapy today for her urinary tract infection. Infectious disease is following patient. Recommend to discharge patient on doxycycline and Augmentin to continue treating her cellulitis when patient is ready for discharge. Bilateral lymphedema: Responding to increased dose of Lasix. Will continue. Renal function stable. Bilateral lower extremity pain: Possibly related to restless leg syndrome/neuropathy and cellulitis. Continue requip/ lyrica. Diabetes mellitus type 2: Uncontrolled. Increased Levemir dosage to 50 units twice a day. We will also add nutritional coverage. Essential hypertension: Continue metoprolol, Imdur. Fairly controlled. Morbid obesity. Moderate risk for complications. - Time Spent with Patient Total time spent is greater than 50% in coordination of care (as documented) at patient's floor/unit and/or counseling patient: Internal Medicine: Result - Labs CBC & Chem 7: 11/06/18 07:11 11/06/18 07:11 Labs: Short CBC 11/06/18 Range/Units 07:11 WBC 12.6 H (4.3-11.1) K/mcL Hgb 12.1 (11.5-15.4) g/dL Hct 38.3 (35.3-44.9) % Plt Count 333 (140-400) K/mcL Neutrophils # 8.1 (1.6-8.9) K/mcL BMP 11/06/18 07:11 Sodium 138 Potassium 3.7 Chloride 100 Carbon Dioxide 28 BUN 20 Creatinine 0.81 Glucose 257 H Calcium 9.3 - ABG Interpretation ABG results: PT/INR, D-dimer PT 11.7 Seconds (9.4-12.1) 10/31/18 08:25 Consult Discharge Plan - Plan Referrals: NONE,PCP [Primary Care Provider] - (1) Sepsis Qualifiers: Sepsis type: sepsis due to unspecified organism Qualified Code(s): A41.9 - Sepsis, unspecified organism (4) UTI (urinary tract infection) Qualifiers: Urinary tract infection type: acute cystitis Hematuria presence: without hematuria Qualified Code(s): N30.00 - Acute cystitis without hematuria (5) Diastolic CHF Qualifiers: Heart failure chronicity: chronic Qualified Code(s): I50.32 - Chronic diastolic (congestive) heart failure (6) Cellulitis Qualifiers: Site of cellulitis: extremity Site of cellulitis of extremity: lower extremity Laterality: left Qualified Code(s): L03.116 - Cellulitis of left lower limb
[2018-11-06] MEDS: Acetaminophen 325 MG TABLET PO PRN (16:45)
[2018-11-06] MEDS: Ertapenem 1,000 MG in 0.9 % Sodium Chloride Mini Bag 100 ML IVPB SCH (18:04)
[2018-11-06] MEDS: rOPINIRole 1 MG TABLET PO SCH (20:09)
[2018-11-06] MEDS: Melatonin 3 MG TABLET PO SCH (20:09)
[2018-11-06] MEDS: traMADol 50 MG TABLET PO PRN (20:20)
[2018-11-07] MEDS: *HR* Heparin 5,000 UNIT/ML VIAL SQ SCH (06:07)
[2018-11-07 07:44] LABS: Basophils # 0.1 K/mcL (0.0-0.2); Basophils % 0.8 %; Eosinophils # 0.8 K/mcL (0.0-0.6); Eosinophils % 7.4 %; Hematocrit 37.1 % (35.3-44.9); Hemoglobin 11.5 g/dL (11.5-15.4); Immature Granulocytes % 4.7 % (0-4); Lymphocytes % 18.9 %; Mean Corpuscular Hemoglobin 28.9 pg (28.0-33.3); Mean Corpuscular Volume 93.2 fL (83.0-100.0); Mean Platelet Volume 9.2 fL (9.4-12.4); Monocytes # 0.6 K/mcL (0.0-1.3); Neutrophils # 6.6 K/mcL (1.6-8.9); Platelet Count 347 K/mcL (140-400); Red Blood Count 3.98 M/mcL (3.82-4.97); Red Cell Distribution Width 16.5 % (11.5-14.5); Segmented Neutrophils % 62.2 %; White Blood Count 10.6 K/mcL (4.3-11.1)
[2018-11-07 07:55] LABS: BUN/Creatinine Ratio 27 (6-26); Blood Urea Nitrogen 21 mg/dL (8-23); Calcium 8.8 mg/dL (8.6-10.3); Carbon Dioxide 31 mEq/L (23-29); Chloride 99 mEq/L (98-107); Glucose 183 mg/dL (70-105); Magnesium 1.6 mg/dL (1.6-2.6); Osmolality,Calculated 300 (280-300); Phosphorous 4.5 mg/dL (2.7-4.5); Potassium 3.6 mEq/L (3.5-5.1); Sodium 141 mEq/L (136-145); eGFR For African Americans > 60 (> 60); eGFR For Non-African Americans > 60 (> 60)
[2018-11-07] MEDS: Furosemide 40 MG/4 ML VIAL IVP SCH (08:56)
[2018-11-07] MEDS: Venlafaxine XR (24 HR) 150 MG CAP.ER.24H PO SCH (08:56)
[2018-11-07] MEDS: Metoprolol XL (24 HR) Succ 25 MG TAB.ER.24H PO SCH (08:57)
[2018-11-07] MEDS: Pregabalin 75 MG CAPSULE PO SCH (08:57)
[2018-11-07] MEDS: Isosorbide MONOnitrate (24 HR) 30 MG TAB.ER.24H PO SCH (08:57)
[2018-11-07] MEDS: Insulin LISPRO 300 UNITS/3 ML VIAL SQ SCH ×6 (08:57→16:11)
[2018-11-07] MEDS: *HR* HYDROcodone/Acet 10/325 mg TABLET PO PRN ×2 (08:57→16:10)
[2018-11-07] MEDS: Aspirin Enteric Coated 81 MG Tablet PO SCH (08:57)
[2018-11-07] MEDS: Insulin DETEMIR 100 UNIT/ML X5UNITS SQ SCH (09:10)
[2018-11-07] MEDS: Fluticasone Propionate Nasal 50 MCG/SPRAY BOTTLE NS SCH (09:10)
[2018-11-07] MEDS: Nystatin POWDER 30 GM BOTTLE TP SCH (09:11)
--- NOTE | 2018-11-07 10:53 | Infectious Disease Progress No ---
ID Progress Note Date of Encounter: 11/07/18 Time of Encounter: 10:51 - Subjective Subjective: Patient seen and examined. No acute events overnight. Patient states overall she feels better. She denies chills, fevers, or rigors. Denies headache or neck pain. Denies chest pain, shortness of breath, or cough. Denies nausea or vomiting. States her appetite is okay. Denies abdominal pain other than the chronic right upper abdominal pain related to previous hernia repair. Dysuria resolved. External catheter back in place and draining clear yellow urine. States back pain is resolved. Complains of chronic pain in her bilateral feet and legs. States she feels like her left left is improved. Denies oral thrush or other skin rashes. - Objective CBC & Chem 7: 11/07/18 06:19 11/07/18 06:19 - Exam Vitals: Temp Pulse Resp BP Pulse Ox 98.5 F 93 15 138/78 96 11/07/18 07:41 11/07/18 07:41 11/07/18 07:41 11/07/18 07:41 11/07/18 07:41 Exam: Head: Atraumatic, normal inspection, normocephalic. Eye: EOMI, PERRLA, no scleral icterus noted. ENT: Mucous membranes moist. No odontogenic infection noted. Neck: Normal inspection, no meningismus. Respiratory: Clear to auscultation. No rales, respiratory distress, rhonchi, or wheezes noted. Cardiovascular: Regular rate and rhythm, S1 and S2 audible. No murmurs, rubs, or gallops. GI: Soft, obese, normal bowel sounds. External catheter draining clear yellow urine. Extremities: Erythema, warmth, edema, and tenderness noted to the left lower leg, decreased in size from previous exam. No open lesion noted. Skin desquamation noted. Back: No CVA tenderness noted. Neurological: Alert, oriented 3, no focal deficits. Psychiatric: normal affect, normal mood. Skin: Dry, intact, warm. Normal color. No rashes. - Assessment and Plan (1) Severe sepsis Current Visit: No Status: Resolved Patient had 3 SIRS criteria and lactic acidosis on admission. Etiology not clear, but could be due to the cellulitis versus urosepsis. Improved. WBC normal. Afebrile. No tachycardia. Lactic acidosis resolved. Blood cultures drawn 10/31/18 are negative x 2 sets. SNOMED Code(s): 91840710 (2) Cellulitis Current Visit: Yes Status: Acute Location: Left lower extremity. Causative organism not clear. Cellulitis vs. venous stasis vs. lymphedema. CT negative for abscess or osteomyelitis, but does show an unchanged fluid collection anterior to the left femur, unchanged from previous imaging. Improved. Currently on Vanc and ertapenem. Qualifiers: Site of cellulitis: extremity Site of cellulitis of extremity: lower extremity Laterality: left Qualified Code(s): L03.116 - Cellulitis of left lower limb SNOMED Code(s): 560641707 (3) UTI (urinary tract infection) Current Visit: Yes Status: Acute Causative organism: K. pneumoniae MDRO and E. coli ESBL. CT abdomen and pelvis negative for intra-abdominal process. Currently on Ertapenem. Qualifiers: Urinary tract infection type: acute cystitis Hematuria presence: without hematuria Qualified Code(s): N30.00 - Acute cystitis without hematuria SNOMED Code(s): 07770845 (4) Abdominal pain Current Visit: No Status: Acute Etiology not clear. Patient had gallbladder surgically removed in the past. CT abdomen and pelvis non-revealing. LFTs normal. Amylase and lipase normal. Resolved. Qualifiers: Abdominal location: epigastric Qualified Code(s): R10.13 - Epigastric pain SNOMED Code(s): 88875196 (5) Anxiety Current Visit: Yes Status: Chronic SNOMED Code(s): 23548484 (6) Lymphedema Current Visit: No Status: Chronic Likely contributing to the patient LLE swelling and erythema. Consider compression stocking/dressing. SNOMED Code(s): 589911117 (7) Morbid obesity with BMI of 50.0-59.9, adult Current Visit: No Status: Chronic SNOMED Code(s): 801119698, 76173248143047 (8) Type 2 diabetes mellitus Current Visit: No Status: Chronic Recommend aggressive glucose monitoring and control to promote wound healing and prevent re-infection. Management per the primary team. 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 Pharmacy to dose. Goal trough ~15. Continue Ertapenem 1 gram IV daily. Duration of treatment depends on the clinical picture. Can likely transition to PO fosfomycin x 1 dose when ready for discharge to complete course of treatment for UTI. Will give today since patient is being discharged. As far as the cellulitis, can likely transition to PO antibiotics when ready for discharge to complete a total of 10 days of treatment (likely doxycycline and Augmentin). Treat through 11/08/18, then discontinue. Monitor renal function and for drug toxicity and dose-adjust antibiotics. Contact precautions per hospital policy. Consult Discharge Plan - Plan Referrals: NONE,PCP [Primary Care Provider] -
[2018-11-07] MEDS ORDERED: Fosfomycin Tromethamine 3 GM Packet PO ONE (11:00)
[2018-11-07 11:09] VITALS: BP 107/63
--- NOTE | 2018-11-07 12:54 | Discharge Summary ---
- NOTES TO OUTPATIENT PROVIDER Notes to Outpatient Provider: Patient with a history of morbid obesity, type 2 diabetes mellitus, COPD and chronic respiratory failure on 2 L oxygen, peripheral neuropathy hypertension and chronic left lower extremity pain was hospitalized here with left lower extremity cellulitis and acute urinary tract infection. Patient was treated with broad-spectrum antibiotics. She had symptoms of severe sepsis initially and her blood cultures were sent. Blood cultures have been negative. Her urine culture is positive for ESBL Escherichia coli and MDR Klebsiella. Patient received IV ertapenem for 7 days and also dose of fosfomycin orally. Patient was evaluated by infectious disease and also recommended treatment for cellulitis with vancomycin. She has improved significantly with activity. Treatment of her infections. She does have underlying bilateral lymphedema and her Lasix dosage has been increased. She is clinically stable to be discharged back to skilled rehabilitation. She will complete antibiotic course for her cellulitis with oral antibiotics. She does have peripheral neuropathy and may also have underlying restless leg syndrome. She has been placed on Lyrica and Requip and the dosages of these medications may be increased depending on her response. She can follow up with her primary care provider for further management as outpatient. Orders not resulted at time of discharge: Pending orders 11/08/18 04:00 Basic Metabolic Panel AM 0400 CBC [Complete Blood Count] [HEME] AM 0400 Magnesium AM 0400 Phosphorous AM 0400 Date of Encounter: 11/07/18 Time of Encounter: 09:15 - Discharge Diagnosis (1) Sepsis Priority: Primary Status: Acute Qualifiers: Sepsis type: Escherichia coli Qualified Code(s): A41.51 - Sepsis due to Escherichia coli [E. coli] (2) Lymphedema of both lower extremities Priority: Secondary Status: Chronic (3) Morbid obesity Priority: Secondary Status: Chronic (4) UTI (urinary tract infection) Priority: Secondary Status: Acute Qualifiers: Urinary tract infection type: acute cystitis Hematuria presence: without hematuria Qualified Code(s): N30.00 - Acute cystitis without hematuria (5) Diastolic CHF Priority: Secondary Status: Acute Qualifiers: Heart failure chronicity: chronic Qualified Code(s): I50.32 - Chronic diastolic (congestive) heart failure (6) Cellulitis Priority: Secondary Status: Acute Qualifiers: Site of cellulitis: extremity Site of cellulitis of extremity: lower extremity Laterality: left Qualified Code(s): L03.116 - Cellulitis of left lower limb Hospital course: Ms. Zamora is a 72 year old female Patient with a history of morbid obesity, type 2 diabetes mellitus, COPD and chronic respiratory failure on 2 L oxygen, peripheral neuropathy hypertension and chronic left lower extremity pain was hospitalized here with left lower extremity cellulitis and acute urinary tract infection. Patient was treated with broad-spectrum antibiotics. She had symptoms of severe sepsis initially and her blood cultures were sent. Blood cultures have been negative. Her urine culture is positive for ESBL Escherichia coli and MDR Klebsiella. Patient received IV ertapenem for 7 days and also dose of fosfomycin orally. Patient was evaluated by infectious disease and also astrid mmended treatment for cellulitis with vancomycin. She has improved significantly with activity withTreatment of her infections. She does have underlying bilateral lymphedema and her Lasix dosage has been increased. She is clinically stable to be discharged back to skilled rehabilitation. She will complete antibiotic course for her cellulitis with oral antibiotics. She does have peripheral neuropathy and may also have underlying restless leg syndrome. She has been placed on Lyrica and Requip and the dosages of these medications may be increased depending on her response. She can follow up with her primary care provider for further management as outpatient. Discharge discussed with: patient - Time Spent with Patient Total time spent providing and/or coordinating discharge services: Time spent: Greater than 30 minutes (45 min) - Discharge Medications Prescriptions: New Amoxicillin/Clavulanate [Augmentin] 875 mg PO BIDWM #4 tablet Doxycycline Hyclate 100 mg PO BID #4 tablet Furosemide [Lasix] 80 mg PO BID #60 tablet Pregabalin [Lyrica] 75 mg PO BID 30 Days #60 capsule Continued Magnesium Oxide [Mag-Ox] 400 mg PO BID #30 tablet Metoprolol XL (24 HR) Succ [Toprol Xl] 25 mg PO DAILY L. Acidophilus/Pectin, [place] [Acidophilus Probiotic Capsule] 1 cap PO DAILY Sennosides/Docusate Sodium [Senna Plus] 2 tab PO BID PRN PRN Reason: Constipation Ferrous Sulfate 325 mg PO DAILY Acetaminophen [Tylenol] 650 mg PO Q6H PRN PRN Reason: Pain Atorvastatin [Lipitor] 10 mg PO HS Insulin ASPART [NovoLOG] 5 unit SQ TID Isosorbide MONOnitrate (24 HR) [Imdur] 30 mg PO DAILY #30 tab.er.24h Ipratropium/Albuterol Sulfate [Combivent Respimat Inhal [place]] 1 puff IN Q6H PRN PRN Reason: Shortness Of Breath Loratadine [Claritin] 10 mg PO DAILY PRN PRN Reason: allergies Fluticasone Propionate Nasal [Flonase] 1 spray NS DAILY Aspirin Enteric Coated [Aspirin EC] 81 mg PO DAILY GI Cocktail [Gi Cocktail] 40 ml PO BID PRN PRN Reason: GERD Insulin Glargine [Lantus] 45 unit SQ BID Ipratropium/Albuterol Sulfate [Iprat-Albut 0.5-3(2.5) mg/3 ml] 3 ml IH QID PRN PRN Reason: Shortness Of Breath Loperamide [Imodium] 4 mg PO DAILY PRN PRN Reason: Diarrhea Omeprazole [PriLOSEC] 20 mg PO DAILY Dextran 70/Hypromellose [Natural Balance Tears Eye Drop] 1 drop BOTH EYES BID PRN PRN Reason: Dry Eyes Nystatin POWDER [Nystop] 1 appl TP BID Potassium Chloride [K-Tab ER] 20 meq PO DAILY Scopolamine Patch [Transderm-Scop] 1.5 mg TD Q72H PRN PRN Reason: INCREASED SECRETION OF GLUCAGO Guaifenesin [Mucinex] 600 mg PO Q12H PRN PRN Reason: Cough DiphenhydraMINE [Benadryl] 25 mg PO QID PRN PRN Reason: Itching Melatonin 10 mg PO HS Venlafaxine HCl [Venlafaxine HCl ER] 150 mg PO DAILY Zinc Oxide [Z-Bum] 1 appl TP BID HYDROcodone/Acet 10/325 mg [[place] 10-325 mg] 1 tab PO QID PRN 5 Days #20 tablet PRN Reason: Pain Discontinued Furosemide [Lasix] 40 mg PO DAILY Gabapentin [Neurontin] 600 mg PO TID Home Medications: Magnesium Oxide [Mag-Ox] 400 mg PO BID #30 tablet 05/30/16 [Rx] Metoprolol XL (24 HR) Succ [Toprol Xl] 25 mg PO DAILY 06/10/16 [History] L. Acidophilus/Pectin, [place] [Acidophilus Probiotic Capsule] 1 cap PO DAILY 09/02/16 [History] Sennosides/Docusate Sodium [Senna Plus] 2 tab PO BID PRN 09/02/16 [History] Ferrous Sulfate 325 mg PO DAILY 02/26/17 [History] Acetaminophen [Tylenol] 650 mg PO Q6H PRN 10/23/17 [History] Atorvastatin [Lipitor] 10 mg PO HS 10/23/17 [History] Insulin ASPART [NovoLOG] 5 unit SQ TID 04/21/18 [History] Isosorbide MONOnitrate (24 HR) [Imdur] 30 mg PO DAILY #30 tab.er.24h 04/23/18 [Rx] Fluticasone Propionate Nasal [Flonase] 1 spray NS DAILY 07/30/18 [History] Ipratropium/Albuterol Sulfate [Combivent Respimat Inhal [place]] 1 puff IN Q6H PRN 07/30/18 [History] Loratadine [Claritin] 10 mg PO DAILY PRN 07/30/18 [History] Aspirin Enteric Coated [Aspirin EC] 81 mg PO DAILY 08/22/18 [History] GI Cocktail [Gi Cocktail] 40 ml PO BID PRN 08/22/18 [History] Insulin Glargine [Lantus] 45 unit SQ BID 08/22/18 [History] Ipratropium/Albuterol Sulfate [Iprat-Albut 0.5-3(2.5) mg/3 ml] 3 ml IH QID PRN 08/22/18 [History] Loperamide [Imodium] 4 mg PO DAILY PRN 08/22/18 [History] Omeprazole [PriLOSEC] 20 mg PO DAILY 08/22/18 [History] Dextran 70/Hypromellose [Natural Balance Tears Eye Drop] 1 drop BOTH EYES BID PRN 09/09/18 [History] Nystatin POWDER [Nystop] 1 appl TP BID 09/09/18 [History] Guaifenesin [Mucinex] 600 mg PO Q12H PRN 10/03/18 [History] Potassium Chloride [K-Tab ER] 20 meq PO DAILY 10/03/18 [History] Scopolamine Patch [Transderm-Scop] 1.5 mg TD Q72H PRN 10/03/18 [History] DiphenhydraMINE [Benadryl] 25 mg PO QID PRN 10/31/18 [History] Melatonin 10 mg PO HS 10/31/18 [History] Venlafaxine HCl [Venlafaxine HCl ER] 150 mg PO DAILY 10/31/18 [History] Zinc Oxide [Z-Bum] 1 appl TP BID 10/31/18 [History] Amoxicillin/Clavulanate [Augmentin] 875 mg PO BIDWM #4 tablet 11/07/18 [Rx] Doxycycline Hyclate 100 mg PO BID #4 tablet 11/07/18 [Rx] Furosemide [Lasix] 80 mg PO BID #60 tablet 11/07/18 [Rx] HYDROcodone/Acet 10/325 mg [[place] 10-325 mg] 1 tab PO QID PRN 5 Days #20 tablet 11/07/18 [Rx] Pregabalin [Lyrica] 75 mg PO BID 30 Days #60 capsule 11/07/18 [Rx] Allergies/Adverse Reactions: Allergy/AdvReac Type Severity Reaction Status Date / Time fentanyl Allergy Itching Verified 04/19/18 22:46 gentamicin AdvReac See Verified 10/23/17 19:31 Comments Date of admission: 10/31/18 13:37 Primary care physician: PCP NONE Consults: 10/31/18 11:55 Consult to Infectious Diseases [CONS] Routine Consulting Provider: [facility] [place] Reason for Consult: left lower extremity cellulitis, extensive history of E.Coli ESBL bacteremia Call Completed: Yes 10/31/18 12:27 Consult to Global Mobility Specialist [CONS] Routine Reason for SW Consult: d/c planning, from signature Discharging clinician: Linda Pinon Anticipated date of discharge: 11/07/18 - Constitutional Vitals: Temp Pulse Resp BP Pulse Ox 98.3 F 84 15 107/63 95 11/07/18 11:00 11/07/18 11:00 11/07/18 11:00 11/07/18 11:00 11/07/18 11:00 General appearance: Present: obese Exam: General: Patient is alert, no acute distress, oriented x 3, morbidly obese ENT: Mucous membranes moist Respiratory: Good respiratory effort. Normal breath sounds. No wheezing or crackles. Cardiovascular: Regular rate and rhythm. s1 and s2 normal No clicks, rubs, gallops, or murmurs. Bilateral lymphedema. Abdomen: Abdomen is soft, nontender. Bowel sounds are present Musculoskeletal: Spontaneously moving all extremities Skin: warm, dry, intact. Erythema on the left lower extremity-stasis dermatitis Neuro: Alert oriented x 3 normal cranial nerves, no focal deficits - Patient Status Disposition: Transfer SNF Condition: Fair Functional capacity at discharge: bed bound Overall status at discharge: patient is progressing back to baseline - Discharge Instructions Instructions: Cellulitis (DC), Sepsis (DC) Follow Up With: NONE,PCP [Primary Care Provider] - (in 1 week) - Diet and Activity Activity: as per physical therapy, increase activity as tolerated Diet: diabetic diet, low fat, low cholesterol, low salt diet
--- NOTE | 2018-11-07 13:06 | Physician Discharge Referral ---
ExtendedCare Referral Info Provider in Charge after Transfer: PCP Institutional Level of Care: Skilled - Diagnosis (1) Sepsis Priority: Primary Status: Acute (2) Lymphedema of both lower extremities Priority: Secondary Status: Chronic (3) Morbid obesity Priority: Secondary Status: Chronic (4) UTI (urinary tract infection) Priority: Secondary Status: Acute (5) Diastolic CHF Priority: Secondary Status: Acute (6) Cellulitis Priority: Secondary Status: Acute Prognosis: Fair Aware of Diagnosis: Patient Aware of Prognosis: Patient - Transfer Medications Prescriptions: Amoxicillin/Clavulanate [Augmentin] 875 mg PO BIDWM #4 tablet Doxycycline Hyclate 100 mg PO BID #4 tablet Furosemide [Lasix] 80 mg PO BID #60 tablet Pregabalin [Lyrica] 75 mg PO BID 30 Days #60 capsule HYDROcodone/Acet 10/325 mg [[place] 10-325 mg] 1 tab PO QID PRN 5 Days #20 tablet PRN Reason: Pain Home Medications: Magnesium Oxide [Mag-Ox] 400 mg PO BID #30 tablet 05/30/16 [Rx] Metoprolol XL (24 HR) Succ [Toprol Xl] 25 mg PO DAILY 06/10/16 [History] L. Acidophilus/Pectin, [place] [Acidophilus Probiotic Capsule] 1 cap PO DAILY 09/02/16 [History] Sennosides/Docusate Sodium [Senna Plus] 2 tab PO BID PRN 09/02/16 [History] Ferrous Sulfate 325 mg PO DAILY 02/26/17 [History] Acetaminophen [Tylenol] 650 mg PO Q6H PRN 10/23/17 [History] Atorvastatin [Lipitor] 10 mg PO HS 10/23/17 [History] Insulin ASPART [NovoLOG] 5 unit SQ TID 04/21/18 [History] Isosorbide MONOnitrate (24 HR) [Imdur] 30 mg PO DAILY #30 tab.er.24h 04/23/18 [Rx] Fluticasone Propionate Nasal [Flonase] 1 spray NS DAILY 07/30/18 [History] Ipratropium/Albuterol Sulfate [Combivent Respimat Inhal [place]] 1 puff IN Q6H PRN 07/30/18 [History] Loratadine [Claritin] 10 mg PO DAILY PRN 07/30/18 [History] Aspirin Enteric Coated [Aspirin EC] 81 mg PO DAILY 08/22/18 [History] GI Cocktail [Gi Cocktail] 40 ml PO BID PRN 08/22/18 [History] Insulin Glargine [Lantus] 45 unit SQ BID 08/22/18 [History] Ipratropium/Albuterol Sulfate [Iprat-Albut 0.5-3(2.5) mg/3 ml] 3 ml IH QID PRN 08/22/18 [History] Loperamide [Imodium] 4 mg PO DAILY PRN 08/22/18 [History] Omeprazole [PriLOSEC] 20 mg PO DAILY 08/22/18 [History] Dextran 70/Hypromellose [Natural Balance Tears Eye Drop] 1 drop BOTH EYES BID PRN 09/09/18 [History] Nystatin POWDER [Nystop] 1 appl TP BID 09/09/18 [History] Guaifenesin [Mucinex] 600 mg PO Q12H PRN 10/03/18 [History] Potassium Chloride [K-Tab ER] 20 meq PO DAILY 10/03/18 [History] Scopolamine Patch [Transderm-Scop] 1.5 mg TD Q72H PRN 10/03/18 [History] DiphenhydraMINE [Benadryl] 25 mg PO QID PRN 10/31/18 [History] Melatonin 10 mg PO HS 10/31/18 [History] Venlafaxine HCl [Venlafaxine HCl ER] 150 mg PO DAILY 10/31/18 [History] Zinc Oxide [Z-Bum] 1 appl TP BID 10/31/18 [History] Amoxicillin/Clavulanate [Augmentin] 875 mg PO BIDWM #4 tablet 11/07/18 [Rx] Doxycycline Hyclate 100 mg PO BID #4 tablet 11/07/18 [Rx] Furosemide [Lasix] 80 mg PO BID #60 tablet 11/07/18 [Rx] HYDROcodone/Acet 10/325 mg [[place] 10-325 mg] 1 tab PO QID PRN 5 Days #20 tablet 11/07/18 [Rx] Pregabalin [Lyrica] 75 mg PO BID 30 Days #60 capsule 11/07/18 [Rx] Allergies/Adverse Reactions: Allergy/AdvReac Type Severity Reaction Status Date / Time fentanyl Allergy Itching Verified 04/19/18 22:46 gentamicin AdvReac See Verified 10/23/17 19:31 Comments - Respiratory Orders Oxygen / L per min (2) Smoking Cessation: Smoking cessation has been advised. For more information, call the [place] Tobacco Quit Line at 5-273-ZRFT-NOW. - Lab Orders Lab Orders: Other (include drug levels w/frequency) (CBC, basic panel in 1 week) - Advance Directives Code Status: Full Code - Mobility Orders Other (per PT eval) - Rehabiliation Orders Rehab Potential: Fair Rehab Orders: Evaluation for Physical Therapy, Evaluation for Occupational Therapy - Treatments Skin tear care topically daily PRN per policy, May check for fecal impaction rectally daily PRN - Diet Orders No Concentrated Sweets (Diabetic diet), Cardiac House Supplement per Dietary: Ensure 3 times a day CERTIFICATION: I certify that the transfer of the above named patient to an Extended Care Facility is necessary for the continuing treatment of the diagnosis listed. The above information is true and accurate reflection of patient's current condition. Confidential - Redisclosure prohibited without a patient's written consent.
[2018-11-07] MEDS ORDERED: Aminoglycoside Consult 1 EACH MC ONE (17:15)
== END 2018-11-07 17:16 | DRG 872 ==
LOC: 2NNU 08:08 → EMEROOARM 08:08 → 2NNU 12:04 → SUATTDRO 13:37 → 3ANU 11-04 19:30
PROVIDERS: ADMIT Internal Medicine Nephrology; ATTEND Internal Medicine

== ENCOUNTER 2018-11-20 20:19 | Inpatient (IN) ==
--- NOTE | 2018-11-20 20:28 | Emergency Department Note ---
Disposition Clinical Impression: Lactic acidosis UTI (urinary tract infection) Qualifiers: Urinary tract infection type: acute cystitis Hematuria presence: without andrew turia Qualified Code(s): N30.00 - Acute cystitis without hematuria Sepsis Qualifiers: Sepsis type: sepsis due to unspecified organism Qualified Code(s): A41.9 - Sepsis, unspecified organism Disposition: Admitted As Inpatient Condition: Fair Time of Disposition: 22:09 General Adult HPI - General Chief complaint: ED Weakness Stated complaint: poss sepsis Time Seen by Provider: 11/20/18 20:21 Source: patient, EMS Limitations: no limitations Nursing Notes Reviewed: Yes Vital Signs Reviewed: Yes - History of Present Illness HPI Narrative: Patient is a 72-year-old female [facility] They sent her here because of concern for sepsis. She states that she awoke yesterday and had increasing leg pain bilaterally and that she also had some pain when she tried to urinate. She states that she does have a history of urinary tract infection multiple times and she has received IV antibiotics for UTIs in the past as well. She has subjective fevers and chills, denies knowing what temperature was taken at the [facility]. Denies any chest pain, shortness of breath, nausea or vomiting. She has generalized abdominal pain but this is chronic. She does meet SIRS criteria on arrival to the emergency room for a temperature of 100.9, heart rate and respiratory rate. Pt Subjective Complaint: sepsis Pain Scale: 10 - Related Data Home Medications Medication Instructions Recorded Confirmed Metoprolol XL (24 HR) Succ [Toprol 25 mg PO DAILY 06/10/16 11/21/18 Xl] Sennosides/Docusate Sodium [Senna 2 tab PO BID PRN 09/02/16 11/21/18 Plus] Ferrous Sulfate 325 mg PO DAILY 02/26/17 11/21/18 Acetaminophen [Tylenol] 650 mg PO Q6H PRN 10/23/17 11/21/18 Atorvastatin [Lipitor] 10 mg PO HS 10/23/17 11/21/18 Insulin ASPART [NovoLOG] 5 unit SQ TIDWM 04/21/18 11/21/18 Fluticasone Propionate Nasal 1 spray NS DAILY 07/30/18 11/21/18 [Flonase] Ipratropium/Albuterol Sulfate 1 puff IN Q6H PRN 07/30/18 11/21/18 [Combivent Respimat Inhal Dewy Rose] Loratadine [Claritin] 10 mg PO DAILY PRN 07/30/18 11/21/18 Aspirin Enteric Coated [Aspirin EC] 81 mg PO DAILY 08/22/18 11/21/18 GI Cocktail [Gi Cocktail] 40 ml PO BID PRN 08/22/18 11/21/18 Insulin Glargine [Lantus] 45 unit SQ BID 08/22/18 11/21/18 Ipratropium/Albuterol Sulfate 3 ml IH QID PRN 08/22/18 11/21/18 [Iprat-Albut 0.5-3(2.5) mg/3 ml] Loperamide [Imodium] 4 mg PO DAILY PRN 08/22/18 11/21/18 Omeprazole [PriLOSEC] 20 mg PO DAILY 08/22/18 11/21/18 Dextran 70/Hypromellose [Natural 1 drop BOTH EYES BID PRN 09/09/18 11/21/18 Balance Tears Eye Drop] Nystatin POWDER [Nystop] 1 appl TP BID 09/09/18 11/21/18 Guaifenesin [Mucinex] 600 mg PO Q12H PRN 10/03/18 11/21/18 Potassium Chloride [K-Tab ER] 20 meq PO DAILY 10/03/18 11/21/18 Scopolamine Patch [Transderm-Scop] 1.5 mg TD Q72H PRN 10/03/18 11/21/18 DiphenhydraMINE [Benadryl] 25 mg PO QID PRN 10/31/18 11/21/18 Melatonin 10 mg PO HS 10/31/18 11/21/18 Venlafaxine HCl [Venlafaxine HCl 150 mg PO DAILY 10/31/18 11/21/18 ER] Zinc Oxide [Z-Bum] 1 appl TP BID 10/31/18 11/21/18 Furosemide [Lasix] 80 mg PO BID 11/20/18 11/21/18 HYDROcodone/Acet 10/325 mg [G[place]ham 1 tab PO Q6HR PRN 11/20/18 11/21/18 10-325 mg] LORazepam [Ativan] 1 mg PO DAILY PRN 11/20/18 11/21/18 Lactobacillus Acidophilus 1 cap PO DAILY 11/20/18 11/21/18 [Acidophilus] Pregabalin [Lyrica] 100 mg PO TID 11/20/18 11/21/18 Previous Rx's Medication Instructions Recorded Magnesium Oxide [Mag-Ox] 400 mg PO BID #30 tablet 05/30/16 Isosorbide MONOnitrate (24 HR) 30 mg PO DAILY #30 tab.er.24h 04/23/18 [Imdur] rOPINIRole [Requip] 1 mg PO HS #30 tablet 11/07/18 Sulfamethoxazole/Trimeth DS 1 each PO BID 6 Days #12 tablet 11/24/18 [Bactrim Ds] Allergies Allergy/AdvReac Type Severity Reaction Status Date / Time fentanyl Allergy Itching Verified 11/21/18 18:39 gentamicin AdvReac See Verified 11/21/18 18:39 Comments Review of Systems: Constitutional: subjective fever, chills, denies weight changes HEENT: denies blurry vision, tinnitus, sore throat Cardio: denies chest pain, palpiltations Lungs: denies SOB, wheeze, cough, hemoptysis GI: denies N/V/D, hematochezia; admits to generalized abd pain : + dysuria, denies hemautira MSK: denies decreased ROM, joint swelling or stiffness; can ambultate on their own Heme: denies easy bruising, history of blood transfusion Neuro: deneis numbness or tingling, denies dizziness Skin: denies open wounds or cuts Lymph: denies swelling, denies fluid retention Psych: denies anxiety, depression Endocrine: denies polyuria, polydipsia, heat intolerance or cold intolerance Allergy: denies seasonal allergies or food allergies All systems ED: reviewed and negative except as stated. Review of Systems: As Per HPI Past Medical History - Past Medical History Attestation: Yes The following information was validated with the patient. Medical history: Reports: atrial fibrillation, CHF, COPD, coronary artery disease, diabetes, GERD, hyperlipidemia, hypertension, other Surgical history: Reports: appendectomy, cholecystectomy, hysterectomy, knee replacement, orthopedic, other, other, arthroscopy Psychiatric history: Reports: anxiety, depression - Social History Smoking Status: Former smoker Smokeless Tobacco Status: No Alcohol use: Reports: none Drug use: Reports: none Physical Exam GENERAL EXAM Vital signs noted, please see nurses notes. General: Well-developed, well-nourished patient lying in bed who appears non- toxic, no apparent distress Head: Atraumatic, normocephalic. Eyes: Sclera anicteric. ENT: Mucous membranes moist. Heart: Tachycardia without appreciable murmur. S1S2 CTA Neck: no JVD Lungs: Normal respiratory pattern without distress, lungs clear to auscultation b/l. No wheeze, rhonchi, rales or stridor. Breath sounds bilaterally secondary to body habitus Abdomen: Generalized abdominal pain. Soft, non-distended, no guarding or peritoneal signs. No bruising noted to the abdomen. No surgical scars present. Skin: Warm and dry without rash. Neurologic: Awake and alert with normal speech and mental status. Pupils are equal. Moves all extremities equally well. No focal deficits or lateralizing signs. Follows command. Psychiatric: Mood and affect appropriate. Musculoskeletal: No peripheral edema. No asymmetrical swelling, no calf tenderness. The left leg does appear to have some chronic venous stasis changes and is red in color as compared to the right leg. - General Limitations: no limitations General appearance: alert, in no apparent distress Course Course Narrative: Upon arrival to the emergency department the patient does meet criteria for SIRS. She will have the sepsis bundle in place including a fluid bolus, blood cultures, Martin acid, obesity and CMP. I have reviewed the previous urine cultures and the patient has multiple organism resistance in the urine, based on sensitivities we will provide the patient with a loading dose of ertapenem. Patient will likely be admitted to the hospital. - Reevaluation(s) Reevaluation #1: Lactic acid returned and is 2.9. Lactic acid ordered. Time: 21:10 Vital Signs Temperature 100.9 F H 11/20/18 20:23 Pulse Rate 112 11/20/18 20:23 Respiratory Rate 15 11/20/18 20:23 Blood Pressure 95/59 11/20/18 20:23 O2 Sat by Pulse Oximetry 94 11/20/18 20:23 Temperature 100.9 F H 11/20/18 20:23 Pulse Rate 98 11/20/18 22:23 Respiratory Rate 18 11/20/18 22:23 Blood Pressure 110/52 11/20/18 22:23 O2 Sat by Pulse Oximetry 96 11/20/18 22:23 Oxygen Delivery Oxygen Delivery Nasal Cannula Medical Decision Making - MDM Narrative Medical decision making narrative: pt will be admitted with primary diagnosis of sepsis secondary to likely UTI. Does meet sepsis criteria for lactic acidosis of 2.9, white count of 19 and tachycardia. The source likely urine. She does have evidence of infection evident on urinalysis and does have past cultures positive in October 2018 for Escherichia coli ESBL and pseudomonas MDR oh. He was started on ertapenem 1 dose in the emergency room. He was given fluids as per sepsis protocol and blood and urine cultures are pending. As of 10:25 PM we will obtain a chest x-ray stat before sending her up to the floor. He is more lethargic than previously so we will get an ABG to make sure she is not retaining carbon dioxide. hospitalist accepted the patient for admission and she will be transferred up to the floor. 1106 pm: ABG came back and carbon dioxide was in an acceptable level. pt is safe for transfer up to the floor. - Medical Records Medical records reviewed: Yes I reviewed the patient's medical records. - Lab Data Lab results reviewed: Yes I reviewed the patient's lab results. Result diagrams: 11/24/18 07:48 11/24/18 07:48 Lab Results 11/20/18 11/20/18 11/20/18 Range/Units 20:36 20:36 20:36 WBC 19.6 H D (4.3-11.1) K/mcL RBC 4.20 (3.82-4.97) M/mcL Hgb 12.3 (11.5-15.4) g/dL Hct 38.5 (35.3-44.9) % MCV 91.7 (83.0-100.0) fL MCH 29.3 (28.0-33.3) pg MCHC 31.9 (31.6-35.5) g/dL RDW 16.4 H (11.5-14.5) % Plt Count 286 (140-400) K/mcL MPV 10.0 (9.4-12.4) fL Immature Gran % 0.8 (0-4) % Seg Neutrophils % 87.0 % Lymphocytes % 7.6 % Monocytes % 4.3 % Eosinophils % 0.1 % Basophils % 0.2 % Neutrophils # 17.1 H (1.6-8.9) K/mcL Lymphocytes # 1.5 (0.6-4.6) K/mcL Monocytes # 0.8 (0.0-1.3) K/mcL Eosinophils # 0.0 (0.0-0.6) K/mcL Basophils # 0.0 (0.0-0.2) K/mcL Sample Site ABG pH (7.32-7.45) pH Units ABG pCO2 (35-45) mmHg ABG pO2 (85-104) mmHg ABG HCO3 (21-27) mEq/L ABG Total CO2 (20-26) mEq/L ABG O2 Saturation (95-98) % ABG Base Excess (-2 to 3) mEq/L Chandan Test O2 Delivery Device Inspired O2 (1-15=lpm [id number]=%) Sodium 136 (136-145) mEq/L Potassium 3.9 (3.5-5.1) mEq/L Chloride 97 L (98-107) mEq/L Carbon Dioxide 27 (23-29) mEq/L BUN 17 (8-23) mg/dL Creatinine 1.09 (0.60-1.20) mg/dL Est GFR ( Amer) 60 (> 60) Est GFR (Non-Af Amer) 49 L (> 60) BUN/Creatinine Ratio 16 (6-26) Glucose 291 H (70-105) mg/dL Calculated Osmolality 294 (280-300) Lactic Acid 2.9 H (0.5-2.2) mmol/L Calcium 8.9 (8.6-10.3) mg/dL Phosphorus 3.1 (2.7-4.5) mg/dL Magnesium 1.6 (1.6-2.6) mg/dL Total Bilirubin 0.8 (0.3-1.0) mg/dL Direct Bilirubin 0.3 H (0.0-0.2) mg/dL Indirect Bilirubin 0.5 (0.0-1.2) mg/dL AST 12 L (13-39) Units/L ALT 13 (7-52) Units/L Alkaline Phosphatase 63 (34-104) Units/L Troponin I 0.03 (< 0.04) ng/mL B-Natriuretic Peptide (Less than 100) pg/mL Serum Total Protein 6.9 (6.4-8.9) g/dL Albumin 3.6 (3.5-5.7) g/dL Globulin 3.3 (2.4-3.5) g/dL Albumin/Globulin Ratio 1.1 (1.1-2.2) Urine Color (Yellow) Urine Clarity (Clear) Urine pH (5.0-8.0) pH Units Ur Specific Blair (1.010-1.025) Urine Protein (Neg-Trace) mg/dL Urine Glucose (UA) (Normal) mg/dL Urine Ketones (Negative) mg/dL Urine Blood (Negative) Urine Nitrite (Negative) Urine Bilirubin (Negative) Urine Urobilinogen (Normal) mg/dL Ur Leukocyte Esterase (Negative) Urine Microscopic RBC (0-3) per hpf Urine Microscopic WBC (0-3) per hpf Ur Squamous Epith Cells (None-Few) per lpf Urine Bacteria (None-Few) per hpf Hyaline Casts (None-Few) per lpf Ur Culture Indicated? (NO) 11/20/18 11/20/18 11/20/18 Range/Units 20:36 21:20 22:51 WBC (4.3-11.1) K/mcL RBC (3.82-4.97) M/mcL Hgb (11.5-15.4) g/dL Hct (35.3-44.9) % MCV (83.0-100.0) fL MCH (28.0-33.3) pg MCHC (31.6-35.5) g/dL RDW (11.5-14.5) % Plt Count (140-400) K/mcL MPV (9.4-12.4) fL Immature Gran % (0-4) % Seg Neutrophils % % Lymphocytes % % Monocytes % % Eosinophils % % Basophils % % Neutrophils # (1.6-8.9) K/mcL Lymphocytes # (0.6-4.6) K/mcL Monocytes # (0.0-1.3) K/mcL Eosinophils # (0.0-0.6) K/mcL Basophils # (0.0-0.2) K/mcL Sample Site L Radial ABG pH 7.37 (7.32-7.45) pH Units ABG pCO2 50 H (35-45) mmHg ABG pO2 94 (85-104) mmHg ABG HCO3 29 H (21-27) mEq/L ABG Total CO2 30 H (20-26) mEq/L ABG O2 Saturation 97 (95-98) % ABG Base Excess 3 (-2 to 3) mEq/L Chandan Test N/A O2 Delivery Device Cannula Inspired O2 5.0 (1-15=lpm [id number]=%) Sodium (136-145) mEq/L Potassium (3.5-5.1) mEq/L Chloride (98-107) mEq/L Carbon Dioxide (23-29) mEq/L BUN (8-23) mg/dL Creatinine (0.60-1.20) mg/dL Est GFR ( Amer) (> 60) Est GFR (Non-Af Amer) (> 60) BUN/Creatinine Ratio (6-26) Glucose (70-105) mg/dL Calculated Osmolality (280-300) Lactic Acid (0.5-2.2) mmol/L Calcium (8.6-10.3) mg/dL Phosphorus (2.7-4.5) mg/dL Magnesium (1.6-2.6) mg/dL Total Bilirubin (0.3-1.0) mg/dL Direct Bilirubin (0.0-0.2) mg/dL Indirect Bilirubin (0.0-1.2) mg/dL AST (13-39) Units/L ALT (7-52) Units/L Alkaline Phosphatase (34-104) Units/L Troponin I (< 0.04) ng/mL B-Natriuretic Peptide 91 (Less than 100) pg/mL Serum Total Protein (6.4-8.9) g/dL Albumin (3.5-5.7) g/dL Globulin (2.4-3.5) g/dL Albumin/Globulin Ratio (1.1-2.2) Urine Color Dark Yellow (Yellow) Urine Clarity Turbid A (Clear) Urine pH 5.0 (5.0-8.0) pH Units Ur Specific Blair 1.017 (1.010-1.025) Urine Protein 30 H (Neg-Trace) mg/dL Urine Glucose (UA) Normal (Normal) mg/dL Urine Ketones Trace H (Negative) mg/dL Urine Blood Small H (Negative) Urine Nitrite Negative (Negative) Urine Bilirubin Small H (Negative) Urine Urobilinogen Normal (Normal) mg/dL Ur Leukocyte Esterase Large H (Negative) Urine Microscopic RBC 0-3 (0-3) per hpf Urine Microscopic WBC TNTC H (0-3) per hpf Ur Squamous Epith Cells Many H (None-Few) per lpf Urine Bacteria Many H (None-Few) per hpf Hyaline Casts None Seen (None-Few) per lpf Ur Culture Indicated? YES A (NO) - Radiology Data Radiology results reviewed: Yes I reviewed the patient's radiology results. - EKG Data EKG #1 EKG attestation: Yes I reviewed and interpreted this EKG. EKG results narrative: EKG showed sinus tachycardia with a rate of 110 and a QTC of 452 ms. Appears to be no acute ST elevation or T-wave inversion. No acute changes from previous EKG Attestation Statement - Attestation Attestation: I have seen this patient with the resident physician, I have personally evaluated this patient. I had reviewed the chart and document dictation by the resident physician and aM in agreement with the information documented by the resident physician. Please see documentation by the resident physician for complete chart including past medical history, family medical history, review of systems, current history and physical and laboratory and imaging studies. I was present for all procedures, provided direct supervision for all procedures, was present for the entirety of all procedures and provided direct guidance during the procedures. Please see documentation by the resident physician for any procedures performed. I have reviewed all interpretations of EKGs, and reviewed all EKGs performed on patient's as well. I have also reviewed reports of imaging as provided by radiology.
[2018-11-20] MEDS: 0.9 % Sodium Chloride 1,000 ML IVC SCH ×3 (20:51→22:24)
[2018-11-20 21:00] LABS: Basophils % 0.2 %; Eosinophils % 0.1 %; Hematocrit 38.5 % (35.3-44.9); Hemoglobin 12.3 g/dL (11.5-15.4); Immature Granulocytes % 0.8 % (0-4); Lymphocytes # 1.5 K/mcL (0.6-4.6); Lymphocytes % 7.6 %; Mean Corpuscular HGB Conc 31.9 g/dL (31.6-35.5); Mean Corpuscular Hemoglobin 29.3 pg (28.0-33.3); Mean Corpuscular Volume 91.7 fL (83.0-100.0); Monocytes # 0.8 K/mcL (0.0-1.3); Monocytes % 4.3 %; Neutrophils # 17.1 K/mcL (1.6-8.9); Platelet Count 286 K/mcL (140-400); Red Cell Distribution Width 16.4 % (11.5-14.5); White Blood Count 19.6 K/mcL (4.3-11.1)
[2018-11-20] MEDS ORDERED: Ertapenem 1,000 MG in 0.9 % Sodium Chloride Mini Bag 100 ML IVPB ONE (21:00)
[2018-11-20 21:21] LABS: Albumin 3.6 g/dL (3.5-5.7); Albumin/Globulin Ratio 1.1 (1.1-2.2); Bilirubin,Direct 0.3 mg/dL (0.0-0.2); Bilirubin,Indirect 0.5 mg/dL (0.0-1.2); Bilirubin,Total 0.8 mg/dL (0.3-1.0); Calcium 8.9 mg/dL (8.6-10.3); Globulin 3.3 g/dL (2.4-3.5); Magnesium 1.6 mg/dL (1.6-2.6); Phosphorous 3.1 mg/dL (2.7-4.5); Potassium 3.9 mEq/L (3.5-5.1); Total Protein 6.9 g/dL (6.4-8.9); Troponin I 0.03 ng/mL (< 0.04)
[2018-11-20 21:34] LABS: Bilirubin,Urine Small (Negative); Blood,Urine Small (Negative); Clarity,Urine Turbid (Clear); Color,Urine Dark Yellow (Yellow); Glucose,Urine (UA) Normal (Normal); Ketones,Urine Trace mg/dL (Negative); Leukocyte Esterase,Urine Large (Negative); Nitrite,Urine Negative (Negative); Protein,Urine 30 mg/dL (Neg-Trace); Specific Gravity,Urine 1.017 (1.010-1.025); Urobilinogen,Urine Normal (Normal)
[2018-11-20 21:37] LABS: Bacteria,Urine Many per hpf (None-Few); Hyaline Casts,Urine None Seen per lpf (None-Few); RBC,Urine 0-3 per hpf (0-3); Squamous Epithelial Cell,Urine Many per lpf (None-Few); WBC,Urine TNTC per hpf (0-3)
[2018-11-20 22:55] LABS: ABG Base Excess 3 mEq/L (-2 to 3); ABG HCO3 29 mEq/L (21-27); ABG Oxygen Saturation 97 % (95-98); ABG PCO2 50 mmHg (35-45); ABG PH 7.37 pH Units (7.32-7.45); ABG PO2 94 mmHg (85-104); ABG TCO2 30 mEq/L (20-26)
--- NOTE | 2018-11-20 22:57 | Emergency Department Note ---
Disposition Clinical Impression: Lactic acidosis UTI (urinary tract infection) Qualifiers: Urinary tract infection type: acute cystitis Hematuria presence: without andrew turia Qualified Code(s): N30.00 - Acute cystitis without hematuria Sepsis Qualifiers: Sepsis type: sepsis due to unspecified organism Qualified Code(s): A41.9 - Sepsis, unspecified organism Disposition: Admitted As Inpatient Condition: Fair Time of Disposition: 23:02 General Adult HPI - General Chief complaint: ED Weakness Stated complaint: poss sepsis Time Seen by Provider: 11/20/18 20:21 Source: patient, EMS Mode of arrival: EMS Limitations: no limitations Nursing Notes Reviewed: Yes Vital Signs Reviewed: Yes - History of Present Illness Pain Scale: 10 - Related Data Home Medications Medication Instructions Recorded Confirmed Metoprolol XL (24 HR) Succ [Toprol 25 mg PO DAILY 06/10/16 11/20/18 Xl] Sennosides/Docusate Sodium [Senna 2 tab PO BID PRN 09/02/16 10/31/18 Plus] Ferrous Sulfate 325 mg PO DAILY 02/26/17 11/20/18 Acetaminophen [Tylenol] 650 mg PO Q6H PRN 10/23/17 11/20/18 Atorvastatin [Lipitor] 10 mg PO HS 10/23/17 11/20/18 Insulin ASPART [NovoLOG] 5 unit SQ TID 04/21/18 10/31/18 Fluticasone Propionate Nasal 1 spray NS DAILY 07/30/18 11/20/18 [Flonase] Ipratropium/Albuterol Sulfate 1 puff IN Q6H PRN 07/30/18 11/20/18 [Combivent Respimat Inhal [place]] Loratadine [Claritin] 10 mg PO DAILY PRN 07/30/18 11/20/18 Aspirin Enteric Coated [Aspirin EC] 81 mg PO DAILY 08/22/18 11/20/18 GI Cocktail [Gi Cocktail] 40 ml PO BID PRN 08/22/18 11/20/18 Insulin Glargine [Lantus] 45 unit SQ BID 08/22/18 11/20/18 Ipratropium/Albuterol Sulfate 3 ml IH QID PRN 08/22/18 11/20/18 [Iprat-Albut 0.5-3(2.5) mg/3 ml] Loperamide [Imodium] 4 mg PO DAILY PRN 08/22/18 11/20/18 Omeprazole [PriLOSEC] 20 mg PO DAILY 08/22/18 11/20/18 Dextran 70/Hypromellose [Natural 1 drop BOTH EYES BID PRN 09/09/18 10/31/18 Balance Tears Eye Drop] Nystatin POWDER [Nystop] 1 appl TP BID 09/09/18 11/20/18 Guaifenesin [Mucinex] 600 mg PO Q12H PRN 10/03/18 11/20/18 Potassium Chloride [K-Tab ER] 20 meq PO DAILY 10/03/18 11/20/18 Scopolamine Patch [Transderm-Scop] 1.5 mg TD Q72H PRN 10/03/18 11/20/18 DiphenhydraMINE [Benadryl] 25 mg PO QID PRN 10/31/18 11/20/18 Melatonin 10 mg PO HS 10/31/18 11/20/18 Venlafaxine HCl [Venlafaxine HCl 150 mg PO DAILY 10/31/18 10/31/18 ER] Zinc Oxide [Z-Bum] 1 appl TP BID 10/31/18 10/31/18 Furosemide [Lasix] 80 mg PO BID 11/20/18 11/20/18 HYDROcodone/Acet 10/325 mg [[place] 1 tab PO Q6HR PRN 11/20/18 11/20/18 10-325 mg] LORazepam [Ativan] 1 mg PO DAILY PRN 11/20/18 11/20/18 Lactobacillus Acidophilus 1 each PO DAILY 11/20/18 11/20/18 [Acidophilus] Melatonin 10 mg PO HS 11/20/18 11/20/18 Pregabalin [Lyrica] 100 mg PO TID 11/20/18 11/20/18 Previous Rx's Medication Instructions Recorded Magnesium Oxide [Mag-Ox] 400 mg PO BID #30 tablet 05/30/16 Isosorbide MONOnitrate (24 HR) 30 mg PO DAILY #30 tab.er.24h 04/23/18 [Imdur] Amoxicillin/Clavulanate [Augmentin] 875 mg PO BIDWM #4 tablet 11/07/18 Doxycycline Hyclate 100 mg PO BID #4 tablet 11/07/18 rOPINIRole [Requip] 1 mg PO HS #30 tablet 11/07/18 Allergies Allergy/AdvReac Type Severity Reaction Status Date / Time fentanyl Allergy Itching Verified 04/19/18 22:46 gentamicin AdvReac See Verified 10/23/17 19:31 Comments Past Medical History - Past Medical History Medical history: Reports: atrial fibrillation, CHF, COPD, coronary artery disease, diabetes, GERD, hyperlipidemia, hypertension, other Surgical history: Reports: appendectomy, cholecystectomy, hysterectomy, knee replacement, orthopedic, other, other, arthroscopy Psychiatric history: Reports: anxiety, depression - Social History Smoking Status: Former smoker Smokeless Tobacco Status: No Alcohol use: Reports: none Drug use: Reports: none Physical Exam - General Limitations: no limitations General appearance: alert, in no apparent distress Course Vital Signs Temperature 100.9 F H 11/20/18 20:23 Pulse Rate 112 11/20/18 20:23 Respiratory Rate 15 11/20/18 20:23 Blood Pressure 95/59 11/20/18 20:23 O2 Sat by Pulse Oximetry 94 11/20/18 20:23 Temperature 100.9 F H 11/20/18 20:23 Pulse Rate 98 11/20/18 22:23 Respiratory Rate 18 11/20/18 22:23 Blood Pressure 110/52 11/20/18 22:23 O2 Sat by Pulse Oximetry 96 11/20/18 22:23 Oxygen Delivery Oxygen Delivery Nasal Cannula Medical Decision Making - Lab Data Result diagrams: 11/20/18 20:36 11/20/18 20:36 Lab Results 11/20/18 11/20/18 11/20/18 Range/Units 20:36 20:36 20:36 WBC 19.6 H D (4.3-11.1) K/mcL RBC 4.20 (3.82-4.97) M/mcL Hgb 12.3 (11.5-15.4) g/dL Hct 38.5 (35.3-44.9) % MCV 91.7 (83.0-100.0) fL MCH 29.3 (28.0-33.3) pg MCHC 31.9 (31.6-35.5) g/dL RDW 16.4 H (11.5-14.5) % Plt Count 286 (140-400) K/mcL MPV 10.0 (9.4-12.4) fL Immature Gran % 0.8 (0-4) % Seg Neutrophils % 87.0 % Lymphocytes % 7.6 % Monocytes % 4.3 % Eosinophils % 0.1 % Basophils % 0.2 % Neutrophils # 17.1 H (1.6-8.9) K/mcL Lymphocytes # 1.5 (0.6-4.6) K/mcL Monocytes # 0.8 (0.0-1.3) K/mcL Eosinophils # 0.0 (0.0-0.6) K/mcL Basophils # 0.0 (0.0-0.2) K/mcL Sodium 136 (136-145) mEq/L Potassium 3.9 (3.5-5.1) mEq/L Chloride 97 L (98-107) mEq/L Carbon Dioxide 27 (23-29) mEq/L BUN 17 (8-23) mg/dL Creatinine 1.09 (0.60-1.20) mg/dL Est GFR ( Amer) 60 (> 60) Est GFR (Non-Af Amer) 49 L (> 60) BUN/Creatinine Ratio 16 (6-26) Glucose 291 H (70-105) mg/dL Calculated Osmolality 294 (280-300) Lactic Acid 2.9 H (0.5-2.2) mmol/L Calcium 8.9 (8.6-10.3) mg/dL Phosphorus 3.1 (2.7-4.5) mg/dL Magnesium 1.6 (1.6-2.6) mg/dL Total Bilirubin 0.8 (0.3-1.0) mg/dL Direct Bilirubin 0.3 H (0.0-0.2) mg/dL Indirect Bilirubin 0.5 (0.0-1.2) mg/dL AST 12 L (13-39) Units/L ALT 13 (7-52) Units/L Alkaline Phosphatase 63 (34-104) Units/L Troponin I 0.03 (< 0.04) ng/mL B-Natriuretic Peptide (Less than 100) pg/mL Serum Total Protein 6.9 (6.4-8.9) g/dL Albumin 3.6 (3.5-5.7) g/dL Globulin 3.3 (2.4-3.5) g/dL Albumin/Globulin Ratio 1.1 (1.1-2.2) Urine Color (Yellow) Urine Clarity (Clear) Urine pH (5.0-8.0) pH Units Ur Specific [place] (1.010-1.025) Urine Protein (Neg-Trace) mg/dL Urine Glucose (UA) (Normal) mg/dL Urine Ketones (Negative) mg/dL Urine Blood (Negative) Urine Nitrite (Negative) Urine Bilirubin (Negative) Urine Urobilinogen (Normal) mg/dL Ur Leukocyte Esterase (Negative) Urine Microscopic RBC (0-3) per hpf Urine Microscopic WBC (0-3) per hpf Ur Squamous Epith Cells (None-Few) per lpf Urine Bacteria (None-Few) per hpf Hyaline Casts (None-Few) per lpf Ur Culture Indicated? (NO) 11/20/18 11/20/18 Range/Units 20:36 21:20 WBC (4.3-11.1) K/mcL RBC (3.82-4.97) M/mcL Hgb (11.5-15.4) g/dL Hct (35.3-44.9) % MCV (83.0-100.0) fL MCH (28.0-33.3) pg MCHC (31.6-35.5) g/dL RDW (11.5-14.5) % Plt Count (140-400) K/mcL MPV (9.4-12.4) fL Immature Gran % (0-4) % Seg Neutrophils % % Lymphocytes % % Monocytes % % Eosinophils % % Basophils % % Neutrophils # (1.6-8.9) K/mcL Lymphocytes # (0.6-4.6) K/mcL Monocytes # (0.0-1.3) K/mcL Eosinophils # (0.0-0.6) K/mcL Basophils # (0.0-0.2) K/mcL Sodium (136-145) mEq/L Potassium (3.5-5.1) mEq/L Chloride (98-107) mEq/L Carbon Dioxide (23-29) mEq/L BUN (8-23) mg/dL Creatinine (0.60-1.20) mg/dL Est GFR ( Amer) (> 60) Est GFR (Non-Af Amer) (> 60) BUN/Creatinine Ratio (6-26) Glucose (70-105) mg/dL Calculated Osmolality (280-300) Lactic Acid (0.5-2.2) mmol/L Calcium (8.6-10.3) mg/dL Phosphorus (2.7-4.5) mg/dL Magnesium (1.6-2.6) mg/dL Total Bilirubin (0.3-1.0) mg/dL Direct Bilirubin (0.0-0.2) mg/dL Indirect Bilirubin (0.0-1.2) mg/dL AST (13-39) Units/L ALT (7-52) Units/L Alkaline Phosphatase (34-104) Units/L Troponin I (< 0.04) ng/mL B-Natriuretic Peptide 91 (Less than 100) pg/mL Serum Total Protein (6.4-8.9) g/dL Albumin (3.5-5.7) g/dL Globulin (2.4-3.5) g/dL Albumin/Globulin Ratio (1.1-2.2) Urine Color Dark Yellow (Yellow) Urine Clarity Turbid A (Clear) Urine pH 5.0 (5.0-8.0) pH Units Ur Specific [place] 1.017 (1.010-1.025) Urine Protein 30 H (Neg-Trace) mg/dL Urine Glucose (UA) Normal (Normal) mg/dL Urine Ketones Trace H (Negative) mg/dL Urine Blood Small H (Negative) Urine Nitrite Negative (Negative) Urine Bilirubin Small H (Negative) Urine Urobilinogen Normal (Normal) mg/dL Ur Leukocyte Esterase Large H (Negative) Urine Microscopic RBC 0-3 (0-3) per hpf Urine Microscopic WBC TNTC H (0-3) per hpf Ur Squamous Epith Cells Many H (None-Few) per lpf Urine Bacteria Many H (None-Few) per hpf Hyaline Casts None Seen (None-Few) per lpf Ur Culture Indicated? YES A (NO) Attestation Statement - Attestation Attestation: I have seen this patient with the resident physician, I have personally evaluated this patient. I had reviewed the chart and document dictation by the resident physician and aM in agreement with the information documented by the resident physician. Please see documentation by the resident physician for complete chart including past medical history, family medical history, review of systems, current history and physical and laboratory and imaging studies. I was present for all procedures, provided direct supervision for all procedures, was present for the entirety of all procedures and provided direct guidance during the procedures. Please see documentation by the resident physician for any procedures performed. I have reviewed all interpretations of EKGs, and reviewed all EKGs performed on patient's as well. I have also reviewed reports of imaging as provided by radiology. Patient presents from [facility] facility stating that she just feels awful. She states that she has had fevers chills generalized weakness urinary symptoms and a UTI that has not gone away for 6 weeks she has been on several different things. She states that she still feels awful today, she does endorse a little bit of shortness of breath more than her baseline but states that she always feels short of breath. She does have a little bit of a cough no sputum production that she is noticed she denies headache or neck pain she versus some mild generalized abdominal pain no localized abdominal pain. She denies diarrhea or black or bloody stool she states she just feels generally weak and awful. Upon presentation she is alert and oriented, cranial nerves are grossly intact lungs are slightly diminished no significant focal rales rhonchi crackles or wheezing may be some faint wheezing. Cardiovascular tachycardic no significant murmurs rubs or gallops. Abdomen is morbidly obese, no rebound guarding or peritoneal sign. There is 1+ bilateral lower extremity edema without evidence of unilateral edema palpable cord calf tenderness Homans sign or clinical evidence of DVT. Skin is warm to the touch, slightly diaphoretic no rashes no petechiae no jaundice. EKG was sinus tachycardia, no evidence of acute ischemia or change from prior EKG which was also sinus tachycardia. Laboratory studies consistent with systemic inflammatory response syndrome Sirs and sepsis., Her presenting vital signs also concerning for Sirs and sepsis. Sepsis order set utilized. Patient given IV Invanz, based upon recent urine culture which was 2 multi resistant organisms, both sensitive to ertapenem CBC with leukocytosis of 19,000, elevated lactate. At 2.9. Renal panel showed mild hyperglycemia no other acute abnormality. ABG was within acceptable limits. 7.37 PCO2 of 50. Patient given 3 L of IV fluids, as per sepsis protocol as well. She had a recent echocardiogram with a normal ejection fraction of 65%. Patient admitted for further evaluation and management, and has some slight improvement of her tachycardia did not develop any hypotension with a maintaining map greater than 65 Total critical care time as read by myself excluding any procedures performed was 35 minutes in evaluation and management of urosepsis
[2018-11-21] MEDS ORDERED: Naloxone 0.4 MG/ML INJ IVP PRN (06:20)
[2018-11-21] MEDS ORDERED: Dextrose Gel 15 GM/37.5 ML TUBE PO PRN ×2 (06:24)
[2018-11-21] MEDS ORDERED: D5% in Water 1,000 ML IVC PRN (06:24)
[2018-11-21] MEDS ORDERED: *HR* Dextrose 50 % in Water (Syg) 50 ML SYRINGE IVP PRN (06:24)
--- NOTE | 2018-11-21 06:28 | Internal Med History&Physical ---
Date of Encounter: 11/21/18 Time of Encounter: 05:53 Internal Medicine - H&P: HPI Chief complaint: Urinary tract infection Admitted From: Emergency Dept History of present illness: Ms. Zamora is a 72 year old female Patient presented [facility] the ER from her [facility] with bilateral leg pain and pain with urination. She states that she has been feeling pain in her leg left worse than right for about 1 month. She has been having fevers as well. The [facility] was concerned that she may be septic, and had her transported to the ER for further evaluation. In the ER patient's initial vital signs: temperature 100.9, pulse 112, blood pressure of 95/59. CBC: Notable for white count of 19.6 BMP within normal limits aside from elevated blood sugar of 291. Lactic acid 2.9 Troponin 0.03 Urinalysis: 30 protein, negative nitrite, large leukocyte esterase, TNTC WBCs and many bacteria. Chest x-ray negative for infection EKG: sinus tach, rate 110 and QTc of 452. No ischemic changes Patient received a liter of IV fluids, blood and urine cultures were drawn and she was started on ertapenem. She was sent to the hospital floor for further management. Upon my evaluation patient patient is resting comfortably in the hospital bed in no acute distress. She denies chest pain, abdominal pain, nausea, vomiting, diarrhea, constipation and dysuria. She states that she has not walked in 19 years. She has no feeling in her lower extremities. She has been noticing redness in her left leg over the last several weeks. She denies wounds however. She is a full code. Past Med Surg Social Fam HX - Past Medical History Medical history: atrial fibrillation, CHF, COPD, coronary artery disease, diabetes, GERD, hyperlipidemia, hypertension, other Additional medical history: lymphedema BLE, umbilical hernia, neuropathy, home O2 NC 2L, UTI, morbid obesity, cellulitis to legs. Psychiatric history: anxiety, depression - Past Surgical History Surgical History: cholecystectomy, hysterectomy Additional surgical history: bilateral knee replacement x2 , 6 knee scopes, D&C's. 2 left knee surgies. - Social History Smoking Status: Former smoker Smokeless Tobacco Status: No Alcohol use: none Drug use: none - Family History Mother Adopted: No Family Member Ethnicity: Non- Living Status: Hx Family Cardiac Disorders: Yes Hx Family Respiratory Disorders: Yes Hx Family Cancer: No Hx Family GI Disorders: Yes (ulcers) Hx Family Endocrine Disorder: Yes (Diabets) Hx Family Neuromuscular Disorders: No Hx Family Neurologic Disorders: No Hx Family HEENT Disorders: No Hx Family Autoimmune Disorders: No Father Hx Family Cardiac Disorders: Yes Hx Family Respiratory Disorders: Yes Hx Family Cancer: No Hx Family GI Disorders: No Hx Family Endocrine Disorder: Yes Hx Family Neuromuscular Disorders: No Hx Family Neurologic Disorders: No Hx Family HEENT Disorders: No Hx Family Autoimmune Disorders: No Internal Medicine - H&P: Meds Magnesium Oxide [Mag-Ox] 400 mg PO BID #30 tablet 05/30/16 [Rx] Metoprolol XL (24 HR) Succ [Toprol Xl] 25 mg PO DAILY 06/10/16 [History] Sennosides/Docusate Sodium [Senna Plus] 2 tab PO BID PRN 09/02/16 [History] Ferrous Sulfate 325 mg PO DAILY 02/26/17 [History] Acetaminophen [Tylenol] 650 mg PO Q6H PRN 10/23/17 [History] Atorvastatin [Lipitor] 10 mg PO HS 10/23/17 [History] Insulin ASPART [NovoLOG] 5 unit SQ TID 04/21/18 [History] Isosorbide MONOnitrate (24 HR) [Imdur] 30 mg PO DAILY #30 tab.er.24h 04/23/18 [R x] Fluticasone Propionate Nasal [Flonase] 1 spray NS DAILY 07/30/18 [History] Ipratropium/Albuterol Sulfate [Combivent Respimat Inhal [place]] 1 puff IN Q6H PRN 07/30/18 [History] Loratadine [Claritin] 10 mg PO DAILY PRN 07/30/18 [History] Aspirin Enteric Coated [Aspirin EC] 81 mg PO DAILY 08/22/18 [History] GI Cocktail [Gi Cocktail] 40 ml PO BID PRN 08/22/18 [History] Insulin Glargine [Lantus] 45 unit SQ BID 08/22/18 [History] Ipratropium/Albuterol Sulfate [Iprat-Albut 0.5-3(2.5) mg/3 ml] 3 ml IH QID PRN 08/22/18 [History] Loperamide [Imodium] 4 mg PO DAILY PRN 08/22/18 [History] Omeprazole [PriLOSEC] 20 mg PO DAILY 08/22/18 [History] Dextran 70/Hypromellose [Natural Balance Tears Eye Drop] 1 drop BOTH EYES BID PRN 09/09/18 [History] Nystatin POWDER [Nystop] 1 appl TP BID 09/09/18 [History] Guaifenesin [Mucinex] 600 mg PO Q12H PRN 10/03/18 [History] Potassium Chloride [K-Tab ER] 20 meq PO DAILY 10/03/18 [History] Scopolamine Patch [Transderm-Scop] 1.5 mg TD Q72H PRN 10/03/18 [History] DiphenhydraMINE [Benadryl] 25 mg PO QID PRN 10/31/18 [History] Melatonin 10 mg PO HS 10/31/18 [History] Venlafaxine HCl [Venlafaxine HCl ER] 150 mg PO DAILY 10/31/18 [History] Zinc Oxide [Z-Bum] 1 appl TP BID 10/31/18 [History] Amoxicillin/Clavulanate [Augmentin] 875 mg PO BIDWM #4 tablet 11/07/18 [Rx] Doxycycline Hyclate 100 mg PO BID #4 tablet 11/07/18 [Rx] rOPINIRole [Requip] 1 mg PO HS #30 tablet 11/07/18 [Rx] Furosemide [Lasix] 80 mg PO BID 11/20/18 [History] HYDROcodone/Acet 10/325 mg [[place] 10-325 mg] 1 tab PO Q6HR PRN 11/20/18 [History] LORazepam [Ativan] 1 mg PO DAILY PRN 11/20/18 [History] Lactobacillus Acidophilus [Acidophilus] 1 each PO DAILY 11/20/18 [History] Melatonin 10 mg PO HS 11/20/18 [History] Pregabalin [Lyrica] 100 mg PO TID 11/20/18 [History] Allergy/AdvReac Type Severity Reaction Status Date / Time fentanyl Allergy Itching Verified 04/19/18 22:46 gentamicin AdvReac See Verified 10/23/17 19:31 Comments All Systems PM: A 10-system review of systems was performed and is negative for pertinent findings except as documented above in the HPI. - Constitutional Vitals: Temp Pulse Resp BP Pulse Ox 99.1 F 90 15 112/67 96 11/21/18 04:00 11/21/18 04:00 11/21/18 04:00 11/21/18 04:00 11/21/18 04:00 General appearance: Present: cooperative, A&O X 3, morbidly obese, pleasant, no acute distress, answers questions appropriately Exam: - - Head Head exam: Present: normal inspection - Eye Eye exam: Present: EOMI, normal appearance - Respiratory Respiratory exam: Present: CTAB. Absent: rales, respiratory distress, rhonchi, wheezes - Cardiovascular Cardiovascular exam: Present: RRR. Absent: diastolic murmur, systolic murmur - GI/Abdominal GI/Abdominal exam: Present: normal bowel sounds, soft. Absent: tenderness - Extremities Exam Extremities exam: Present: pedal edema, warm, radial pulses palpable and symmetrical. Absent: tenderness Additional comments: Bilateral lower extremity edema, patient has no sensation at baseline in either leg. Left lower extremity larger than left secondary to lymphedema. Left lower extremity erythematous changes to knee - Neurological Exam Neurological exam: Present: motor sensory deficit, strengths equal and symetr throughout. Absent: no focal deficits, facial droop, speech deficit Additional comments: No sensation in lower extremity bilaterally Internal Med - H&P Results - Labs CBC & Chem 7: 11/20/18 20:36 11/20/18 20:36 Labs: Short CBC 11/20/18 Range/Units 20:36 WBC 19.6 H D (4.3-11.1) K/mcL Hgb 12.3 (11.5-15.4) g/dL Hct 38.5 (35.3-44.9) % Plt Count 286 (140-400) K/mcL Neutrophils # 17.1 H (1.6-8.9) K/mcL BMP 11/20/18 20:36 Sodium 136 Potassium 3.9 Chloride 97 L Carbon Dioxide 27 BUN 17 Creatinine 1.09 Glucose 291 H Calcium 8.9 Cardiac Enzymes 11/20/18 Range/Units 20:36 Troponin I 0.03 (< 0.04) ng/mL Liver Function 11/20/18 Range/Units 20:36 Total Bilirubin 0.8 (0.3-1.0) mg/dL Direct Bilirubin 0.3 H (0.0-0.2) mg/dL AST 12 L (13-39) Units/L ALT 13 (7-52) Units/L Alkaline Phosphatase 63 (34-104) Units/L Albumin 3.6 (3.5-5.7) g/dL Urine 11/20/18 Range/Units 21:20 Urine Color Dark Yellow (Yellow) Urine Clarity Turbid A (Clear) Urine pH 5.0 (5.0-8.0) pH Units Ur Specific [place] 1.017 (1.010-1.025) Urine Protein 30 H (Neg-Trace) mg/dL Urine Glucose (UA) Normal (Normal) mg/dL - ABG Interpretation ABG results: 11/20/18 22:51 ABG pH 7.37 ABG pCO2 50 H ABG pO2 94 ABG HCO3 29 H ABG Total CO2 30 H ABG O2 Saturation 97 ABG Base Excess 3 - Impressions ITS Impressions Chest X-Ray 11/20/18 22:23 IMPRESSION: Minimal atelectasis or scarring. Otherwise negative low volume portable study. D/ / Niru Valencia Cha, MD / Niru Valencia Cha, MD Interpreting Provider: Niru Valencia Cha, MD - Assessment and Plan (1) Sepsis Current Visit: No Status: Acute Assessment and plan: Patient meets sepsis criteria with elevated temperature, heart rate, white blood cell count and lactic acid. Vitals have since improved however, and repeat lactic acid was 1.3. Patient does have a UTI on urinalysis. Continue to monitor vitals Treating UTI as below. Qualifiers: Sepsis type: sepsis due to unspecified organism Qualified Code(s): A41.9 - Sepsis, unspecified organism (2) UTI (urinary tract infection) Current Visit: Yes Status: Acute Assessment and plan: Urinalysis negative for nitrates but had large leukocyte esterase, many bacteria and too numerous to count white blood cells. Urine culture ordered, based on previous culture results patient was started on ertapenem. Follow-up culture results when available Continue IV ertapenem Qualifiers: Urinary tract infection type: acute cystitis Hematuria presence: without hematuria Qualified Code(s): N30.00 - Acute cystitis without hematuria (3) Lymphedema of both lower extremities Current Visit: No Status: Chronic Assessment and plan: Chronic, redness of the left lower extremity worse than right. Patient states that she has had redness has been increasing over the last month. Likely related to chronic vascular changes, less likely cellulitis. Blood cultures were drawn. Follow-up blood cultures Continue ertapenem Monitor for worsening signs of infection (4) Diabetes mellitus Current Visit: No Status: Chronic Assessment and plan: Patient is an insulin dependent diabetic Monitor sugars ACHS Diabetic diet Low dose insulin sliding scale as needed Hold home meds. Qualifiers: Diabetes mellitus type: type 2 Diabetes mellitus terminal gauger insulin use: with terminal gauger use Diabetes mellitus complication status: with hyperglycemia Qualified Code(s): E11.65 - Type 2 diabetes mellitus with hyperglycemia; Z79.4 - prison (current) use of insulin (5) DVT prophylaxis Current Visit: No Status: Acute Assessment and plan: Subcutaneous Heparin - Time Spent With Patient Total time spent is greater than 50% in coordination of care (as documented) at patient's floor/unit and/or counseling patient: Greater than 35 minutes
[2018-11-21] MEDS ORDERED: 0.9 % Sodium Chloride 1,000 ML IVC SCH (06:30)
[2018-11-21] MEDS: Insulin LISPRO 300 UNITS/3 ML VIAL SQ SCH ×4 (07:59→20:06)
[2018-11-21] MEDS ORDERED: Isovue-370 500 ML BOTTLE IVP ONE (13:09)
--- NOTE | 2018-11-21 13:22 | Event Note ---
Date of Encounter: 11/21/18 Time of Encounter: 13:16 I have seen and evaluated the patient at bedside. Patient reported pain, redness, and tenderness of the left lower extremities associated with feve, was one of the main reason she went to the hospital. Left lower extremity warmth, mildly tender to touch and with an erythema. Plan draw a MAP around the erythema will add vancomycin for a couple of dosage to cover MRSA MRSA screening continue IV hydration ESR/CRP ordered CT of the left lower extr. 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 will continue to follow
[2018-11-21 13:47] LABS: Hematocrit 36.7 % (35.3-44.9); Hemoglobin 11.5 g/dL (11.5-15.4); Mean Corpuscular HGB Conc 31.3 g/dL (31.6-35.5); Mean Corpuscular Hemoglobin 29.5 pg (28.0-33.3); Mean Corpuscular Volume 94.1 fL (83.0-100.0); Platelet Count 252 K/mcL (140-400); Red Cell Distribution Width 16.4 % (11.5-14.5); White Blood Count 11.6 K/mcL (4.3-11.1)
[2018-11-21] MEDS ORDERED: Aminoglycoside Consult 1 EACH MC ONE (15:17)
[2018-11-21 15:25] LABS: BUN/Creatinine Ratio 18 (6-26); Blood Urea Nitrogen 18 mg/dL (8-23); Carbon Dioxide 26 mEq/L (23-29); Chloride 102 mEq/L (98-107); Glucose 210 mg/dL (70-105); Potassium 3.5 mEq/L (3.5-5.1); Sodium 140 mEq/L (136-145); eGFR For African Americans > 60 (> 60); eGFR For Non-African Americans 55 (> 60)
[2018-11-21 15:26] LABS: Calcium 8.5 mg/dL (8.6-10.3); Osmolality,Calculated 298 (280-300)
[2018-11-21] MEDS: 0.9 % Sodium Chloride 1,000 ML IVC SCH (15:32)
[2018-11-21] MEDS: Acetaminophen 325 MG TABLET PO PRN (15:33)
[2018-11-21] MEDS: *HR* Heparin 5,000 UNIT/ML VIAL SQ SCH (17:26)
[2018-11-21] MEDS: Ertapenem 1,000 MG in 0.9 % Sodium Chloride Mini Bag 100 ML IVPB SCH (20:08)
[2018-11-21] MEDS: *HR* HYDROcodone/Acet 5/325 mg TABLET PO PRN (21:17)
[2018-11-22] MEDS: Acetaminophen 325 MG TABLET PO PRN ×3 (00:15→22:30)
[2018-11-22] MEDS: Melatonin 3 MG TABLET PO PRN ×2 (02:10→22:30)
[2018-11-22 02:57] LABS: Basophils % 0.3 %; Eosinophils # 0.4 K/mcL (0.0-0.6); Eosinophils % 4.1 %; Hematocrit 35.3 % (35.3-44.9); Hemoglobin 10.8 g/dL (11.5-15.4); Immature Granulocytes % 0.7 % (0-4); Lymphocytes # 1.2 K/mcL (0.6-4.6); Lymphocytes % 13.3 %; Mean Corpuscular HGB Conc 30.6 g/dL (31.6-35.5); Mean Corpuscular Hemoglobin 29.1 pg (28.0-33.3); Mean Corpuscular Volume 95.1 fL (83.0-100.0); Mean Platelet Volume 10.1 fL (9.4-12.4); Monocytes # 0.5 K/mcL (0.0-1.3); Monocytes % 6.2 %; Neutrophils # 6.6 K/mcL (1.6-8.9); Platelet Count 240 K/mcL (140-400); Red Blood Count 3.71 M/mcL (3.82-4.97); Red Cell Distribution Width 16.2 % (11.5-14.5); Segmented Neutrophils % 75.4 %; White Blood Count 8.7 K/mcL (4.3-11.1)
[2018-11-22 03:14] LABS: BUN/Creatinine Ratio 17 (6-26); Blood Urea Nitrogen 17 mg/dL (8-23); C-Reactive Protein 209 mg/L (Less than 10); Calcium 8.5 mg/dL (8.6-10.3); Carbon Dioxide 26 mEq/L (23-29); Chloride 104 mEq/L (98-107); Glucose 357 mg/dL (70-105); Magnesium 1.7 mg/dL (1.6-2.6); Osmolality,Calculated 304 (280-300); Phosphorous 2.4 mg/dL (2.7-4.5); Potassium 3.7 mEq/L (3.5-5.1); Sodium 139 mEq/L (136-145); eGFR For African Americans > 60 (> 60); eGFR For Non-African Americans 55 (> 60)
[2018-11-22] MEDS: *HR* HYDROcodone/Acet 5/325 mg TABLET PO PRN ×3 (03:56→20:01)
[2018-11-22] MEDS: *HR* Heparin 5,000 UNIT/ML VIAL SQ SCH ×2 (05:20→18:42)
[2018-11-22] MEDS: Insulin LISPRO 300 UNITS/3 ML VIAL SQ SCH ×4 (07:47→20:14)
[2018-11-22] MEDS: Insulin DETEMIR 100 UNIT/ML X5UNITS SQ SCH ×2 (08:29→21:32)
--- NOTE | 2018-11-22 13:42 | Internal Med Progress Note ---
Hospitalist Progress Note - Encounter Date of Encounter: 11/22/18 Time of Encounter: 13:39 - Subjective Interval History: I have seen and evaluated the patient and bedside. Reports pain in the left lower extremity, slightly feeling short of breath, denies Abdominal pain, nausea or vomiting. Denies chest pain. - Exam Vitals: Temp Pulse Resp BP Pulse Ox 97.9 F 84 19 140/76 99 11/22/18 07:39 11/22/18 11:32 11/22/18 11:32 11/22/18 11:32 11/22/18 11:32 Exam: Vitals: Reviewed General: Alert and oriented x4. In mild distress due to pain in the left lower ext Cardiovascular: RRR, normal S1 & S2, no rubs, murmurs or gallops. Lungs: CTA b/l, no wheezes or crackles. Abdomen: Obese, soft, non-tender, no rigidity. Extremities: erythema and edema of the left lower extr Neurological: Normal cognition and motor skills. Rest of the physical exam is non contributory - Assessment and Plan (1) Sepsis Current Visit: No Status: Acute Assessment and Plan: due to UTI. patient a Hx of recurrent UTI with MDRO E.coli. clinically stable. continue ertapenem 1gm/IV daily urine culture: growing gram negative rods blood culture: no growth to date. (2) UTI (urinary tract infection) Current Visit: Yes Status: Acute Assessment and Plan: plan of care as above (3) Diabetes mellitus Current Visit: No Status: Chronic Assessment and Plan: Blood sugars optimally controlled. Started on Levemir 10 units twice a day, continue lispro medium dose sliding scale before meals. Carbs controlled diet. (4) Lymphedema of both lower extremities Current Visit: No Status: Chronic Assessment and Plan: Possible cellulitis of the left lower extremity. patient reported pain and incr eased erythema. elevated ESR/CPR CT/CT lower leg LT w con IMPRESSION: 1. Severe extensive subcutaneous fat stranding in the left lower extremity again compatible with cellulitis versus sterile edema. No abscess. 2. Chronic fluid collection anterior to the proximal left femur without significant change dating back to 2017. 3. No acute osseous abnormality. Plan -draw a map around the erythema - pain control - on broad spectrum IV antibiotics - dc vancomycin DVT Prophylaxis: On heparin subq - Summary of Assessment and Plan Summary of Assessment and Plan: patient to remain in the hospital due to resolving sepsis. - Time Spent with Patient Total time spent is greater than 50% in coordination of care (as documented) at patient's floor/unit and/or counseling patient: Greater than 35 minutes (40) Plan of Care Discussed with: patient (and the nurse) Internal Medicine: Result - Labs CBC & Chem 7: 11/22/18 01:38 11/22/18 01:38 Labs: Short CBC 11/21/18 11/22/18 Range/Units 13:15 01:38 WBC 11.6 H 8.7 (4.3-11.1) K/mcL Hgb 11.5 10.8 L (11.5-15.4) g/dL Hct 36.7 35.3 (35.3-44.9) % Plt Count 252 240 (140-400) K/mcL Neutrophils # 6.6 (1.6-8.9) K/mcL BMP 11/21/18 11/22/18 13:15 01:38 Sodium 140 139 Potassium 3.5 3.7 Chloride 102 104 Carbon Dioxide 26 26 BUN 18 17 Creatinine 0.99 0.99 Glucose 210 H 357 H Calcium 8.5 L 8.5 L - ABG Interpretation ABG results: ABG ABG pH 7.37 pH Units (7.32-7.45) 11/20/18 22:51 ABG pCO2 50 mmHg (35-45) H 11/20/18 22:51 ABG pO2 94 mmHg (85-104) 11/20/18 22:51 ABG O2 Saturation 97 % (95-98) 11/20/18 22:51 - Impressions Impressions Lower Extremity CT 11/21/18 13:09 IMPRESSION: 1. Severe extensive subcutaneous fat stranding in the left lower extremity again compatible with cellulitis versus sterile edema. No abscess. 2. Chronic fluid collection anterior to the proximal left femur without significant change dating back to 2016. 3. No acute osseous abnormality. 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
[2018-11-22] MEDS: Furosemide 40 MG TABLET PO SCH (16:45)
[2018-11-22] MEDS: 0.9 % Sodium Chloride 1,000 ML IVC SCH (18:41)
[2018-11-22] MEDS: Nystatin POWDER 30 GM BOTTLE TP SCH (20:01)
[2018-11-22] MEDS: Ertapenem 1,000 MG in 0.9 % Sodium Chloride Mini Bag 100 ML IVPB SCH (20:09)
[2018-11-23 01:38] LABS: Hematocrit 35.5 % (35.3-44.9); Hemoglobin 11.2 g/dL (11.5-15.4); Immature Granulocytes % 0.7 % (0-4); Lymphocytes % 22.3 %; Mean Corpuscular HGB Conc 31.5 g/dL (31.6-35.5); Mean Corpuscular Hemoglobin 29.1 pg (28.0-33.3); Mean Corpuscular Volume 92.2 fL (83.0-100.0); Mean Platelet Volume 9.5 fL (9.4-12.4); Platelet Count 260 K/mcL (140-400); Red Blood Count 3.85 M/mcL (3.82-4.97); Segmented Neutrophils % 63.7 %; White Blood Count 7.5 K/mcL (4.3-11.1)
[2018-11-23 01:39] LABS: Basophils % 0.5 %; Eosinophils # 0.5 K/mcL (0.0-0.6); Eosinophils % 6.7 %; Lymphocytes # 1.7 K/mcL (0.6-4.6); Monocytes # 0.5 K/mcL (0.0-1.3); Monocytes % 6.1 %; Neutrophils # 4.8 K/mcL (1.6-8.9)
[2018-11-23 01:55] LABS: BUN/Creatinine Ratio 13 (6-26); Blood Urea Nitrogen 11 mg/dL (8-23); Calcium 8.5 mg/dL (8.6-10.3); Carbon Dioxide 25 mEq/L (23-29); Chloride 103 mEq/L (98-107); Glucose 261 mg/dL (70-105); Magnesium 1.6 mg/dL (1.6-2.6); Osmolality,Calculated 292 (280-300); Phosphorous 2.9 mg/dL (2.7-4.5); Potassium 3.4 mEq/L (3.5-5.1); Sodium 137 mEq/L (136-145); eGFR For African Americans > 60 (> 60); eGFR For Non-African Americans > 60 (> 60)
[2018-11-23] MEDS: *HR* HYDROcodone/Acet 5/325 mg TABLET PO PRN ×2 (04:50→12:05)
[2018-11-23] MEDS: *HR* Heparin 5,000 UNIT/ML VIAL SQ SCH ×2 (04:59→18:02)
[2018-11-23] MEDS: Furosemide 40 MG TABLET PO SCH ×2 (07:58→17:31)
[2018-11-23] MEDS: Insulin DETEMIR 100 UNIT/ML X5UNITS SQ SCH ×2 (07:58→21:46)
[2018-11-23] MEDS: Insulin LISPRO 300 UNITS/3 ML VIAL SQ SCH ×5 (08:00→21:47)
[2018-11-23] MEDS: Nystatin POWDER 30 GM BOTTLE TP SCH ×2 (08:23→21:47)
[2018-11-23] MEDS: Ibuprofen 400 MG TABLET PO PRN ×2 (08:29→18:05)
--- NOTE | 2018-11-23 14:39 | Internal Med Progress Note ---
Hospitalist Progress Note - Encounter Date of Encounter: 11/23/18 Time of Encounter: 14:38 - Subjective Interval History: I have seen and evaluated the patient at bedside. patient reports feeling better today. the pain in her left lower extremity has significantly improved. denies chest pain or shortness of breath. denies abdominal pain. - Exam Vitals: Temp Pulse Resp BP Pulse Ox 97.9 F 87 16 108/67 98 11/23/18 11:59 11/23/18 11:59 11/23/18 11:59 11/23/18 11:59 11/23/18 11:59 Exam: Vitals: Reviewed General: Alert and oriented x4. In no distress Cardiovascular: RRR, normal S1 & S2, no rubs, murmurs or gallops. Lungs: CTA b/l, no wheezes or crackles. Abdomen: Obese, soft, non-tender, no rigidity. NABS in all 4 quadrants. Extremities: chronic erythema and edema of the left lower extr Neurological: No focal neurological abnormalities Rest of the physical exam is non contributory - Assessment and Plan (1) Sepsis Current Visit: No Status: Resolved Assessment and Plan: due to UTI. patient a Hx of recurrent UTI with MDRO E.coli. clinically stable. urine culture: E.coli ESBL Plan - continue ertapenem 1gm/IV daily - blood culture: no growth to date. (2) UTI (urinary tract infection) Current Visit: Yes Status: Acute Assessment and Plan: plan of care as above (3) Diabetes mellitus Current Visit: No Status: Chronic Assessment and Plan: Blood sugars sub- optimally controlled. Increase Levemir to 15 units twice a day, lispro 5 units ac added. continue lispro medium dose sliding scale before meals. Carbs controlled diet. (4) Lymphedema of both lower extremities Current Visit: No Status: Chronic Assessment and Plan: Possible cellulitis of the left lower extremity. patient reported pain and increased erythema. elevated ESR/CPR Plan - patient on broad spectrum IV antibiotics DVT Prophylaxis: On heparin subq - Summary of Assessment and Plan Summary of Assessment and Plan: Patient to remain in the hospital due to UTI, E.coli ESBL. - Time Spent with Patient Total time spent is greater than 50% in coordination of care (as documented) at patient's floor/unit and/or counseling patient: Greater than 35 minutes (40) Plan of Care Discussed with: patient (and the nurse.) Internal Medicine: Result - Labs CBC & Chem 7: 11/23/18 01:27 11/23/18 01:27 Labs: Short CBC 11/23/18 Range/Units 01:27 WBC 7.5 (4.3-11.1) K/mcL Hgb 11.2 L (11.5-15.4) g/dL Hct 35.5 (35.3-44.9) % Plt Count 260 (140-400) K/mcL Neutrophils # 4.8 (1.6-8.9) K/mcL BMP 11/23/18 01:27 Sodium 137 Potassium 3.4 L Chloride 103 Carbon Dioxide 25 BUN 11 Creatinine 0.85 Glucose 261 H Calcium 8.5 L - ABG Interpretation ABG results: ABG ABG pH 7.37 pH Units (7.32-7.45) 11/20/18 22:51 ABG pCO2 50 mmHg (35-45) H 11/20/18 22:51 ABG pO2 94 mmHg (85-104) 11/20/18 22:51 ABG O2 Saturation 97 % (95-98) 11/20/18 22:51 Consult Discharge Plan - Plan Referrals: NONE,PCP [Primary Care Provider] - __ (1) Sepsis Qualifiers: Sepsis type: sepsis due to unspecified organism Qualified Code(s): A41.9 - Sepsis, unspecified organism (2) UTI (urinary tract infection) Qualifiers: Urinary tract infection type: acute cystitis Hematuria presence: without hematuria Qualified Code(s): N30.00 - Acute cystitis without hematuria (3) Diabetes mellitus Qualifiers: Diabetes mellitus type: type 2 Diabetes mellitus 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
--- NOTE | 2018-11-23 18:16 | Electrocardiograph Report ---
[place] [employer] [facility] Test Date: 2018-11-20 Pat Name: Kirti Zamora Department: EXAM9 Room: [facility] Gender: F [employer]: : [id number] Requested By: Domingo Khoury Order Number: [id number] Reading MD: Nathan Cardenas Measurements Intervals [place] Rate: 110 P: 61 MS: 173 QRS: 51 QRSD: 113 T: 24 QT: 334 QTc: 452 Interpretive Statements Sinus tachycardia Borderline intraventricular conduction delay Low voltage, precordial leads Baseline wander in lead(s) I III aVL V1 V2 V3 V4 V5 V6 Electronically Signed On 11-23-2018 18:14:41 EDT by Nathan Cardenas
[2018-11-23] MEDS: Ertapenem 1,000 MG in 0.9 % Sodium Chloride Mini Bag 100 ML IVPB SCH (21:45)
[2018-11-24] MEDS: Ibuprofen 400 MG TABLET PO PRN ×2 (00:15→09:09)
[2018-11-24] MEDS: *HR* Heparin 5,000 UNIT/ML VIAL SQ SCH (06:17)
[2018-11-24 08:25] LABS: Basophils # 0.1 K/mcL (0.0-0.2); Basophils % 0.9 %; Eosinophils # 0.5 K/mcL (0.0-0.6); Eosinophils % 8.1 %; Hematocrit 35.8 % (35.3-44.9); Hemoglobin 11.5 g/dL (11.5-15.4); Immature Granulocytes % 1.4 % (0-4); Lymphocytes # 1.9 K/mcL (0.6-4.6); Lymphocytes % 28.7 %; Mean Corpuscular HGB Conc 32.1 g/dL (31.6-35.5); Mean Corpuscular Volume 90.2 fL (83.0-100.0); Mean Platelet Volume 9.6 fL (9.4-12.4); Monocytes # 0.5 K/mcL (0.0-1.3); Monocytes % 8.1 %; Neutrophils # 3.4 K/mcL (1.6-8.9); Platelet Count 263 K/mcL (140-400); Red Blood Count 3.97 M/mcL (3.82-4.97); Red Cell Distribution Width 15.7 % (11.5-14.5); Segmented Neutrophils % 52.8 %; White Blood Count 6.5 K/mcL (4.3-11.1)
[2018-11-24 08:46] LABS: BUN/Creatinine Ratio 14 (6-26); Blood Urea Nitrogen 12 mg/dL (8-23); Calcium 8.9 mg/dL (8.6-10.3); Carbon Dioxide 26 mEq/L (23-29); Chloride 104 mEq/L (98-107); Glucose 262 mg/dL (70-105); Magnesium 1.7 mg/dL (1.6-2.6); Osmolality,Calculated 301 (280-300); Phosphorous 3.3 mg/dL (2.7-4.5); Potassium 3.5 mEq/L (3.5-5.1); Sodium 141 mEq/L (136-145); eGFR For African Americans > 60 (> 60); eGFR For Non-African Americans > 60 (> 60)
[2018-11-24] MEDS: Insulin LISPRO 300 UNITS/3 ML VIAL SQ SCH ×4 (09:04→13:13)
[2018-11-24] MEDS: Furosemide 40 MG TABLET PO SCH (09:04)
[2018-11-24] MEDS: Insulin DETEMIR 100 UNIT/ML X5UNITS SQ SCH (09:05)
[2018-11-24] MEDS: Nystatin POWDER 30 GM BOTTLE TP SCH (09:07)
--- NOTE | 2018-11-24 12:15 | Discharge Summary ---
Orders not resulted at time of discharge: Pending orders 11/20/18 20:36 Culture,Blood [BC] Stat Date of Encounter: 11/24/18 Time of Encounter: 12:11 - Discharge Diagnosis (1) Sepsis Priority: Primary Status: Resolved Qualifiers: Sepsis type: sepsis due to unspecified organism Qualified Code(s): A41.9 - Sepsis, unspecified organism (2) UTI (urinary tract infection) Priority: Primary Status: Acute Qualifiers: Urinary tract infection type: acute cystitis Hematuria presence: without hematuria Qualified Code(s): N30.00 - Acute cystitis without hematuria (3) Diabetes mellitus Priority: Secondary Status: Chronic Qualifiers: Diabetes mellitus type: type 2 Diabetes mellitus longterm insulin use: with longterm use Diabetes mellitus complication status: with hyperglycemia Qualified Code(s): E11.65 - Type 2 diabetes mellitus with hyperglycemia; Z79.4 - [facility] (current) use of insulin (4) Lymphedema of both lower extremities Priority: Secondary Status: Chronic Hospital course: Ms. Zamora is a 72 year old female PMH of recurrent UTI 2/2 ESBL E.coli, atrial fibrillation, CHF, COPD, coronary artery disease, diabetes, GERD, hyperlipidemia, hypertension. Presented to the ER from her custodial with bilateral leg pain and pain with urination. She states that she has been feeling pain in her leg left worse than right for about 1 month. She has been having fevers as well. Patient was found to have a fever of 100.9, leukocytosis of 19.6, and urine positive for UTI. Patient was admitted to the hospital due to sepsis, secondary to UTI. Urine culture: Grew Escherichia coli ESBL. Blood cultures no growth to date. Patient has remained hemodynamically is stable, reported improvement in the swelling in the left lower extremity, and decreasing the pain. Patient will be discharged on ertapenem 7 more days. - Time Spent with Patient Total time spent providing and/or coordinating discharge services: Time spent: Greater than 30 minutes (35) - Discharge Medications Prescriptions: New Sulfamethoxazole/Trimeth DS [Bactrim Ds] 1 each PO BID 6 Days #12 tablet Continued Magnesium Oxide [Mag-Ox] 400 mg PO BID #30 tablet Metoprolol XL (24 HR) Succ [Toprol Xl] 25 mg PO DAILY Sennosides/Docusate Sodium [Senna Plus] 2 tab PO BID PRN PRN Reason: Constipation Ferrous Sulfate 325 mg PO DAILY Acetaminophen [Tylenol] 650 mg PO Q6H PRN PRN Reason: Pain Atorvastatin [Lipitor] 10 mg PO HS Insulin ASPART [NovoLOG] 5 unit SQ TIDWM Isosorbide MONOnitrate (24 HR) [Imdur] 30 mg PO DAILY #30 tab.er.24h Ipratropium/Albuterol Sulfate [Combivent Respimat Inhal [place]] 1 puff IN Q6H PRN PRN Reason: Shortness Of Breath Loratadine [Claritin] 10 mg PO DAILY PRN PRN Reason: allergies Fluticasone Propionate Nasal [Flonase] 1 spray NS DAILY Aspirin Enteric Coated [Aspirin EC] 81 mg PO DAILY GI Cocktail [Gi Cocktail] 40 ml PO BID PRN PRN Reason: GERD Insulin Glargine [Lantus] 45 unit SQ BID Ipratropium/Albuterol Sulfate [Iprat-Albut 0.5-3(2.5) mg/3 ml] 3 ml IH QID PRN PRN Reason: Shortness Of Breath Loperamide [Imodium] 4 mg PO DAILY PRN PRN Reason: Diarrhea Omeprazole [PriLOSEC] 20 mg PO DAILY Dextran 70/Hypromellose [Natural Balance Tears Eye Drop] 1 drop BOTH EYES BID PRN PRN Reason: Dry Eyes Nystatin POWDER [Nystop] 1 appl TP BID Potassium Chloride [K-Tab ER] 20 meq PO DAILY Scopolamine Patch [Transderm-Scop] 1.5 mg TD Q72H PRN PRN Reason: INCREASED SECRETION OF GLUCAGO Guaifenesin [Mucinex] 600 mg PO Q12H PRN PRN Reason: Cough DiphenhydraMINE [Benadryl] 25 mg PO QID PRN PRN Reason: Itching Melatonin 10 mg PO HS Venlafaxine HCl [Venlafaxine HCl ER] 150 mg PO DAILY Zinc Oxide [Z-Bum] 1 appl TP BID rOPINIRole [Requip] 1 mg PO HS #30 tablet Furosemide [Lasix] 80 mg PO BID HYDROcodone/Acet 10/325 mg [[place] 10-325 mg] 1 tab PO Q6HR PRN PRN Reason: Pain Pregabalin [Lyrica] 100 mg PO TID Lactobacillus Acidophilus [Acidophilus] 1 cap PO DAILY LORazepam [Ativan] 1 mg PO DAILY PRN PRN Reason: Anxiety Home Medications: Magnesium Oxide [Mag-Ox] 400 mg PO BID #30 tablet 05/30/16 [Rx] Metoprolol XL (24 HR) Succ [Toprol Xl] 25 mg PO DAILY 06/10/16 [History] Sennosides/Docusate Sodium [Senna Plus] 2 tab PO BID PRN 09/02/16 [History] Ferrous Sulfate 325 mg PO DAILY 02/26/17 [History] Acetaminophen [Tylenol] 650 mg PO Q6H PRN 10/23/17 [History] Atorvastatin [Lipitor] 10 mg PO HS 10/23/17 [History] Insulin ASPART [NovoLOG] 5 unit SQ TIDWM 04/21/18 [History] Isosorbide MONOnitrate (24 HR) [Imdur] 30 mg PO DAILY #30 tab.er.24h 04/23/18 [Rx] Fluticasone Propionate Nasal [Flonase] 1 spray NS DAILY 07/30/18 [History] Ipratropium/Albuterol Sulfate [Combivent Respimat Inhal [place]] 1 puff IN Q6H PRN 07/30/18 [History] Loratadine [Claritin] 10 mg PO DAILY PRN 07/30/18 [History] Aspirin Enteric Coated [Aspirin EC] 81 mg PO DAILY 08/22/18 [History] GI Cocktail [Gi Cocktail] 40 ml PO BID PRN 08/22/18 [History] Insulin Glargine [Lantus] 45 unit SQ BID 08/22/18 [History] Ipratropium/Albuterol Sulfate [Iprat-Albut 0.5-3(2.5) mg/3 ml] 3 ml IH QID PRN 08/22/18 [History] Loperamide [Imodium] 4 mg PO DAILY PRN 08/22/18 [History] Omeprazole [PriLOSEC] 20 mg PO DAILY 08/22/18 [History] Dextran 70/Hypromellose [Natural Balance Tears Eye Drop] 1 drop BOTH EYES BID PRN 09/09/18 [History] Nystatin POWDER [Nystop] 1 appl TP BID 09/09/18 [History] Guaifenesin [Mucinex] 600 mg PO Q12H PRN 10/03/18 [History] Potassium Chloride [K-Tab ER] 20 meq PO DAILY 10/03/18 [History] Scopolamine Patch [Transderm-Scop] 1.5 mg TD Q72H PRN 10/03/18 [History] DiphenhydraMINE [Benadryl] 25 mg PO QID PRN 10/31/18 [History] Melatonin 10 mg PO HS 10/31/18 [History] Venlafaxine HCl [Venlafaxine HCl ER] 150 mg PO DAILY 10/31/18 [History] Zinc Oxide [Z-Bum] 1 appl TP BID 10/31/18 [History] rOPINIRole [Requip] 1 mg PO HS #30 tablet 11/07/18 [Rx] Furosemide [Lasix] 80 mg PO BID 11/20/18 [History] HYDROcodone/Acet 10/325 mg [[place] 10-325 mg] 1 tab PO Q6HR PRN 11/20/18 [History] LORazepam [Ativan] 1 mg PO DAILY PRN 11/20/18 [History] Lactobacillus Acidophilus [Acidophilus] 1 cap PO DAILY 11/20/18 [History] Pregabalin [Lyrica] 100 mg PO TID 11/20/18 [History] Sulfamethoxazole/Trimeth DS [Bactrim Ds] 1 each PO BID 6 Days #12 tablet 11/24/18 [Rx] Allergies/Adverse Reactions: Allergy/AdvReac Type Severity Reaction Status Date / Time fentanyl Allergy Itching Verified 11/21/18 18:39 gentamicin AdvReac See Verified 11/21/18 18:39 Comments Date of admission: 11/21/18 13:21 Primary care physician: PCP NONE Consults: 11/21/18 00:26 Consult to Nutrition [CONS] Routine Comment: Consulting Provider: NUTRITION Reason for Dietary Consult: MST Score Consult to Pastoral Services [CONS] Routine Comment: 11/24/18 10:49 Consult to Invasive Line Access Team [CONS] Routine Reason for Consult: IV ATB Line Type: EPIV - Constitutional Vitals: Temp Pulse Resp BP Pulse Ox 99.0 F 76 19 143/82 98 11/24/18 11:04 11/24/18 11:04 11/24/18 11:04 11/24/18 11:04 11/24/18 11:04 General appearance: Present: cooperative, A&O X 3, morbidly obese, pleasant, no acute distress, answers questions appropriately Exam: Vitals: Reviewed General: Alert and oriented x4. In no distress Cardiovascular: irregularly irregular, normal S1 & S2, no rubs, murmurs or gallops. Lungs: CTA b/l, no wheezes or crackles. Abdomen: Obese, soft, non-tender, no rigidity. NABS in all 4 quadrants. Extremities: chronic erythema and edema of the left lower extr Neurological: No focal neurological abnormalities Rest of the physical exam is non contributory - Patient Status Disposition: Transfer LTC Condition: Fair Functional capacity at discharge: bed bound Overall status at discharge: patient is progressing back to baseline - Discharge Instructions Follow Up With: NONE,PCP [Primary Care Provider] - - Diet and Activity Activity: as per physical therapy Diet: diabetic diet
[2018-11-24] MEDS ORDERED: Metoprolol XL (24 HR) Succ 25 MG TAB.ER.24H PO SCH (12:17)
--- NOTE | 2018-11-24 12:25 | Physician Discharge Referral ---
ExtendedCare Referral Info Transfer To: [facility] - Diagnosis (1) Sepsis Priority: Primary Status: Resolved (2) UTI (urinary tract infection) Priority: Primary Status: Acute (3) Diabetes mellitus Priority: Secondary Status: Chronic (4) Lymphedema of both lower extremities Priority: Secondary Status: Chronic Prognosis: Fair Aware of Diagnosis: Patient Aware of Prognosis: Patient - Transfer Medications Prescriptions: Sulfamethoxazole/Trimeth DS [Bactrim Ds] 1 each PO BID 6 Days #12 tablet Home Medications: Magnesium Oxide [Mag-Ox] 400 mg PO BID #30 tablet 05/30/16 [Rx] Metoprolol XL (24 HR) Succ [Toprol Xl] 25 mg PO DAILY 06/10/16 [History] Sennosides/Docusate Sodium [Senna Plus] 2 tab PO BID PRN 09/02/16 [History] Ferrous Sulfate 325 mg PO DAILY 02/26/17 [History] Acetaminophen [Tylenol] 650 mg PO Q6H PRN 10/23/17 [History] Atorvastatin [Lipitor] 10 mg PO HS 10/23/17 [History] Insulin ASPART [NovoLOG] 5 unit SQ TIDWM 04/21/18 [History] Isosorbide MONOnitrate (24 HR) [Imdur] 30 mg PO DAILY #30 tab.er.24h 04/23/18 [Rx] Fluticasone Propionate Nasal [Flonase] 1 spray NS DAILY 07/30/18 [History] Ipratropium/Albuterol Sulfate [Combivent Respimat Inhal [place]] 1 puff IN Q6H PRN 07/30/18 [History] Loratadine [Claritin] 10 mg PO DAILY PRN 07/30/18 [History] Aspirin Enteric Coated [Aspirin EC] 81 mg PO DAILY 08/22/18 [History] GI Cocktail [Gi Cocktail] 40 ml PO BID PRN 08/22/18 [History] Insulin Glargine [Lantus] 45 unit SQ BID 08/22/18 [History] Ipratropium/Albuterol Sulfate [Iprat-Albut 0.5-3(2.5) mg/3 ml] 3 ml IH QID PRN 08/22/18 [History] Loperamide [Imodium] 4 mg PO DAILY PRN 08/22/18 [History] Omeprazole [PriLOSEC] 20 mg PO DAILY 08/22/18 [History] Dextran 70/Hypromellose [Natural Balance Tears Eye Drop] 1 drop BOTH EYES BID PRN 09/09/18 [History] Nystatin POWDER [Nystop] 1 appl TP BID 09/09/18 [History] Guaifenesin [Mucinex] 600 mg PO Q12H PRN 10/03/18 [History] Potassium Chloride [K-Tab ER] 20 meq PO DAILY 10/03/18 [History] Scopolamine Patch [Transderm-Scop] 1.5 mg TD Q72H PRN 10/03/18 [History] DiphenhydraMINE [Benadryl] 25 mg PO QID PRN 10/31/18 [History] Melatonin 10 mg PO HS 10/31/18 [History] Venlafaxine HCl [Venlafaxine HCl ER] 150 mg PO DAILY 10/31/18 [History] Zinc Oxide [Z-Bum] 1 appl TP BID 10/31/18 [History] rOPINIRole [Requip] 1 mg PO HS #30 tablet 11/07/18 [Rx] Furosemide [Lasix] 80 mg PO BID 11/20/18 [History] HYDROcodone/Acet 10/325 mg [[place] 10-325 mg] 1 tab PO Q6HR PRN 11/20/18 [History] LORazepam [Ativan] 1 mg PO DAILY PRN 11/20/18 [History] Lactobacillus Acidophilus [Acidophilus] 1 cap PO DAILY 11/20/18 [History] Pregabalin [Lyrica] 100 mg PO TID 11/20/18 [History] Sulfamethoxazole/Trimeth DS [Bactrim Ds] 1 each PO BID 6 Days #12 tablet 11/24/18 [Rx] Allergies/Adverse Reactions: Allergy/AdvReac Type Severity Reaction Status Date / Time fentanyl Allergy Itching Verified 11/21/18 18:39 gentamicin AdvReac See Verified 11/21/18 18:39 Comments - Respiratory Orders None Smoking Cessation: Smoking cessation has been advised. For more information, call the [place] Tobacco Quit Line at 0-381-CSNZ-NOW. - Advance Directives Code Status: Full Code - Mobility Orders Bedrest - Rehabiliation Orders Rehab Potential: Poor Rehab Orders: Evaluation for Physical Therapy, Evaluation for Occupational Therapy - Treatments Skin tear care topically daily PRN per policy - Diet Orders Regular CERTIFICATION: I certify that the transfer of the above named patient to an Extended Care Facility is necessary for the continuing treatment of the diagnosis listed. The above information is true and accurate reflection of patient's current condition. Confidential - Redisclosure prohibited without a patient's written consent.
[2018-11-24 14:35] VITALS: BP 147/68
== END 2018-11-24 15:18 | DRG 872 ==
LOC: EMEROOARM 20:19 → CDU 20:19 → SUATTDRO 11-21 13:21
PROVIDERS: ADMIT Family Medicine; ATTEND Internal Medicine

== ENCOUNTER 2019-07-22 09:45 | Inpatient (IN) ==
[2019-07-22] MEDS ORDERED: Famotidine 20 MG/2 ML VIAL IVP ONE (10:02)
[2019-07-22] MEDS ORDERED: Acetaminophen IV 1,000 MG/100 ML INFUS..BTL IVPB ONE (10:02)
[2019-07-22] MEDS ORDERED: Albuterol 2.5 MG/3 ML NEBULIZER IH PRN (10:07)
[2019-07-22] MEDS ORDERED: CeFAZolin Syr 3,000MG/30 ML 3,000 MG/30 ML SYRINGE IVPB ONE (10:07)
[2019-07-22] MEDS ORDERED: Ringers Solution, Lactated 1,000 ML IVC SCH ×2 (10:15→16:47)
[2019-07-22] MEDS ORDERED: Ropivacaine/PF 0.5% 30 ML VIAL ONE (10:47)
[2019-07-22] MEDS ORDERED: ROPIVACAINE/PF/NS 0.25% 1 EACH SYRINGE INTRAART ONE (10:48)
[2019-07-22] MEDS ORDERED: *HR* Midazolam HCl 2 MG/2 ML VIAL ONE (11:09)
[2019-07-22] MEDS ORDERED: *HR* FentaNYL (PF) 100 MCG/2 ML VIAL ONE (11:09)
[2019-07-22] MEDS ORDERED: Vancomycin 1,000 MG, Sodium Chloride IRRigation 1,000 ML IR ONE (11:30)
[2019-07-22] MEDS ORDERED: *HR* Propofol 200 MG/20 ML VIAL IVP ONE (11:42)
[2019-07-22] MEDS ORDERED: *HR* Succinylcholine 200 MG/10 ML VIAL IVP ONE (11:42)
[2019-07-22] MEDS ORDERED: *HR* Rocuronium Bromide 50 MG/5 ML VIAL ONE (12:08)
[2019-07-22] MEDS ORDERED: *HR* PHENYLEPHRINE 1,000 MCG/10 ML SYRINGE IVP ONE ×2 (13:04→13:48)
[2019-07-22] MEDS ORDERED: *HR* OxyCODONE Immed Rel 5 MG TABLET PO PRN ×3 (14:28→16:47)
[2019-07-22] MEDS ORDERED: Ondansetron 4 MG/2 ML VIAL IVP ONE (14:28)
[2019-07-22] MEDS ORDERED: Morphine Sulfate 2 MG/ML SYRINGE IVP PRN (14:31)
[2019-07-22] MEDS ORDERED: Sennosides/Docusate Sodium TABLET PO PRN (16:47)
[2019-07-22] MEDS ORDERED: Ipratropium/Albuterol Neb 3 ML IH PRN (16:47)
[2019-07-22] MEDS ORDERED: Acetaminophen 325 MG TABLET PO PRN ×2 (16:47)
[2019-07-22] MEDS ORDERED: *HR* Labetalol 20 MG/4 ML SYRINGE IVP PRN (16:47)
[2019-07-22] MEDS ORDERED: FluocinoNIDE 0.05% CRM 15 GM TUBE TP PRN (16:47)
[2019-07-22] MEDS ORDERED: Ondansetron 4 MG/2 ML VIAL IVP PRN (16:47)
[2019-07-22] MEDS ORDERED: Clotrimazole 1% CRM 15 GM TUBE TP PRN (16:47)
[2019-07-22] MEDS ORDERED: Naloxone 0.4 MG/ML INJ IVP PRN (16:47)
[2019-07-22] MEDS ORDERED: CLEAR EYES NATURAL TEARS 15 ML BOTTLE RIGHT EYE PRN (16:47)
[2019-07-22] MEDS ORDERED: *HR* HYDROcodone/Acet 5/325 mg TABLET PO PRN ×2 (16:47)
[2019-07-22] MEDS ORDERED: Triamcinolone Acet 0.1% CRM 15 GM TUBE TP PRN (16:47)
[2019-07-22] MEDS ORDERED: Artificial Tears SOLN 15 ML BOTTLE BOTH EYES PRN (16:47)
[2019-07-22] MEDS ORDERED: NON-FORMULARY MEDICATION 1 EACH EACH (Ipratropium/Albuterol Sulfate [Combivent Respimat 20 IH PRN (16:47)
[2019-07-22] MEDS ORDERED: GI Cocktail 40 ML EACH PO PRN (16:47)
[2019-07-22] MEDS ORDERED: D5% in Water 1,000 ML IVC PRN (16:50)
[2019-07-22] MEDS ORDERED: Dextrose Gel 15 GM/37.5 ML TUBE PO PRN ×2 (16:50)
[2019-07-22] MEDS ORDERED: *HR* Dextrose 50 % in Water (Syg) 50 ML SYRINGE IVP PRN (16:50)
[2019-07-22] MEDS: *HR* Metoprolol 5 MG/5 ML VIAL IVP SCH (17:52)
[2019-07-22] MEDS: hydrOXYzine pamoate 25 MG CAPSULE PO SCH ×2 (17:53→20:38)
[2019-07-22] MEDS: ceFAZolin 2,000 MG in 0.9 % Sodium Chloride 100 ML IVPB SCH (18:09)
[2019-07-22] MEDS: Magnesium Oxide 400 MG TABLET PO SCH (20:38)
[2019-07-22] MEDS: Pregabalin 50 MG CAPSULE PO SCH (20:39)
[2019-07-22] MEDS: Melatonin 3 MG TABLET PO SCH (20:39)
[2019-07-22] MEDS ORDERED: Insulin LISPRO 300 UNITS/3 ML VIAL SQ SCH (21:00)
[2019-07-23] MEDS: ceFAZolin 2,000 MG in 0.9 % Sodium Chloride 100 ML IVPB SCH (00:06)
[2019-07-23] MEDS: *HR* Metoprolol 5 MG/5 ML VIAL IVP SCH ×5 (00:06→23:47)
[2019-07-23 05:17] LABS: Basophils # 0.1 K/mcL (0.0-0.2); Basophils % 0.6 %; Eosinophils # 0.1 K/mcL (0.0-0.6); Eosinophils % 0.5 %; Hematocrit 34.4 % (35.3-44.9); Immature Granulocytes % 0.7 % (0-4); Lymphocytes # 1.6 K/mcL (0.6-4.6); Lymphocytes % 10.9 %; Mean Corpuscular HGB Conc 31.4 g/dL (31.6-35.5); Mean Corpuscular Hemoglobin 28.2 pg (28.0-33.3); Mean Corpuscular Volume 89.8 fL (83.0-100.0); Mean Platelet Volume 9.7 fL (9.4-12.4); Monocytes # 1.2 K/mcL (0.0-1.3); Monocytes % 7.8 %; Neutrophils # 11.8 K/mcL (1.6-8.9); Platelet Count 301 K/mcL (140-400); Red Blood Count 3.83 M/mcL (3.82-4.97); Segmented Neutrophils % 79.5 %
[2019-07-23 05:19] LABS: Hemoglobin 10.8 g/dL (11.5-15.4); White Blood Count 14.8 K/mcL (4.3-11.1)
[2019-07-23 05:33] LABS: BUN/Creatinine Ratio 24 (6-26); Blood Urea Nitrogen 23 mg/dL (8-23); Calcium 8.2 mg/dL (8.6-10.3); Carbon Dioxide 26 mEq/L (23-29); Chloride 107 mEq/L (98-107); Glucose 348 mg/dL (70-105); Osmolality,Calculated 310 (280-300); Potassium 4.7 mEq/L (3.5-5.1); Sodium 141 mEq/L (136-145); eGFR For African Americans > 60 (> 60); eGFR For Non-African Americans 57 (> 60)
[2019-07-23] MEDS: hydrOXYzine pamoate 25 MG CAPSULE PO SCH ×4 (08:06→21:15)
[2019-07-23] MEDS: rOPINIRole 1 MG TABLET PO SCH (08:06)
[2019-07-23] MEDS: Metoprolol XL (24 HR) Succ 25 MG TAB.ER.24H PO SCH (08:06)
[2019-07-23] MEDS: Isosorbide MONOnitrate (24 HR) 60 MG TAB.ER.24H PO SCH (08:07)
[2019-07-23] MEDS: Venlafaxine XR (24 HR) 150 MG CAP.ER.24H PO SCH (08:07)
[2019-07-23] MEDS: Pregabalin 50 MG CAPSULE PO SCH ×3 (08:07→21:15)
[2019-07-23] MEDS: Magnesium Oxide 400 MG TABLET PO SCH ×2 (08:07→21:14)
[2019-07-23] MEDS: Furosemide 40 MG TABLET PO SCH (08:07)
[2019-07-23] MEDS: Lactobacillus 1 EACH CAP.SPRINK PO SCH (08:07)
[2019-07-23] MEDS: Aspirin Enteric Coated 81 MG Tablet PO SCH (08:07)
[2019-07-23] MEDS: Insulin LISPRO 300 UNITS/3 ML VIAL SQ SCH ×3 (08:13→17:30)
[2019-07-23] MEDS: Fluticasone Propionate Nasal 50 MCG/SPRAY BOTTLE NS SCH (08:14)
[2019-07-23] MEDS: Ketorolac 15 MG/ML VIAL IVP SCH ×2 (17:29→23:47)
[2019-07-23] MEDS ORDERED: Insulin DETEMIR 100 UNIT/ML X5UNITS SQ SCH (21:00)
[2019-07-23] MEDS ORDERED: Insulin LISPRO 300 UNITS/3 ML VIAL SQ SCH (21:00)
[2019-07-23] MEDS: Melatonin 3 MG TABLET PO SCH (21:15)
[2019-07-24 04:48] LABS: Basophils # 0.1 K/mcL (0.0-0.2); Basophils % 0.5 %; Eosinophils # 0.5 K/mcL (0.0-0.6); Eosinophils % 3.9 %; Hematocrit 27.9 % (35.3-44.9); Immature Granulocytes % 1.2 % (0-4); Lymphocytes # 2.3 K/mcL (0.6-4.6); Lymphocytes % 19.4 %; Mean Corpuscular HGB Conc 31.2 g/dL (31.6-35.5); Mean Corpuscular Hemoglobin 27.9 pg (28.0-33.3); Mean Corpuscular Volume 89.4 fL (83.0-100.0); Mean Platelet Volume 9.7 fL (9.4-12.4); Monocytes % 8.5 %; Neutrophils # 7.8 K/mcL (1.6-8.9); Platelet Count 243 K/mcL (140-400); Red Blood Count 3.12 M/mcL (3.82-4.97); Red Cell Distribution Width 14.2 % (11.5-14.5); Segmented Neutrophils % 66.5 %; White Blood Count 11.7 K/mcL (4.3-11.1)
[2019-07-24 04:50] LABS: Hemoglobin 8.7 g/dL (11.5-15.4)
[2019-07-24 05:09] LABS: BUN/Creatinine Ratio 30 (6-26); Blood Urea Nitrogen 21 mg/dL (8-23); Carbon Dioxide 29 mEq/L (23-29); Chloride 106 mEq/L (98-107); Glucose 179 mg/dL (70-105); Osmolality,Calculated 291 (280-300); Potassium 4.1 mEq/L (3.5-5.1); Sodium 137 mEq/L (136-145); eGFR For African Americans > 60 (> 60); eGFR For Non-African Americans > 60 (> 60)
[2019-07-24] MEDS: Ketorolac 15 MG/ML VIAL IVP SCH ×2 (05:41→12:37)
[2019-07-24] MEDS: *HR* Metoprolol 5 MG/5 ML VIAL IVP SCH ×2 (05:41→12:37)
[2019-07-24] MEDS: Insulin LISPRO 300 UNITS/3 ML VIAL SQ SCH ×3 (08:04→16:45)
[2019-07-24] MEDS: Lactobacillus 1 EACH CAP.SPRINK PO SCH (08:05)
[2019-07-24] MEDS: Venlafaxine XR (24 HR) 150 MG CAP.ER.24H PO SCH (08:05)
[2019-07-24] MEDS: Furosemide 40 MG TABLET PO SCH (08:05)
[2019-07-24] MEDS: hydrOXYzine pamoate 25 MG CAPSULE PO SCH ×3 (08:05→16:44)
[2019-07-24] MEDS: rOPINIRole 1 MG TABLET PO SCH (08:06)
[2019-07-24] MEDS: Metoprolol XL (24 HR) Succ 25 MG TAB.ER.24H PO SCH (08:06)
[2019-07-24] MEDS: Pregabalin 50 MG CAPSULE PO SCH ×2 (08:06→16:44)
[2019-07-24] MEDS: Magnesium Oxide 400 MG TABLET PO SCH (08:06)
[2019-07-24] MEDS: Aspirin Enteric Coated 81 MG Tablet PO SCH (08:06)
[2019-07-24] MEDS: Isosorbide MONOnitrate (24 HR) 60 MG TAB.ER.24H PO SCH (08:06)
[2019-07-24] MEDS ORDERED: Insulin DETEMIR 100 UNIT/ML X5UNITS SQ SCH (09:00)
[2019-07-24] MEDS: Fluticasone Propionate Nasal 50 MCG/SPRAY BOTTLE NS SCH (12:38)
[2019-07-24 16:36] VITALS: BP 139/66
== END 2019-07-24 19:04 | DRG 475 ==
LOC: SAMDAY 09:45 → 2NNU 16:06
PROVIDERS: ADMIT Surgery; ATTEND Surgery

== ENCOUNTER 2019-07-30 18:35 | Inpatient (IN) ==
[2019-07-30] MEDS ORDERED: 0.9 % Sodium Chloride 1,000 ML ONE (18:40)
[2019-07-30] MEDS ORDERED: Piperacillin/Tazobactam 3.375 GM in 0.9 % Sodium Chloride Mini Bag 100 ML IVPB ONE (18:49)
[2019-07-30] MEDS ORDERED: Clindamycin 900 MG/50 ML 900 MG/50 ML IV.SOLN IVPB ONE (18:53)
[2019-07-30] MEDS ORDERED: Acetaminophen 650 MG RECTAL SUPP RC ONE (19:06)
[2019-07-30 19:11] LABS: Basophils % 0.2 %; Eosinophils # 0.2 K/mcL (0.0-0.6); Eosinophils % 1.2 %; Hematocrit 29.3 % (35.3-44.9); Hemoglobin 8.8 g/dL (11.5-15.4); Immature Granulocytes % 2.7 % (0-4); Lymphocytes % 5.5 %; Mean Corpuscular Hemoglobin 27.3 pg (28.0-33.3); Mean Platelet Volume 9.2 fL (9.4-12.4); Monocytes # 0.9 K/mcL (0.0-1.3); Monocytes % 4.7 %; Neutrophils # 16.1 K/mcL (1.6-8.9); Nucleated Red Blood Cells 0.2 /100 WBC (0); Platelet Count 356 K/mcL (140-400); Red Blood Count 3.22 M/mcL (3.82-4.97); Red Cell Distribution Width 15.1 % (11.5-14.5); Segmented Neutrophils % 85.7 %; White Blood Count 18.8 K/mcL (4.3-11.1)
[2019-07-30 19:15] LABS: INR 1.1; Prothrombin Time 12.2 Seconds (9.4-12.1)
[2019-07-30 19:18] LABS: Activated Partial Thrombo Time 31.9 Seconds (26.0-36.0)
[2019-07-30 19:28] LABS: Bilirubin,Urine Negative (Negative); Blood,Urine Moderate (Negative); Clarity,Urine Turbid (Clear); Color,Urine Yellow (Yellow); Glucose,Urine (UA) Normal (Normal); Ketones,Urine Negative (Negative); Leukocyte Esterase,Urine Large (Negative); Nitrite,Urine Positive (Negative); Protein,Urine Negative (Neg-Trace); Specific Gravity,Urine 1.014 (1.010-1.025); Urobilinogen,Urine Normal (Normal)
[2019-07-30] MEDS: 0.9 % Sodium Chloride 1,000 ML IVC SCH ×3 (19:29→21:08)
[2019-07-30 19:31] LABS: ABG Base Excess 1 mEq/L (-2 to 3); ABG HCO3 26 mEq/L (21-27); ABG Oxygen Saturation 96 % (95-98); ABG PCO2 43 mmHg (35-45); ABG PH 7.39 pH Units (7.32-7.45); ABG PO2 85 mmHg (85-104); ABG TCO2 27 mEq/L (20-26)
[2019-07-30 19:31] LABS: Alanine Aminotransferase 8 Units/L (7-52); Albumin 3.2 g/dL (3.5-5.7); Albumin/Globulin Ratio 1.1 (1.1-2.2); Alkaline Phosphatase 70 Units/L (34-104); Aspartate Amino Transferase 13 Units/L (13-39); BUN/Creatinine Ratio 22 (6-26); Bilirubin,Direct 0.2 mg/dL (0.0-0.2); Bilirubin,Indirect 0.4 mg/dL (0.0-1.0); Bilirubin,Total 0.6 mg/dL (0.3-1.0); Blood Urea Nitrogen 19 mg/dL (8-23); Calcium 8.5 mg/dL (8.6-10.3); Carbon Dioxide 26 mEq/L (23-29); Chloride 109 mEq/L (98-107); Glucose 260 mg/dL (70-105); Magnesium 1.7 mg/dL (1.6-2.6); Osmolality,Calculated 295 (280-300); Phosphorous 2.2 mg/dL (2.7-4.5); Potassium 4.7 mEq/L (3.5-5.1); Sodium 137 mEq/L (136-145); Total Protein 6.2 g/dL (6.4-8.9); Troponin I < 0.03 ng/mL (< 0.04); eGFR For African Americans > 60 (> 60); eGFR For Non-African Americans > 60 (> 60)
[2019-07-30 19:36] LABS: Bacteria,Urine Many per hpf (None-Few); Hyaline Casts,Urine None Seen per lpf (None-Few); Squamous Epithelial Cell,Urine Many per lpf (None-Few); WBC,Urine TNTC per hpf (0-3)
[2019-07-30] MEDS ORDERED: Naloxone 0.4 MG/ML INJ IVP PRN (22:52)
[2019-07-31] MEDS ORDERED: D5% in Water 1,000 ML IVC PRN ×2 (00:01→16:51)
[2019-07-31] MEDS ORDERED: Dextrose Gel 15 GM/37.5 ML TUBE PO PRN ×4 (00:01→16:51)
[2019-07-31] MEDS ORDERED: *HR* Dextrose 50 % in Water (Syg) 50 ML SYRINGE IVP PRN ×2 (00:01→16:51)
[2019-07-31] MEDS: Acetaminophen 325 MG TABLET PO PRN ×2 (00:07→05:47)
[2019-07-31 01:16] LABS: Hematocrit 26.4 % (35.3-44.9); Hemoglobin 8.2 g/dL (11.5-15.4); Mean Corpuscular HGB Conc 31.1 g/dL (31.6-35.5); Mean Corpuscular Hemoglobin 28.5 pg (28.0-33.3); Mean Corpuscular Volume 91.7 fL (83.0-100.0); Mean Platelet Volume 9.3 fL (9.4-12.4); Platelet Count 297 K/mcL (140-400); Red Blood Count 2.88 M/mcL (3.82-4.97); White Blood Count 17.7 K/mcL (4.3-11.1)
[2019-07-31 01:18] LABS: INR 1.1; Prothrombin Time 12.7 Seconds (9.4-12.1)
[2019-07-31 01:20] LABS: Activated Partial Thrombo Time 27.2 Seconds (26.0-36.0)
[2019-07-31 01:32] LABS: BUN/Creatinine Ratio 20 (6-26); Blood Urea Nitrogen 16 mg/dL (8-23); Carbon Dioxide 22 mEq/L (23-29); Chloride 109 mEq/L (98-107); Glucose 282 mg/dL (70-105); Osmolality,Calculated 297 (280-300); Phosphorous 2.2 mg/dL (2.7-4.5); Potassium 4.2 mEq/L (3.5-5.1); Sodium 138 mEq/L (136-145); eGFR For African Americans > 60 (> 60); eGFR For Non-African Americans > 60 (> 60)
[2019-07-31] MEDS ORDERED: 0.9 % Sodium Chloride 1,000 ML IVC ONE (02:59)
[2019-07-31] MEDS: Ketorolac 15 MG/ML VIAL IVP PRN ×2 (03:09→09:37)
[2019-07-31] MEDS: Meropenem 1,000 MG in Water for inj. (sterile) 20 ML IVP SCH ×3 (05:45→22:16)
[2019-07-31] MEDS: Insulin LISPRO 300 UNITS/3 ML VIAL SQ SCH ×3 (05:47→22:15)
[2019-07-31] MEDS ORDERED: hydrOXYzine pamoate 25 MG CAPSULE PO PRN (10:14)
[2019-07-31] MEDS ORDERED: Ipratropium/Albuterol Neb 3 ML IH PRN (10:14)
[2019-07-31] MEDS ORDERED: Sennosides/Docusate Sodium TABLET PO PRN (10:14)
[2019-07-31] MEDS: Isosorbide MONOnitrate (24 HR) 60 MG TAB.ER.24H PO SCH (10:55)
[2019-07-31] MEDS: rOPINIRole 1 MG TABLET PO SCH (10:55)
[2019-07-31] MEDS: Metoprolol XL (24 HR) Succ 25 MG TAB.ER.24H PO SCH (10:55)
[2019-07-31] MEDS: 0.9 % Sodium Chloride 1,000 ML IVC SCH ×3 (14:05→22:15)
[2019-07-31 17:36] LABS: Hematocrit 25.1 % (35.3-44.9); Hemoglobin 7.6 g/dL (11.5-15.4)
[2019-07-31] MEDS: Insulin DETEMIR 100 UNIT/ML X5UNITS SQ SCH (22:16)
[2019-07-31 23:20] LABS: Hematocrit 25.4 % (35.3-44.9); Hemoglobin 7.8 g/dL (11.5-15.4)
[2019-08-01] MEDS: 0.9 % Sodium Chloride 1,000 ML IVC SCH ×2 (04:55→14:37)
[2019-08-01] MEDS: Meropenem 1,000 MG in Water for inj. (sterile) 20 ML IVP SCH ×3 (04:56→20:53)
[2019-08-01] MEDS: *HR* OxyCODONE Immed Rel 5 MG TABLET PO PRN ×3 (06:49→22:06)
[2019-08-01 07:31] LABS: Basophils % 0.3 %; Eosinophils # 0.2 K/mcL (0.0-0.6); Eosinophils % 1.8 %; Hematocrit 25.9 % (35.3-44.9); Hemoglobin 8.1 g/dL (11.5-15.4); Immature Granulocytes % 1.6 % (0-4); Lymphocytes # 1.3 K/mcL (0.6-4.6); Lymphocytes % 12.3 %; Mean Corpuscular HGB Conc 31.3 g/dL (31.6-35.5); Mean Corpuscular Hemoglobin 27.8 pg (28.0-33.3); Monocytes # 0.8 K/mcL (0.0-1.3); Monocytes % 7.6 %; Neutrophils # 8.1 K/mcL (1.6-8.9); Nucleated Red Blood Cells 0.2 /100 WBC (0); Platelet Count 287 K/mcL (140-400); Red Blood Count 2.91 M/mcL (3.82-4.97); Red Cell Distribution Width 14.7 % (11.5-14.5); Segmented Neutrophils % 76.4 %; White Blood Count 10.6 K/mcL (4.3-11.1)
[2019-08-01 07:57] LABS: BUN/Creatinine Ratio 16 (6-26); Blood Urea Nitrogen 9 mg/dL (8-23); Calcium 7.8 mg/dL (8.6-10.3); Carbon Dioxide 24 mEq/L (23-29); Chloride 109 mEq/L (98-107); Glucose 217 mg/dL (70-105); Osmolality,Calculated 291 (280-300); Potassium 3.3 mEq/L (3.5-5.1); Sodium 138 mEq/L (136-145); eGFR For African Americans > 60 (> 60); eGFR For Non-African Americans > 60 (> 60)
[2019-08-01] MEDS: Insulin DETEMIR 100 UNIT/ML X5UNITS SQ SCH ×2 (08:45→20:55)
[2019-08-01] MEDS: Metoprolol XL (24 HR) Succ 25 MG TAB.ER.24H PO SCH (08:46)
[2019-08-01] MEDS: Insulin LISPRO 300 UNITS/3 ML VIAL SQ SCH ×4 (08:46→20:52)
[2019-08-01] MEDS: Isosorbide MONOnitrate (24 HR) 60 MG TAB.ER.24H PO SCH (08:46)
[2019-08-01] MEDS: rOPINIRole 1 MG TABLET PO SCH (08:46)
[2019-08-01] MEDS: Venlafaxine XR (24 HR) 150 MG CAP.ER.24H PO SCH (08:46)
[2019-08-01] MEDS: Aspirin Enteric Coated 81 MG Tablet PO SCH (08:47)
[2019-08-01] MEDS ORDERED: Aminoglycoside Consult 1 EACH MC ONE (09:17)
[2019-08-01] MEDS ORDERED: Ondansetron 4 MG/2 ML VIAL IVP PRN (13:47)
[2019-08-01] MEDS ORDERED: Calcium Gluconate 1gm/50mL 1 GM/50 ML BAG IVPB ONE (15:11)
[2019-08-01] MEDS ORDERED: Potassium Chloride Elixir 20 MEQ/15 ML UDC PO ONE (15:11)
[2019-08-01] MEDS: *HR* Heparin 5,000 UNIT/ML VIAL SQ SCH (17:15)
[2019-08-01] MEDS: Acetaminophen 325 MG TABLET PO PRN (17:17)
[2019-08-02] MEDS: Acetaminophen 325 MG TABLET PO PRN (00:42)
[2019-08-02 04:06] LABS: Basophils % 0.4 %; Eosinophils # 0.5 K/mcL (0.0-0.6); Eosinophils % 5.8 %; Hemoglobin 8.3 g/dL (11.5-15.4); Immature Granulocytes % 1.5 % (0-4); Lymphocytes # 1.8 K/mcL (0.6-4.6); Lymphocytes % 18.9 %; Mean Corpuscular HGB Conc 30.7 g/dL (31.6-35.5); Mean Corpuscular Hemoglobin 28.3 pg (28.0-33.3); Mean Corpuscular Volume 92.2 fL (83.0-100.0); Mean Platelet Volume 9.5 fL (9.4-12.4); Monocytes # 0.7 K/mcL (0.0-1.3); Monocytes % 7.1 %; Neutrophils # 6.2 K/mcL (1.6-8.9); Nucleated Red Blood Cells 0.4 /100 WBC (0); Platelet Count 319 K/mcL (140-400); Red Blood Count 2.93 M/mcL (3.82-4.97); Segmented Neutrophils % 66.3 %; White Blood Count 9.4 K/mcL (4.3-11.1)
[2019-08-02 04:22] LABS: BUN/Creatinine Ratio 12 (6-26); Blood Urea Nitrogen 9 mg/dL (8-23); Calcium 8.1 mg/dL (8.6-10.3); Carbon Dioxide 25 mEq/L (23-29); Chloride 110 mEq/L (98-107); Glucose 205 mg/dL (70-105); Osmolality,Calculated 293 (280-300); Potassium 3.8 mEq/L (3.5-5.1); Sodium 139 mEq/L (136-145); eGFR For African Americans > 60 (> 60); eGFR For Non-African Americans > 60 (> 60)
[2019-08-02] MEDS: Meropenem 1,000 MG in Water for inj. (sterile) 20 ML IVP SCH ×3 (05:42→21:32)
[2019-08-02] MEDS: *HR* Heparin 5,000 UNIT/ML VIAL SQ SCH ×2 (05:43→17:39)
[2019-08-02] MEDS: *HR* OxyCODONE Immed Rel 5 MG TABLET PO PRN ×3 (05:43→21:31)
[2019-08-02] MEDS: Aspirin Enteric Coated 81 MG Tablet PO SCH (08:14)
[2019-08-02] MEDS: Metoprolol XL (24 HR) Succ 25 MG TAB.ER.24H PO SCH (08:14)
[2019-08-02] MEDS: Isosorbide MONOnitrate (24 HR) 60 MG TAB.ER.24H PO SCH (08:14)
[2019-08-02] MEDS: rOPINIRole 1 MG TABLET PO SCH (08:14)
[2019-08-02] MEDS: Venlafaxine XR (24 HR) 150 MG CAP.ER.24H PO SCH (08:14)
[2019-08-02] MEDS: Insulin LISPRO 300 UNITS/3 ML VIAL SQ SCH ×3 (08:19→17:39)
[2019-08-02] MEDS: Insulin DETEMIR 100 UNIT/ML X5UNITS SQ SCH ×2 (09:14→21:30)
[2019-08-02] MEDS ORDERED: NON-FORMULARY MEDICATION 1 EACH EACH (Ondansetron Hcl [Zofran] 4 MG) PO PRN (17:00)
[2019-08-02] MEDS: Fluticasone Propionate Nasal 50 MCG/SPRAY BOTTLE NS SCH (17:36)
[2019-08-02] MEDS: Pregabalin 50 MG CAPSULE PO SCH ×2 (17:40→21:31)
[2019-08-02] MEDS ORDERED: Dextrose Gel 15 GM/37.5 ML TUBE PO PRN ×2 (18:19)
[2019-08-02] MEDS ORDERED: *HR* Dextrose 50 % in Water (Syg) 50 ML SYRINGE IVP PRN (18:19)
[2019-08-02] MEDS ORDERED: D5% in Water 1,000 ML IVC PRN (18:19)
[2019-08-02] MEDS ORDERED: Scopolamine Patch 1.5 MG PATCH.TD72 TD PRN (18:20)
[2019-08-02] MEDS ORDERED: Triamcinolone Acet 0.1% CRM 1 APPL GRAM TP PRN (18:20)
[2019-08-02] MEDS: 0.9 % Sodium Chloride 1,000 ML IVC SCH (21:29)
[2019-08-02] MEDS: Melatonin 3 MG TABLET PO SCH (21:31)
[2019-08-02] MEDS: Magnesium Oxide 400 MG TABLET PO SCH (21:31)
[2019-08-03] MEDS: Insulin LISPRO 300 UNITS/3 ML VIAL SQ SCH ×4 (03:59→16:12)
[2019-08-03] MEDS: Meropenem 1,000 MG in Water for inj. (sterile) 20 ML IVP SCH ×2 (05:30→13:52)
[2019-08-03] MEDS: *HR* Heparin 5,000 UNIT/ML VIAL SQ SCH ×2 (05:30→18:38)
[2019-08-03] MEDS: Magnesium Oxide 400 MG TABLET PO SCH ×2 (09:22→20:22)
[2019-08-03] MEDS: rOPINIRole 1 MG TABLET PO SCH (09:22)
[2019-08-03] MEDS: Isosorbide MONOnitrate (24 HR) 60 MG TAB.ER.24H PO SCH (09:22)
[2019-08-03] MEDS: Venlafaxine XR (24 HR) 150 MG CAP.ER.24H PO SCH (09:22)
[2019-08-03] MEDS: Furosemide 40 MG TABLET PO SCH (09:22)
[2019-08-03] MEDS: 0.9 % Sodium Chloride 1,000 ML IVC SCH ×2 (09:23→18:48)
[2019-08-03] MEDS: Metoprolol XL (24 HR) Succ 25 MG TAB.ER.24H PO SCH (09:23)
[2019-08-03] MEDS: Pregabalin 50 MG CAPSULE PO SCH ×3 (09:23→20:23)
[2019-08-03] MEDS: Aspirin Enteric Coated 81 MG Tablet PO SCH (09:23)
[2019-08-03] MEDS: Fluticasone Propionate Nasal 50 MCG/SPRAY BOTTLE NS SCH (09:24)
[2019-08-03] MEDS: Insulin DETEMIR 100 UNIT/ML X5UNITS SQ SCH ×2 (09:35→20:23)
[2019-08-03 10:39] LABS: Basophils # 0.1 K/mcL (0.0-0.2); Basophils % 0.7 %; Eosinophils # 0.6 K/mcL (0.0-0.6); Hematocrit 25.3 % (35.3-44.9); Hemoglobin 7.7 g/dL (11.5-15.4); Immature Granulocytes % 3.3 % (0-4); Lymphocytes % 23.6 %; Mean Corpuscular HGB Conc 30.4 g/dL (31.6-35.5); Mean Corpuscular Hemoglobin 27.8 pg (28.0-33.3); Mean Corpuscular Volume 91.3 fL (83.0-100.0); Mean Platelet Volume 9.2 fL (9.4-12.4); Monocytes # 0.6 K/mcL (0.0-1.3); Monocytes % 7.1 %; Neutrophils # 4.9 K/mcL (1.6-8.9); Nucleated Red Blood Cells 0.5 /100 WBC (0); Platelet Count 305 K/mcL (140-400); Red Blood Count 2.77 M/mcL (3.82-4.97); Red Cell Distribution Width 14.8 % (11.5-14.5); Segmented Neutrophils % 58.3 %; White Blood Count 8.4 K/mcL (4.3-11.1)
[2019-08-03 10:58] LABS: BUN/Creatinine Ratio 12 (6-26); Blood Urea Nitrogen 6 mg/dL (8-23); Calcium 7.8 mg/dL (8.6-10.3); Carbon Dioxide 22 mEq/L (23-29); Chloride 113 mEq/L (98-107); Glucose 140 mg/dL (70-105); Osmolality,Calculated 292 (280-300); Potassium 3.7 mEq/L (3.5-5.1); Sodium 141 mEq/L (136-145); eGFR For African Americans > 60 (> 60); eGFR For Non-African Americans > 60 (> 60)
[2019-08-03] MEDS: Melatonin 3 MG TABLET PO SCH (20:22)
[2019-08-03] MEDS: *HR* OxyCODONE Immed Rel 5 MG TABLET PO PRN (20:22)
[2019-08-03] MEDS ORDERED: Gentamicin Oint 15 GM TUBE TP SCH (21:00)
[2019-08-03] MEDS ORDERED: Insulin LISPRO 300 UNITS/3 ML VIAL SQ SCH (21:00)
[2019-08-03] MEDS ORDERED: cephALEXin 500 MG CAPSULE PO SCH (21:00)
[2019-08-04 05:08] LABS: Basophils # 0.1 K/mcL (0.0-0.2); Basophils % 0.9 %; Eosinophils # 0.5 K/mcL (0.0-0.6); Eosinophils % 5.2 %; Hematocrit 26.4 % (35.3-44.9); Lymphocytes # 2.4 K/mcL (0.6-4.6); Lymphocytes % 26.5 %; Mean Corpuscular HGB Conc 30.3 g/dL (31.6-35.5); Mean Corpuscular Hemoglobin 27.7 pg (28.0-33.3); Mean Corpuscular Volume 91.3 fL (83.0-100.0); Mean Platelet Volume 9.2 fL (9.4-12.4); Monocytes # 0.6 K/mcL (0.0-1.3); Monocytes % 6.7 %; Neutrophils # 5.2 K/mcL (1.6-8.9); Nucleated Red Blood Cells 0.7 /100 WBC (0); Platelet Count 329 K/mcL (140-400); Red Blood Count 2.89 M/mcL (3.82-4.97); Red Cell Distribution Width 14.7 % (11.5-14.5); Segmented Neutrophils % 56.7 %; White Blood Count 9.2 K/mcL (4.3-11.1)
[2019-08-04] MEDS: *HR* Heparin 5,000 UNIT/ML VIAL SQ SCH (05:16)
[2019-08-04 05:32] LABS: BUN/Creatinine Ratio 10 (6-26); Blood Urea Nitrogen 6 mg/dL (8-23); Calcium 8.1 mg/dL (8.6-10.3); Carbon Dioxide 25 mEq/L (23-29); Chloride 110 mEq/L (98-107); Glucose 119 mg/dL (70-105); Osmolality,Calculated 291 (280-300); Potassium 3.8 mEq/L (3.5-5.1); Sodium 141 mEq/L (136-145); eGFR For African Americans > 60 (> 60); eGFR For Non-African Americans > 60 (> 60)
[2019-08-04] MEDS: Magnesium Oxide 400 MG TABLET PO SCH (08:11)
[2019-08-04] MEDS: Pregabalin 50 MG CAPSULE PO SCH ×2 (08:11→16:23)
[2019-08-04] MEDS: Insulin LISPRO 300 UNITS/3 ML VIAL SQ SCH ×2 (08:11→11:42)
[2019-08-04] MEDS: Insulin DETEMIR 100 UNIT/ML X5UNITS SQ SCH (08:11)
[2019-08-04] MEDS: Aspirin Enteric Coated 81 MG Tablet PO SCH (08:11)
[2019-08-04] MEDS: Isosorbide MONOnitrate (24 HR) 60 MG TAB.ER.24H PO SCH (08:12)
[2019-08-04] MEDS: Furosemide 40 MG TABLET PO SCH (08:12)
[2019-08-04] MEDS: rOPINIRole 1 MG TABLET PO SCH (08:12)
[2019-08-04] MEDS: Venlafaxine XR (24 HR) 150 MG CAP.ER.24H PO SCH (08:12)
[2019-08-04] MEDS: Metoprolol XL (24 HR) Succ 25 MG TAB.ER.24H PO SCH (08:12)
[2019-08-04] MEDS: Fluticasone Propionate Nasal 50 MCG/SPRAY BOTTLE NS SCH (08:13)
[2019-08-04] MEDS ORDERED: levoFLOXacin 750 MG TABLET PO SCH (09:00)
[2019-08-04] MEDS: *HR* OxyCODONE Immed Rel 5 MG TABLET PO PRN (11:41)
[2019-08-04 14:08] VITALS: BP 99/64
[2019-08-04] MEDS ORDERED: Meropenem 1,000 MG in Water for inj. (sterile) 20 ML IVP SCH (22:00)
== END 2019-08-04 16:49 | DRG 564 ==
LOC: EMEROOARM 18:35 → 3ANU 18:35 → SUATTDRO 21:54 → 3ANU 22:32
PROVIDERS: ADMIT Internal Medicine; ATTEND Internal Medicine

== ENCOUNTER 2020-01-11 09:48 | Inpatient (IN) ==
[2020-01-11] MEDS ORDERED: Acetaminophen 325 MG TABLET PO ONE (09:57)
[2020-01-11] MEDS ORDERED: 0.9 % Sodium Chloride 1,000 ML IVC ONE (09:59)
[2020-01-11 10:23] LABS: Basophils # 0.1 K/mcL (0.0-0.2); Basophils % 0.4 %; Eosinophils # 0.1 K/mcL (0.0-0.6); Eosinophils % 0.4 %; Hematocrit 40.2 % (35.3-44.9); Hemoglobin 12.7 g/dL (11.5-15.4); Immature Granulocytes % 0.7 % (0-4); Lymphocytes # 2.1 K/mcL (0.6-4.6); Lymphocytes % 11.8 %; Mean Corpuscular HGB Conc 31.6 g/dL (31.6-35.5); Mean Corpuscular Volume 88.5 fL (83.0-100.0); Mean Platelet Volume 9.7 fL (9.4-12.4); Monocytes # 1.2 K/mcL (0.0-1.3); Monocytes % 6.9 %; Neutrophils # 14.2 K/mcL (1.6-8.9); Platelet Count 274 K/mcL (140-400); Red Blood Count 4.54 M/mcL (3.82-4.97); Red Cell Distribution Width 15.3 % (11.5-14.5); Segmented Neutrophils % 79.8 %; White Blood Count 17.7 K/mcL (4.3-11.1)
[2020-01-11 10:30] LABS: INR 1.2; Prothrombin Time 13.5 Seconds (9.4-12.1)
[2020-01-11 10:33] LABS: Activated Partial Thrombo Time 31.3 Seconds (26.0-36.0)
[2020-01-11 10:45] LABS: Alanine Aminotransferase 8 Units/L (7-52); Albumin 3.5 g/dL (3.5-5.7); Alkaline Phosphatase 72 Units/L (34-104); Aspartate Amino Transferase 9 Units/L (13-39); BUN/Creatinine Ratio 16 (6-26); Bilirubin,Direct 0.3 mg/dL (0.0-0.2); Bilirubin,Indirect 0.6 mg/dL (0.0-1.0); Bilirubin,Total 0.9 mg/dL (0.3-1.0); Blood Urea Nitrogen 12 mg/dL (8-23); C-Reactive Protein 218 mg/L (Less than 10); Calcium 8.7 mg/dL (8.6-10.3); Carbon Dioxide 25 mEq/L (23-29); Chloride 106 mEq/L (98-107); Globulin 3.4 g/dL (2.4-3.5); Glucose 238 mg/dL (70-105); Lactate Dehydrogenase 139 Units/L (140-271); Magnesium 1.7 mg/dL (1.6-2.6); Osmolality,Calculated 300 (280-300); Sodium 141 mEq/L (136-145); Total Protein 6.9 g/dL (6.4-8.9); eGFR For African Americans > 60 (> 60); eGFR For Non-African Americans > 60 (> 60)
[2020-01-11 10:46] LABS: Troponin I < 0.03 ng/mL (< 0.04)
[2020-01-11 11:05] LABS: Ferritin 191 ng/mL (10-120)
[2020-01-11 11:43] LABS: Adenovirus Not Detected (Not Detect); Bordetella Pertussis Not Detected (Not Detect); Chlamydophila pneumoniae Not Detected (Not Detect); Coronavirus 229E Not Detected (Not Detect); Coronavirus HKU1 Not Detected (Not Detect); Coronavirus NL63 Not Detected (Not Detect); Coronavirus OC43 Not Detected (Not Detect); Human Metapneumovirus Not Detected (Not Detect); Human Rhinovirus/Enterovirus DETECTED (Not Detect); Influenza A Subtype 2009 H1 Not Detected (Not Detect); Influenza B Not Detected (Not Detect); Mycoplasma pneumoniae Not Detected (Not Detect); Parainfluenza Virus 1 Not Detected (Not Detect); Parainfluenza Virus 2 Not Detected (Not Detect); Parainfluenza Virus 3 Not Detected (Not Detect); Parainfluenza Virus 4 Not Detected (Not Detect); Respiratory Syncytial Virus Not Detected (Not Detect)
[2020-01-11] MEDS ORDERED: cefTRIAXone 1,000 MG in Water for inj. (sterile) 10 ML IVP ONE (11:48)
[2020-01-11] MEDS ORDERED: levoFLOXacin 500 MG/100 ML 500 MG/100 ML BAG IVPB ONE (11:48)
[2020-01-11] MEDS ORDERED: Isovue-370 500 ML BOTTLE IVP ONE (11:51)
[2020-01-11] MEDS ORDERED: Naloxone 0.4 MG/ML INJ IVP PRN (13:20)
[2020-01-11] MEDS ORDERED: D5% in Water 1,000 ML IVC PRN (13:22)
[2020-01-11] MEDS ORDERED: *HR* Dextrose 50 % in Water (Vial) 50 ML VIAL IVP PRN (13:22)
[2020-01-11] MEDS ORDERED: Dextrose Gel 15 GM/37.5 ML TUBE PO PRN ×2 (13:22)
[2020-01-11] MEDS ORDERED: Ipratropium/Albuterol Neb 3 ML IH SCH (13:25)
[2020-01-11 13:37] LABS: ABG Base Excess 2 mEq/L (-2 to 3); ABG HCO3 27 mEq/L (21-27); ABG Oxygen Saturation 94 % (95-98); ABG PCO2 44 mmHg (35-45); ABG PO2 72 mmHg (85-104); ABG TCO2 29 mEq/L (20-26)
[2020-01-11] MEDS ORDERED: Ondansetron ODT 4 MG TAB.RAPDIS PO PRN (14:07)
[2020-01-11] MEDS ORDERED: *HR* OxyCODONE Immed Rel 5 MG TABLET PO PRN (14:07)
[2020-01-11] MEDS ORDERED: Artificial Tears SOLN 15 ML BOTTLE BOTH EYES PRN (14:07)
[2020-01-11] MEDS ORDERED: Sennosides/Docusate Sodium TABLET PO PRN (14:07)
[2020-01-11] MEDS ORDERED: hydrOXYzine pamoate 25 MG CAPSULE PO PRN (14:07)
[2020-01-11] MEDS ORDERED: Acetaminophen 325 MG TABLET PO PRN (14:07)
[2020-01-11] MEDS ORDERED: Triamcinolone Acet 0.1% CRM 15 GM TUBE TP PRN (14:07)
[2020-01-11] MEDS: cefTRIAXone 1,000 MG in Water for inj. (sterile) 10 ML IVP SCH (14:10)
[2020-01-11] MEDS: Insulin LISPRO 300 UNITS/3 ML VIAL SQ SCH ×3 (15:10→20:20)
[2020-01-11] MEDS ORDERED: IPRATROPIUM/ALBUTEROL SULFATE 120 PUFF INHALER IH SCH (16:00)
[2020-01-11] MEDS: IPRATROPIUM/ALBUTEROL SULFATE 120 PUFF INHALER IH SCH ×2 (16:00→20:18)
[2020-01-11] MEDS ORDERED: *HR* OxyCODONE Immed Rel 5 MG TABLET PO SCH ×2 (16:00→18:00)
[2020-01-11] MEDS ORDERED: INSULIN ASPART 7 UNIT SQ SCH (17:00)
[2020-01-11] MEDS: Pregabalin 50 MG CAPSULE PO SCH ×2 (17:20→20:19)
[2020-01-11] MEDS: *HR* Heparin 5,000 UNIT/ML VIAL SQ SCH (17:21)
[2020-01-11] MEDS: Venlafaxine XR (24 HR) 37.5 MG CAP.ER.24H PO SCH (20:19)
[2020-01-11] MEDS: rOPINIRole 1 MG TABLET PO SCH (20:19)
[2020-01-11] MEDS: Magnesium Oxide 400 MG TABLET PO SCH (20:19)
[2020-01-11] MEDS: *HR* OxyCODONE Immed Rel 5 MG TABLET PO SCH (20:20)
[2020-01-11] MEDS: Insulin DETEMIR 100 UNIT/ML X5UNITS SQ SCH (20:20)
[2020-01-11] MEDS: Clotrimazole/Betameth Dip CRM 45 APPL/45 GM TUBE TP SCH (20:21)
[2020-01-12] MEDS: IPRATROPIUM/ALBUTEROL SULFATE 120 PUFF INHALER IH SCH ×7 (00:09→23:30)
[2020-01-12 03:19] LABS: Basophils # 0.1 K/mcL (0.0-0.2); Basophils % 0.4 %; Eosinophils # 0.3 K/mcL (0.0-0.6); Eosinophils % 1.9 %; Hematocrit 38.8 % (35.3-44.9); Hemoglobin 12.1 g/dL (11.5-15.4); Immature Granulocytes % 0.8 % (0-4); Lymphocytes # 1.8 K/mcL (0.6-4.6); Lymphocytes % 11.6 %; Mean Corpuscular HGB Conc 31.2 g/dL (31.6-35.5); Mean Corpuscular Hemoglobin 27.9 pg (28.0-33.3); Mean Corpuscular Volume 89.6 fL (83.0-100.0); Mean Platelet Volume 10.1 fL (9.4-12.4); Monocytes % 6.7 %; Neutrophils # 12.1 K/mcL (1.6-8.9); Platelet Count 248 K/mcL (140-400); Red Blood Count 4.33 M/mcL (3.82-4.97); Red Cell Distribution Width 15.1 % (11.5-14.5); Segmented Neutrophils % 78.6 %; White Blood Count 15.4 K/mcL (4.3-11.1)
[2020-01-12 03:35] LABS: Alanine Aminotransferase 8 Units/L (7-52); Albumin 3.4 g/dL (3.5-5.7); Alkaline Phosphatase 71 Units/L (34-104); Aspartate Amino Transferase 8 Units/L (13-39); BUN/Creatinine Ratio 15 (6-26); Bilirubin,Total 0.5 mg/dL (0.3-1.0); Blood Urea Nitrogen 11 mg/dL (8-23); Calcium 8.4 mg/dL (8.6-10.3); Carbon Dioxide 25 mEq/L (23-29); Chloride 106 mEq/L (98-107); Globulin 3.3 g/dL (2.4-3.5); Glucose 174 mg/dL (70-105); Magnesium 1.8 mg/dL (1.6-2.6); Osmolality,Calculated 296 (280-300); Phosphorous 2.8 mg/dL (2.7-4.5); Potassium 3.5 mEq/L (3.5-5.1); Sodium 141 mEq/L (136-145); Total Protein 6.7 g/dL (6.4-8.9); eGFR For African Americans > 60 (> 60); eGFR For Non-African Americans > 60 (> 60)
[2020-01-12] MEDS: *HR* Heparin 5,000 UNIT/ML VIAL SQ SCH ×2 (05:00→16:47)
[2020-01-12] MEDS: Cyanocobalamin (B-12) 1,000 MCG TABLET PO SCH (07:43)
[2020-01-12] MEDS: Furosemide 40 MG TABLET PO SCH (07:44)
[2020-01-12] MEDS: Isosorbide MONOnitrate (24 HR) 60 MG TAB.ER.24H PO SCH (07:44)
[2020-01-12] MEDS: *HR* OxyCODONE Immed Rel 5 MG TABLET PO SCH ×2 (07:44→20:11)
[2020-01-12] MEDS: Famotidine 20 MG TABLET PO SCH (07:44)
[2020-01-12] MEDS: Pregabalin 50 MG CAPSULE PO SCH ×3 (07:45→20:11)
[2020-01-12] MEDS: Fluticasone Propionate Nasal 50 MCG/SPRAY BOTTLE NS SCH (07:45)
[2020-01-12] MEDS: Azithromycin 250 MG TABLET PO SCH (07:45)
[2020-01-12] MEDS: Metoprolol XL (24 HR) Succ 25 MG TAB.ER.24H PO SCH (07:45)
[2020-01-12] MEDS: Clotrimazole/Betameth Dip CRM 45 APPL/45 GM TUBE TP SCH ×2 (07:45→23:11)
[2020-01-12] MEDS: Magnesium Oxide 400 MG TABLET PO SCH ×2 (07:45→20:11)
[2020-01-12] MEDS: Lactobacillus 1 EACH CAP.SPRINK PO SCH (07:45)
[2020-01-12] MEDS: Aspirin Enteric Coated 81 MG Tablet PO SCH (07:45)
[2020-01-12] MEDS: Venlafaxine XR (24 HR) 150 MG CAP.ER.24H PO SCH (07:48)
[2020-01-12] MEDS: Insulin LISPRO 300 UNITS/3 ML VIAL SQ SCH ×4 (08:39→20:13)
[2020-01-12] MEDS: cefTRIAXone 1,000 MG in Water for inj. (sterile) 10 ML IVP SCH (10:20)
[2020-01-12] MEDS: Insulin DETEMIR 100 UNIT/ML X5UNITS SQ SCH ×2 (10:20→20:12)
[2020-01-12] MEDS: Dexamethasone 4 MG/ML VIAL IVP SCH (12:34)
[2020-01-12] MEDS: Venlafaxine XR (24 HR) 37.5 MG CAP.ER.24H PO SCH (20:11)
[2020-01-12] MEDS: rOPINIRole 1 MG TABLET PO SCH (20:11)
[2020-01-13 02:03] LABS: Basophils % 0.3 %; Hematocrit 38.6 % (35.3-44.9); Hemoglobin 11.9 g/dL (11.5-15.4); Immature Granulocytes % 2.1 % (0-4); Lymphocytes # 1.1 K/mcL (0.6-4.6); Lymphocytes % 8.8 %; Mean Corpuscular HGB Conc 30.8 g/dL (31.6-35.5); Mean Corpuscular Hemoglobin 27.5 pg (28.0-33.3); Mean Corpuscular Volume 89.4 fL (83.0-100.0); Monocytes # 0.4 K/mcL (0.0-1.3); Monocytes % 3.3 %; Platelet Count 315 K/mcL (140-400); Red Blood Count 4.32 M/mcL (3.82-4.97); Red Cell Distribution Width 14.7 % (11.5-14.5); Segmented Neutrophils % 85.5 %; White Blood Count 12.8 K/mcL (4.3-11.1)
[2020-01-13 02:20] LABS: Alanine Aminotransferase 7 Units/L (7-52); Albumin 3.6 g/dL (3.5-5.7); Albumin/Globulin Ratio 1.1 (1.1-2.2); Alkaline Phosphatase 75 Units/L (34-104); Aspartate Amino Transferase 7 Units/L (13-39); BUN/Creatinine Ratio 19 (6-26); Bilirubin,Total 0.4 mg/dL (0.3-1.0); Blood Urea Nitrogen 15 mg/dL (8-23); Calcium 8.6 mg/dL (8.6-10.3); Carbon Dioxide 25 mEq/L (23-29); Chloride 105 mEq/L (98-107); Globulin 3.4 g/dL (2.4-3.5); Glucose 215 mg/dL (70-105); Osmolality,Calculated 295 (280-300); Potassium 3.9 mEq/L (3.5-5.1); Sodium 139 mEq/L (136-145); eGFR For African Americans > 60 (> 60); eGFR For Non-African Americans > 60 (> 60)
[2020-01-13] MEDS: IPRATROPIUM/ALBUTEROL SULFATE 120 PUFF INHALER IH SCH ×6 (04:05→23:44)
[2020-01-13] MEDS: *HR* Heparin 5,000 UNIT/ML VIAL SQ SCH ×2 (05:12→16:10)
[2020-01-13] MEDS: Insulin DETEMIR 100 UNIT/ML X5UNITS SQ SCH (09:12)
[2020-01-13] MEDS: Insulin LISPRO 300 UNITS/3 ML VIAL SQ SCH ×4 (09:13→21:42)
[2020-01-13] MEDS: cefTRIAXone 1,000 MG in Water for inj. (sterile) 10 ML IVP SCH (09:14)
[2020-01-13] MEDS: Metoprolol XL (24 HR) Succ 25 MG TAB.ER.24H PO SCH (09:15)
[2020-01-13] MEDS: Dexamethasone 4 MG/ML VIAL IVP SCH (09:15)
[2020-01-13] MEDS: Lactobacillus 1 EACH CAP.SPRINK PO SCH (09:15)
[2020-01-13] MEDS: Magnesium Oxide 400 MG TABLET PO SCH ×2 (09:15→21:26)
[2020-01-13] MEDS: Azithromycin 250 MG TABLET PO SCH (09:15)
[2020-01-13] MEDS: Cyanocobalamin (B-12) 1,000 MCG TABLET PO SCH (09:15)
[2020-01-13] MEDS: Famotidine 20 MG TABLET PO SCH (09:15)
[2020-01-13] MEDS: Venlafaxine XR (24 HR) 150 MG CAP.ER.24H PO SCH (09:16)
[2020-01-13] MEDS: *HR* OxyCODONE Immed Rel 5 MG TABLET PO SCH ×2 (09:16→21:26)
[2020-01-13] MEDS: Pregabalin 50 MG CAPSULE PO SCH ×3 (09:16→21:25)
[2020-01-13] MEDS: Aspirin Enteric Coated 81 MG Tablet PO SCH (09:16)
[2020-01-13] MEDS: Isosorbide MONOnitrate (24 HR) 60 MG TAB.ER.24H PO SCH (09:16)
[2020-01-13] MEDS: Furosemide 40 MG TABLET PO SCH (09:16)
[2020-01-13] MEDS: Fluticasone Propionate Nasal 50 MCG/SPRAY BOTTLE NS SCH (11:51)
[2020-01-13] MEDS: Clotrimazole/Betameth Dip CRM 45 APPL/45 GM TUBE TP SCH ×2 (11:51→21:26)
[2020-01-13] MEDS ORDERED: Insulin DETEMIR 100 UNIT/ML X5UNITS SQ SCH (21:00)
[2020-01-13] MEDS: rOPINIRole 1 MG TABLET PO SCH (21:25)
[2020-01-13] MEDS: Venlafaxine XR (24 HR) 37.5 MG CAP.ER.24H PO SCH (21:25)
[2020-01-14 02:57] LABS: Basophils # 0.1 K/mcL (0.0-0.2); Basophils % 0.5 %; Eosinophils % 0.1 %; Hematocrit 36.5 % (35.3-44.9); Hemoglobin 11.5 g/dL (11.5-15.4); Immature Granulocytes % 4.5 % (0-4); Lymphocytes # 1.7 K/mcL (0.6-4.6); Lymphocytes % 11.7 %; Mean Corpuscular HGB Conc 31.5 g/dL (31.6-35.5); Mean Corpuscular Hemoglobin 27.6 pg (28.0-33.3); Mean Corpuscular Volume 87.7 fL (83.0-100.0); Mean Platelet Volume 9.5 fL (9.4-12.4); Monocytes # 0.8 K/mcL (0.0-1.3); Monocytes % 5.6 %; Neutrophils # 11.5 K/mcL (1.6-8.9); Nucleated Red Blood Cells 0.1 /100 WBC (0); Platelet Count 336 K/mcL (140-400); Red Blood Count 4.16 M/mcL (3.82-4.97); Red Cell Distribution Width 14.5 % (11.5-14.5); Segmented Neutrophils % 77.6 %; White Blood Count 14.8 K/mcL (4.3-11.1)
[2020-01-14 03:19] LABS: Alanine Aminotransferase 7 Units/L (7-52); Albumin 3.4 g/dL (3.5-5.7); Alkaline Phosphatase 77 Units/L (34-104); Aspartate Amino Transferase 6 Units/L (13-39); BUN/Creatinine Ratio 25 (6-26); Bilirubin,Total 0.3 mg/dL (0.3-1.0); Blood Urea Nitrogen 22 mg/dL (8-23); Calcium 8.7 mg/dL (8.6-10.3); Carbon Dioxide 24 mEq/L (23-29); Chloride 102 mEq/L (98-107); Globulin 3.5 g/dL (2.4-3.5); Glucose 333 mg/dL (70-105); Magnesium 2.1 mg/dL (1.6-2.6); Osmolality,Calculated 296 (280-300); Phosphorous 2.3 mg/dL (2.7-4.5); Potassium 3.8 mEq/L (3.5-5.1); Sodium 135 mEq/L (136-145); Total Protein 6.9 g/dL (6.4-8.9); eGFR For African Americans > 60 (> 60); eGFR For Non-African Americans > 60 (> 60)
[2020-01-14] MEDS: IPRATROPIUM/ALBUTEROL SULFATE 120 PUFF INHALER IH SCH ×4 (03:54→15:26)
[2020-01-14] MEDS ORDERED: *HR* Enoxaparin 40 MG/0.4 ML SYRINGE SQ SCH (06:00)
[2020-01-14] MEDS ORDERED: predniSONE 20 MG TABLET PO SCH (09:00)
[2020-01-14] MEDS ORDERED: Insulin DETEMIR 100 UNIT/ML X5UNITS SQ SCH (09:00)
[2020-01-14] MEDS: *HR* OxyCODONE Immed Rel 5 MG TABLET PO SCH (09:24)
[2020-01-14] MEDS: Furosemide 40 MG TABLET PO SCH (09:25)
[2020-01-14] MEDS: Famotidine 20 MG TABLET PO SCH (09:25)
[2020-01-14] MEDS: Lactobacillus 1 EACH CAP.SPRINK PO SCH (09:25)
[2020-01-14] MEDS: Isosorbide MONOnitrate (24 HR) 60 MG TAB.ER.24H PO SCH (09:26)
[2020-01-14] MEDS: Pregabalin 50 MG CAPSULE PO SCH ×2 (09:26→15:44)
[2020-01-14] MEDS: Venlafaxine XR (24 HR) 150 MG CAP.ER.24H PO SCH (09:26)
[2020-01-14] MEDS: Cyanocobalamin (B-12) 1,000 MCG TABLET PO SCH (09:26)
[2020-01-14] MEDS: Metoprolol XL (24 HR) Succ 25 MG TAB.ER.24H PO SCH (09:26)
[2020-01-14] MEDS: Magnesium Oxide 400 MG TABLET PO SCH (09:27)
[2020-01-14] MEDS: Aspirin Enteric Coated 81 MG Tablet PO SCH (09:27)
[2020-01-14] MEDS: Insulin LISPRO 300 UNITS/3 ML VIAL SQ SCH ×6 (09:28→17:32)
[2020-01-14] MEDS: Fluticasone Propionate Nasal 50 MCG/SPRAY BOTTLE NS SCH (09:30)
[2020-01-14] MEDS: Clotrimazole/Betameth Dip CRM 45 APPL/45 GM TUBE TP SCH (09:30)
[2020-01-14 10:37] VITALS: BP 134/69
== END 2020-01-14 18:16 | DRG 871 ==
LOC: 2NENU 09:48 → EMEROOARM 09:48 → SUATTDRO 13:53 → 2NENU 15:12 → SUATTDRO 01-12 14:46 → 3ANU 01-14 02:23
PROVIDERS: ADMIT Family Medicine; ATTEND Internal Medicine

== ENCOUNTER 2020-02-02 14:53 | Inpatient (IN) ==
[2020-02-02 15:29] LABS: Basophils # 0.1 K/mcL (0.0-0.2); Basophils % 0.7 %; Eosinophils # 0.6 K/mcL (0.0-0.6); Eosinophils % 8.2 %; Hematocrit 40.3 % (35.3-44.9); Hemoglobin 12.9 g/dL (11.5-15.4); Immature Granulocytes % 0.5 % (0-4); Lymphocytes # 2.3 K/mcL (0.6-4.6); Lymphocytes % 31.4 %; Mean Corpuscular Hemoglobin 28.4 pg (28.0-33.3); Mean Corpuscular Volume 88.6 fL (83.0-100.0); Mean Platelet Volume 9.6 fL (9.4-12.4); Monocytes # 0.5 K/mcL (0.0-1.3); Monocytes % 7.3 %; Neutrophils # 3.8 K/mcL (1.6-8.9); Platelet Count 245 K/mcL (140-400); Red Blood Count 4.55 M/mcL (3.82-4.97); Red Cell Distribution Width 14.6 % (11.5-14.5); Segmented Neutrophils % 51.9 %; White Blood Count 7.4 K/mcL (4.3-11.1)
[2020-02-02 16:01] LABS: Alanine Aminotransferase 12 Units/L (7-52); Albumin 3.4 g/dL (3.5-5.7); Albumin/Globulin Ratio 1.2 (1.1-2.2); Alkaline Phosphatase 70 Units/L (34-104); Aspartate Amino Transferase 11 Units/L (13-39); BUN/Creatinine Ratio 11 (6-26); Bilirubin,Total 0.4 mg/dL (0.3-1.0); Blood Urea Nitrogen 10 mg/dL (8-23); Calcium 8.8 mg/dL (8.6-10.3); Carbon Dioxide 26 mEq/L (23-29); Chloride 107 mEq/L (98-107); Globulin 2.8 g/dL (2.4-3.5); Glucose 255 mg/dL (70-105); Osmolality,Calculated 302 (280-300); Sodium 142 mEq/L (136-145); Total Protein 6.2 g/dL (6.4-8.9); Troponin I < 0.03 ng/mL (< 0.04); eGFR For African Americans > 60 (> 60); eGFR For Non-African Americans 60 (> 60)
[2020-02-02 16:38] LABS: Bilirubin,Urine Negative (Negative); Blood,Urine Small (Negative); Budding Yeast,Urine Many per hpf (None Seen); Clarity,Urine Ex.Turbid (Clear); Color,Urine Yellow (Yellow); Glucose,Urine (UA) Normal (Normal); Hyaline Casts,Urine Few per lpf (None Seen); Ketones,Urine Negative (Negative); Leukocyte Esterase,Urine Large (Negative); Nitrite,Urine Negative (Negative); PH,Urine 5.5 pH Units (5.0-8.0); Protein,Urine Trace mg/dL (Neg-Trace); RBC,Urine 15-30 per hpf (0-3); Specific Gravity,Urine 1.013 (1.010-1.025); Squamous Epithelial Cell,Urine Moderate per hpf (None-Few); Urobilinogen,Urine Normal (Normal); WBC,Urine TNTC per hpf (0-3)
[2020-02-02] MEDS ORDERED: cefTRIAXone 1,000 MG in 0.9 % Sodium Chloride Mini Bag 100 ML IVPB ONE (17:03)
[2020-02-02] MEDS ORDERED: Ondansetron 4 MG/2 ML VIAL IVP PRN (17:49)
[2020-02-02] MEDS ORDERED: Naloxone 0.4 MG/ML INJ IVP PRN (17:49)
[2020-02-02] MEDS ORDERED: *HR* Dextrose 50 % in Water (Vial) 50 ML VIAL IVP PRN (17:51)
[2020-02-02] MEDS ORDERED: D5% in Water 1,000 ML IVC PRN (17:51)
[2020-02-02] MEDS ORDERED: Dextrose Gel 15 GM/37.5 ML TUBE PO PRN ×2 (17:51)
[2020-02-02] MEDS ORDERED: Ringers Solution, Lactated 1,000 ML IVC SCH (18:00)
[2020-02-02 19:35] LABS: Adenovirus Not Detected (Not Detect); Bordetella Pertussis Not Detected (Not Detect); Chlamydophila pneumoniae Not Detected (Not Detect); Coronavirus 229E Not Detected (Not Detect); Coronavirus HKU1 Not Detected (Not Detect); Coronavirus NL63 Not Detected (Not Detect); Coronavirus OC43 Not Detected (Not Detect); Human Metapneumovirus Not Detected (Not Detect); Human Rhinovirus/Enterovirus Not Detected (Not Detect); Influenza A Subtype 2009 H1 Not Detected (Not Detect); Influenza B Not Detected (Not Detect); Mycoplasma pneumoniae Not Detected (Not Detect); Parainfluenza Virus 1 Not Detected (Not Detect); Parainfluenza Virus 2 Not Detected (Not Detect); Parainfluenza Virus 3 Not Detected (Not Detect); Parainfluenza Virus 4 Not Detected (Not Detect); Respiratory Syncytial Virus Not Detected (Not Detect); SARS-CoV-2 Not Detected (Not Detect)
[2020-02-02] MEDS: *HR* Heparin 5,000 UNIT/ML VIAL SQ SCH (21:45)
[2020-02-02] MEDS: Ertapenem 1,000 MG in 0.9 % Sodium Chloride Mini Bag 100 ML IVPB SCH (21:46)
[2020-02-02] MEDS: Insulin DETEMIR 100 UNIT/ML X5UNITS SQ SCH (21:46)
[2020-02-03 04:31] LABS: Basophils % 0.4 %; Eosinophils # 0.6 K/mcL (0.0-0.6); Eosinophils % 8.5 %; Hematocrit 37.4 % (35.3-44.9); Immature Granulocytes % 0.4 % (0-4); Lymphocytes # 1.6 K/mcL (0.6-4.6); Lymphocytes % 23.7 %; Mean Corpuscular HGB Conc 30.2 g/dL (31.6-35.5); Mean Corpuscular Volume 89.3 fL (83.0-100.0); Mean Platelet Volume 9.4 fL (9.4-12.4); Monocytes # 0.5 K/mcL (0.0-1.3); Monocytes % 7.7 %; Platelet Count 221 K/mcL (140-400); Red Blood Count 4.19 M/mcL (3.82-4.97); Red Cell Distribution Width 14.7 % (11.5-14.5); Segmented Neutrophils % 59.3 %; White Blood Count 6.7 K/mcL (4.3-11.1)
[2020-02-03 04:32] LABS: Hemoglobin 11.3 g/dL (11.5-15.4)
[2020-02-03 04:52] LABS: BUN/Creatinine Ratio 13 (6-26); Blood Urea Nitrogen 9 mg/dL (8-23); Calcium 8.6 mg/dL (8.6-10.3); Carbon Dioxide 29 mEq/L (23-29); Chloride 108 mEq/L (98-107); Glucose 148 mg/dL (70-105); Osmolality,Calculated 297 (280-300); Potassium 3.9 mEq/L (3.5-5.1); Sodium 143 mEq/L (136-145); eGFR For African Americans > 60 (> 60); eGFR For Non-African Americans > 60 (> 60)
[2020-02-03] MEDS: *HR* Heparin 5,000 UNIT/ML VIAL SQ SCH ×2 (05:12→16:54)
[2020-02-03] MEDS: Ertapenem 1,000 MG in 0.9 % Sodium Chloride Mini Bag 100 ML IVPB SCH (07:34)
[2020-02-03] MEDS: Insulin LISPRO 300 UNITS/3 ML VIAL SQ SCH ×3 (07:40→16:54)
[2020-02-03] MEDS ORDERED: Sennosides/Docusate Sodium TABLET PO PRN (08:00)
[2020-02-03] MEDS ORDERED: Acetaminophen 325 MG TABLET PO PRN (08:00)
[2020-02-03] MEDS ORDERED: *HR* OxyCODONE Immed Rel 5 MG TABLET PO PRN (08:00)
[2020-02-03] MEDS: Furosemide 40 MG TABLET PO SCH (09:45)
[2020-02-03] MEDS: Aspirin Enteric Coated 81 MG Tablet PO SCH (09:45)
[2020-02-03] MEDS: Venlafaxine XR (24 HR) 150 MG CAP.ER.24H PO SCH (09:45)
[2020-02-03] MEDS: hydrOXYzine pamoate 25 MG CAPSULE PO SCH ×3 (09:45→23:28)
[2020-02-03] MEDS: Metoprolol XL (24 HR) Succ 25 MG TAB.ER.24H PO SCH (09:45)
[2020-02-03] MEDS: Cyanocobalamin (B-12) 1,000 MCG TABLET PO SCH (09:45)
[2020-02-03] MEDS: Magnesium Oxide 400 MG TABLET PO SCH ×2 (09:45→23:28)
[2020-02-03] MEDS: Isosorbide MONOnitrate (24 HR) 60 MG TAB.ER.24H PO SCH (09:45)
[2020-02-03] MEDS: Pregabalin 50 MG CAPSULE PO SCH ×3 (09:45→23:28)
[2020-02-03] MEDS: Fluticasone Propionate Nasal 50 MCG/SPRAY BOTTLE NS SCH (09:46)
[2020-02-03] MEDS: Famotidine 20 MG TABLET PO SCH (09:46)
[2020-02-03] MEDS ORDERED: rOPINIRole 1 MG TABLET PO SCH (21:00)
[2020-02-03] MEDS ORDERED: Melatonin 3 MG TABLET PO SCH (21:00)
[2020-02-03] MEDS ORDERED: Venlafaxine XR (24 HR) 37.5 MG CAP.ER.24H PO SCH (21:00)
[2020-02-03] MEDS: Insulin DETEMIR 100 UNIT/ML X5UNITS SQ SCH (23:32)
[2020-02-04] MEDS: *HR* Heparin 5,000 UNIT/ML VIAL SQ SCH ×2 (06:35→17:11)
[2020-02-04] MEDS: Metoprolol XL (24 HR) Succ 25 MG TAB.ER.24H PO SCH (08:49)
[2020-02-04] MEDS: Pregabalin 50 MG CAPSULE PO SCH ×2 (08:49→17:10)
[2020-02-04] MEDS: Venlafaxine XR (24 HR) 150 MG CAP.ER.24H PO SCH (08:50)
[2020-02-04] MEDS: Cyanocobalamin (B-12) 1,000 MCG TABLET PO SCH (08:50)
[2020-02-04] MEDS: Aspirin Enteric Coated 81 MG Tablet PO SCH (08:51)
[2020-02-04] MEDS: Famotidine 20 MG TABLET PO SCH (08:51)
[2020-02-04] MEDS: Furosemide 40 MG TABLET PO SCH (08:51)
[2020-02-04] MEDS: hydrOXYzine pamoate 25 MG CAPSULE PO SCH ×2 (08:51→17:26)
[2020-02-04] MEDS: Isosorbide MONOnitrate (24 HR) 60 MG TAB.ER.24H PO SCH (08:51)
[2020-02-04] MEDS: Magnesium Oxide 400 MG TABLET PO SCH (08:52)
[2020-02-04] MEDS: Ertapenem 1,000 MG in 0.9 % Sodium Chloride Mini Bag 100 ML IVPB SCH ×2 (08:52→14:15)
[2020-02-04] MEDS: Insulin LISPRO 300 UNITS/3 ML VIAL SQ SCH ×3 (08:53→17:11)
[2020-02-04] MEDS ORDERED: Fluconazole 200 MG/100 ML 200 MG/100 ML BAG IVPB SCH (09:00)
[2020-02-04] MEDS: Fluticasone Propionate Nasal 50 MCG/SPRAY BOTTLE NS SCH (11:20)
[2020-02-04 14:39] VITALS: BP 154/70
[2020-02-04] MEDS ORDERED: FLU Vac QV 20-21 (6Month+)/PF 0.5 ML SYRINGE IM ONE (15:43)
== END 2020-02-04 18:36 | DRG 689 ==
LOC: EMEROOARM 14:53 → 3ANU 14:53 → SUATTDRO 17:40 → 3ANU 20:32
PROVIDERS: ADMIT Internal Medicine; ATTEND Internal Medicine

== ENCOUNTER 2020-02-24 20:25 | Inpatient (IN) ==
[2020-02-24] MEDS ORDERED: Piperacillin/Tazobactam 3.375 GM in 0.9 % Sodium Chloride Mini Bag 100 ML IVP ONE (20:40)
[2020-02-24] MEDS ORDERED: Vancomycin 1,000 MG VIAL IVPB STA (20:40)
[2020-02-24] MEDS ORDERED: Naloxone 0.4 MG/ML INJ IVP ONE (20:43)
[2020-02-24] MEDS ORDERED: 0.9 % Sodium Chloride 1,000 ML IVC ONE (20:58)
[2020-02-24] MEDS ORDERED: Vancomycin 2,000 MG/520 ML IV.SOLN IVPB ONE (21:00)
[2020-02-24 21:35] LABS: VBG HCO3 27 mEq/L (21-27); VBG PCO2 58 mmHg (41-51); VBG PH 7.29 pH Units (7.32-7.42); VBG PO2 52 mmHg (25-50)
[2020-02-24] MEDS ORDERED: Acetaminophen 650 MG RECTAL SUPP RC ONE (21:41)
[2020-02-24 21:45] LABS: Basophils # 0.1 K/mcL (0.0-0.2); Basophils % 0.6 %; Eosinophils % 0.1 %; Immature Granulocytes % 0.5 % (0-4); Lymphocytes # 2.2 K/mcL (0.6-4.6); Lymphocytes % 22.8 %; Mean Corpuscular HGB Conc 30.8 g/dL (31.6-35.5); Mean Corpuscular Hemoglobin 27.5 pg (28.0-33.3); Mean Corpuscular Volume 89.3 fL (83.0-100.0); Mean Platelet Volume 10.3 fL (9.4-12.4); Monocytes # 0.7 K/mcL (0.0-1.3); Monocytes % 7.5 %; Neutrophils # 6.6 K/mcL (1.6-8.9); Platelet Count 272 K/mcL (140-400); Red Blood Count 5.71 M/mcL (3.82-4.97); Red Cell Distribution Width 15.4 % (11.5-14.5); Segmented Neutrophils % 68.5 %
[2020-02-24 21:46] LABS: Hemoglobin 15.7 g/dL (11.5-15.4); White Blood Count 9.7 K/mcL (4.3-11.1)
[2020-02-24 21:47] LABS: Amorphous Sediment,Urine Few per hpf (None-Few); Bacteria,Urine Few per hpf (None-Few); Bilirubin,Urine Negative (Negative); Blood,Urine Small (Negative); Clarity,Urine Turbid (Clear); Color,Urine Yellow (Yellow); Glucose,Urine (UA) Normal (Normal); Hyaline Casts,Urine Few per lpf (None Seen); Ketones,Urine Negative (Negative); Leukocyte Esterase,Urine Moderate (Negative); Mucus,Urine Few per lpf (None-Few); Nitrite,Urine Negative (Negative); PH,Urine 5.5 pH Units (5.0-8.0); Protein,Urine 200 mg/dL (Neg-Trace); Specific Gravity,Urine 1.023 (1.010-1.025); Squamous Epithelial Cell,Urine Moderate per hpf (None-Few); Urobilinogen,Urine Normal (Normal)
[2020-02-24 22:00] LABS: Albumin 3.7 g/dL (3.5-5.7); Albumin/Globulin Ratio 1.1 (1.1-2.2); Bilirubin,Direct 0.2 mg/dL (0.0-0.2); Bilirubin,Indirect 0.3 mg/dL (0.0-1.0); Bilirubin,Total 0.5 mg/dL (0.3-1.0); Calcium 9.3 mg/dL (8.6-10.3); Globulin 3.5 g/dL (2.4-3.5); Potassium 4.6 mEq/L (3.5-5.1); Total Protein 7.2 g/dL (6.4-8.9); Troponin I 0.04 ng/mL (< 0.04)
[2020-02-24] MEDS ORDERED: Cefepime HCl 2,000 MG in 0.9 % Sodium Chloride Mini Bag 100 ML IVPB STA (23:45)
[2020-02-25] MEDS ORDERED: Ondansetron 4 MG/2 ML VIAL IVP PRN (00:41)
[2020-02-25] MEDS ORDERED: Naloxone 0.4 MG/ML INJ IVP PRN (00:41)
[2020-02-25] MEDS ORDERED: Dexamethasone 4 MG/ML VIAL IVP ONE (02:21)
[2020-02-25] MEDS ORDERED: Ringers Solution, Lactated 1,000 ML ONE (02:23)
[2020-02-25] MEDS ORDERED: *HR* Dextrose 50 % in Water (Vial) 50 ML VIAL IVP PRN (02:30)
[2020-02-25] MEDS ORDERED: D5% in Water 1,000 ML IVC PRN (02:30)
[2020-02-25] MEDS ORDERED: Dextrose Gel 15 GM/37.5 ML TUBE PO PRN ×2 (02:30)
[2020-02-25] MEDS: Ringers Solution, Lactated 1,000 ML IVC ONE ×2 (02:39→12:34)
[2020-02-25] MEDS: Ringers Solution, Lactated 1,000 ML IVC SCH ×3 (02:40→23:57)
[2020-02-25 04:22] LABS: INR 1.2; Prothrombin Time 13.6 Seconds (9.4-12.1)
[2020-02-25] MEDS: Ampicillin 2 GM in 0.9 % Sodium Chloride Mini Bag 100 ML IVPB SCH ×6 (04:32→23:04)
[2020-02-25 04:44] LABS: Troponin I 0.04 ng/mL (< 0.04)
[2020-02-25 04:57] LABS: Alanine Aminotransferase 9 Units/L (7-52); Albumin 3.5 g/dL (3.5-5.7); Alkaline Phosphatase 50 Units/L (34-104); Aspartate Amino Transferase 30 Units/L (13-39); BUN/Creatinine Ratio 27 (6-26); Bilirubin,Total 0.5 mg/dL (0.3-1.0); Blood Urea Nitrogen 29 mg/dL (8-23); C-Reactive Protein 86 mg/L (Less than 10); Calcium 8.5 mg/dL (8.6-10.3); Carbon Dioxide 17 mEq/L (23-29); Chloride 115 mEq/L (98-107); Globulin 3.5 g/dL (2.4-3.5); Glucose 197 mg/dL (70-105); Lactate Dehydrogenase 614 Units/L (140-271); Magnesium 2.3 mg/dL (1.6-2.6); Osmolality,Calculated 315 (280-300); Phosphorous 3.3 mg/dL (2.7-4.5); Potassium 5.1 mEq/L (3.5-5.1); Sodium 147 mEq/L (136-145); eGFR For African Americans > 60 (> 60); eGFR For Non-African Americans 50 (> 60)
[2020-02-25] MEDS: *HR* Enoxaparin 40 MG/0.4 ML SYRINGE SQ SCH (06:15)
[2020-02-25] MEDS: Insulin LISPRO 300 UNITS/3 ML VIAL SQ SCH ×4 (06:17→23:48)
[2020-02-25] MEDS ORDERED: Isovue-370 500 ML BOTTLE IVP ONE (06:20)
[2020-02-25 06:35] LABS: Basophils % 0.4 %; Hematocrit 49.8 % (35.3-44.9); Hemoglobin 14.7 g/dL (11.5-15.4); Lymphocytes # 1.1 K/mcL (0.6-4.6); Lymphocytes % 11.9 %; Mean Corpuscular HGB Conc 29.5 g/dL (31.6-35.5); Mean Corpuscular Hemoglobin 26.7 pg (28.0-33.3); Mean Corpuscular Volume 90.5 fL (83.0-100.0); Mean Platelet Volume 10.4 fL (9.4-12.4); Monocytes # 0.2 K/mcL (0.0-1.3); Monocytes % 2.2 %; Neutrophils # 7.5 K/mcL (1.6-8.9); Platelet Count 224 K/mcL (140-400); Red Cell Distribution Width 15.4 % (11.5-14.5); Segmented Neutrophils % 84.5 %; White Blood Count 8.9 K/mcL (4.3-11.1)
[2020-02-25] MEDS: Cefepime HCl 2,000 MG in Water for inj. (sterile) 20 ML IVP SCH ×3 (08:31→23:03)
[2020-02-25] MEDS: Dexamethasone 4 MG/ML VIAL IVP SCH ×3 (08:32→20:36)
[2020-02-25] MEDS ORDERED: Metoprolol XL (24 HR) Succ 25 MG TAB.ER.24H PO SCH (09:00)
[2020-02-25] MEDS ORDERED: Famotidine 20 MG TABLET PO SCH (09:00)
[2020-02-25] MEDS ORDERED: Isosorbide MONOnitrate (24 HR) 60 MG TAB.ER.24H PO SCH (09:00)
[2020-02-25] MEDS ORDERED: Venlafaxine XR (24 HR) 150 MG CAP.ER.24H PO SCH (09:00)
[2020-02-25] MEDS ORDERED: Acetaminophen IV 1,000 MG/100 ML INFUS..BTL IVPB ONE (09:40)
[2020-02-25] MEDS ORDERED: Vancomycin 1,500 MG/265 ML IV.SOLN IVPB SCH (10:00)
[2020-02-25] MEDS: *HR* Metoprolol 5 MG/5 ML VIAL IVP PRN (18:58)
[2020-02-25] MEDS: Acetaminophen IV 1,000 MG/100 ML INFUS..BTL IVPB PRN (20:00)
[2020-02-25] MEDS: Vancomycin 1,750 MG/517.5 ML IV.SOLN IVPB SCH (20:31)
[2020-02-25] MEDS ORDERED: Insulin DETEMIR 100 UNIT/ML X5UNITS SQ SCH (21:00)
[2020-02-26] MEDS: *HR* Metoprolol 5 MG/5 ML VIAL IVP PRN ×2 (01:23→15:46)
[2020-02-26] MEDS: Dexamethasone 4 MG/ML VIAL IVP SCH ×2 (03:00→07:14)
[2020-02-26 03:06] LABS: Hematocrit 43.3 % (35.3-44.9); Hemoglobin 13.2 g/dL (11.5-15.4); Mean Corpuscular HGB Conc 30.5 g/dL (31.6-35.5); Mean Corpuscular Hemoglobin 26.3 pg (28.0-33.3); Mean Corpuscular Volume 86.3 fL (83.0-100.0); Mean Platelet Volume 10.3 fL (9.4-12.4); Platelet Count 217 K/mcL (140-400); Red Blood Count 5.02 M/mcL (3.82-4.97); Red Cell Distribution Width 15.1 % (11.5-14.5); White Blood Count 7.1 K/mcL (4.3-11.1)
[2020-02-26 03:16] LABS: INR 1.1; Prothrombin Time 12.4 Seconds (9.4-12.1)
[2020-02-26 03:30] LABS: C-Reactive Protein 45 mg/L (Less than 10)
[2020-02-26 03:32] LABS: BUN/Creatinine Ratio 38 (6-26); Blood Urea Nitrogen 29 mg/dL (8-23); Calcium 8.5 mg/dL (8.6-10.3); Carbon Dioxide 22 mEq/L (23-29); Chloride 117 mEq/L (98-107); Glucose 358 mg/dL (70-105); Osmolality,Calculated 328 (280-300); Potassium 3.8 mEq/L (3.5-5.1); Sodium 149 mEq/L (136-145); eGFR For African Americans > 60 (> 60); eGFR For Non-African Americans > 60 (> 60)
[2020-02-26 03:48] LABS: Ferritin 805 ng/mL (10-120)
[2020-02-26] MEDS: Ampicillin 2 GM in 0.9 % Sodium Chloride Mini Bag 100 ML IVPB SCH ×2 (05:31→07:14)
[2020-02-26] MEDS: *HR* Enoxaparin 40 MG/0.4 ML SYRINGE SQ SCH (05:31)
[2020-02-26] MEDS: Insulin LISPRO 300 UNITS/3 ML VIAL SQ SCH ×3 (05:40→16:09)
[2020-02-26] MEDS: Ringers Solution, Lactated 1,000 ML IVC SCH ×2 (06:53→07:14)
[2020-02-26] MEDS: Cefepime HCl 2,000 MG in Water for inj. (sterile) 20 ML IVP SCH (07:14)
[2020-02-26] MEDS ORDERED: Ertapenem 1,000 MG in 0.9 % Sodium Chloride Mini Bag 100 ML IVPB SCH (09:00)
[2020-02-26] MEDS: D5% in 0.45% NACL w KCl 20 MEQ/1,000 ML MLS IVC SCH ×2 (09:49→15:45)
[2020-02-26] MEDS ORDERED: 0.9 % Sodium Chloride 250 ML ONE (15:36)
[2020-02-26] MEDS: Insulin DETEMIR 100 UNIT/ML X5UNITS SQ SCH (21:02)
[2020-02-26] MEDS: Vancomycin 2,000 MG/520 ML IV.SOLN IVPB SCH (23:09)
[2020-02-27] MEDS: Vancomycin 1,750 MG/517.5 ML IV.SOLN IVPB SCH (00:34)
[2020-02-27] MEDS: Insulin LISPRO 300 UNITS/3 ML VIAL SQ SCH ×5 (00:35→23:34)
[2020-02-27] MEDS: *HR* Enoxaparin 40 MG/0.4 ML SYRINGE SQ SCH (04:55)
[2020-02-27 05:53] LABS: INR 1.1; Prothrombin Time 12.6 Seconds (9.4-12.1)
[2020-02-27 06:02] LABS: Alanine Aminotransferase 9 Units/L (7-52); Albumin 3.1 g/dL (3.5-5.7); Alkaline Phosphatase 50 Units/L (34-104); Aspartate Amino Transferase 16 Units/L (13-39); BUN/Creatinine Ratio 34 (6-26); Bilirubin,Direct 0.2 mg/dL (0.0-0.2); Bilirubin,Indirect 0.3 mg/dL (0.0-1.0); Bilirubin,Total 0.5 mg/dL (0.3-1.0); Blood Urea Nitrogen 25 mg/dL (8-23); Calcium 9.2 mg/dL (8.6-10.3); Carbon Dioxide 23 mEq/L (23-29); Chloride 118 mEq/L (98-107); Glucose 349 mg/dL (70-105); Lactate Dehydrogenase 331 Units/L (140-271); Osmolality,Calculated 328 (280-300); Potassium 3.6 mEq/L (3.5-5.1); Sodium 150 mEq/L (136-145); Total Protein 6.1 g/dL (6.4-8.9); eGFR For African Americans > 60 (> 60); eGFR For Non-African Americans > 60 (> 60)
[2020-02-27 06:18] LABS: Ferritin 651 ng/mL (10-120)
[2020-02-27 07:42] LABS: Hematocrit 42.9 % (35.3-44.9); Hemoglobin 13.5 g/dL (11.5-15.4); Mean Corpuscular HGB Conc 31.5 g/dL (31.6-35.5); Mean Corpuscular Hemoglobin 27.3 pg (28.0-33.3); Mean Corpuscular Volume 86.8 fL (83.0-100.0); Mean Platelet Volume 11.1 fL (9.4-12.4); Platelet Count 250 K/mcL (140-400); Red Blood Count 4.94 M/mcL (3.82-4.97); Red Cell Distribution Width 14.7 % (11.5-14.5); White Blood Count 11.7 K/mcL (4.3-11.1)
[2020-02-27] MEDS ORDERED: Potassium Chloride 20 MEQ in D5% in Water 1,000 ML IVC SCH (07:45)
[2020-02-27] MEDS: Dexamethasone 4 MG/ML VIAL IVP SCH (07:59)
[2020-02-27] MEDS: Insulin DETEMIR 100 UNIT/ML X5UNITS SQ SCH ×2 (08:00→20:46)
[2020-02-27 09:19] LABS: C-Reactive Protein 19 mg/L (Less than 10)
[2020-02-27] MEDS: *HR* Metoprolol 5 MG/5 ML VIAL IVP PRN ×2 (13:04→20:46)
[2020-02-27] MEDS ORDERED: 0.9 % Sodium Chloride 500 ML ONE (14:57)
[2020-02-27 16:10] LABS: BUN/Creatinine Ratio 38 (6-26); Blood Urea Nitrogen 24 mg/dL (8-23); Carbon Dioxide 24 mEq/L (23-29); Chloride 116 mEq/L (98-107); Glucose 319 mg/dL (70-105); Osmolality,Calculated 322 (280-300); Potassium 3.5 mEq/L (3.5-5.1); Sodium 148 mEq/L (136-145); eGFR For African Americans > 60 (> 60); eGFR For Non-African Americans > 60 (> 60)
[2020-02-27] MEDS ORDERED: Haloperidol Lactate 5 MG/ML VIAL IVP ONE (19:35)
[2020-02-27] MEDS: Vancomycin 2,000 MG/520 ML IV.SOLN IVPB SCH (23:00)
[2020-02-28] MEDS: Ketorolac 15 MG/ML VIAL IVP SCH ×5 (01:05→23:07)
[2020-02-28 03:32] LABS: Hematocrit 43.5 % (35.3-44.9); Mean Corpuscular HGB Conc 32.2 g/dL (31.6-35.5); Mean Corpuscular Hemoglobin 27.6 pg (28.0-33.3); Mean Corpuscular Volume 85.8 fL (83.0-100.0); Mean Platelet Volume 10.7 fL (9.4-12.4); Platelet Count 285 K/mcL (140-400); Red Blood Count 5.07 M/mcL (3.82-4.97); Red Cell Distribution Width 14.7 % (11.5-14.5); White Blood Count 14.7 K/mcL (4.3-11.1)
[2020-02-28 03:51] LABS: BUN/Creatinine Ratio 36 (6-26); Blood Urea Nitrogen 23 mg/dL (8-23); Calcium 9.3 mg/dL (8.6-10.3); Carbon Dioxide 22 mEq/L (23-29); Chloride 117 mEq/L (98-107); Glucose 259 mg/dL (70-105); Osmolality,Calculated 325 (280-300); Potassium 3.3 mEq/L (3.5-5.1); Sodium 151 mEq/L (136-145); eGFR For African Americans > 60 (> 60); eGFR For Non-African Americans > 60 (> 60)
[2020-02-28] MEDS ORDERED: Haloperidol Lactate 5 MG/ML VIAL IM ONE (04:26)
[2020-02-28] MEDS: *HR* Enoxaparin 40 MG/0.4 ML SYRINGE SQ SCH (05:00)
[2020-02-28] MEDS: Insulin LISPRO 300 UNITS/3 ML VIAL SQ SCH ×4 (05:22→23:28)
[2020-02-28] MEDS: *HR* Metoprolol 5 MG/5 ML VIAL IVP PRN ×3 (05:51→22:14)
[2020-02-28] MEDS ORDERED: Potassium Chloride 40 MEQ in D5% in 0.45% NACL 1,000 ML IVC SCH (07:30)
[2020-02-28] MEDS: Potassium Chloride 20 MEQ in D5% in Water 1,000 ML IVC SCH ×2 (08:11→18:12)
[2020-02-28] MEDS: Insulin DETEMIR 100 UNIT/ML X5UNITS SQ SCH ×2 (08:12→21:39)
[2020-02-28] MEDS: Dexamethasone 4 MG/ML VIAL IVP SCH (08:12)
[2020-02-28] MEDS ORDERED: Insulin DETEMIR 100 UNIT/ML X5UNITS SQ SCH (09:00)
[2020-02-28] MEDS: Acetaminophen IV 1,000 MG/100 ML INFUS..BTL IVPB PRN (14:15)
[2020-02-28] MEDS: Vancomycin 2,000 MG/520 ML IV.SOLN IVPB SCH (23:06)
[2020-02-29] MEDS ORDERED: Haloperidol Lactate 5 MG/ML VIAL IVP ONE ×2 (01:55→04:59)
[2020-02-29 03:45] LABS: Prothrombin Time 12.1 Seconds (9.4-12.1)
[2020-02-29 03:47] LABS: Hematocrit 44.4 % (35.3-44.9); Hemoglobin 13.6 g/dL (11.5-15.4); Mean Corpuscular HGB Conc 30.6 g/dL (31.6-35.5); Mean Corpuscular Hemoglobin 26.5 pg (28.0-33.3); Mean Corpuscular Volume 86.4 fL (83.0-100.0); Mean Platelet Volume 11.1 fL (9.4-12.4); Platelet Count 253 K/mcL (140-400); Red Blood Count 5.14 M/mcL (3.82-4.97); Red Cell Distribution Width 14.4 % (11.5-14.5); White Blood Count 12.7 K/mcL (4.3-11.1)
[2020-02-29 04:06] LABS: BUN/Creatinine Ratio 35 (6-26); Blood Urea Nitrogen 22 mg/dL (8-23); C-Reactive Protein 6 mg/L (Less than 10); Calcium 8.7 mg/dL (8.6-10.3); Carbon Dioxide 22 mEq/L (23-29); Chloride 111 mEq/L (98-107); Glucose 324 mg/dL (70-105); Lactate Dehydrogenase 301 Units/L (140-271); Magnesium 1.9 mg/dL (1.6-2.6); Osmolality,Calculated 316 (280-300); Potassium 3.3 mEq/L (3.5-5.1); Sodium 145 mEq/L (136-145); eGFR For African Americans > 60 (> 60); eGFR For Non-African Americans > 60 (> 60)
[2020-02-29 04:24] LABS: Ferritin 715 ng/mL (10-120)
[2020-02-29 04:51] LABS: ABG Base Excess 1 mEq/L (-2 to 3); ABG HCO3 24 mEq/L (21-27); ABG Oxygen Saturation 91 % (95-98); ABG PCO2 35 mmHg (35-45); ABG PH 7.45 pH Units (7.32-7.45); ABG PO2 57 mmHg (85-104); ABG TCO2 25 mEq/L (20-26)
[2020-02-29] MEDS ORDERED: *HR* Promethazine 25 MG/ML VIAL IM ONE (04:56)
[2020-02-29] MEDS: Ketorolac 15 MG/ML VIAL IVP SCH ×3 (05:08→17:33)
[2020-02-29] MEDS: *HR* Enoxaparin 40 MG/0.4 ML SYRINGE SQ SCH (05:08)
[2020-02-29] MEDS: Insulin LISPRO 300 UNITS/3 ML VIAL SQ SCH ×3 (05:25→17:56)
[2020-02-29] MEDS: *HR* Metoprolol 5 MG/5 ML VIAL IVP PRN ×2 (05:51→18:47)
[2020-02-29] MEDS: Dexamethasone 4 MG/ML VIAL IVP SCH (08:47)
[2020-02-29] MEDS: Insulin DETEMIR 100 UNIT/ML X5UNITS SQ SCH ×2 (08:48→21:09)
[2020-02-29] MEDS ORDERED: Potassium Chloride 20 MEQ, Lidocaine 1% 2 ML in 0.9 % Sodium Chloride 250 ML IVPB ONE (08:54)
[2020-02-29] MEDS ORDERED: Morphine Sulfate Oral CONC 10 MG/0.5 ML ORAL.SYG SL PRN (11:41)
[2020-02-29] MEDS: Haloperidol Lactate 5 MG/ML VIAL IVP PRN (14:34)
[2020-02-29] MEDS: Morphine Sulfate Oral CONC 10 MG/0.5 ML ORAL.SYG SL SCH (21:09)
[2020-02-29] MEDS ORDERED: *HR* Metoprolol 5 MG/5 ML VIAL IVP ONE (22:13)
[2020-02-29] MEDS: Vancomycin 2,000 MG/520 ML IV.SOLN IVPB SCH (23:24)
[2020-03-01] MEDS: Ketorolac 15 MG/ML VIAL IVP SCH ×2 (00:49→04:23)
[2020-03-01] MEDS: *HR* Metoprolol 5 MG/5 ML VIAL IVP PRN (00:50)
[2020-03-01] MEDS: Insulin LISPRO 300 UNITS/3 ML VIAL SQ SCH ×3 (00:52→11:39)
[2020-03-01] MEDS: *HR* Enoxaparin 40 MG/0.4 ML SYRINGE SQ SCH (03:21)
[2020-03-01] MEDS: Haloperidol Lactate 5 MG/ML VIAL IVP PRN (04:24)
[2020-03-01] MEDS: Morphine Sulfate Oral CONC 10 MG/0.5 ML ORAL.SYG SL SCH ×4 (05:05→11:24)
[2020-03-01] MEDS: Dexamethasone 4 MG/ML VIAL IVP SCH (07:38)
[2020-03-01] MEDS: Insulin DETEMIR 100 UNIT/ML X5UNITS SQ SCH (07:41)
[2020-03-01] MEDS ORDERED: *HR* LORazepam 2 MG/ML VIAL IVP PRN (10:43)
[2020-03-01] MEDS ORDERED: Morphine Sulfate 2 MG/ML SYRINGE IVP PRN (10:44)
[2020-03-01] MEDS: Acetaminophen IV 1,000 MG/100 ML INFUS..BTL IVPB PRN (12:51)
[2020-03-01] MEDS ORDERED: *HR* FentaNYL (PF) 100 MCG/2 ML VIAL IVP PRN (15:43)
[2020-03-01] MEDS: FentaNYL (PF) 1,000 MCG/100 ML IV.SOLN IVC SCH (16:23)
[2020-03-01] MEDS: Atropine Sulfate 1% 40 DROP/2 ML BOTTLE SL PRN ×2 (17:23→19:41)
[2020-03-01] MEDS: *HR* LORazepam 2 MG/ML VIAL IVP PRN ×3 (17:23→22:15)
[2020-03-02] MEDS: Acetaminophen IV 1,000 MG/100 ML INFUS..BTL IVPB PRN ×2 (00:34→08:18)
[2020-03-02] MEDS: *HR* LORazepam 2 MG/ML VIAL IVP PRN (00:36)
[2020-03-02] MEDS: FentaNYL (PF) 1,000 MCG/100 ML IV.SOLN IVC SCH (07:28)
[2020-03-02 07:42] VITALS: BP 72/39
== END 2020-03-02 12:55 | disposition expired | DRG 871 ==
LOC: EMEROOARM 20:25 → 2NENU 20:25 → OBSVTOIN 02-25 00:31 → SUATTDRO 02-25 00:31 → 2NENU 02-25 01:58
PROVIDERS: ADMIT Internal Medicine; ATTEND Internal Medicine